=== PATIENT | male | born 1950 | race African-American/Black ===

== ENCOUNTER 2017-04-25 17:12 | Inpatient (IN) | payer OTHER ==
[~2017-04-25] VITALS: Ht 177.8 cm; Wt 94.8 kg
[~2017-04-25 17:12] MED LIST: ACET-2869 GT; ACET-9645 GT; ASCO500S14 GT; ATOR20TA GT; ATRN NEB; BISA10SU1 RC; CAR30 GT; CARV12.5 GT; CHOL400T7 GT; COL100L GT; COM25S RC; FERR75LI22 GT; INSU100S5 SUBQ; LANS30EC3 GT; LANTUS SUBQ; MAGN400S60 GT; MEDI30SO GT; MIRABULK GT; MULT15LI1 GT; NA P135N9 RC; POLY15SO48 OP; PREOS OP; PRON NEB; VITA100032 GT; [UNRECOGNIZED DRUG - CODE] GT; [UNRECOGNIZED DRUG - CODE] GT; [UNRECOGNIZED DRUG - CODE] GT
[2017-04-25 17:19] VITALS: BP 120/77
--- NOTE | 2017-04-25 17:26 | NUR ---
PATIENT BIBA DUE TO SZ. PER EMS PT HAD A TONIC CLONIC SZ THAT LASTED FOR 10 MINUTES.PT HAS A HX OF HTN;DM;PT IS NON VERBAL;HAS TRACHEOSTOMY/COLOSTOMY AND G TUBE; PATIENT POSITIONED FOR COMFORT; HOB ELEVATED; BEDRAILS UP X2; BED DOWN. ALL MONITORS IN PLACED;ER MD MADE AWARE OF PT STATUS.
[2017-04-25] MEDS ORDERED: ALPH300C GT (17:40)
[2017-04-25] MEDS ORDERED: PHEN100C3 GT (17:40)
[2017-04-25] MEDS ORDERED: FLOR250 GT (17:40)
[2017-04-25] MEDS ORDERED: levETIRAcetam 1,000 MG in NACL 0.9% 100 ML IV ONE (17:40)
[2017-04-25] MEDS ORDERED: VITB6I GT (17:40)
[2017-04-25] MEDS ORDERED: CLOP75TA26 GT (17:40)
[2017-04-25] MEDS ORDERED: CYAN250013 GT (17:40)
[2017-04-25] MEDS ORDERED: levETIRAcetam 100 MG/ML VIAL IV ONE (17:52)
--- NOTE | 2017-04-25 18:00 | NUR ---
PT HAD A SZ EPISODE;CHARGE NURSE AND ER MD NOTIFIED;SAFETY MEASURES DONE;OXYGENATION INSTITUTED;
[2017-04-25] MEDS ORDERED: LORazepam 2 MG/ML VIAL ONE (18:07)
[2017-04-25] MEDS ORDERED: LORazepam 2 MG/ML VIAL IVP ONE (18:10)
[2017-04-25 18:37] LABS: BASOPHILS # (AUTO) 0.3 K/uL (0.00-0.22); BASOPHILS % (AUTO) 3.2 % (0.0-2.0); EOSINOPHILS # (AUTO) 0.1 K/uL (0-0.4); HEMATOCRIT 36.5 % (36-52); HEMOGLOBIN 12.1 g/dL (12.0-18.0); LYMPHOCYTES # (AUTO) 1.3 K/uL (2.0-11.5); LYMPHOCYTES % (AUTO) 14.3 % (20.5-51.1); MEAN CORPUSCULAR HEMOGLOBIN 27 pg (27-31); MEAN CORPUSCULAR HGB CONC 33 g/dL (33-37); MEAN CORPUSCULAR VOLUME 82 fL (80-94); MONOCYTES # (AUTO) 0.4 K/uL (0.8-1.0); MONOCYTES % (AUTO) 4.1 % (1.7-9.3); NEUTROPHILS # (AUTO) 7.2 K/uL (1.8-7.7); NEUTROPHILS % (AUTO) 77.4 % (42.2-75.2); PLATELET COUNT (AUTO) 240 K/uL (140-450); RED BLOOD CELL COUNT(AUTO) 4.46 MIL/uL (4.20-6.10); RED CELL DISTRIBUTION WIDTH 12.9 % (11.6-13.7); WHITE BLOOD COUNT (AUTO) 9.3 K/uL (4.8-10.8)
[2017-04-25 18:38] LABS: ANION GAP 14.2 (8-16); CARBON DIOXIDE 28.2 mmol/L (21-32); CHLORIDE 98 mmol/L (98-107); CREATININE 1.5 mg/dL (0.7-1.3); GFR ARICAN-AMERICAN 60 mL/min (>90); GLUCOSE 252 mg/dL (74-106); POTASSIUM 4.4 mmol/L (3.5-5.1); SODIUM SERUM 136 mmol/L (136-145); UREA NITROGEN, BLOOD 31 mg/dL (7-18)
[2017-04-25 18:45] LABS: ALBUMIN 3.1 g/dL (3.4-5.0); ASPARTATE AMINOTRANSFERASE 28 U/L (15-37); TOTAL BILIRUBIN 0.1 mg/dL (0.0-1.0); VALPROIC ACID < 3 ug/ml (50-100)
[2017-04-25 18:46] LABS: PHENYTOIN (DILANTIN) 9.6 ug/ml (10.0-20.0)
--- NOTE | 2017-04-25 19:10 | NUR ---
CHARGE NURSE AND I TRIED TO PUT CATHETER TO PT 3 X BUT NOT SUCCESSFUL;ER NOTIFIED;
--- NOTE | 2017-04-25 19:24 | NUR ---
Pt report given to AKI CALDWELL. Transfer of care at this time.
[2017-04-25] MEDS ORDERED: PHENYTOIN 1,000 MG in NACL 0.9% 100 ML IV ONE (19:25)
--- NOTE | 2017-04-25 19:26 | NUR ---
PT ALSEEP, ON MONITOR, SLIGHTY TACHY, NO OTHER S/S OF DISTRESS NOTED AT THE MOMENT.
[2017-04-25] MEDS ORDERED: PHENYTOIN 250 MG/5 ML VIAL IV ONE (19:30)
[2017-04-25 20:06] LABS: APPEARANCE,URINE CLOUDY (CLEAR); BILIRUBIN,URINE 1+ (NEGATIVE); BLOOD, URINE 3+ (NEGATIVE); COLOR,URINE YELLOW (YELLOW); LEUKOCYTE ESTERASE ,URINE 3+ (NEGATIVE); NITRITE, URINE NEGATIVE (NEGATIVE); PH,URINE 7.5 (5.0-9.0); UGLUCOSE NEGATIVE (NEGATIVE)
[2017-04-25] MEDS ORDERED: cefTRIAXone 2,000 MG in DEXTROSE 5% 100 ML IV ONE (20:15)
[2017-04-25 20:16] LABS: RBC,URINE TOO NUMEROUS TO COUN /HPF (0-5)
[2017-04-25] MEDS ORDERED: cefTRIAXone 2,000 MG VIAL ONE (20:23)
--- NOTE | 2017-04-25 21:00 | NUR ---
PATIENT TRANSFERRED FROM ER TO ROOM 124A ON 4LPM VIA T=PIECE AND THEN PLACED ON 35% AEROSOL MIST VIA T-PIECE. PATIENT HAS PORTEX 7 CUFFLESS TRACH NO SOB/RESP DISTRESS DURING TRANSPORT. HR 97, SAO2 100% RR 20BPM
--- NOTE | 2017-04-25 21:04 | NUR ---
PT TRASFERED TO TELEMETRY ROOM 124B, ACCOMPANIED BY RN AND EMT.
--- NOTE | 2017-04-25 21:14 | NUR ---
REPORT GIVEN TO AKI ENGLAND AT BEDSIDE
[2017-04-25 21:20] VITALS: BP 119/70
--- NOTE | 2017-04-25 21:20 | NUR ---
RECEIVED PT FROM ER VIA [employer]. PT EYES CLOSED, APHASIC. PT HAS TRACH. RT PLACED PT ON 35% AEROSOL MIST VIA T-PIECE. G-TUBE IN PLACE. COLOSTOMY BAG INTACT WITH BROWN SOFT STOOL. NO SEIZURES NOTED. NO S/S OF DISTRESS. SAFETY, ASPIRATION AND SEIZURE PRECAUTION IN PLACE. WILL CONTINUE TO MONITOR.
--- NOTE | 2017-04-25 23:05 | NUR ---
REPOSITIONED PT Q2H. SCD'S APPLIED. NO SEIZURE ACTIVITY NOTED. SAFETY AND SEIZURE PRECAUTION IN PLACE.
[2017-04-26] VITALS: BP 111/72
--- NOTE | 2017-04-26 00:20 | NUR ---
CALLED DR. MARQUES. RECEIVED TEL ORDERS. ORDERS NOTED AND WILL CARRY OUT.
--- NOTE | 2017-04-26 02:14 | NUR ---
CHECKED GT RESIDUAL 5ML. STARTED TF DIABETISOURCE ORDERED. FEEDING TOLERATED WELL. ASPIRATION,FALL AND SEIZURE PRECAUTION IN PLACE. WILL CONTINUE TO MONITOR.
[2017-04-26 04:00] VITALS: BP 127/83
--- NOTE | 2017-04-26 04:21 | NUR ---
PT EYES OPEN BUT DOESN'T FOLLOW COMMANDS. COLOSTOMY BAG LEAKED. CLEANED PT AND CHANGED COLOSTOMY BAG. REPOSITIONED PT. PT TOLERATING FEEDING WELL. SEIZURE, SAFETY AND ASPIRATION PRECAUTION IN PLACE.
--- NOTE | 2017-04-26 06:10 | NUR ---
PT RESTING IN BED WITH EYES CLOSED. NO S/S OF DISTRESS. NO SEIZURE ACTIVITY NOTED. PT REPOSITIONED Q2H. NO S/S OF PAIN. SAFETY, SEIZURE AND ASPIRATION PRECAUTION IN PLACE.
[2017-04-26 06:32] LABS: BASOPHILS % (AUTO) 0.4 % (0.0-2.0); EOSINOPHILS % (AUTO) 0.5 % (0.0-4.0); HEMATOCRIT 31.4 % (36-52); HEMOGLOBIN 10.7 g/dL (12.0-18.0); LYMPHOCYTES # (AUTO) 1.7 K/uL (2.0-11.5); LYMPHOCYTES % (AUTO) 18.9 % (20.5-51.1); MEAN CORPUSCULAR HEMOGLOBIN 28 pg (27-31); MEAN CORPUSCULAR HGB CONC 34 g/dL (33-37); MEAN CORPUSCULAR VOLUME 83 fL (80-94); MONOCYTES # (AUTO) 1.2 K/uL (0.8-1.0); MONOCYTES % (AUTO) 12.9 % (1.7-9.3); NEUTROPHILS # (AUTO) 6.2 K/uL (1.8-7.7); NEUTROPHILS % (AUTO) 67.3 % (42.2-75.2); PLATELET COUNT (AUTO) 192 K/uL (140-450); RED CELL DISTRIBUTION WIDTH 12.6 % (11.6-13.7); WHITE BLOOD COUNT (AUTO) 9.1 K/uL (4.8-10.8)
[2017-04-26 06:39] LABS: ALBUMIN 2.7 g/dL (3.4-5.0); ANION GAP 9.4 (8-16); CARBON DIOXIDE 30.8 mmol/L (21-32); CREATININE 1.4 mg/dL (0.7-1.3); POTASSIUM 4.2 mmol/L (3.5-5.1); TOTAL BILIRUBIN 0.2 mg/dL (0.0-1.0)
--- NOTE | 2017-04-26 07:10 | NUR ---
ENDORSED PT TO DAY SHIFT NURSE. PT IN STABLE CONDITION.
--- NOTE | 2017-04-26 07:30 | NUR ---
RECEIVED PT REPORT FROM AGRICULTURAL APPRAISER NURSE. PT OPENS EYES SPONTANEOUSLY, APHASIC, DOES NOT FOLLOW COMMAND. PT HAS TRACH, FIO2 35% AEROSOL MIST VIA T-PIECE. IV NOTED TO THE LEFT AC, 20G, PATENT AND INTACT, SL. G-TUBE IN PLACE. COLOSTOMY BAG INTACT, NO STOOL NOTED AT THIS TIME. HEALING SACRAL WOUND NOTED TO THE SACRAL. NO SEIZURES NOTED. NO S/S OF DISTRESS. NO EDEMA NOTED. BLE/BUE SEVERE WEAKNESS. SAFETY, ASPIRATION AND SEIZURE PRECAUTION IN PLACE. WILL CONTINUE TO MONITOR. Addendum: 04/26/17 at 1241 by Saad Hall RN DIABETISOURCE RUNNING AT 50ML/HR, RESIDUAL 0ML.
[2017-04-26 08:00] VITALS: BP 134/76
[2017-04-26] MEDS ORDERED: SODIUM PHOSPHATE 118 ML ENEM RC PRN (08:30)
[2017-04-26] MEDS ORDERED: PROCHLORPERAZINE 25 MG SUPP RC PRN (08:30)
[2017-04-26] MEDS ORDERED: HYDROcodone/APAP 7.5/325 MG 1 TAB GT PRN (08:30)
[2017-04-26] MEDS ORDERED: ACETAMINOPHEN 650 MG/20.3 ML UDC GT PRN (08:30)
[2017-04-26] MEDS ORDERED: DOCUSATE 100 MG/10 ML UDC GT PRN (08:30)
[2017-04-26] MEDS ORDERED: BISACODYL 10 MG SUPP RC PRN (08:30)
[2017-04-26] MEDS ORDERED: MAGNESIUM HYDROXIDE 2400 MG/30 ML UDC GT PRN (08:30)
[2017-04-26] MEDS ORDERED: CARVEDILOL 12.5 MG TAB GT SCH (09:00)
[2017-04-26] MEDS ORDERED: LACTOBACILLUS REUTERI GT SCH (09:00)
[2017-04-26] MEDS ORDERED: POLYETHYLENE GLYCOL 17 GM/PKT GT SCH (09:00)
[2017-04-26] MEDS ORDERED: HYDROcodone/APAP 5/325 MG 1 TAB TAB GT SCH (09:00)
[2017-04-26] MEDS ORDERED: CYANOCOBALAMIN 500 MCG GT SCH (09:00)
[2017-04-26] MEDS ORDERED: ALPHA LIPOIC ACID 300 MG GT SCH (09:00)
[2017-04-26] MEDS ORDERED: FIBER GT SCH (09:00)
[2017-04-26] MEDS ORDERED: AMINO ACIDS GT SCH (09:00)
[2017-04-26] MEDS ORDERED: [UNRECOGNIZED DRUG - OTHER] GT SCH (09:00)
[2017-04-26] MEDS ORDERED: CLOPIDOGREL 75 MG TAB GT SCH (09:00)
[2017-04-26] MEDS ORDERED: LANSOPRAZOLE 30 MG CAPDR GT SCH (09:00)
[2017-04-26] MEDS ORDERED: levETIRAcetam 100 MG/ML ORASYR GT SCH (09:00)
[2017-04-26] MEDS ORDERED: NON-FORMULARY ITEM (Saccharomyces Boulardii* (Florastor*) 250 MG) GT SCH (09:00)
[2017-04-26] MEDS ORDERED: prednisoLONE 1% OP 5 ML BTL RIGHT EYE SCH (09:00)
[2017-04-26] MEDS ORDERED: PROTEIN HYDR GT SCH (09:00)
[2017-04-26] MEDS ORDERED: POLYVINYL ALCOHOL 1.4% OP 15 ML SOL BOTH EYES SCH (09:00)
[2017-04-26] MEDS ORDERED: ATORVASTATIN 20 MG TAB GT SCH (09:00)
[2017-04-26] MEDS ORDERED: PHENYTOIN 100 MG/4 ML UDC GT SCH (09:00)
[2017-04-26] MEDS ORDERED: VITAMIN A GT SCH (09:00)
[2017-04-26] MEDS ORDERED: NON-FORMULARY ITEM (Ferrous Sulfate 330 MG) GT SCH (09:00)
[2017-04-26] MEDS ORDERED: CHOLECALCIFEROL GT SCH (09:00)
[2017-04-26] MEDS ORDERED: VITAMIN D 400 IU TAB GT SCH (09:05)
[2017-04-26] MEDS ORDERED: CYANOCOBALAMIN 1,000 MCG TAB GT SCH (09:05)
--- NOTE | 2017-04-26 09:35 | NUR ---
SPOKE WITH PT'S MOTHER, MADE HER AWARE THAT PT WILL BE TRANSFERRED BACK TO [facility] PER [place] MARQUES'S ORDER. SHE VERBALIZED UNDERSTANDING.
--- NOTE | 2017-04-26 09:45 | NUR ---
G TUBE RESIDUAL 0ML. MEDS GIVEN THROUGH G-TUBE. PT TOLERATED WELL.
--- NOTE | 2017-04-26 09:57 | NUR ---
CALLED [facility] [phone], SPOKE WITH BASIL AND STATED PT CAN GO BACK TO ROOM HIS ROOM 3-C BUT THEIR MAXIMUM ACCEPTED LEVEL OF AEROSOL MIST ON A T-BAR IS 3 LITERS NOT 6 LITERS. SPOKE WITH RESPIRATORY THERAPIST NICOLE AND STATED TO DECREASE IT DOWN TO 3 LITERS AND WILL SEE IF PT CAN TOLERATE IT. GARRETT PRABHAKAR IN CHARGE NOTIFIED.
--- NOTE | 2017-04-26 10:10 | NUR ---
PT URINATED, PT WAS CLEANED WITH WIPES AND PAT DRY. CHUX AND GOWN CHANGED. REPOSITION PT TO THE RIGHT LATERAL POSITION.
--- NOTE | 2017-04-26 10:22 | NUR ---
DISCHARGE TO [facility] REMOVED FROM COOL AEROSOL PLACED ON SUPPLEMENTAL OXYGEN AT 3 LPM TO TRACH WITH POSSIBLE TITRATION TO 2 LPM PSYCHIATRIC NURSE TO MONITOR Addendum: 04/26/17 at 1031 by Geo Hodge RT GARRETT/AKI HERNANDEZ
--- NOTE | 2017-04-26 10:30 | NUR ---
PIC OF HEALING SACRAL WOUND TAKEN.
--- NOTE | 2017-04-26 10:31 | NUR ---
TITRATED FIO2 TO 2LPM TO MAXX TUCKER/RN AWARE
--- NOTE | 2017-04-26 10:42 | NUR ---
MEDICATION WAS GIVEN AT 0950. RT CLOSED THE [employer] PROGRAM BEFORE IT WAS SAVED. MANUALLY ENTERED MEDICATION ADMINISTRATION.
--- NOTE | 2017-04-26 10:49 | NUR ---
PT IS ON 2L VIA T-PIECE, NO S/S OF DISTRESS. O2 SAT 98%.
--- NOTE | 2017-04-26 11:00 | NUR ---
SPOKE WITH LISANDRO FROM [facility], PT WILL BE PICKED UP AT 1145 HRS VIA [facility]. FACE SHEET AND MEDICARE FORM FAXED AND RECEIVED CONFIRMED BY LISANDRO. GARRETT PRABHAKAR NOTIFIED.
--- NOTE | 2017-04-26 11:20 | NUR ---
CALLED [facility], PT REPORT GIVEN TO BASIL. PT WILL GO TO ROOM 3C. ACCEPTING MD IS DR MARQUES.
[2017-04-26] MEDS ORDERED: ROC2I IV (11:36)
[2017-04-26] MEDS ORDERED: KEP500 GT (11:37)
--- NOTE | 2017-04-26 11:50 | NUR ---
[facility] IS HERE TO TRANSFER PT BACK TO [facility]. PT IS DISCHARGED PER DR MARQUES'S ORDER. PT IS TRANSFERRED WITH 2L O2 VIA TRACH, WITH TELE MONITOR. G-TUBE FEEDING STOPPED, CLOSED TO PT. COLOSTOMY BAG INTACT. IV TO THE LEFT AC, PATENT AND INTACT. PT SHOWED NO S/S OF ACUTE DISTRESS. PT IS IN STABLE CONDITION AND LEFT UNIT IN [facility]. DISCHARGE PAPER AND BELONGING WERE GIVEN TO EMT.
[2017-04-26] MEDS ORDERED: DILTIAZEM 30 MG TAB GT SCH (12:00)
[2017-04-26] MEDS ORDERED: ALBUTEROL 0.083% 2.5 MG/3 ML NEBU INH SCH (13:00)
[2017-04-26] MEDS ORDERED: IPRATROPIUM 0.02% 0.5 MG/2.5 ML NEBU INH SCH (13:00)
[2017-04-26] MEDS ORDERED: cefTRIAXone 2,000 MG in DEXTROSE 5% 100 ML IV SCH (21:00)
[2017-04-26] MEDS ORDERED: INSULIN LANTUS 100 UNITS/ML 10 ML VIAL SUBQ SCH (21:00)
[2017-04-26] MEDS ORDERED: FERROUS SULFATE 300 MG/5 ML UDC GT SCH (21:00)
[2017-04-26] MEDS ORDERED: LACTOBACILLUS RHAMNOSUS GG 1 EACH CAP GT SCH (21:00)
[2017-04-27] MEDS ORDERED: CYANOCOBALAMIN 1,000 MCG TAB GT SCH (09:00)
[2017-04-27] MEDS ORDERED: VITAMIN D 400 IU TAB GT SCH (09:00)
--- NOTE | 2017-04-28 08:39 | NUR ---
WOUND EVALUATION NOT DONE, PT. DISCHARGED
== END 2017-04-26 11:55 | disposition home or self-care (01) | DRG 101 ==
LOC: MED 17:12 → MTU 20:55
PROVIDERS: ADMIT Family Medicine; ATTEND Family Medicine
DX: G40.909 Epilepsy, unspecified, not intractable, without status epilepticus (principal); L89.150 Pressure ulcer of sacral region, unstageable; J96.10 Chronic respiratory failure, unspecified whether with hypoxia or hypercapnia; E11.22 Type 2 diabetes mellitus with diabetic chronic kidney disease; G93.89 Other specified disorders of brain; E44.1 Mild protein-calorie malnutrition; N39.0 Urinary tract infection, site not specified; H33.21 Serous retinal detachment, right eye; Z93.0 Tracheostomy status; J32.0 Chronic maxillary sinusitis; J44.9 Chronic obstructive pulmonary disease, unspecified; H70.93 Unspecified mastoiditis, bilateral; E78.2 Mixed hyperlipidemia; I12.9 Hypertensive chronic kidney disease with stage 1 through stage 4 chronic kidney disease, or unspecified chronic kidney disease; I25.10 Atherosclerotic heart disease of native coronary artery without angina pectoris; N18.3 Chronic kidney disease, stage 3 (moderate); Z86.73 Personal history of transient ischemic attack (TIA), and cerebral infarction without residual deficits; Z93.3 Colostomy status; Z85.46 Personal history of malignant neoplasm of prostate; Z68.30 Body mass index [BMI] 30.0-30.9, adult
CPT/HCPCS: 36415; 80053; 80185; 81001; 82948; 85025; 87081; 87086; 87186; 94640; 96365; 96367; 96375; 99285; C1758; J0696; J1165; J1815; J1953; J2060; J3420; J7030; J7060; J7613; J7644

== ENCOUNTER 2017-12-01 17:19 | Inpatient (IN) | payer OTHER ==
[~2017-12-01] VITALS: Ht 180.3 cm; Wt 88.0 kg
[~2017-12-01 17:19] MED LIST changes: +ALPH300C GT; +CLOP75TA26 GT; +CYAN250013 GT; +FLOR250 GT; +KEP500 GT; +PHEN100C3 GT; +ROC2I IV; +VITB6I GT
--- NOTE | 2017-12-01 17:21 | NUR ---
PATIENT BIBA TO BED 10 AT THIS TIME.
[2017-12-01 17:25] VITALS: BP 139/74
--- NOTE | 2017-12-01 17:25 | NUR ---
67YO M BIBA FOR G-TUME DISLODGEMENT AT 1430. PER EMS PT IS NON VERBAL, AND RESPOND WITH YES AND NO, PT DENIES ANY SOB OR PAIN AT THIS TIME. PT WITH COLLERED TRACH IN PLACE. VSS; PATIENT POSITIONED FOR COMFORT; HOB ELEVATED; BEDRAILS UP X2; BED DOWN. ER MD MADE AWARE OF PT STATUS.
--- NOTE | 2017-12-01 17:40 | NUR ---
PT FROM [facility]
--- NOTE | 2017-12-01 18:40 | NUR ---
TRIED SEVERAL TIMES TO INSERT IV, UNABLE TO INSERT SUCCESFULLY.
--- NOTE | 2017-12-01 19:12 | NUR ---
TRANSFERRED PT TO TELE 124 B, REPORT GIVEN TO GAURAV PRABHAKAR . PM CHARGE NURSE YOLY WENT TO TELE 124B TO INSERT IV.
--- NOTE | 2017-12-01 19:20 | NUR ---
ADMITTED PT FROM ER VIA GURNEY. DX: G-TUBE DISLODGEMENT. PT IS NON-VERBAL. PT HAS GENERALIZED WEAKNESS. PT HAS TRACH TO O2 AT 2L/MIN. NO S/S OF PAIN. NO S/S OF RESP DISTRESS. COLOSTOMY BAG IN PLACE. IV TO RIGHT WRIST #22G, PATENT AND INTACT. PHOTOS TAKEN FROM G-TUBE SITE AND HEALED PRESSURE ULCER TO SACRAL AREA. FALL AND SEIZURE PRECAUTION IN PLACE.
[2017-12-01 19:30] VITALS: BP 144/69
[2017-12-01] MEDS ORDERED: DEXTROSE 50% 50 ML SYR IVP PRN (20:40)
--- NOTE | 2017-12-01 20:40 | NUR ---
SPOKE WITH DR. MARQUES ON THE PHONE AND RECEIVED ORDERS. DR. MARQUES ALSO ORDERED TO CALL AND ASK PHARMACIST IF WE CAN GIVE KEPPRA 500 MG AND DILANTIN 200 MG THRU IV SINCE PT HAS NO G-TUBE. WILL CALL PHARMACIST.
--- NOTE | 2017-12-01 20:50 | NUR ---
SPOKE WITH PHARMACIST RASHEEDA. PER RASHEEDA, SHE WILL CALL ME FOR KEPPRA AND DILANTIN ORDERS.
[2017-12-01] MEDS ORDERED: NACL 0.45% 1,000 ML IV SCH (21:00)
--- NOTE | 2017-12-01 21:00 | NUR ---
PT WAS CLEANED AND CHANGED BY AUTOMATED LOGISTICS SPECIALIST. TURNED AND REPOSITIONED Q2HRS. PT KEPT DRY AND COMFORTABLE.
--- NOTE | 2017-12-01 21:30 | NUR ---
CALLED PHARMACIST, SHE'S STILL TRYING TO FIGURE OUT THE DOSAGE AND ROUTE FOR KEPPRA AND DILANTIN.
--- NOTE | 2017-12-01 23:05 | NUR ---
SPOKE WITH PHARMACIST RASHEEDA. PER RASHEEDA, GIVE DILANTIN 200 MG IVP NOW TO GIVE IT FOR 5 MINS THEN DILANTIN 200 MG IVP Q12H TO GIVE IT FOR 5 MINS STARTING TOMORROW AT 0900. KEPPRA 500 MG IN NS 100 ML NOW TO RUN OVER 15 MINS THEN KEPPRA 500 MG IN NS 100ML Q12H TO RUN OVER 15 MINS STARTING TOMORROW 0900. DR. MARQUES MADE AWARE.
[2017-12-02] VITALS: BP 149/63
[2017-12-02] MEDS ORDERED: levETIRAcetam 500 MG in NACL 0.9% 100 ML IV SCH ×2
[2017-12-02] MEDS ORDERED: PHENYTOIN 100 MG/2 ML VIAL IVP SCH
[2017-12-02] MEDS ORDERED: levETIRAcetam 100 MG/ML VIAL IV ONE (00:04)
--- NOTE | 2017-12-02 00:43 | NUR ---
BLOOD SUGAR CHECKED 69. CALLED DR. MARQUES AND MADE AWARE OF PT'S BLOOD SUGAR. MD ORDER TO CHANGE IVF TO D5 1/2NS AT 90 ML/HR.
[2017-12-02] MEDS: DEXT 5% / NACL 0.45% 1,000 ML IV SCH ×3 (01:07→13:27)
--- NOTE | 2017-12-02 03:17 | NUR ---
PT AWAKE. NO S/S OF PAIN OR SOB. PT WAS ASKED IF HE'S OKAY, PT NODDED HIS HEAD.
[2017-12-02 04:00] VITALS: BP 119/53
--- NOTE | 2017-12-02 05:00 | NUR ---
PT WAS CLEANED AND CHANGED. REPOSITIONED PT FOR COMFORT. SUCTION EXCESSIVE SECRETIONS. NO S/S OF RESP DISTRESS. PT KEPT DRY AND COMFORTABLE. SCD'S IN PLACE.
--- NOTE | 2017-12-02 06:00 | NUR ---
BLOOD SUGAR CHECKED 96. IVF D5 1/2NS AT 90 ML/HR INFUSING WELL.
[2017-12-02] MEDS: BLOOD GLUCOSE MONITORING 1 DEV DEV FS SCH ×4 (06:29→18:09)
--- NOTE | 2017-12-02 07:25 | NUR ---
ENDORSED PT TO DAY SHIFT NURSE. PT IN STABLE CONDITION.
--- NOTE | 2017-12-02 07:26 | NUR ---
REPORT FROM CORDWOOD CUTTER NURSE, PT AWAKE RESTING IN BED IN NAD, RESP EVEN UNLABORED WITH TRACH TO O2 AT 2L, SKIN WARM DRY COLOR WNL, PLAN OF CARE REVIEWED, APPEARS IN NO PAIN OR DISCOMFORT AT THIS TIME, ALL SAFETY MEASURES IN PLACE, WILL CONTINUE TO MONITOR.
[2017-12-02 08:00] VITALS: BP 132/63
[2017-12-02] MEDS: PHENYTOIN 100 MG/2 ML VIAL IVP SCH ×2 (08:24→22:01)
[2017-12-02] MEDS: levETIRAcetam 500 MG in NACL 0.9% 100 ML IV SCH ×2 (08:24→22:01)
--- NOTE | 2017-12-02 08:54 | NUR ---
PATIENT HAS BEEN SCREENED AND CATEGORIZED HIGH NUTRITION RISK. PATIENT WILL BE SEEN WITHIN 1-2 DAYS OF ADMISSION. 12/02/17 12/03/[address]
--- NOTE | 2017-12-02 08:54 | NUR ---
RECIVED PT ON 2LPM VIA TRACH COLLAR BREATH SOUNDS PRESENT BILAT SCATTERD RALES SXN PT WITH SMALL AMT DIMAS SECS TRACH SITE SECURE WILL CONTINUE T MONITOR PT
--- NOTE | 2017-12-02 10:25 | NUR ---
WOUND CARE NURSE AT BEDSIDE, PT CLEANED, LINEN/GOWN CHANGED, POSITION CHANGED.
--- NOTE | 2017-12-02 10:53 | NUR ---
WOUND CARE EVALUATION NOTE: REASON FOR EVALUATION: LOW ADELA SCORE SKIN ASSESSMENT DONE WITH PRIMARY RN AT 10:30 AM WITH THIS 67 Y/O MALE PT ADMITTED FROM [facility] TO [facility] WITH INITIAL DX GT MALFUNCTION. PAST MEDICAL HX INCLUDES HTN, DM, CHRONIC TRACH, SEIZURE, CAD AND G-TUBE. ALL ABOVE INFORMATION OBTAINED FROM ADMISSION H&P. LABS ARE WBC 9.1, H/H 10.7/31.4, GLUCOSE 225 AND ALBUMIN 2.7. PT UPPER AND LOWER EXTREMITIES STIFFNESS, SKIN IS WARM AND DRY, BLE FEW HAIR GROWTH, NO EDEMA. DORSAL PEDAL PULSES PRESENT AND NORMAL. CAPILLARY REFILLED < 2 SEC. X 10 TOES. INCONTINENT OF BLADDER. PLAN OF CARE DISCUSSED WITH PRIMARY RN. INTEGUMENTARY: -TRACH SITE GUI-STOMA SKIN DRY AND CLEAN. SKIN INTACT. -GT SITE GUI-STOMA SKIN EROSION AND ERYTHEMA WITH 3X3CM. OOZING SMALL AMOUNT OF STOMACH FLUIDS CONTENT AND MUCUS -ABDOMEN DISSENTED, NON-TENDER TO TOUCH. MULTIPLE HEALED OLD SCARS. -LLQ ABD. COLOSTOMY FUNCTIONING WITH MODERATE AMOUNT OF STOOL OUTPUT, SKIN IN TACT. -OLD HEALED SCARS TO SACROCOCCYX RECOMMENDATIONS: -GT PLACEMENT PENDING -KEEP SKIN DRY AND CLEAN AT ALL TIMES, PLEASE CHECK Q2H AND PRN FOR INCONTINENCY OF BLADDER. -CLEANSE GT SITE GUI STOMA SKIN EROSION WITH WOUND CARE SOLUTION, PAT DRY, APPLY Z GUARD TO GT-SITE GUI-STOMA SKIN BID AND COVER WITH SPLIT DRESSING , PLEASE CHANGE SPLIT GAUZE DRESSING PRN IS SOILING. -APPLY HYDRAGUARD TO R/L GROINS EXTENDED TO PERINEUM BID AND PRN IF SOILING -APPLY FORM DRESSING TO SACROCOCCY Q7 DAYS AND PRN IF SOILING PREVENTION PREVENTION -OFFLOAD BILATERAL HEELS BY PLACING PILLOWS UNDER CALVES UNLESS OTHERWISE CONTRAINDICATED -PRESSURE REDISTRIBUTION SURFACE THERAPY -TURN AND REPOSITION Q2H, OFFLOAD SACRALCOCCYX BY TURNING RIGHT AND LEFT -CONTINUE TO FOLLOW RD RECOMMENDATIONS ALL ABOVE RECOMMENDATIONS DISCUSSED WITH PRIMARY RN. WILL FOLLOW UP PT Q7-10 DAYS. PLEASE CONTACT WOUND CARE NURSE FOR ANY QUESTION AND CHANGE OF WOUND CONDITION.
--- NOTE | 2017-12-02 11:00 | NUR ---
PT. MOVED TO WOUND CARE BED
[2017-12-02 12:00] VITALS: BP 103/53
[2017-12-02] MEDS ORDERED: ALBUTEROL SULFATE/IPRATROPIU 3 ML SOL IH PRN (12:10)
--- NOTE | 2017-12-02 13:03 | NUR ---
DR GARCIA AT BEDSIDE. KEEP GT TUBE CLEAN AND DRY AT ALL TIMES.ONLY USE 4X4 GAUZE TO LOOSELY COVER PER DR. PERLA.
--- NOTE | 2017-12-02 13:24 | NUR ---
Cash Register Servicer Note: I reviewed POLST, POLST indicates patient has an existing Advance Directive. I called and spoke with David from [facility] ; per David, patient is on a 7 day bed hold. I requested her to fax me patient's Advance Directive, I provided her with our fax number.
[2017-12-02] MEDS: HYDRAGUARD CREAM TP SCH (13:25)
[2017-12-02] MEDS: Z-GUARD PASTE TP SCH (13:26)
[2017-12-02] MEDS: ALBUTEROL SULFATE/IPRATROPIU 3 ML SOL IH SCH ×2 (13:37→19:46)
--- NOTE | 2017-12-02 14:02 | NUR ---
CHARGE NURSE KAVIN SPOKE WITH DR MARQUES REGARDING LABS, NO LAB TESTS NEEDED PER DR MARQUES.
--- NOTE | 2017-12-02 14:30 | NUR ---
RADIOLOGY AT BEDSIDE FOR KUB
--- NOTE | 2017-12-02 14:50 | NUR ---
GT DRESSING CHANGED AGAIN, PT CLEANED, LINEN AND GOWN CHANGED, POSITION CHANGED.
--- NOTE | 2017-12-02 15:09 | NUR ---
12/02/17 RD INITIAL ASSESSMENT COMPLETED PLEASE REFER TO NUTRITION ASSESSMENT UNDER CARE ACTIVITY FOR ESTIMATED NUTRITIONAL NEEDS. 1. WHEN PATIENT IS MEDICALLY STABLE RECOMMEND NEPRO WITH CARB STEADY AT 40 ML/HR WATER FLUSH 160 Q4H OR PER MD. - THIS WILL PROVIDE 1728 KCAL AND 78 G PROTEIN AND 1728 ML WATER. THIS WILL MEET 88% OF PTS ESTIMATED KCAL AND 100% OF HIS PROTEIN NEEDS. 2. RD TO FOLLOW-UP 2-3 DAYS, HIGH RISK GALINA ANDERSEN, RD
[2017-12-02 16:00] VITALS: BP 116/62
--- NOTE | 2017-12-02 19:26 | NUR ---
REPORT GIVEN TO GOPHERMAN NURSE, PT IN STABLE CONDITION.
--- NOTE | 2017-12-02 19:27 | NUR ---
RECEIVED REPORT FROM AM SHIFT NURSE @ PT'S BEDSIDE. PT AWAKE, NONVERBAL, NO SIGNS OF DISTRESS.
[2017-12-02 20:00] VITALS: BP 136/65
--- NOTE | 2017-12-02 21:30 | NUR ---
GUI CARE PROVIDED. PT WITH BLADDER INCONTINENT EPISODE. PT KEPT CLEAN & DRY, REPOSITIONED. NO SIGNS OF DISTRESS.
[2017-12-03] VITALS (7 sets, daily range): BP systolic 108–136; BP diastolic 53–81
--- NOTE | 2017-12-03 00:15 | NUR ---
RT WRIST IV INFILTRATED. RT HAND WITH SWELLING. IVF STOPPED, RUE ELEVATED WITH PILLOW. REINITIATED IVF TO NEW LEFT WRIST IV ACCESS. PT SHOWS NO SIGNS OF DISTRESS. GT STOMA DRESSING CHANGED D/T MOD GREENISH YELLOW DRAINAGE. Z-GUARD APPLIED TO PERISTOMA. WILL CONTINUE TO MONITOR.
[2017-12-03] MEDS: BLOOD GLUCOSE MONITORING 1 DEV DEV FS SCH ×5 (00:24→23:17)
[2017-12-03] MEDS: ALBUTEROL SULFATE/IPRATROPIU 3 ML SOL IH SCH ×4 (01:23→20:07)
[2017-12-03] MEDS: HYDRAGUARD CREAM TP SCH ×2 (01:33→13:47)
[2017-12-03] MEDS: Z-GUARD PASTE TP SCH ×2 (01:34→13:47)
--- NOTE | 2017-12-03 04:52 | NUR ---
PT NOTED WITH RESPIRATORY DISTRESS, O2SAT 37% VIA PULSE OX, HOB ELEVATED @ 45DEG, O2 @ 2LPM VIA TRACH IN PLACE. TRACH SUCTIONED WITH MOD CREAM YELLOW DRAINAGE. PT CONT TO HAVE RESPIRATORY DISTRESS WITH USE OF ACCESSORY MUSCLES. VS: 108/61, P119, T99.0, R30, [id number]% FINGERSTICK GLUCOSE 223. CAD DESIGNER DRAFTER PAGED.
--- NOTE | 2017-12-03 04:59 | NUR ---
BAGGAGE AGENT SUPERVISOR CALLED, THAT PT DESAT.AND PT HEAVY WORK OF BREATHING.SX PT LARGE AMOUNT OF HARDWICK THICK SECRETION AND STAT HHN TX PRN GIVEN. PT SAT IMPROVED TO 100%AND WOB IMPROVED.
--- NOTE | 2017-12-03 05:00 | NUR ---
RRTEAM ARRIVED @ 0455 (RT, NURSE BIOLOGIST AIDE, CHARGE NURSE, ER NURSE). TRACH LAVAGE & SUCTIONING DONE BY RT. PT O2SAT INCREASED TO 100% WITH O2 @ 10LPM VIA TRACH. PT RESPIRATORY EFFORT NORMAL POST SUCTIONING. CRYSTAL CALIBRATOR DEPARTED AT THIS TIME. HOB KEPT ELEVATED AT 45%. WILL CONTINUE TO MONITOR.
--- NOTE | 2017-12-03 07:05 | NUR ---
REPORT GIVEN AT BEDSIDE TO AM SHIFT NURSE.
--- NOTE | 2017-12-03 07:06 | NUR ---
REPORT RECEIVED FROM LINK TRAINER MAINTENANCE WORKER NURSE AT BEDSIDE FOR CONTINUITY OF CARE, PT AWAKE RESTING IN BED, RESP EVEN UNLABORED WITH TRACH TO O2 AT 2LPM, SKIN WARM DRY COLOR WNL, UPDATED BOARD, FLACC-0, IV SITE PATENT, ASYMPTOMATIC AND INTACT, INFUSING IV WELL. RIGHT ARM NONPITTING EDEMATOUS ELEVATED ON PILLOW, PATIENT'S COLOSTOMY INTACT. SAFETY, ISOLATION, AND SEIZURE PRECAUTIONS IN PLACE, BED IN LOWEST POSITION, BED ALARM ON, WILL CONTINUE TO MONITOR PATIENT.
--- NOTE | 2017-12-03 07:18 | NUR ---
DR. MARQUES IN TO SEE THE PATIENT. WILL WAIT FOR HIS UPDATED ORDERS.
--- NOTE | 2017-12-03 08:15 | NUR ---
RESPIRATORY THERAPIST IN WITH PATIENT. WILL WAIT FOR HER ASSESSMENT.
--- NOTE | 2017-12-03 09:43 | NUR ---
CALLED DR. MARQUES, INFORMED HIM ABOUT PATIENT'S CONDITION, NEW ORDERS IN FOR STAT CONSULT FROM [facility] DR. AHN. PAGED DR. AHN, WAITING FOR HIS CALL BACK.
--- NOTE | 2017-12-03 09:45 | NUR ---
PATIENT TACHYCARDIC AT 123, SPO2 97%, IN MILD RESPIRATORY DISTRESS. JUN FIELD FOR ASSISTANCE AND EVALUATION.
--- NOTE | 2017-12-03 09:47 | NUR ---
GOT CALL FROM AKI TITUS THAT PT IS SOB AND IN MILD DISTRESS. RN CALLED MD MARQUES AND PER MD MARQUES SAID [facility]. AKI TITUS PAGED AND WAITING FOR CALL BACK.
--- NOTE | 2017-12-03 09:49 | NUR ---
PT CURRENTLY ON 30% FIO2. SPO2 96% HR 114. SXN'D PT BUT PT NO SECRETIONS. STILL MONITORING PT.
--- NOTE | 2017-12-03 09:56 | NUR ---
PAGED [facility] AGAIN. STILL WAITING FOR MD CALL BACK.
[2017-12-03] MEDS: DEXT 5% / NACL 0.45% 1,000 ML IV SCH ×2 (10:01→18:14)
--- NOTE | 2017-12-03 10:11 | NUR ---
GOT CALL BACK FROM MD AHN. PER DR AHN TO PUT PT ON MECHANICAL VENTILATION. PT ON VENT WITH CHARTED SETTINGS. VENT CONNECTED TO RED OUTLET. ALARMS AUDIBLE. RN TACHO AT BEDSIDE. PT IS MORE CALM AND RELAXED. WILL CONTINUE TO MONITOR.
[2017-12-03] MEDS: PHENYTOIN 100 MG/2 ML VIAL IVP SCH ×2 (10:13→21:13)
[2017-12-03] MEDS: levETIRAcetam 500 MG in NACL 0.9% 100 ML IV SCH ×2 (10:16→21:12)
--- NOTE | 2017-12-03 10:16 | NUR ---
ORDERED MEDICATION GIVEN. PATIENT TOLERATED IT WELL. PATIENT RESTING IN BED, NO SIGNS OF DISTRESS OR SOB NOTED. O2 SATURATION 100% ON MECHANICAL VENTILATION. SAFETY, ISOLATION, AND SEIZURE PRECAUTION IN PLACE, CALL LIGHT WITHIN REACH, WILL CONTINUE TO MONITOR PATIENT.
[2017-12-03 10:54] LABS: BASOPHILS # (AUTO) 0.1 K/uL (0.00-0.22); BASOPHILS % (AUTO) 0.3 % (0.0-2.0); HEMATOCRIT 32.3 % (36-52); HEMOGLOBIN 10.5 g/dL (12.0-18.0); LYMPHOCYTES # (AUTO) 1.3 K/uL (2.0-11.5); MEAN CORPUSCULAR HEMOGLOBIN 27 pg (27-31); MEAN CORPUSCULAR HGB CONC 33 g/dL (33-37); MEAN CORPUSCULAR VOLUME 82.5 fL (80-94); MONOCYTES % (AUTO) 5.7 % (1.7-9.3); NEUTROPHILS # (AUTO) 15.9 K/uL (1.8-7.7); PLATELET COUNT (AUTO) 201 K/uL (140-450); RED BLOOD CELL COUNT(AUTO) 3.91 MIL/uL (4.20-6.10); RED CELL DISTRIBUTION WIDTH 14.1 % (11.6-13.7); WHITE BLOOD COUNT (AUTO) 18.3 K/uL (4.8-10.8)
[2017-12-03 11:17] LABS: ALBUMIN 2.7 g/dL (3.4-5.0); ANION GAP 9.2 (8-16); CREATININE 1.4 mg/dL (0.7-1.3); MAGNESIUM 1.5 mg/dL (1.8-2.4); POTASSIUM 4.2 mmol/L (3.5-5.1); TOTAL BILIRUBIN 0.3 mg/dL (0.0-1.0)
[2017-12-03] MEDS ORDERED: LORazepam 2 MG/ML VIAL IVP PRN (11:40)
--- NOTE | 2017-12-03 11:43 | NUR ---
RN IN WITH OLGA BELL TO CHANGED AND CLEAN PATIENT. STOMA DRESSING CHANGED, MODERATE YELLOW DRAINAGE NOTED. PATIENT SUCTIONED, MINIMAL SECRETIONS NOTED. PATIENT BECAME AGITATED AND STARTED THRASHING. PAGED DR. MARQUES FOR ATIVAN. ALSO UPDATED HIM ABOUT CHEST XRAY AND CBC AND BMP RESULTS. NEW ORDERS IN FOR 0.5 MG OF ATIVAN Q6H PRN FOR AGITATION, CBC, BMP AND CHEST XRAY FOR 12/04/17 AM, ZOSYN 3.375 IVPB Q6H, AND MAG RIDER 2GM FOR MAG LEVEL OF 1.5. RN VERBALIZED UNDERSTANDING. WILL CONTINUE TO MONITOR PATIENT.
[2017-12-03] MEDS ORDERED: MAG SULF 2000 MG/WATER PREMIX 50 ML IV SCH (12:00)
--- NOTE | 2017-12-03 12:02 | NUR ---
ABG DONE BY RT KUHN WITH NO INCIDENT.
[2017-12-03] MEDS: PIPER/TAZO 3.375GM/D5W PREMIX 50 ML IV SCH ×3 (12:18→23:43)
--- NOTE | 2017-12-03 12:44 | NUR ---
PT ON MECHANICAL VENTILATION. TRACHED WITH PORTEX 7 CUFFLESS. VENT CONNECTED TO RED OUTLET. ALARMS AUDIBLE. NO SOB OR DISTRESS NOTED. WILL CONTINUE TO MONITOR.
--- NOTE | 2017-12-03 12:57 | NUR ---
PATIENT AGITATED, PRN ATIVAN GIVEN. PATIENT TOLERATED IT. SAFETY, ISOLATION, AND SEIZURE PRECAUTION IN PLACE, WILL CONTINUE TO MONITOR PATIENT.
[2017-12-03] MEDS: INSULIN LISPRO SLIDING SCALE 100 UNITS/ML VIAL SUBQ PRN ×2 (13:00→17:10)
--- NOTE | 2017-12-03 13:42 | NUR ---
Quality Tester Note: I called and spoke with Tien from [facility] , I told him I had talked to David from their facility yesterday and requested for her to fax patient's Advance Directive to me and had not received documents. Per Tien, he will fax me Advance Directive, I provided him with fax number of case management dept. I received patient's Advance Directive documents that Tien from [facility] fax to me. I reviewed documents, documents indicate patient's Ness Bassett is patient's healthcare decision maker. I put documents in patient's chart.
--- NOTE | 2017-12-03 13:50 | NUR ---
PAGED DR LYNNE TO MAKE AWARE THAT WHEN PATIENT SLEEPS VT WILL DROP TO 100-200. PT HAS CUFFLESS TRACH.DR AHN CALLED AND PER DR AHN HE WILL COME IN AND EVALUATE PATIENT. PT IS CALM. CLEAR BREATH SOUNDS. SPO2 100% HR 97. NO SOB OR DISTRESS NOTED. WILL CONTINUE TO MONITOR PT.
--- NOTE | 2017-12-03 14:36 | NUR ---
DR PERLA IN TO SEE THE PATIENT. ORDERED FOR CONSENT TO BE OBTAINED FOR EGD WITH NEW PEG PLACEMENT. RN VERBALIZED UNDERSTANDING.
--- NOTE | 2017-12-03 15:15 | NUR ---
DR. AHN IN TO SEE THE PATIENT. STATES THAT PATIENT'S CURRENT SETTINGS ARE FINE. PATIENT O2 SATURATION IS 99-100%, HR 95-110. PATIENT TOLERATING VENTILATION WELL. NO DISTRESS OR SOB NOTED AT THE MOMENT, FLACC-0. PATIENT RESTING COMFORTABLY IN BED. NO NEED TO CHANGE ANY VENT SETTINGS. RN VERBALIZED UNDERSTANDING. WILL CONTINUE TO MONITOR PATIENT.
--- NOTE | 2017-12-03 15:45 | NUR ---
PATIENT CHANGED, PATIENT VOIDED, PATIENT CLEANED AND REPOSITIONED TO OFFLOAD PRESSURE AREAS AND FOR COMFORT. PATIENT TOLERATED IT WELL. NO SIGNS OF DISTRESS OR SOB NOTED ON CURRENT VENT SETTINGS. SAFETY, ISOLATION, AND SEIZURE PRECAUTIONS IN PLACE, BED ON LOWEST SETTING, CALL LIGHT WITHIN REACH, WILL CONTINUE TO MONITOR PATIENT.
--- NOTE | 2017-12-03 16:29 | NUR ---
DR AHN IN TO SEE PT. PER DR AHN WE DO NOT NEED TO CHANGE TRACH BECAUSE PT IS NOT IN DISTRESS AND MOVING GOOD AMOUNT OF AIR IN AND OUT WITH GOOD SPO2 AND HR. RN TACHO AWARE ALONG WITH CHARGE NURSE EWA. WILL CONTINUE TO MONITOR.
--- NOTE | 2017-12-03 16:30 | NUR ---
PT HAS NO SECRETIONS FOR SPUTUM SAMPLE. DR AHN AND AKI TITUS AWARE. WILL CONTINUE TO MONITOR.
--- NOTE | 2017-12-03 17:05 | NUR ---
ORDERED MEDICATION GIVEN. BLOOD SUGAR 186, COVERAGE GIVEN. PATIENT TOLERATED IT WELL. PATIENT RESTING IN BED, NO SIGNS OF DISTRESS OR SOB NOTED. O2 SATURATION 98% ON MECHANICAL VENTILATION. SAFETY, ISOLATION, AND SEIZURE PRECAUTION IN PLACE, CALL LIGHT WITHIN REACH, WILL CONTINUE TO MONITOR PATIENT.
--- NOTE | 2017-12-03 17:30 | NUR ---
CONSENT FOR EGD WITH PEG OBTAINED FROM [facility] OVER THE PHONE, PITER THAO. CONSENT IN THE CHART. UNMANNED AIRCRAFT SYSTEMS ROBOTICIST JOWIE TO MAKE DR. PERLA AWARE. HE STATED PROCEDURE WILL BE PERFORMED TOMORROW, NO TIME GIVEN. PATIENT RESTING IN BED, NO SIGNS OF DISTRESS OR SOB NOTED. WILL CONTINUE TO MONITOR PATIENT.
--- NOTE | 2017-12-03 19:34 | NUR ---
REPORT GIVEN AT BEDSIDE FOR CONTINUITY OF CARE. PATIENT RESTING AND IN STABLE CONDITION.
--- NOTE | 2017-12-03 19:35 | NUR ---
RECEIVED REPORT FROM AM SHIFT NURSE AT PT'S BEDSIDE. PT AWAKE, NONVERBAL, TRACH TO VENT IN PLACE, RESPIRATIONS EVEN & UNLABORED. WILL CONT TO MONITOR.
--- NOTE | 2017-12-03 20:17 | NUR ---
Received pt stable on vent support at documented settings, suctioned moderate amounts of thin white secretions, hhn tx given, tolerated well, no resp distress or SOB noted at this time, Portex 7 cuffless trach secured/patent/midline, alarms set and audible, ambu bag at bedside, vent plugged into red outlet, pulse ox on, will cont to monitor.
--- NOTE | 2017-12-03 21:09 | NUR ---
I WAS NOTIFIED BY SCIENTIFIC TECHNICAL WRITER THAT PT HAD CARDIAC RHYTHM CHANGED FROM SR TO AFLUTTER @113BPM. ASSESSED PT, NO SIGNS OF DISTRESS, PT IS AWAKE, NON-VERBAL, RESPIRATIONS EVEN & UNLABORED, TRACH TO VENT IN PLACE. SUPERVISOR ACCOUNTING CLERKS IN PLACE. WILL CONTINUE TO MONITOR.
--- NOTE | 2017-12-03 21:20 | NUR ---
PT CARDIAC RHYTHM RETURNED TO SR @ 105BPM. PT SLEEPING COMFORTABLY IN BED, NO SIGNS OF DISTRESS. WOUND BED IN PLACE, SCD TO BILAT LOWER LEGS. WILL CONTINUE TO MONITOR.
--- NOTE | 2017-12-03 23:24 | NUR ---
Sputum obtained, given to Simona PRABHAKAR
[2017-12-04] VITALS: BP 108/61
--- NOTE | 2017-12-04 00:31 | NUR ---
PT SLEEPING SOUNDLY, RESPIRATIONS EVEN & UNLABORED ON TRACH TO VENT, LEFT WRIST IV ACCESS INTACT & ASYMPTOMATIC. GT STOMA DRESSING CHANGED D/T MOD CLEAR, MUCOID DRAINAGE. NO REDNESS TO PERISTOMA. WILL CONTINUE TO MONITOR.
[2017-12-04] MEDS: Z-GUARD PASTE TP SCH ×2 (01:00→12:31)
[2017-12-04] MEDS: HYDRAGUARD CREAM TP SCH ×2 (01:00→12:30)
[2017-12-04] MEDS: ALBUTEROL SULFATE/IPRATROPIU 3 ML SOL IH SCH ×4 (01:34→20:11)
--- NOTE | 2017-12-04 03:00 | NUR ---
PERICARE PROVIDED, VOIDED X1, REPOSITIONED TO LEFT SIDE. COLOSTOMY BAG INTACT WITH MIN BROWN STOOL. SACRAL OPTIFOAM DRESSING CLEAN, DRY, & INTACT. PT MAYI WELL. TRACH TO VENT IN PLACE, RESP EVEN & UNLABORED. LEFT WRIST IV ACCESS INTACT & ASYMPTOMATIC.
[2017-12-04 04:00] VITALS: BP 112/65
[2017-12-04] MEDS: PIPER/TAZO 3.375GM/D5W PREMIX 50 ML IV SCH ×4 (05:04→23:58)
--- NOTE | 2017-12-04 05:10 | NUR ---
PT ASLEEP, OPENS EYES TO AUDITORY STIMULI. TRACH TO VENT IN PLACE. RESPIRATIONS EVEN & UNLABORED. ABD DRESSING CLEAN, DRY, & INTACT. LEFT WRIST IV ACCESS INTACT & ASYMPTOMATIC.
[2017-12-04] MEDS: BLOOD GLUCOSE MONITORING 1 DEV DEV FS SCH ×4 (05:47→23:45)
[2017-12-04] MEDS: INSULIN LISPRO SLIDING SCALE 100 UNITS/ML VIAL SUBQ PRN ×2 (05:49→23:59)
--- NOTE | 2017-12-04 06:15 | NUR ---
PT AWAKE, NONVERBAL, ABLE TO MAKE EYE CONTACT. TRACH TO VENT IN PLACE. NO SIGNS OF DISTRESS. RESPIRATIONS EVEN & UNLABORED. LEFT WRIST IV ACCESS INTACT & ASYMPTOMATIC WITH ONGOING D5 1/2NS INFUSING @ 90ML/HR. CALL LIGHT WITHIN REACH.
--- NOTE | 2017-12-04 07:15 | NUR ---
RECEIVED SBAR REPORT AT BEDSIDE. PATIENT IS TRACH TO VENT. APHASIC, DOES NOT FOLLOW COMMANDS. EYES TRACKING. BUE/BLE WEAKNESS, WITHDRAWS TO PAIN. IV SITE PATENT AND INTACT. G-TUBE STOMA SITE DRESSING CHANGED. COLOSTOMY BAG IN PLACE TO LLQ BAG INTACT, MODERATE LOOSE BROWN STOOL. INCONTINENT TO URINE, LINENS CHANGED. MODERATE BROWN THICK SPUTUM NOTED. SCDS IN PLACE. OFFLOADED PRESSURE AREAS. NO ACUTE DISTRESS NOTED.
[2017-12-04 08:00] VITALS: BP 114/64
[2017-12-04] MEDS: DEXT 5% / NACL 0.45% 1,000 ML IV SCH ×2 (08:15→19:22)
--- NOTE | 2017-12-04 08:40 | NUR ---
PATIENT SEEN BY DR. MARQUES AT [facility]. MD SPOKE WITH PATIENT'S ON PHONE AND UPDATED WITH CURRENT PLAN OF CARE, IN AGREEMENT. NO ACUTE DISTRESS NOTED. ORAL CARE PROVIDED, MODERATE THICK SECRETIONS.
[2017-12-04] MEDS: levETIRAcetam 500 MG in NACL 0.9% 100 ML IV SCH ×2 (09:11→21:11)
[2017-12-04] MEDS: PHENYTOIN 100 MG/2 ML VIAL IVP SCH ×2 (09:41→21:10)
--- NOTE | 2017-12-04 11:00 | NUR ---
MANPOWER DEVELOPMENT MANAGER UNABLE TO DRAW LABS, LAB TO SEND ANOTHER MANPOWER DEVELOPMENT MANAGER FOR BLOOD DRAW WHEN AVAILABLE.
[2017-12-04 12:00] VITALS: BP 115/61
--- NOTE | 2017-12-04 12:00 | NUR ---
PATIENT ORAL CARE PROVIDED. MODERATE THICK BROWN SPUTUM. ASSISTED PT IN CHANGING OF POSITIONS Q2H. OFFLOADED PRESSURE AREAS. LINENS KEPT CLEAN AND DRY. PATIENT CONDOM CATH PLACED TO GRAVITY. STOMA DRESSING CLEAN AND INTACT.
[2017-12-04] MEDS ORDERED: diphenhydrAMINE 50 MG/ML VIAL ONE ×2 (12:14→13:54)
[2017-12-04] MEDS ORDERED: fentaNYL 0.05 MG/ML VIAL ONE (12:14)
[2017-12-04] MEDS ORDERED: MIDAZOLAM 2 MG/2 ML VIAL ONE ×3 (12:14→13:19)
--- NOTE | 2017-12-04 13:36 | NUR ---
12/04/17 RD FOLLOW UP COMPLETED PLEASE REFER TO NUTRITION PROGRESS NOTE UNDER CARE ACTIVITY FOR ESTIMATED NUTRITIONAL NEEDS. 1. CONTINUE NPO DIET TOLERATED 2. WHEN MEDICALLY STABLED, RECOMMEND NEPRO WITH CARB STEADY WITH GOAL RATE AT 40 ML/HR WITH WATER FLUSH OF 130 Q6H. -THIS WILL PROVIDE 1728 KCAL AND 78 G PROTEIN AND 1500 ML OF FLUID. THIS WILL PROVIDE 88% OF PTS ESTIMATED NEEDS AND 100% G OF PROTEIN NEEDS AND 102 % DRIs. 3. RD TO FOLLOW-UP 2-3 DAYS, HIGH RISK GALINA ANDERSEN RD
--- NOTE | 2017-12-04 14:00 | NUR ---
PATIENT HAD EGD WITH PEG PLACEMENT AT BEDSIDE BY DR. PERLA. PATIENT MEDICATED BY OR NURSE AT BEDSIDE, PATIENT SLEEPING, CONTINUED ON TRACH TO VENT, NO ACUTE DISTRESS NOTED. NEW G-TUBE DRAIN TO GRAVITY ORDERED PER DR. PERLA. OLD G-TUBE STOMA SITE DRESSING CHANGED, DRAIN TO POUCH. PATIENT HAS CONDOM CATH IN PLACE TO GRAVITY. COLOSTOMY BAG INTACT.
[2017-12-04] MEDS ORDERED: fentaNYL 0.05 MG/ML VIAL IVP ONE (14:15)
[2017-12-04] MEDS ORDERED: diphenhydrAMINE 50 MG/ML VIAL IVP ONE (14:15)
[2017-12-04] MEDS ORDERED: MIDAZOLAM 2 MG/2 ML VIAL IVP ONE (14:15)
[2017-12-04 16:00] VITALS: BP 125/82
--- NOTE | 2017-12-04 17:40 | NUR ---
PATIENT ASSISTED IN CHANGING OF POSITIONS Q2H, LINENS CLEAN AND DRY. DRESSINGS CLEAN DRY AND INTACT. NO ACUTE DISTRESS NOTED. CONTINUED TRACH TO VENT. FLACC 0. IV SITE PATENT AND INTACT. OFFLOADED PRESSURE AREAS.
[2017-12-04 18:36] LABS: BASOPHILS % (AUTO) 0.5 % (0.0-2.0); EOSINOPHILS # (AUTO) 0.1 K/uL (0-0.4); EOSINOPHILS % (AUTO) 1.5 % (0.0-4.0); HEMATOCRIT 31.9 % (36-52); HEMOGLOBIN 10.3 g/dL (12.0-18.0); LYMPHOCYTES # (AUTO) 1.3 K/uL (2.0-11.5); LYMPHOCYTES % (AUTO) 14.8 % (20.5-51.1); MEAN CORPUSCULAR HEMOGLOBIN 27 pg (27-31); MEAN CORPUSCULAR HGB CONC 32 g/dL (33-37); MEAN CORPUSCULAR VOLUME 82.7 fL (80-94); MONOCYTES % (AUTO) 11.6 % (1.7-9.3); NEUTROPHILS # (AUTO) 6.3 K/uL (1.8-7.7); NEUTROPHILS % (AUTO) 71.6 % (42.2-75.2); PLATELET COUNT (AUTO) 181 K/uL (140-450); RED BLOOD CELL COUNT(AUTO) 3.86 MIL/uL (4.20-6.10); RED CELL DISTRIBUTION WIDTH 13.9 % (11.6-13.7); WHITE BLOOD COUNT (AUTO) 8.8 K/uL (4.8-10.8)
[2017-12-04 18:48] LABS: ANION GAP 9.7 (8-16); CARBON DIOXIDE 27.6 mmol/L (21-32); CREATININE 1.5 mg/dL (0.7-1.3); POTASSIUM 3.3 mmol/L (3.5-5.1)
--- NOTE | 2017-12-04 19:20 | NUR ---
RECEIVED REPORT FROM DAY SHIFT NURSE AT PT BEDSIDE. PT IN STABLE CONDITION. PT A/O X0, APHASIC. TRACH TO VENT. CURRENT SETTINGS FIO2 28, TV 600, FLOW 50, PEEP 5. IV ACCESS TO L HAND 22G WITH IVF RUNNING PER MD ORDERS. IV IS PATENT AND INTACT. PT HAD NEW G TUBE PLACEMENT CURRENTLY DRAINING TO GRAVITY. OLD G TUBE STOMA COVERED WITH DRESSING, DRY AND INTACT. BED IS LOCKED, LOW POSITION WITH SIDE RAILS UP X2. CALL LIGHT IS WITHIN REACH. BOARD UPDATED. WILL CONTINUE TO MONITOR PT.
--- NOTE | 2017-12-04 19:20 | NUR ---
SBAR REPORT GIVEN TO NIGHT RN AT PT BEDSIDE. NO S/S OF ACUTE DISTRESS NOTED. CONTINUED ON TRACH TO VENT.
[2017-12-04 20:00] VITALS: BP 146/82
--- NOTE | 2017-12-04 21:05 | NUR ---
PT TEMPERATURE ELEVATED. SPOKE WITH DR. MARQUES, GAVE ORDERS FOR CULTURES TO BE DONE. WILL CONTINUE TO MONITOR PT.
--- NOTE | 2017-12-04 21:11 | NUR ---
ADMINISTERED SCHEDULED MEDICATIONS. PERFORMED ORAL CARE. PT TOLERATED WELL. WILL CONTINUE TO MONITOR.
--- NOTE | 2017-12-04 22:00 | NUR ---
BLOOD AND URINE CULTURES COLLECTED. WILL CONTINUE TO MONITOR PT.
--- NOTE | 2017-12-04 23:58 | NUR ---
SCHEDULED MEDICATION GIVEN. BS CHECKED, 155. COVERAGE GIVEN PER MD ORDERS. ORAL CARE GIVEN. PT TOLERATED WELL. WILL CONTINUE TO MONITOR.
[2017-12-05] VITALS (7 sets, daily range): BP systolic 122–139; BP diastolic 67–86
[2017-12-05] MEDS: Z-GUARD PASTE TP SCH ×2 (00:35→13:06)
[2017-12-05] MEDS: HYDRAGUARD CREAM TP SCH ×2 (00:35→13:06)
--- NOTE | 2017-12-05 01:00 | NUR ---
GT-SITE STOMA DRESSING CHANGED. NO DRAINAGE, Z-GAURD APPLIED. PT TOLERATED WELL. WILL CONTINUE TO MONITOR PT.
[2017-12-05] MEDS: ALBUTEROL SULFATE/IPRATROPIU 3 ML SOL IH SCH ×4 (01:12→19:09)
--- NOTE | 2017-12-05 04:03 | NUR ---
PT RESTING COMFORTABLY IN BED. FLACC-0. ORAL GIVEN. PT TOLERATED WELL. WILL CONTINUE TO MONITOR.
[2017-12-05] MEDS: BLOOD GLUCOSE MONITORING 1 DEV DEV FS SCH ×3 (05:45→17:45)
[2017-12-05] MEDS: PIPER/TAZO 3.375GM/D5W PREMIX 50 ML IV SCH ×4 (05:46→23:55)
[2017-12-05] MEDS: INSULIN LISPRO SLIDING SCALE 100 UNITS/ML VIAL SUBQ PRN (05:47)
--- NOTE | 2017-12-05 05:47 | NUR ---
ADMINISTERED SCHEDULED MEDICATION. BS CHECKED, 152. COVERAGE GIVEN PER MD ORDERS. PT TOLERATED WELL. WILL CONTINUE TO MONITOR PT.
--- NOTE | 2017-12-05 06:10 | NUR ---
MINE SUPERVISOR HERE TO TAKE CHEST X-RAY. PT TOLERATED WELL. WILL CONTINUE TO MONITOR.
[2017-12-05] MEDS: DEXT 5% / NACL 0.45% 1,000 ML IV SCH (06:29)
--- NOTE | 2017-12-05 07:06 | NUR ---
ENDORSED PT TO DAY SHIFT NURSE FOR CONTINUITY OF CARE. PT IN STABLE CONDITION.
--- NOTE | 2017-12-05 07:10 | NUR ---
RECEIVED REPORT FROM SHEET CATCHER NURSE, PT IS AWAKE, RESTING IN BED, SEMI FOWLERS POSITION, PT IS ON A TRACH TO VENT, PT HAS NEW G-TUBE IN PLACE DRAINING BY GRAVITY INTO BAG, 10 ML OF DARK GREEN/YELLOW DRAINAGE NOTED, PT HAS AN OLD G-TUBE STOMA COVERED WITH A DRESSING AT THIS TIME, DRESSING IS DRY, CLEAN AND INTACT, PT HAS COLOSTOMY BAG IN PLACE, EMPTY AT THIS TIME, PT HAS IV ON HIS LEFT HAND, #22, WILL STOP IV FLUIDS AT THIS TIME, HAND APPEARS SWOLLEN AND SKIN IS TIGHT, PT WAS SUCTIONED, PT TOLERATED WELL, PT HAS NEERAJ SIZE BLISTER ON RIGHT HAND, WILL CONTINUE TO MONITOR, DISCUSSED PLAN OF CARE WITH PT, PT UNABLE TO VERBALIZE UNDERSTANDING, SAFETY/FALL/SEIZURE PRECAUTIONS ARE IN PLACE, CALL LIGHT IS WITHIN REACH, WILL CONTINUE TO MONITOR.
[2017-12-05 07:15] LABS: BASOPHILS % (AUTO) 0.6 % (0.0-2.0); EOSINOPHILS # (AUTO) 0.1 K/uL (0-0.4); EOSINOPHILS % (AUTO) 0.9 % (0.0-4.0); HEMATOCRIT 32.5 % (36-52); HEMOGLOBIN 10.5 g/dL (12.0-18.0); LYMPHOCYTES # (AUTO) 1.3 K/uL (2.0-11.5); LYMPHOCYTES % (AUTO) 17.1 % (20.5-51.1); MEAN CORPUSCULAR HEMOGLOBIN 27 pg (27-31); MEAN CORPUSCULAR HGB CONC 32 g/dL (33-37); MEAN CORPUSCULAR VOLUME 83.1 fL (80-94); MONOCYTES # (AUTO) 0.9 K/uL (0.8-1.0); MONOCYTES % (AUTO) 12.1 % (1.7-9.3); NEUTROPHILS # (AUTO) 5.3 K/uL (1.8-7.7); NEUTROPHILS % (AUTO) 69.3 % (42.2-75.2); PLATELET COUNT (AUTO) 189 K/uL (140-450); RED BLOOD CELL COUNT(AUTO) 3.91 MIL/uL (4.20-6.10); RED CELL DISTRIBUTION WIDTH 14.2 % (11.6-13.7); WHITE BLOOD COUNT (AUTO) 7.6 K/uL (4.8-10.8)
[2017-12-05 07:17] LABS: ANION GAP 10.3 (8-16); CARBON DIOXIDE 28.9 mmol/L (21-32); CREATININE 1.5 mg/dL (0.7-1.3); POTASSIUM 3.2 mmol/L (3.5-5.1)
--- NOTE | 2017-12-05 07:50 | NUR ---
RECEIVED ON A [employer] CARESCAPE R860 VENTILATOR PLUGGED INTO RED OUTLET WITH COMPRESSOR ON AND FUNCTIONING WELL TO A PORTEX CFS #7 AIRWAY SECURED WITH A DORIAN TRACH TIE ORTEGAIMO RADICAL-7 CONTINUOS PULSE OXIMETRY AT BEDSIDE ON AND FUNCTIONING WELL AMBU BAG NOTED AT BEDSIDE LOC AWAKE BREATH SOUNDS RHONCHI RIGHT SIDE TO CLEAR LEFT SIDE GOOD CHEST RISE DEEP TRACHEAL SUCTION FOR LARGE THICK YELLOW SECRETIONS AIRWAY PATENT
--- NOTE | 2017-12-05 08:37 | NUR ---
ATTEMPTED TO LOOK FOR VEIN FOR NEW IV PLACEMENT I DID NOT FIND A VEIN. I ASKED A SECOND NURSE TO ATTEMPT AND FIND A NEW VEIN BUT WAS ALSO UNSUCCESSFUL. I LET THE CHARGE NURSE KNOW I WOULD CALL DR. MARQUES TO LET HIM KNOW THE PATIENT WAS A CANDIDATE FOR CENTRAL LINE. CHARGE NURSE SAID SHE WOULD TAKE A LOOK AND ATTEMPT TO START A NEW IV.
[2017-12-05] MEDS ORDERED: FOAM DRESSING TP SCH (09:00)
--- NOTE | 2017-12-05 09:10 | NUR ---
CHARGE NURSE STARTED NEW IV #24, RIGHT HAND, PATENT, INTACT, FLUSHING WELL.
[2017-12-05] MEDS: PHENYTOIN 100 MG/2 ML VIAL IVP SCH ×2 (09:41→20:52)
[2017-12-05] MEDS: levETIRAcetam 500 MG in NACL 0.9% 100 ML IV SCH ×2 (09:43→20:51)
[2017-12-05] MEDS: POTASSIUM CHL 20 MEQ/D5-1/2NS 1,000 ML IV SCH ×2 (09:55→21:02)
--- NOTE | 2017-12-05 09:55 | NUR ---
NO APPARENT DISTRESS NOTED GOOD CHEST RISE PATIENT CURRENTLY IN FLAT POSITION RN AND AUTOMOTIVE GENERAL SALES MANAGER AR BEDSIDE FOR PATIENT PHYSICAL HYGIENE REPOSITION AND BED CARE
[2017-12-05] MEDS ORDERED: KCL 20 MEQ/WATER INJ PREMIX 100 ML IV SCH (11:00)
--- NOTE | 2017-12-05 11:09 | NUR ---
RESTING COMFORTABLY NO SOB NOTED GOOD CHEST RISE DEEP TRACHEAL SUCTION FOR COPIOUS THICK YELLOW SECRETIONS AIRWAY PATENT
--- NOTE | 2017-12-05 12:00 | NUR ---
PT RESTING IN BED, NO S/S OF RESPIRATORY DISTRESS OR DISCOMFORT NOTED. PT TURNED FOR COMFORT, OLD G TUBE STOMA DRESSING MODERATELY SOILED. DRESSING CHANGED. ALL NEEDS MET AT THIS TIME, WILL CONTINUE TO MONITOR.
--- NOTE | 2017-12-05 13:36 | NUR ---
NO RESPIRATORY DISTRESS NOTED GOOD CHEST RISE DEEP TRACHEAL SUCTION FOR LARGE THICK YELLOW SECRETIONS AIRWAY PATENT
--- NOTE | 2017-12-05 14:30 | NUR ---
PT SLEEPING IN BED AT THIS TIME, NO S/S OF DISTRESS NOTED, CALL LIGHT WITHIN REACH.
--- NOTE | 2017-12-05 15:58 | NUR ---
NO EVIDENCE OF SOB NOTED GOOD CHEST RISE
--- NOTE | 2017-12-05 17:35 | NUR ---
STABLE GOOD CHEST RISE DEEP TRACHEAL SUCTION FOR MODERATE THIN YELLOW SECRETIONS AIRWAY PATENT
--- NOTE | 2017-12-05 17:45 | NUR ---
PT IS RESTING IN BED, NO S/S OF RESPIRATORY DISTRESS. 100ML OF GREEN/YELLOW GASTRIC DRAINAGE NOTED IN BAG, NO OUTPUT IN COLOSTOMY BAG. ALL NEEDS MET AT THIS TIME, CALL LIGHT WITHIN REACH.
--- NOTE | 2017-12-05 19:25 | NUR ---
ENDORSED PT TO POSTAL SUPERVISOR NURSE FOR CONTINUITY OF CARE. PT STABLE AT THIS TIME.
--- NOTE | 2017-12-05 19:26 | NUR ---
RECEIVED REPORT FROM DAY SHIFT NURSE. PT IN BED, AWAKE. HEAD OF BED ELEVATED. TRACH TO VENT. PT IS APHASIC. PT HAS OLD G-TUBE SITE WITH DRESSING, CLEAN, DRY AND INTACT. PT'S NEW G-TUBE IN PLACE DRAINING INTO BAG WITH GREEN DRAINAGE . PT HAS COLOSTOMY BAG IN PLACE. IV TO RIGHT HAND #24G, PATENT AND INTACT. PT HAS BLISTER ON RIGHT HAND. SEIZURE, ASPIRATION AND FALL PRECAUTION IN PLACE.
--- NOTE | 2017-12-05 21:30 | NUR ---
PT'S IV TO RIGHT HAND INFILTRATED. REMOVED CANNULA, INTACT. NO BLEEDING NOTED. INSERTED IV LINE TO RIGHT FA #24G. GOOD FLUSH AND BLOOD RETURN. PT TOLERATED PROCEDURE WELL.
--- NOTE | 2017-12-05 23:30 | NUR ---
PT TURNED AND REPOSITIONED Q2HRS. PT KEPT DRY AND COMFORTABLE.
[2017-12-06] VITALS: BP 142/73
--- NOTE | 2017-12-06 | NUR ---
BLOOD SUGAR CHECKED 171. 2 UNITS OF HUMALOG SUBQ GIVEN.
[2017-12-06] MEDS: INSULIN LISPRO SLIDING SCALE 100 UNITS/ML VIAL SUBQ PRN ×2 (00:08→05:41)
[2017-12-06] MEDS: ALBUTEROL SULFATE/IPRATROPIU 3 ML SOL IH SCH ×4 (00:25→19:47)
[2017-12-06] MEDS: BLOOD GLUCOSE MONITORING 1 DEV DEV FS SCH ×4 (00:36→17:59)
[2017-12-06] MEDS: Z-GUARD PASTE TP SCH ×2 (01:52→12:46)
[2017-12-06] MEDS: HYDRAGUARD CREAM TP SCH ×2 (01:52→12:46)
--- NOTE | 2017-12-06 02:45 | NUR ---
PT RESTING IN BED WITH EYES CLOSED. NO S/S OF PAIN OR SOB. FALL, SEIZURE AND ASPIRATION PRECAUTION IN PLACE.
[2017-12-06 04:00] VITALS: BP 145/72
--- NOTE | 2017-12-06 04:30 | NUR ---
PT AWAKE. NO S/S OF RESP DISTRESS. NO S/S OF PAIN.
[2017-12-06] MEDS: PIPER/TAZO 3.375GM/D5W PREMIX 50 ML IV SCH ×3 (05:28→17:01)
--- NOTE | 2017-12-06 06:00 | NUR ---
BS CHECKED 157. 2 UNITS OF HUMALOG SUBQ GIVEN.
--- NOTE | 2017-12-06 07:15 | NUR ---
ENDORSED PT TO DAY SHIFT NURSE. PT IN STABLE CONDITION.
--- NOTE | 2017-12-06 07:20 | NUR ---
RECEIVED REPORT FROM CONTRACTOR BUYER NURSE, PT IS AWAKE, RESTING IN BED, SEMI FOWLERS POSITION, PT IS ON A TRACH TO VENT, PT HAS NEW G-TUBE IN PLACE DRAINING BY GRAVITY INTO BAG, 100 ML OF DARK GREEN DRAINAGE NOTED, PT HAS AN OLD G-TUBE STOMA COVERED WITH A DRESSING AT THIS TIME, DRESSING IS DRY, CLEAN AND INTACT, PT HAS COLOSTOMY BAG IN PLACE, EMPTY AT THIS TIME, IV IS ON THE RIGHT UPPER ARM, #24, PATENT AND INTACT, FLUSHING WELL, PT HAS NEERAJ SIZE BLISTER ON RIGHT HAND, WILL CONTINUE TO MONITOR, DISCUSSED PLAN OF CARE WITH PT, PT UNABLE TO VERBALIZE UNDERSTANDING, SAFETY/FALL/SEIZURE PRECAUTIONS ARE IN PLACE, CALL LIGHT IS WITHIN REACH, WILL CONTINUE TO MONITOR.
[2017-12-06 07:29] LABS: ANION GAP 11.7 (8-16); CREATININE 1.5 mg/dL (0.7-1.3)
[2017-12-06 07:31] LABS: POTASSIUM 2.7 mmol/L (3.5-5.1)
[2017-12-06 08:00] VITALS: BP 166/73
--- NOTE | 2017-12-06 08:00 | NUR ---
PER DR. MARQUES GIVE K RIDER 40 MEQ 1 TIME DOSE AND ORDER LABS (BMP) FOR TOMORROW. DR. MARQUES ASKED IF THE PATIENT'S OLD STOMA WAS STILL DRAINING I LET HIM KNOW IT WAS STILL HAVE MODERATE DRAINING THIS MORNING.
[2017-12-06] MEDS: POTASSIUM CHL 20 MEQ/D5-1/2NS 1,000 ML IV SCH ×2 (08:45→19:33)
[2017-12-06] MEDS: PHENYTOIN 100 MG/2 ML VIAL IVP SCH ×2 (08:50→21:21)
[2017-12-06] MEDS: levETIRAcetam 500 MG in NACL 0.9% 100 ML IV SCH ×2 (08:50→21:23)
--- NOTE | 2017-12-06 08:50 | NUR ---
DUE MEDICATIONS GIVEN IV ROUTE. IV IS INTACT AND FLUSHING WELL. NO SWELLING OR REDNESS NOTED, WILL CONTINUE TO MONITOR.
--- NOTE | 2017-12-06 10:30 | NUR ---
PT SUCTIONED, OLD G TUBE STOMA DRESSING CHANGED. PT IS STILL HAVING MODERATE WHITE/CREAMY DRAINAGE. PT CLEANED AND REPOSITIONED. ALL NEEDS ARE MET AT THIS TIME, CALL LIGHT WITHIN REACH, WILL CONTINUE TO MONITOR.
[2017-12-06] MEDS ORDERED: POTASSIUM CHLORIDE 40 MEQ, LIDOCAINE 1% 25 MG in NACL 0.9% 250 ML IV SCH (11:00)
--- NOTE | 2017-12-06 11:55 | NUR ---
VENT CHECK COMPLETED. PT SUCTIONED OBTAINED SMALL AMOUNT OF THICK WHITE SECRETIONS, AIRWAY IS PATENT AND TRACH IS SECURE. PT NOT IN ANY DISTRESS AT THIS TIME. WILL CONTINUE TO MONITOR.
[2017-12-06 11:57] VITALS: BP 144/62
--- NOTE | 2017-12-06 12:00 | NUR ---
PT'S TRACH SUCTIONED, NO S/S OF DISCOMFORT NOTED.
--- NOTE | 2017-12-06 13:30 | NUR ---
TUBED FEEDING STARTED AT THIS TIME. 20ML/HR WITH 50ML H2O FLUSH Q8H. WILL CONTINUE TO MONITOR.
[2017-12-06 16:00] VITALS: BP 133/71
--- NOTE | 2017-12-06 16:30 | NUR ---
PT IS RESTING IN BED, SEMI FOWLERS POSITION, NO S/S OF RESPIRATORY DISTRESS OR DISCOMFORT NOTED, CALL LIGHT WITHIN REACH.
--- NOTE | 2017-12-06 17:56 | NUR ---
PT REMAINS ON DOCUMENTED VENT SETTINGS. PT SUCTIONED OBTAINED SMALL AMOUNT OF THICK WHITE SECRETIONS, AIRWAY IS PATENT AND TRACH IS SECURE. VENT ALARMS REMAIN ON AND FUNCTIONING.
--- NOTE | 2017-12-06 19:25 | NUR ---
ENDORSED PT TO CARRY IN WORKER NURSE FOR CONTINUITY OF CARE. PT STABLE AT THIS TIME.
--- NOTE | 2017-12-06 19:26 | NUR ---
RECEIVED REPORT FROM DAY SHIFT NURSE. PT IN BED, AWAKE. HEAD OF BED ELEVATED. PT IS ON TRACH TO VENT. PT IS APHASIC. G-TUBE IN PLACE WITH FEEDING AT 20 ML/HR, INFUSING WELL. PT HAS OLD G-TUBE SITE WITH DRESSING, CLEAN, DRY AND INTACT. PT HAS COLOSTOMY BAG IN PLACE. IV TO RIGHT HAND #24G, PATENT AND INTACT. IVF INFUSING WELL. PT HAS BLISTER ON RIGHT HAND. SEIZURE, ASPIRATION AND FALL PRECAUTION IN PLACE.
[2017-12-06 20:00] VITALS: BP 141/72
--- NOTE | 2017-12-06 21:00 | NUR ---
G-TUBE RESIDUAL CHECKED 10 ML. PT TOLERATING FEEDING WELL. ASPIRATION PRECAUTION IN PLACE.
--- NOTE | 2017-12-06 22:15 | NUR ---
PT CLEANED AND REPOSITIONED. NO S/S OF PAIN OR SOB. FALL, SEIZURE AND ASPIRATION PRECAUTION IN PLACE.
[2017-12-07] VITALS: BP 139/76
[2017-12-07] MEDS: PIPER/TAZO 3.375GM/D5W PREMIX 50 ML IV SCH ×4 (00:10→17:14)
--- NOTE | 2017-12-07 00:26 | NUR ---
BLOOD SUGAR CHECKED 129. NO INSULIN COVERAGE NEEDED.
[2017-12-07] MEDS: ALBUTEROL SULFATE/IPRATROPIU 3 ML SOL IH SCH ×4 (01:16→19:02)
[2017-12-07] MEDS: HYDRAGUARD CREAM TP SCH ×2 (01:42→12:36)
[2017-12-07] MEDS: Z-GUARD PASTE TP SCH ×2 (01:43→12:36)
--- NOTE | 2017-12-07 02:30 | NUR ---
PT SUCTIONED. NO S/S OF RESP DISTRESS. PT TOLERATING FEEDING WELL. HOB ELEVATED.
[2017-12-07 04:00] VITALS: BP 142/76
--- NOTE | 2017-12-07 04:57 | NUR ---
PT IN RESTING IN BED WITH EYES CLOSED. NO S/S OF PAIN OR DISCOMFORT. PT KEPT DRY AND COMFORTABLE.
[2017-12-07] MEDS: POTASSIUM CHL 20 MEQ/D5-1/2NS 1,000 ML IV SCH ×2 (05:59→17:14)
[2017-12-07] MEDS: BLOOD GLUCOSE MONITORING 1 DEV DEV FS SCH ×4 (05:59→17:14)
--- NOTE | 2017-12-07 06:00 | NUR ---
BLOOD SUGAR CHECKED 112. NO INSULIN COVERAGE NEEDED.
--- NOTE | 2017-12-07 07:10 | NUR ---
DR. MARQUES HERE TO SEE PT. PT IN BED, AWAKE. NO S/S OF PAIN. NO S/S OF RESP DISTRESS.
--- NOTE | 2017-12-07 07:30 | NUR ---
ENDORSED PT TO DAY SHIFT NURSE. PT IN STABLE CONDITION.
--- NOTE | 2017-12-07 07:31 | NUR ---
RECEIVED REPORT FROM LEADERSHIP PROGRAM INTERN NURSE. PATIENT LYING DOWN IN BED COMFORTABLY. NO DISTRESS NOTED. FLACC 0. ON TRACH TO VENT WITH VENT SETTINGS: FIO2:28%, VT:600, AC:12, PEEP:5 WITH O2 SAT AT 100%. AAOX1, APHASIC, SKIN COLOR APPROPRIATE TO ETHNICITY, WARM TO TOUCH. HAS PERINEAL REDNESS NOTED AND OLD SACRAL HEALED WOUND. IV SITE INTACT, PATENT, AND INFUSING IVF PER MD ORDERS. NEW GTUBE SITE INTACT, PATENT, AND ON FEEDING PER MD ORDERS. OLD GTUBE SITE IS HEALING, DRESSING IS DRY AND INTACT. LUNGS COARSE ON ALL LOBES. REVIEWED PLAN OF CARE WITH PATIENT. UNABLE TO COMPREHEND, REINFORCEMENT NEEDED. SAFETY MEASURES IN PLACE, CALL LIGHT WITHIN REACH. WILL CONTINUE TO MONITOR.
[2017-12-07 08:00] VITALS: BP 136/63
[2017-12-07] MEDS: PHENYTOIN 100 MG/2 ML VIAL IVP SCH (09:13)
[2017-12-07] MEDS: levETIRAcetam 500 MG in NACL 0.9% 100 ML IV SCH (09:14)
--- NOTE | 2017-12-07 09:35 | NUR ---
PATIENT LYING DOWN IN BED COMFORTABLY. NO DISTRESS NOTED. FLACC 0. SCHEDULED MEDICATIONS DUE GIVEN. SAFETY MEASURES IN PLACE, CALL LIGHT WITHIN REACH. WILL CONTINUE TO MONITOR.
--- NOTE | 2017-12-07 10:56 | NUR ---
PT SUCTIONED OBTAINED SMALL AMOUNT OF THIN WHITE FROTHY SECRETIONS, AIRWAY IS PATENT AND TRACH IS SECURE. WILL CONTINUE TO MONITOR.
--- NOTE | 2017-12-07 11:54 | NUR ---
PATIENT SITTING LYING IN BED COMFORTABLY. NO DISTRESS NOTED. CONDITION UNCHANGED. SCHEDULED MEDICATIONS DUE GIVEN. SAFETY MEASURES IN PLACE, CALL LIGHT WITHIN REACH. WILL CONTINUE TO MONITOR.
[2017-12-07 12:00] VITALS: BP 147/79
[2017-12-07 12:59] LABS: ANION GAP 10.2 (8-16); POTASSIUM 3.2 mmol/L (3.5-5.1)
[2017-12-07 13:00] LABS: CREATININE 1.5 mg/dL (0.7-1.3)
--- NOTE | 2017-12-07 13:09 | NUR ---
[facility] WITH [facility] GOING TO [facility] SCHEDULE TO WILL CALL
--- NOTE | 2017-12-07 13:36 | NUR ---
6399 SPOKE WITH LA IN ADMISSIONS AT [facility] AND INFORMED HIM THAT PT HAS ORDER TO TRANSFER BACK AND THAT PT NOW IS ON VENTILATOR SUPPORT. CLINICAL INFORMATION FAXED TO [facility].
--- NOTE | 2017-12-07 15:00 | NUR ---
9060 SPOKE WITH LA AT [facility] [phone] AND HE STATED THAT PT CAN GO TO ROOM 3C UNDER DR BAM MARQUES AND REQUESTED FRANCHISE SALES MANAGER AFTER 5PM.
[2017-12-07] MEDS ORDERED: PIPE1PDS26 IV ×2 (15:30→15:32)
[2017-12-07 16:00] VITALS: BP 143/58
--- NOTE | 2017-12-07 17:05 | NUR ---
CALLED GUNNAR YEBOAH, PATIENT'S TO INFORM HER THAT PATIENT WAS TO BE TRANSFERRED TO [facility] AT 1900 TONIGHT. GUNNAR VERBALIZED UNDERSTANDING.
--- NOTE | 2017-12-07 17:07 | NUR ---
PT REMAINS ON DOCUMENTED VENT SETTINGS. TRACH REMAINS SECURE WITH A PATENT AIRWAY. VENT ALARMS REMAIN ON AND FUNCTIONING.
--- NOTE | 2017-12-07 17:36 | NUR ---
ASSISTED MANAGER OF IT IN CLEANING AND REPOSITIONING PATIENT. CHANGED COLOSTOMY BAG. SCHEDULED MEDICATIONS DUE GIVEN. CONDITION UNCHANGED. WILL CONTINUE TO MONITOR.
--- NOTE | 2017-12-07 17:46 | NUR ---
CALLED [facility] AND GAVE REPORT TO CHALINO BARRETT RN REGARDING PATIENT'S TRANSFER LATER [facility]. ANSWERED ALL HER QUESTIONS REGARDING TRANSFER. NOTIFIED HER THAT [facility] IS SCHEDULED AT 1900. [facility] AWAITING FOR PATIENT'S ARRIVAL. WILL CONTINUE TO MONITOR.
--- NOTE | 2017-12-07 18:00 | NUR ---
DISCHARGE INSTRUCTIONS GIVEN TO PATIENT IN PREFERRED LANGUAGE OF MALTESE, FOLLOW-UP VISIT WITH DR. MARQUES, NEW/CHANGED MEDICATION REGIMEN, AND GTUBE FEEDING. PATIENT UNABLE TO COMPREHEND. REPORT ALREADY GIVEN TO CHALINO BARRETT RN AT [facility]. WILL CONTINUE TO MONITOR.
--- NOTE | 2017-12-07 18:40 | NUR ---
[facility] JUST CALLED. SAID THEIR RT WAS BUSY AND ORIGINAL PICKUP TIME OF 1900 HAS TO BE CHANGED TO 2099. WILL CONTINUE TO MONITOR.
--- NOTE | 2017-12-07 19:02 | NUR ---
RECEIVED ON A [employer] CARESCAPE R860 VENTILATOR PLUGGED INTO RED OUTLET TOLERATING WELL WITHOUT INCIDENT TO A PORTEX CFS #7 AIRWAY SECURED WITH A DORIAN TRACH TIE MASIMO RADICAL-7 CONTINUOS PULSE OXIMETER AT BEDSIDE ON AND FUNCTIONING WELL LOW SATURATION ALARM SET AT 92% AMBU BAG NOTED AT BEDSIDE LOC AWAKE BREATH SOUNDS RHONCHI BILATERAL WITH GOOD CHEST RISE DEEP TRACHEAL SUCTION FIR MODERATE THI YELLOW SECRETIONS AIRWAY PATENT
--- NOTE | 2017-12-07 19:30 | NUR ---
GAVE REPORT TO BIKE MECHANIC NURSE FOR CONTINUITY OF CARE. PATIENT IN STABLE CONDITION.
--- NOTE | 2017-12-07 19:35 | NUR ---
RECEIVED PT FROM PITER RN PT HOB 30 DEGREE TRACH TO VENT DEPENDENT ON STABL CONDITION PT READY TO BE DISCHARGE TO [facility] WAITING FOR AMBULANCES NOT DISTRESS NOTED INITIAL ASSESSMENT DONE
--- NOTE | 2017-12-07 19:56 | NUR ---
[facility] ON UNIT READY TO TAKE PATIENT TO [facility]. REPORT GIVEN TO TRANSPORTERS. PATIENT TRANSFERRED TO [facility] AT THIS TIME VIA [facility] IN STABLE CONDITION.
== END 2017-12-07 19:59 | DRG 393 ==
LOC: MED 17:19 → MTU 18:46
PROVIDERS: ADMIT Family Medicine; ATTEND Family Medicine
PROC: 5A1945Z Respiratory Ventilation, 24-96 Consecutive Hours (ICD-10-PCS; 2017-12-03)
PROC: 0DH63UZ Insertion of Feeding Device into Stomach, Percutaneous Approach (ICD-10-PCS; principal; 2017-12-04 12:00)
DX: K94.23 Gastrostomy malfunction (principal); A41.9 Sepsis, unspecified organism; G93.49 Other encephalopathy; J96.20 Acute and chronic respiratory failure, unspecified whether with hypoxia or hypercapnia; E44.1 Mild protein-calorie malnutrition; L03.311 Cellulitis of abdominal wall; Z99.11 Dependence on respirator [ventilator] status; K31.6 Fistula of stomach and duodenum; G40.909 Epilepsy, unspecified, not intractable, without status epilepticus; I25.10 Atherosclerotic heart disease of native coronary artery without angina pectoris; N18.3 Chronic kidney disease, stage 3 (moderate); J44.9 Chronic obstructive pulmonary disease, unspecified; Y83.8 Other surgical procedures as the cause of abnormal reaction of the patient, or of later complication, without mention of misadventure at the time of the procedure; Y82.8 Other medical devices associated with adverse incidents; K21.9 Gastro-esophageal reflux disease without esophagitis; I12.9 Hypertensive chronic kidney disease with stage 1 through stage 4 chronic kidney disease, or unspecified chronic kidney disease; E11.22 Type 2 diabetes mellitus with diabetic chronic kidney disease; L30.9 Dermatitis, unspecified; R13.10 Dysphagia, unspecified; N40.0 Benign prostatic hyperplasia without lower urinary tract symptoms; E87.6 Hypokalemia; Z79.1 Long term (current) use of non-steroidal anti-inflammatories (NSAID); Z79.02 Long term (current) use of antithrombotics/antiplatelets; Z79.4 Long term (current) use of insulin; Z79.899 Other long term (current) drug therapy; Z85.46 Personal history of malignant neoplasm of prostate; Z68.27 Body mass index [BMI] 27.0-27.9, adult; I69.398 Other sequelae of cerebral infarction
CPT/HCPCS: 36415; 36600; 71045; 74018; 80048; 80053; 82803; 82948; 83735; 85025; 87040; 87070; 87081; 87086; 87186; 87205; 93005; 94003; 94640; 99285; J1165; J1200; J1815; J1953; J2001; J2060; J2250; J2543; J3010; J3475; J3480; J7030; J7620; Q0092

== ENCOUNTER 2018-01-14 16:28 | Inpatient (IN) | payer OTHER ==
[~2018-01-14] VITALS: Ht 170.2 cm; Wt 90.7 kg
[~2018-01-14 16:28] MED LIST changes: -ACET-2869 GT; +HYDR-5122 GT; +PIPE1PDS26 IV; -ROC2I IV
--- NOTE | 2018-01-14 16:28 | NUR ---
PT BIBA ALS TO BED 3
[2018-01-14 16:36] VITALS: BP 186/83
--- NOTE | 2018-01-14 17:00 | NUR ---
67 [facility]/o bloody discharge to old stoma of g-tube discharge/elevated tempature/tachycardia x today. pt presents to ed w/ moist skin, opens eyes spontaneously to voice, uses eye blinks and nodes to answer questions.GCS 10. pt w/ bl upper and lower extremity contratures. pt w/ severely distended abd, large and round, r/t to possible "clogged gtube" x 1 month per ems report still giving TPN but no GTUBE meds except carvedilol. bowel sounds hypoactive. pt bladder appears to be distended at this time. no de león catheter presents, pt w/ diaper. g tube site w/ drainage that is white in appearance, non-odorous noted at this time. pt w/ double lumen PICC present that is patent. pt w/ temp 100.9 at this. heart rate 102 at this time. rr even w/ symmetrical rise and fall of the chest. lung sounds w/ crackles bl. pt w/ trach, o2 sat 100% er md notified. pt needs met. safety precautions in place. will continue to monitor.
[2018-01-14] MEDS ORDERED: NACL 0.9% 1,000 ML IV ONE (17:10)
--- NOTE | 2018-01-14 17:32 | NUR ---
VERBAL OKAY FROM ER MD TO USE PICC LINE
--- NOTE | 2018-01-14 18:00 | NUR ---
Tried to place a catheter to obtain urine sample, unable to r/t possible prostate enlargement. socrates collins notified, will try w/ coude
--- NOTE | 2018-01-14 18:16 | NUR ---
tried to insert coude tip catheter, still met resistance. advised w/ another nurse. AKI Randolph and AKI Power attempted to place the catheter. unable to gaine access to bladder. er md tolentino notified.
[2018-01-14 18:25] LABS: BASOPHILS % (AUTO) 0.4 % (0.0-2.0); HEMATOCRIT 30.6 % (36-52); HEMOGLOBIN 9.8 g/dL (12.0-18.0); LYMPHOCYTES % (AUTO) 7.1 % (20.5-51.1); MEAN CORPUSCULAR HEMOGLOBIN 26 pg (27-31); MEAN CORPUSCULAR HGB CONC 32 g/dL (33-37); MEAN CORPUSCULAR VOLUME 80.3 fL (80-94); MONOCYTES # (AUTO) 1.3 K/uL (0.8-1.0); MONOCYTES % (AUTO) 9.5 % (1.7-9.3); NEUTROPHILS # (AUTO) 11.5 K/uL (1.8-7.7); PLATELET COUNT (AUTO) 284 K/uL (140-450); RED BLOOD CELL COUNT(AUTO) 3.81 MIL/uL (4.20-6.10); RED CELL DISTRIBUTION WIDTH 14.7 % (11.6-13.7); WHITE BLOOD COUNT (AUTO) 13.8 K/uL (4.8-10.8)
[2018-01-14 18:39] LABS: PROTHROMBIN TIME 10.4 secs (10.8-13.4)
[2018-01-14 18:45] LABS: ALBUMIN 2.2 g/dL (3.4-5.0); CARBON DIOXIDE 29.8 mmol/L (21-32); CREATININE 1.6 mg/dL (0.7-1.3); TOTAL BILIRUBIN 0.2 mg/dL (0.0-1.0)
--- NOTE | 2018-01-14 18:50 | NUR ---
er at bedside attempting to place catheter.
[2018-01-14] MEDS ORDERED: LEVOFLOXACIN 500 MG/D5W PREMIX 100 ML IV ONE (18:55)
[2018-01-14] MEDS ORDERED: PIPERACILLIN/TAZOBACTAM 3.375 GM in DEXTROSE 5% 50 ML IV ONE (18:55)
[2018-01-14 18:56] LABS: ANION GAP 11.1 (8-16); POTASSIUM 2.9 mmol/L (3.5-5.1)
--- NOTE | 2018-01-14 18:56 | NUR ---
er md unable to get cathter into the bladder. ordering a bladder scan at this time. pt tolerated procedures well.
[2018-01-14] MEDS ORDERED: ASPIRIN 81 MG TAB.CHEW PO ONE (19:00)
[2018-01-14] MEDS ORDERED: POTASSIUM CHLORIDE 20% 40 MEQ/15 ML UDC PO ONE (19:00)
--- NOTE | 2018-01-14 19:01 | NUR ---
bladder scanned --- 360 ml
[2018-01-14] MEDS ORDERED: PIPERACILLIN/TAZOBACTAM 3.375 GM VIAL IV ONE (19:10)
--- NOTE | 2018-01-14 19:20 | NUR ---
report given to kirit elaine
--- NOTE | 2018-01-14 19:20 | NUR ---
REPORT RECEVIED FROM AKI CARO
[2018-01-14 20:03] LABS: BASOPHILS # (AUTO) 0.1 K/uL (0.00-0.22); BASOPHILS % (AUTO) 0.4 % (0.0-2.0); EOSINOPHILS % (AUTO) 0.1 % (0.0-4.0); HEMATOCRIT 29.1 % (36-52); HEMOGLOBIN 9.2 g/dL (12.0-18.0); LYMPHOCYTES # (AUTO) 1.1 K/uL (2.0-11.5); LYMPHOCYTES % (AUTO) 7.8 % (20.5-51.1); MEAN CORPUSCULAR HEMOGLOBIN 26 pg (27-31); MEAN CORPUSCULAR HGB CONC 32 g/dL (33-37); MEAN CORPUSCULAR VOLUME 81.7 fL (80-94); MONOCYTES # (AUTO) 1.4 K/uL (0.8-1.0); MONOCYTES % (AUTO) 10.3 % (1.7-9.3); NEUTROPHILS # (AUTO) 11.3 K/uL (1.8-7.7); NEUTROPHILS % (AUTO) 81.4 % (42.2-75.2); PLATELET COUNT (AUTO) 270 K/uL (140-450); RED BLOOD CELL COUNT(AUTO) 3.56 MIL/uL (4.20-6.10); RED CELL DISTRIBUTION WIDTH 14.4 % (11.6-13.7); WHITE BLOOD COUNT (AUTO) 13.9 K/uL (4.8-10.8)
[2018-01-14] MEDS ORDERED: NACL 0.9% 1,000 ML IV SCH (20:24)
[2018-01-14] MEDS ORDERED: ACETAMINOPHEN 325 MG TAB PO PRN (20:25)
[2018-01-14] MEDS ORDERED: HYDROcodone/APAP 5/325 MG 1 TAB TAB PO PRN (20:25)
[2018-01-14] MEDS ORDERED: ZOLPIDEM 5 MG TAB PO PRN (20:25)
[2018-01-14] MEDS ORDERED: ONDANSETRON 4 MG/2 ML VIAL IM/IVP PRN (20:25)
[2018-01-14] MEDS ORDERED: LORazepam 2 MG/ML VIAL IM/IVP PRN (20:25)
[2018-01-14] MEDS ORDERED: MORPHINE SULFATE 4 MG/ML SYR IVP PRN (20:25)
[2018-01-14] MEDS ORDERED: DOCUSATE SODIUM 100 MG GELCAP PO PRN (20:25)
[2018-01-14] MEDS ORDERED: NITROGLYCERIN 0.4 MG TAB SL PRN (20:30)
[2018-01-14] MEDS ORDERED: KCL 20 MEQ/WATER INJ PREMIX 200 ML IV ONE (20:30)
[2018-01-14] MEDS ORDERED: hePARIN / DEXT 5% PREMIX 250 ML IV SCH (20:35)
[2018-01-14] MEDS ORDERED: HEPARIN PER PHARMACY MC PRN (20:35)
[2018-01-14] MEDS ORDERED: SODIUM PHOSPHATE 118 ML ENEM RC PRN (20:50)
[2018-01-14] MEDS ORDERED: DOCUSATE 100 MG/10 ML UDC GT PRN (20:50)
[2018-01-14] MEDS ORDERED: PROCHLORPERAZINE 25 MG SUPP RC PRN (20:50)
[2018-01-14] MEDS ORDERED: ACETAMINOPHEN 650 MG/20.3 ML UDC GT SCH (20:50)
[2018-01-14] MEDS ORDERED: POLYETHYLENE GLYCOL 17 GM/PKT GT SCH (20:50)
[2018-01-14] MEDS ORDERED: ALBUTEROL SULFATE/IPRATROPIU 3 ML SOL IH PRN (20:50)
[2018-01-14] MEDS ORDERED: BISACODYL 10 MG SUPP RC PRN (20:50)
[2018-01-14] MEDS ORDERED: MAGNESIUM HYDROXIDE 2400 MG/30 ML UDC GT PRN (20:50)
[2018-01-14] MEDS ORDERED: DEXTROSE 50% 50 ML SYR IVP PRN (20:55)
[2018-01-14 20:58] LABS: CHOL/HDL RATIO 7.1 (1-4.5); MAGNESIUM 2.2 mg/dL (1.8-2.4); PHOSPHORUS 3.8 mg/dL (2.5-4.9); THYROID STIMULATING HORMONE 1.24 uIU/mL (0.34-3.74)
[2018-01-14] MEDS ORDERED: DEXT 5% /NACL 0.9% 1,000 ML IV ONE (21:00)
[2018-01-14] MEDS ORDERED: ATORVASTATIN 20 MG TAB PO SCH (21:00)
[2018-01-14] MEDS ORDERED: METOPROLOL 25 MG TAB PO SCH (21:00)
[2018-01-14 21:15] VITALS: BP 175/84
--- NOTE | 2018-01-14 21:15 | NUR ---
RECEIVED REPORT FROM ER NURSE ELIZABETH AT BEDSIDE FOR CONTINUITY OF CARE. PT AWAKE AND APHASIC. PT IV NOTED PICC LINE RAO DOUBLE LUMEN. NO SOB NO S/S OF DISTRESS ON TRACH TO O2. SKIN NOT INTACT SEE WOUND ASSESSMENT. CONDOM CATH TO VALIENTE BAG. COLOSTOMY BAG TO LLQ. G-TUBE TO RUQ PATENT. OPEN WOUND UPPER MIDDLE ABDOMEN. BED LOWERED WILL CONTINUE TO MONITOR.
--- NOTE | 2018-01-14 21:31 | NUR ---
Patient will be admitted to care of DR GEE. Admited to TELE. Will go to room 108-B. Belongings list completed. Report to AKI DORAN.
--- NOTE | 2018-01-14 22:11 | NUR ---
PATIENT RECEIVED FROM ER AT 2150. NURSE ANDREEA AT BEDSIDE. PATIENT CALM AND APHASIC. TRACH CLEAN, DRY AND PATENT. TRACH IS PORTEX 7. PLACED ON CONTINUOUS PULSE OX, COOL AEROSOL 6L 28%. SUCTION SETUP AND ON. SUCTIONED X1 FOR SMALL AMOUNT OF THICK CREAMY SECRETIONS. VITALS STABLE: 100%, SHALLOW RATE OF 24, PULSE 107, BREATH SOUNDS CLEAR BUT DIMINISHED. GOOD CHEST RISE.
--- NOTE | 2018-01-14 22:32 | NUR ---
SPUTUM SAMPLE COLLECTED AND SENT TO LAB AT 2219.
[2018-01-14] MEDS: levETIRAcetam 500 MG TAB GT SCH (22:52)
[2018-01-14] MEDS: HYDROcodone/APAP 5/325 MG 1 TAB TAB GT SCH (22:52)
[2018-01-14] MEDS: PHENYTOIN 100 MG CAPER PO SCH (22:52)
[2018-01-14] MEDS: CARVEDILOL 12.5 MG TAB GT SCH (22:53)
[2018-01-14] MEDS: BLOOD GLUCOSE MONITORING 1 DEV DEV FS SCH (22:56)
[2018-01-14] MEDS: INSULIN LISPRO SLIDING SCALE 100 UNITS/ML VIAL SUBQ PRN (22:58)
[2018-01-14] MEDS: INSULIN LANTUS 100 UNITS/ML 10 ML VIAL SUBQ SCH (23:03)
[2018-01-14] MEDS ORDERED: FUROSEMIDE 20 MG/2 ML VIAL IVP ONE (23:40)
--- NOTE | 2018-01-14 23:52 | NUR ---
PT RECEIVED PAIN MED 1HR AGO. PT IS CURRENTLY SLEEPING PAIN MED EFFECTIVE.
[2018-01-15] VITALS: BP 148/79
[2018-01-15] MEDS ORDERED: IPRATROPIUM 0.02% 0.5 MG/2.5 ML NEBU INH SCH
[2018-01-15] MEDS ORDERED: ALBUTEROL 0.083% 2.5 MG/3 ML NEBU INH SCH
[2018-01-15] MEDS ORDERED: PIPERACILLIN/TAZOBACTAM 3.375 GM VIAL IV ONE ×2 (00:51→05:05)
[2018-01-15] MEDS: DILTIAZEM 30 MG TAB GT SCH ×4 (01:09→17:39)
[2018-01-15] MEDS: PIPERACILLIN/TAZOBACTAM 3.375 GM in DEXTROSE 5% 50 ML IV SCH ×2 (01:10→05:07)
[2018-01-15 02:22] LABS: ANION GAP 9.7 (8-16); CARBON DIOXIDE 31.3 mmol/L (21-32); CREATININE 1.6 mg/dL (0.7-1.3)
[2018-01-15] MEDS ORDERED: KCL 20 MEQ/WATER INJ PREMIX 200 ML IV ONE (03:40)
[2018-01-15 04:00] VITALS: BP 184/109
[2018-01-15] MEDS ORDERED: hydrALAZINE 20 MG/ML VIAL IVP ONE (04:20)
[2018-01-15] MEDS: INSULIN LISPRO SLIDING SCALE 100 UNITS/ML VIAL SUBQ PRN ×4 (05:22→21:41)
[2018-01-15] MEDS: BLOOD GLUCOSE MONITORING 1 DEV DEV FS SCH ×4 (05:23→21:20)
--- NOTE | 2018-01-15 06:35 | NUR ---
AT 0430 PT BP WAS ELEVATED 184/109 HR 116, AWARE AND ORDERED HYDRALIZINE. ADMIN IV HYDRALIZINE AT 0508. AND CARDIZEM. REASSESSED AT 0630 BP: 141/83 HR 92. WILL ENDORSED
[2018-01-15 06:49] LABS: BASOPHILS # (AUTO) 0.1 K/uL (0.00-0.22); BASOPHILS % (AUTO) 0.5 % (0.0-2.0); HEMATOCRIT 30.5 % (36-52); HEMOGLOBIN 9.8 g/dL (12.0-18.0); LYMPHOCYTES # (AUTO) 1.4 K/uL (2.0-11.5); LYMPHOCYTES % (AUTO) 9.2 % (20.5-51.1); MEAN CORPUSCULAR HEMOGLOBIN 26 pg (27-31); MEAN CORPUSCULAR HGB CONC 32 g/dL (33-37); MEAN CORPUSCULAR VOLUME 80.5 fL (80-94); MONOCYTES # (AUTO) 1.6 K/uL (0.8-1.0); MONOCYTES % (AUTO) 10.9 % (1.7-9.3); NEUTROPHILS % (AUTO) 79.4 % (42.2-75.2); PLATELET COUNT (AUTO) 297 K/uL (140-450); RED BLOOD CELL COUNT(AUTO) 3.79 MIL/uL (4.20-6.10); RED CELL DISTRIBUTION WIDTH 14.2 % (11.6-13.7); WHITE BLOOD COUNT (AUTO) 15.1 K/uL (4.8-10.8)
[2018-01-15 07:12] LABS: MAGNESIUM 1.8 mg/dL (1.8-2.4); PHOSPHORUS 2.9 mg/dL (2.5-4.9)
--- NOTE | 2018-01-15 07:29 | NUR ---
ENDORSED REPORT TO [facility] FOR CONTINUITY OF CARE.
--- NOTE | 2018-01-15 07:30 | NUR ---
REPORT RECIEVED FROM SAMPLE BODY BUILDER NURSE, PT SLEEPING QUIETLY IN NAD, RESP EVEN UNLABORED TRACH TO HUMIDIFIED O2 AT 6L, AROUSES EASILY, APPEARS IN NO PAIN OR DISCOMFORT, POC REVIEWED, ALL SAFETY MEASURES IN PLACE, WILL CONTINUE TO MONITOR./
--- NOTE | 2018-01-15 07:30 | NUR ---
REPORT GIVEN TO COLOR STRIPPER NURSE JAKOB OWENS IN STABLE CONDITION. Addendum: 01/15/18 at 2003 by Cecily Hanson RN PLEASE DISREGARD ABOVE NOTE. WRONG TIME.
[2018-01-15 07:42] LABS: CREATININE 1.7 mg/dL (0.7-1.3)
[2018-01-15] MEDS: ALBUTEROL SULFATE/IPRATROPIU 3 ML SOL IH SCH ×3 (07:49→19:47)
[2018-01-15 08:00] VITALS: BP 155/78
--- NOTE | 2018-01-15 08:21 | NUR ---
PATIENT HAS BEEN SCREENED AND CATEGORIZED HIGH NUTRITION RISK. PATIENT WILL BE SEEN WITHIN 1-2 DAYS OF ADMISSION. 01/15/18-01/16/[address]
[2018-01-15 08:36] LABS: BARBITURATE, URINE NEG. ng/ml (NEG <=200); BENZODIAZEPINE, URINE NEG. ng/mL (NEG <=200); CANNABINOID, URINE NEG. ng/mL (NEG <=50); COCAINE, URINE NEG. ng/mL (NEG <=300); OPIATE, URINE NEG. ng/mL (NEG <=2000); PHENCYCLIDINE SCREEN,URINE NEG. ng/mL (NEG <=25)
[2018-01-15 08:39] LABS: APPEARANCE,URINE CLOUDY (CLEAR); COLOR,URINE YELLOW (YELLOW)
[2018-01-15 08:40] LABS: UGLUCOSE NEGATIVE (NEGATIVE)
[2018-01-15 08:41] LABS: BILIRUBIN,URINE NEGATIVE (NEGATIVE); LEUKOCYTE ESTERASE ,URINE 2+ (NEGATIVE); NITRITE, URINE NEGATIVE (NEGATIVE)
[2018-01-15 08:42] LABS: BLOOD, URINE LARGE (NEGATIVE)
[2018-01-15 08:43] LABS: RBC,URINE 80-100 /HPF (0-5); WBC,URINE TOO MANY TO COUNT /HPF (0-5)
[2018-01-15] MEDS ORDERED: ASCORBIC ACID 500 MG/5 ML ORASYR GT SCH (09:00)
--- NOTE | 2018-01-15 09:40 | NUR ---
OLD GT SITE WITH COPIOUS DRAINAGE, DRESSING CHANGED, COLOSTOMY BAG WITH MINIMAL BROWN LIQ, NEW GT TO RU ABD SITE WNL, CONDOM CATH IN PLACE, DRAINING DARK URINE, INTERMITTENT WET COUGH, TRACH SUCTIONED, CREAMY WHITE. POSITION CHANGED, WILL CONTINUE TO MONTIOR
[2018-01-15] MEDS: MULTIVITAMIN/MINERALS 15 ML UDBTL GT SCH (10:13)
[2018-01-15] MEDS: prednisoLONE 1% OP 5 ML BTL OP SCH ×3 (10:13→17:45)
[2018-01-15] MEDS: FERROUS SULFATE 300 MG/5 ML UDC GT SCH (10:14)
[2018-01-15] MEDS: LANSOPRAZOLE 30 MG CAPDR GT SCH (10:14)
[2018-01-15] MEDS: PHENYTOIN 100 MG CAPER PO SCH ×2 (10:14→21:26)
[2018-01-15] MEDS: ATORVASTATIN 20 MG TAB GT SCH (10:15)
[2018-01-15] MEDS: levETIRAcetam 500 MG TAB GT SCH ×2 (10:15→21:25)
[2018-01-15] MEDS: LACTOBACILLUS RHAMNOSUS GG 1 EACH CAP PO SCH (10:15)
[2018-01-15] MEDS: CARVEDILOL 12.5 MG TAB GT SCH ×2 (10:15→21:25)
--- NOTE | 2018-01-15 10:15 | NUR ---
HOSE WRAPPER AT BEDSIDE
[2018-01-15] MEDS: LISINOPRIL 5 MG TAB PO SCH (10:16)
[2018-01-15] MEDS: HYDROcodone/APAP 5/325 MG 1 TAB TAB GT SCH ×2 (10:16→21:25)
[2018-01-15] MEDS: ASPIRIN 81 MG TAB.CHEW PO SCH (10:16)
[2018-01-15] MEDS: CLOPIDOGREL 75 MG TAB GT SCH (10:16)
--- NOTE | 2018-01-15 10:20 | NUR ---
CONSULTED DR LEONARD REGARDING HEPARIN SQ AND PLAVIX, HOLD HEPARIN BECAUSE PT IS ON PLAVIX PER DR LEONARD, DR LEONARD ALSO NOTIFIED OF K=3.0, DR LEONARD TO ORDER K RIDER.
--- NOTE | 2018-01-15 10:20 | NUR ---
DR Fran NG AT BEDSIDE.
--- NOTE | 2018-01-15 10:32 | NUR ---
DR RUSH AT [facility]
--- NOTE | 2018-01-15 11:15 | NUR ---
WOUND CARE EVALUATION NOTE: REASON FOR EVALUATION: OLD GT STOMA SITE FISTULA AND LOW ADELA SCORE SKIN ASSESSMENT DONE WITH PRIMARY RN AT 11:00 AM WITH THIS 67 Y/O MALE PT [place] [facility] [place] [facility] WITH INITIAL DX GT MALFUNCTION AND FISTULA. PAST MEDICAL HX INCLUDES HTN, DM, CHRONIC TRACH, SEIZURE, CAD AND G-TUBE. ALL ABOVE INFORMATION OBTAINED FROM ADMISSION H&P. LABS ARE WBC 15.1, H/H 9.8/30.5, GLUCOSE 201 AND ALBUMIN 2.2. PT UPPER AND LOWER EXTREMITIES STIFFNESS, SKIN IS WARM AND DRY, BLE FEW HAIR GROWTH, NO EDEMA. DORSAL PEDAL PULSES PRESENT AND NORMAL. CAPILLARY REFILLED < 2 SEC. X 10 TOES. INCONTINENT OF BLADDER PAMELA CATH. IN PLACE. PLAN OF CARE DISCUSSED WITH PRIMARY RN. INTEGUMENTARY: -TRACH SITE GUI-STOMA SKIN DRY AND CLEAN. SKIN INTACT. -RUQ ABDOMEN GT SITE STOMA SITE DRY AND CLEAN, GUI-STOMA SKIN INTACT. -RIGHT WRIST BLACK ESCHAR WITH UNKNOW ETIOLOGY, 2X3CM, IRREGULAR WOUND SHAPE, GUI-WOUND SKIN DARK PURPLE DRY AND INTACT -MID ABDOMEN OLD GT SITE STOMA OPENING WITH 2.5X3CM. DEPTH UTD, SMALL AMOUNT OF BLEEDING NOTICE WITH CONTINUE DRAINE OF BROWNISH STOMACH FLUIDS CONTENT AND MUCUS, GUI-STOMA SKIN INTACT WITH -ABDOMEN DISSENTED, NON-TENDER TO TOUCH. MULTIPLE HEALED OLD SCARS. -LLQ ABD. COLOSTOMY FUNCTIONING WITH SMALL AMOUNT OF STOOL OUTPUT, GUI-OSTOMY SKIN INTACT. -OLD HEALED SCARS TO SACROCOCCYX AT REMODELING STAGE RECOMMENDATIONS: -SURGEON TO CONSULT TO OLD GT SITE WOUND -APPLY SOAKED 4X4 WITH BETADINE SOLUTION TO RIGHT WRIST, COVER WITH DRY DRESSING -KEEP SKIN DRY AND CLEAN AT ALL TIMES, PLEASE CHECK Q2H AND PRN FOR DRYNESS -CLEANSE GT SITE GUI STOMA SKIN WITH NS, PAT DRY, APPLY Z GUARD TO GT-SITE GUI-STOMA SKIN BID AND COVER WITH DRAINAGE BAG (RECTAL BAG), PLEASE DRAIN AND CHANGE BAG PRN IF DISPLACED -APPLY HYDRAGUARD TO R/L UPPER AND LOWER EXTREMITUES BID AND PRN IF SOILING -APPLY FORM DRESSING TO SACROCOCCY Q7 DAYS AND PRN IF SOILING PREVENTION -OFFLOAD BILATERAL HEELS BY PLACING PILLOWS UNDER CALVES UNLESS OTHERWISE CONTRAINDICATED -PRESSURE REDISTRIBUTION SURFACE THERAPY -TURN AND REPOSITION Q2H, OFFLOAD SACRALCOCCYX BY TURNING RIGHT AND LEFT -CONTINUE TO FOLLOW RD RECOMMENDATIONS ALL ABOVE RECOMMENDATIONS DISCUSSED WITH PRIMARY RN. AND DR. HALL WILL FOLLOW UP PT Q7-10 DAYS. PLEASE CONTACT WOUND CARE NURSE FOR ANY QUESTION AND CHANGE OF WOUND CONDITION.
[2018-01-15] MEDS: ASCORBIC ACID 500 MG/5 ML ORASYR GT SCH (11:57)
[2018-01-15 12:00] VITALS: BP 139/71
--- NOTE | 2018-01-15 12:00 | NUR ---
VITALS STABLE, NO IMMEDIATE NEEDS AT THIS TIME, ORAL CARE DONE, TRACH SUCTIONED.
[2018-01-15] MEDS: PIPER/TAZO 3.375GM/D5W PREMIX 50 ML IV SCH ×2 (12:56→17:38)
--- NOTE | 2018-01-15 13:05 | NUR ---
DR CASILLAS AT BEDSIDE.
--- NOTE | 2018-01-15 13:08 | NUR ---
PER DR CASILLAS, NO CONDOM CATH OR VALIENTE CATH NEEDED, OK TO HAVE PT INCONTINENT WITH DIAPER.
[2018-01-15] MEDS ORDERED: VANCOMYCIN PER PHARMACY MC PRN (13:25)
[2018-01-15] MEDS: VANCOMYCIN 1,250 MG in DEXTROSE 5% 250 ML IV SCH (14:55)
--- NOTE | 2018-01-15 15:26 | NUR ---
BLADDER SCAN DONE, 85ML NOTED IN BLADDER AT THIS TIME, DIAPER WET, CHANGED, PERICA RE DONE.
--- NOTE | 2018-01-15 15:45 | NUR ---
01/15/18 RD INITIAL ASSESSMENT COMPLETED PLEASE REFER TO NUTRITION ASSESSMENT UNDER CARE ACTIVITY FOR ESTIMATED NUTRITIONAL NEEDS. 1. CONTINUE NPO MEDICALLY NECESSARY 2. RECOMMEND TPN IF PATIENT WILL BE NPO FOR MORE THAN 2 DAYS 3. WHEN G-TUBE MALFUNCTION IS RESOLVED CONSIDER INITIATING G-TUBE FEEDING WITH VITAL AF 1.2 AT A GOAL RATE OF 45 ML/HR. START AT 15 ML/HR AND ADVANCE BY 15 ML/HR Q6H. -THIS WILL PROVIDE 1080 ML, 1296 KCAL, AND 81 GM OF PROTEIN, WHICH WILL MEET 77% OF ESTIMATED KCAL NEEDS AND 124% OF ESTIMATED PROTEIN NEEDS. 4. RECOMMEND FREE WATER FLUSH [address] TO FOLLOW-UP 2-3 DAYS, HIGH RISK GALINA ANDERSEN RD
[2018-01-15 16:00] VITALS: BP 138/76
--- NOTE | 2018-01-15 16:00 | NUR ---
VITALS STABLE, NO IMMEDIATE NEEDS AT THIS TIME, ORAL CARE DONE, TRACH SUCTIONED.
[2018-01-15] MEDS ORDERED: KCL 20 MEQ/WATER INJ PREMIX 200 ML IV SCH (18:00)
--- NOTE | 2018-01-15 18:03 | NUR ---
INQUIRED TO DR LEONARD REGARDING GT USE FOR MEDS, DR LEONARD TO DISCUSS WITH DR Joe PERLA FIRST. DRAIN FROM OLD GT SITE 5ML BROWN LIQ COLLECTED.
--- NOTE | 2018-01-15 19:30 | NUR ---
REPORT GIVEN TO UNIT CONTROLLER NURSE JAKOB OWENS IN STABLE CONDITION
--- NOTE | 2018-01-15 19:31 | NUR ---
REPORT RECEIVED FROM AM NURSE AT BEDSIDE. PT IN STABLE CONDITION. AAOX1. PT IS NONVERBAL. PT ON 6L O2 VIA T-PIECE TO TRACH. INTRODUCED SELF TO PT. BOARD UPDATED. PT HAS R PICC RUNNING NS TKO PATENT AND INTACT. PT HAS NEW GTUBE IN PLACE FOR MEDS ONLY UNTIL FURTHER NOTICE. OLD GTUBE SITE HAS DRAINAGE AND COLOSTOMY FOR WOUND DRAINAGE. PT HAS COLOSTOMY. SKIN WARM, DRY, AND NOT INTACT DUE TO OLD GTUBE SITE, L WRIST ESCHAR, AND OLD HEALED SACRAL WOUND. BED LOCKED IN LOW POSITION. CALL JOHNS WITHIN REACH. SAFETY PRECAUTIONS IN PLACE. SEIZURE PRECAUTIONS IN PLACE.
[2018-01-15 20:00] VITALS: BP 153/68
--- NOTE | 2018-01-15 20:43 | NUR ---
RECEIVED PATIENT ON 28% COOL AEROSOL TO TRACH, PORTEX 7. AIRWAY SECURE AND PATENT. CONTINUOUS PULSE OX ON AND FUNCTIONING AT BEDSIDE. SCHEDULED BREATHING TREATMENT ADMINISTERED. PATIENT TOLERATED TX WELL, NO ADVERSE SIDE EFFECTS. SUCTIONED MODERATE AMOUNT OF THICK WHITE SECRETIONS. NO DISTRESS NOTED AT THIS TIME. WILL CONTINUE TO MONITOR.
--- NOTE | 2018-01-15 21:25 | NUR ---
COREG, NORCO, KEPPRA, AND DILANTIN CRUSHED UP AND GIVEN THROUGH GTUBE. BS 156. 2 UNITS OF HUMALOG GIVEN. 60 UNITS OF LANTUS GIVEN SUBQ. PT TOLERATED WELL.
[2018-01-15] MEDS: INSULIN LANTUS 100 UNITS/ML 10 ML VIAL SUBQ SCH (21:40)
--- NOTE | 2018-01-15 21:45 | NUR ---
PT HAS PLAVIX PO AND HEPARIN SUBQ. NOTIFIED AND HEPARIN SUBQ DC.
--- NOTE | 2018-01-15 23:15 | NUR ---
PT SWITCHED TO WOUND BED. PT TOLERATED WELL.
[2018-01-16] VITALS: BP 140/75
[2018-01-16] MEDS: DILTIAZEM 30 MG TAB GT SCH ×4 (00:16→17:28)
[2018-01-16] MEDS: PIPER/TAZO 3.375GM/D5W PREMIX 50 ML IV SCH ×5 (00:16→23:59)
--- NOTE | 2018-01-16 00:16 | NUR ---
CARDIZEM GIVEN THROUGH GTUBE. PT TOLERATED WELL. ZOSYN HUNG AND RUNNING.
--- NOTE | 2018-01-16 01:30 | NUR ---
PT SLEEPING COMFORTABLY SUPINE ON WOUND BED. PT IN STABLE CONDITION. NO S/S OF DISTRESS. BREATHING EVEN, UNLABORED, AND WNL. WILL CONTINUE TO MONITOR.
--- NOTE | 2018-01-16 03:30 | NUR ---
CRITICAL LAB VALUE TROPONIN 0.109 TRENDING DOWN. MD NOTIFIED. NO CHANGE IN ORDERS.
[2018-01-16 04:00] VITALS: BP 139/65
--- NOTE | 2018-01-16 04:15 | NUR ---
PT SLEEPING COMFORTABLY SUPINE IN BED. NO S/S OF DISTRESS NOTED. BREATHING EVEN, UNLABORED, AND WNL. WILL CONTINUE TO MONITOR.
[2018-01-16] MEDS: BLOOD GLUCOSE MONITORING 1 DEV DEV FS SCH ×3 (06:10→16:32)
[2018-01-16] MEDS: ALBUTEROL SULFATE/IPRATROPIU 3 ML SOL IH SCH ×3 (07:13→18:47)
--- NOTE | 2018-01-16 07:15 | NUR ---
REPORT GIVEN TO AM NURSE AT BEDSIDE. PT IN STABLE CONDITION.
[2018-01-16 07:39] LABS: ANION GAP 10.6 (8-16); CARBON DIOXIDE 31.2 mmol/L (21-32)
[2018-01-16] MEDS ORDERED: MORPHINE SULFATE 2 MG/ML SYR IVP PRN (07:45)
[2018-01-16] MEDS ORDERED: NACL 0.9% 1,000 ML IV SCH (07:45)
[2018-01-16 07:47] LABS: POTASSIUM 2.8 mmol/L (3.5-5.1)
--- NOTE | 2018-01-16 07:54 | NUR ---
CALLED DR. MARQUES, I REACHED HIS VOICEMAIL. I LET HIM KNOW I WAS CALLING TO INFORM HIM THE PATIENT'S POTASSIUM WAS 2.8.
--- NOTE | 2018-01-16 07:55 | NUR ---
PER DR. MARQUES GIVE PATIENT 40 MEQ K INEZ IV.
[2018-01-16 08:00] VITALS: BP 143/69
[2018-01-16] MEDS ORDERED: KCL 20 MEQ/WATER INJ PREMIX 200 ML IV SCH (08:30)
[2018-01-16] MEDS ORDERED: DEXT 5% / NACL 0.45% 1,000 ML IV SCH (09:00)
[2018-01-16 09:03] LABS: CREATININE 1.7 mg/dL (0.7-1.3)
[2018-01-16 09:11] LABS: WHITE BLOOD COUNT (AUTO) 12.1 K/uL (4.8-10.8)
[2018-01-16 09:12] LABS: CORRECTED WHITE BLOOD COUNT 3.2 K/uL (4.5-11.0); HEMATOCRIT 25.8 % (36-52); HEMOGLOBIN 8.6 g/dL (12.0-18.0); MEAN CORPUSCULAR HEMOGLOBIN 27 pg (27-31); MEAN CORPUSCULAR HGB CONC 33 g/dL (33-37); MEAN CORPUSCULAR VOLUME 81.3 fL (80-94); PLATELET COUNT (AUTO) 301 K/uL (140-450); RED BLOOD CELL COUNT(AUTO) 3.17 MIL/uL (4.20-6.10); RED CELL DISTRIBUTION WIDTH 13.7 % (11.6-13.7)
[2018-01-16 09:13] LABS: LYMPHOCYTES % (MANUAL) 15 % (20-46); MONOCYTES % (MANUAL) 7 % (5-12)
[2018-01-16] MEDS ORDERED: TPN PER PHARMACY MC PRN (09:20)
[2018-01-16] MEDS: POTASSIUM CHLORIDE 20% 40 MEQ/15 ML UDC GT SCH (09:40)
[2018-01-16] MEDS: ASCORBIC ACID 500 MG/5 ML ORASYR GT SCH (09:41)
[2018-01-16] MEDS: MULTIVITAMIN/MINERALS 15 ML UDBTL GT SCH (09:41)
[2018-01-16] MEDS: FERROUS SULFATE 300 MG/5 ML UDC GT SCH (09:41)
[2018-01-16] MEDS: prednisoLONE 1% OP 5 ML BTL OP SCH ×3 (09:42→17:27)
[2018-01-16] MEDS: PHENYTOIN 100 MG CAPER PO SCH ×2 (09:42→21:25)
[2018-01-16] MEDS: ASPIRIN 81 MG TAB.CHEW PO SCH (09:43)
[2018-01-16] MEDS: LACTOBACILLUS RHAMNOSUS GG 1 EACH CAP PO SCH (09:43)
[2018-01-16] MEDS: LISINOPRIL 5 MG TAB PO SCH (09:43)
[2018-01-16] MEDS: levETIRAcetam 500 MG TAB GT SCH ×2 (09:43→21:24)
[2018-01-16] MEDS: CLOPIDOGREL 75 MG TAB GT SCH (09:43)
[2018-01-16] MEDS: LANSOPRAZOLE 30 MG CAPDR GT SCH (09:43)
[2018-01-16 09:44] LABS: MAGNESIUM 1.9 mg/dL (1.8-2.4); PHOSPHORUS 3.3 mg/dL (2.5-4.9)
[2018-01-16] MEDS: CARVEDILOL 12.5 MG TAB GT SCH ×2 (09:44→21:24)
[2018-01-16] MEDS: ATORVASTATIN 20 MG TAB GT SCH (09:45)
[2018-01-16] MEDS: HYDROcodone/APAP 5/325 MG 1 TAB TAB GT SCH ×2 (09:45→21:25)
--- NOTE | 2018-01-16 09:50 | NUR ---
ADMINISTERED SCHEDULED MEDS TO PATIENT. PATIENT TOLERATED WELL. WILL CONTINUE TO MONITOR.
--- NOTE | 2018-01-16 11:12 | NUR ---
PATIENT SLEEPING COMFORTABLY IN BED. ALL NEEDS MET AT THIS TIME. WILL CONTINUE TO ROUND ON PATIENT FREQUENTLY.
--- NOTE | 2018-01-16 11:20 | NUR ---
Social Workers Notes: I called [facility] at . I spoke to Carrie community engagement representative at sub-acute care to discuss and gather additional patient's information. Per Carrie Patient has been a resident in their facility since 12/08/17 and has the ability to make his own health care decisions. Patient doesn't have advance directives on chart and is on a 7 days skill bed hold. Per Carrie patient is able to return to [facility] when he is ready and clear for discharge. I thanked Carrie for her assistance and information and I ended the call.
[2018-01-16 12:00] VITALS: BP 127/69
--- NOTE | 2018-01-16 12:22 | NUR ---
UROLOGIST, DR. CASILLAS HERE TO SEE PATIENT.
[2018-01-16] MEDS ORDERED: ACETAMINOPHEN 650 MG/20.3 ML UDC GT PRN (12:47)
--- NOTE | 2018-01-16 12:54 | NUR ---
PT SUCTIONED OBTAINED SMALL AMOUNT OF THICK PALE YELLOW SECRETIONS, AIRWAY IS PATENT AND TRACH IS SECURE. PT IS NOT IN ANY DISTRESS AT THIS TIME. WILL CONTINUE TO MONITOR.
--- NOTE | 2018-01-16 13:35 | NUR ---
I CALLED THE PATIENT'S (GUNNAR) AT [phone] I REACHED HER VOICEMAIL. I LEFT HER A MESSAGE ASKING HER TO PLEASE GIVE ME A CALL BACK.
[2018-01-16] MEDS: VANCOMYCIN 1,250 MG in DEXTROSE 5% 250 ML IV SCH (14:28)
--- NOTE | 2018-01-16 14:34 | NUR ---
ADMINISTERED SCHEDULED MEDS TO PATIENT. PATIENT TOLERATED WELL. WILL CONTINUE TO MONITOR.
[2018-01-16 16:00] VITALS: BP 128/67
--- NOTE | 2018-01-16 17:20 | NUR ---
TRACH REMAINS SECURE WITH A PATENT AIRWAY. PT REMAINS ON COOL AEROSOL 28%. PT IS NOT IN ANY DISTRESS AT THIS TIME.
[2018-01-16] MEDS: METOCLOPRAMIDE 10 MG/2 ML INJ VIAL IVP SCH (17:27)
[2018-01-16] MEDS: SENNA 8.6 MG TAB PO SCH (17:28)
--- NOTE | 2018-01-16 17:42 | NUR ---
Visual Supervisor attempted to contact Patient's Ness Bassett at . Mrs. Bassett was not available and these freelance writer Left her a MSG in her voicemail providing her with direct contact number and a request for a call back.
--- NOTE | 2018-01-16 18:10 | NUR ---
CHANGED PICC LINE DRESSING. PATIENT TOLERATED IT WELL. NEW DRESSING INTACT AND CLEAN. ALL NEEDS MET AT THIS TIME. WILL CONTINUE TO MONITOR.
--- NOTE | 2018-01-16 19:42 | NUR ---
ENDORSED PATIENT TO MEDICAL RECORD LIBRARIAN NURSE FOR CONTINUITY OF CARE. PATIENT STABLE AT THIS TIME. ALL NEEDS MET.
--- NOTE | 2018-01-16 19:50 | NUR ---
RECEIVED PATIENT LYING ON BED WITH TRACH TO 02 6L. PATIENT CONNECTED TO INTERMITTENT SUCTION MACHINE THROUGH G-T. PATIENT HAS COLOSTOMY BAG IN PLACE. PATIENT WAS TUNED TO HIS LEFT SIDE AND PLACE IN COMFORTABLE POSITION. WILL CONTINUE TO MONITOR.
[2018-01-16] MEDS: DEXT 5% / NACL 0.45% 1,000 ML IV SCH (20:00)
[2018-01-16] MEDS: MULTIVITAMIN IV SCH ×4 (20:09)
[2018-01-16] MEDS: AMINO ACIDS IV SCH ×4 (20:09)
[2018-01-16] MEDS: DEXTROSE IV SCH ×4 (20:09)
[2018-01-16] MEDS: [UNRECOGNIZED DRUG - OTHER] IV SCH ×4 (20:09)
[2018-01-16] MEDS: INSULIN LANTUS 100 UNITS/ML 10 ML VIAL SUBQ SCH (21:00)
--- NOTE | 2018-01-16 21:00 | NUR ---
SCHEDULE MEDICATION GIVEN AND TOLERATED WELL. REPOSITIONED PATIENT TO HIS RIGHT SIDE AND PLACE IN COMFORTABLE POSITION. NO S/S OF DISTRESS NOTED AT THIS TIME. SUCTIONED PATIENT WITH SCANT AMOUNT OF CREAMY SPUTUM. WILL CONTINUE TO MONITOR.
[2018-01-16 21:55] VITALS: BP 114/60
[2018-01-17] VITALS: BP 146/71
--- NOTE | 2018-01-17 | NUR ---
SCHEDULE MEDICATION GIVEN. V/S TAKEN AND RECORDED. REPOSITIONED PATIENT TO HIS BACK. SUCTION PATIENT WITH SCANT CREAMY SPUTUM. NO S/S OF DISTRESS NOTED. WILL CONTINUE TO MONITOR.
[2018-01-17] MEDS: INSULIN LISPRO SLIDING SCALE 100 UNITS/ML VIAL SUBQ PRN ×4 (01:25→23:47)
--- NOTE | 2018-01-17 02:00 | NUR ---
SEEN PATIENT RESTING ON BED. REPOSITIONED PATIENT AND PLACED IN COMFORTABLE POSITION. SUCTIONED PATIENT WITH SCANT AMOUNT OF SPUTUM. SEIZURE AND ASPIRATION PRECAUTION APPLIED. NO S/S OF DISTRESS NOTED. WILL CONTINUE TO MONITOR.
[2018-01-17 04:00] VITALS: BP 147/74
--- NOTE | 2018-01-17 04:00 | NUR ---
AM CARE DONE. PATIENT IN STABLE CONDITION. WILL CONTINUE TO MONITOR.
[2018-01-17] MEDS: DILTIAZEM 30 MG TAB GT SCH ×5 (05:37→23:42)
[2018-01-17] MEDS: METOCLOPRAMIDE 10 MG/2 ML INJ VIAL IVP SCH ×4 (05:37→17:51)
[2018-01-17] MEDS: PIPER/TAZO 3.375GM/D5W PREMIX 50 ML IV SCH ×3 (05:37→17:51)
[2018-01-17] MEDS: BLOOD GLUCOSE MONITORING 1 DEV DEV MC SCH ×5 (05:38→23:45)
[2018-01-17] MEDS: ALBUTEROL SULFATE/IPRATROPIU 3 ML SOL IH SCH ×3 (07:00→20:17)
--- NOTE | 2018-01-17 07:20 | NUR ---
AM CARE DONE. ALL NEEDS ATTENDED. NO S/S OF DISTRESS NOTED AT THIS TIME. WILL CONTINUE TO MONITOR.
--- NOTE | 2018-01-17 07:25 | NUR ---
RECEIVED REPORT FROM MANAGER IN HOME NURSE. PT IS RESTING IN BED, SEMI FOWLERS POSITION, AAOX1, NON VERBAL, TRACH TO O2, 6L, PT HAS PICC LINE RIGHT UPPER ARM, CURRENTLY RUNNING TPN 50ML/HR, PT HAS ESCHAR ON RIGHT HAND LEAD WORKER OF HOUSEKEEPING AND LAUNDRY, CLOSED SACRAL WOUND SCAR, NO S/S OF RESPIRATORY DISTRESS OR DISCOMFORT NOTED, DISCUSSED PLAN OF CARE WITH PT, PT UNABLE TO VERBALIZE UNDERSTANDING, SAFETY/FALL/SEIZURE PRECAUTIONS ARE IN PLACE, CALL LIGHT WITHIN REACH, WILL CONTINUE TO MONITOR.
[2018-01-17 07:55] LABS: ANION GAP 13.2 (8-16); CARBON DIOXIDE 27.9 mmol/L (21-32); POTASSIUM 3.1 mmol/L (3.5-5.1)
--- NOTE | 2018-01-17 07:55 | NUR ---
I CALLED THE PATIENT'S (GUNNAR) AT [phone], I REACHED HER VOICEMAIL AND LEFT HER A MESSAGE LETTING HER KNOW I WAS CALLING TRYING TO OBTAIN CONSENT FOR A J-TUBE PLACE DR. PERLA WAS PLANNING ON DOING TODAY. I ASKED HER TO PLEASE CALL ME BACK AND LEFT CALL BACK NUMBER TO NURSES STATION.
[2018-01-17 08:00] VITALS: BP 148/76
[2018-01-17 08:01] LABS: PHOSPHORUS 2.6 mg/dL (2.5-4.9)
[2018-01-17 08:05] LABS: CREATININE 1.6 mg/dL (0.7-1.3)
[2018-01-17] MEDS: POLYETHYLENE GLYCOL 17 GM/PKT GT SCH (08:41)
[2018-01-17] MEDS: ATORVASTATIN 20 MG TAB GT SCH (08:42)
[2018-01-17] MEDS: ASPIRIN 81 MG TAB.CHEW PO SCH (08:43)
[2018-01-17] MEDS: LANSOPRAZOLE 30 MG CAPDR GT SCH (08:43)
[2018-01-17] MEDS: PHENYTOIN 100 MG CAPER PO SCH ×2 (08:43→21:04)
[2018-01-17] MEDS: LISINOPRIL 5 MG TAB PO SCH (08:44)
[2018-01-17] MEDS: CLOPIDOGREL 75 MG TAB GT SCH (08:44)
[2018-01-17] MEDS: LACTOBACILLUS RHAMNOSUS GG 1 EACH CAP PO SCH (08:44)
[2018-01-17] MEDS: CARVEDILOL 12.5 MG TAB GT SCH ×2 (08:44→21:04)
[2018-01-17] MEDS: SENNA 8.6 MG TAB PO SCH ×3 (08:45→17:00)
[2018-01-17] MEDS: HYDROcodone/APAP 5/325 MG 1 TAB TAB GT SCH ×2 (08:45→21:04)
[2018-01-17] MEDS: levETIRAcetam 500 MG TAB GT SCH (08:45)
[2018-01-17] MEDS: FERROUS SULFATE 300 MG/5 ML UDC GT SCH (08:46)
[2018-01-17] MEDS: ASCORBIC ACID 500 MG/5 ML ORASYR GT SCH (08:46)
[2018-01-17] MEDS: POTASSIUM CHLORIDE 20% 40 MEQ/15 ML UDC GT SCH (08:46)
[2018-01-17] MEDS: prednisoLONE 1% OP 5 ML BTL OP SCH ×3 (08:48→17:51)
--- NOTE | 2018-01-17 08:48 | NUR ---
DUE MEDICATIONS GIVEN THROUGH G TUBE. PT IS HAVE DRAINAGE FROM OLD STOMA ON THE LEFT SIDE OF HIS ABDOMEN, DARK GREEN, LIQUID FORM OUTPUT.
--- NOTE | 2018-01-17 08:50 | NUR ---
ADMINISTERED PT. SCHEDULED MEDS. PT TOLERATED MEDS WELL. ALL NEDS MET AT THIS TIME. WILL ROUND FREQUENTLY.
[2018-01-17] MEDS ORDERED: FUROSEMIDE 20 MG/2 ML VIAL IVP SCH (10:30)
--- NOTE | 2018-01-17 10:45 | NUR ---
SPOKE TO THE PATIENT'S (GUNNAR) AND SHE GAVE OVER THE TELEPHONE CONSENT FOR EGD AND J TUBE PLACEMENT. GUNNAR SAID SHE WOULD BE IN LATER TO VISIT HER .
[2018-01-17] MEDS: KCL 20 MEQ/WATER INJ PREMIX 100 ML IV SCH ×2 (11:16→12:30)
[2018-01-17 12:00] VITALS: BP 165/83
--- NOTE | 2018-01-17 12:40 | NUR ---
ADMINISTERED PT SCHEDULED MEDS. PATIENT TOLERATED WELL. WILL CONTINUE TO MONITOR. ALL NEEDS MET AT THIS TIME.
[2018-01-17] MEDS ORDERED: levETIRAcetam 100 MG/ML ORASYR GT SCH (13:37)
[2018-01-17] MEDS: VANCOMYCIN 1,250 MG in DEXTROSE 5% 250 ML IV SCH (13:49)
--- NOTE | 2018-01-17 14:06 | NUR ---
PATIENT SLEEPING IN BED COMFORTABLY. ALL NEEDS MET AT THIS TIME. WILL CONTINUE TO MONITOR.
[2018-01-17 16:00] VITALS: BP 157/67
--- NOTE | 2018-01-17 16:57 | NUR ---
PATIENT SLEEPING IN BED COMFORTABLY. ALL NEEDS MET AT THIS TIME. WILL ROUND FREQUENTLY.
--- NOTE | 2018-01-17 17:55 | NUR ---
ADMINISTERED SCHEDULED MEDS TO PATIENT. TOLERATED WELL. WILL CONTINUE TO MONITOR. ALL NEEDS MET AT THIS TIME.
--- NOTE | 2018-01-17 19:13 | NUR ---
ENDORSED PATIENT TO COMPOUND FILLER NURSE FOR CONTINUITY OF CARE. PATIENT STABLE AT THIS TIME. ALL NEEDS MET.
--- NOTE | 2018-01-17 19:15 | NUR ---
RECEIVED PATIENT LYING ON BED IN SEMI FOWLERS POSITION. WITH TRACH TO 02 6L. G-T CONNECTED TO LOW INTERMITTENT SUCTION. COLOSTOMY BAG IN PLACE. SEIZURE/ASPIRATION/FALL PRECAUTION APPLIED.PICC LINE LOCATED AT RIGHT ARM TPN INFUSING WELL. WILL CONTINUE TO MONITOR.
[2018-01-17] MEDS: MULTIVITAMIN IV SCH ×8 (19:54→20:00)
[2018-01-17] MEDS: DEXTROSE IV SCH ×8 (19:54→20:00)
[2018-01-17] MEDS: AMINO ACIDS IV SCH ×8 (19:54→20:00)
[2018-01-17] MEDS: [UNRECOGNIZED DRUG - OTHER] IV SCH ×4 (19:54)
[2018-01-17 20:00] VITALS: BP 145/76
[2018-01-17] MEDS: DEXT 5% / NACL 0.45% 1,000 ML IV SCH (20:00)
[2018-01-17] MEDS: [UNRECOGNIZED DRUG - OTHER] IV SCH ×4 (20:00)
--- NOTE | 2018-01-17 20:00 | NUR ---
V/S TAKEN AND RECORDED. BS TAKEN NO COVERAGE PER SLIDING SCALE. LANTUS HOLD PER PHYSICIAN.
[2018-01-17] MEDS: INSULIN LANTUS 100 UNITS/ML 10 ML VIAL SUBQ SCH (20:53)
--- NOTE | 2018-01-17 21:00 | NUR ---
ADMINISTERED SCHEDULE MEDICATION AND TOLERATED WELL. SUCTIONED PATIENT WITH SCANT AMOUNT OF WHITE SPUTUM. REPOSITIONED PATIENT AND PLACE IN SEMI FOWLERS POSITION. NO S/S OF DISTRESS NOTED AT THIS TIME. WILL CONTINUE TO MONITOR.
[2018-01-17] MEDS ORDERED: levETIRAcetam 100 MG/ML VIAL IV ONE (21:36)
[2018-01-17] MEDS: levETIRAcetam 500 MG in NACL 0.9% 100 ML IV SCH (21:39)
[2018-01-18] VITALS: BP 120/56
--- NOTE | 2018-01-18 | NUR ---
ADMINISTERED SCHEDULE MEDICATION. TOLERATED WELL. BS TAKEN PER SLIDING SCALE WITH COVERAGE. V/S TAKEN AND RECORDED.REPOSITIONED PATIENT AND PLACE IN FOWLERS POSITION. NO S/S OF DISTRESS NOTED AT THIS TIME WITH 100% O2 SAT. WILL CONTINUE TO MONITOR.
--- NOTE | 2018-01-18 | NUR ---
V/S TAKEN AND RECORDED. BS TAKEN PER PROTOCOL. SCHEDULE MEDICATION GIVEN. TOLERATED WELL. NO S/S OF DISTRESS NOTED. WILL CONTINUE TO MONITOR.
[2018-01-18] MEDS: PIPER/TAZO 3.375GM/D5W PREMIX 50 ML IV SCH ×4 (00:01→19:03)
[2018-01-18] MEDS: METOCLOPRAMIDE 10 MG/2 ML INJ VIAL IVP SCH ×4 (00:02→20:22)
--- NOTE | 2018-01-18 02:00 | NUR ---
SEEN PATIENT RESTING ON BED. NO DISTRESS NOTED AT THIS TIME. REPOSITIONED PATIENT AND SUCTIONED. WILL CONTINUE TO MONITOR.
[2018-01-18 04:00] VITALS: BP 155/84
[2018-01-18] MEDS: DILTIAZEM 30 MG TAB GT SCH ×3 (05:44→17:18)
[2018-01-18] MEDS: BLOOD GLUCOSE MONITORING 1 DEV DEV MC SCH ×3 (05:49→17:26)
[2018-01-18] MEDS: INSULIN LISPRO SLIDING SCALE 100 UNITS/ML VIAL SUBQ PRN ×4 (05:49→20:49)
--- NOTE | 2018-01-18 06:42 | NUR ---
AM /ORAL CARE DONE. CHANGED PATIENT AND PLACE IN FOWLERS POSITION. ASPIRATION/SEIZURE PRECAUTION APPLIED.WILL CONTINUE TO MONITOR. Addendum: 01/18/18 at 0646 by Gus Coe RN NOTE DONE@0400AM.
[2018-01-18 07:07] LABS: BASOPHILS % (AUTO) 0.6 % (0.0-2.0); EOSINOPHILS # (AUTO) 0.1 K/uL (0-0.4); HEMATOCRIT 27.1 % (36-52); HEMOGLOBIN 8.8 g/dL (12.0-18.0); LYMPHOCYTES # (AUTO) 1.7 K/uL (2.0-11.5); LYMPHOCYTES % (AUTO) 21.2 % (20.5-51.1); MEAN CORPUSCULAR HEMOGLOBIN 26 pg (27-31); MEAN CORPUSCULAR HGB CONC 32 g/dL (33-37); MEAN CORPUSCULAR VOLUME 80.1 fL (80-94); MONOCYTES # (AUTO) 0.7 K/uL (0.8-1.0); MONOCYTES % (AUTO) 8.3 % (1.7-9.3); NEUTROPHILS # (AUTO) 5.5 K/uL (1.8-7.7); NEUTROPHILS % (AUTO) 68.9 % (42.2-75.2); PLATELET COUNT (AUTO) 362 K/uL (140-450); RED BLOOD CELL COUNT(AUTO) 3.38 MIL/uL (4.20-6.10); RED CELL DISTRIBUTION WIDTH 14.2 % (11.6-13.7); WHITE BLOOD COUNT (AUTO) 7.9 K/uL (4.8-10.8)
[2018-01-18 07:19] LABS: PHOSPHORUS 3.5 mg/dL (2.5-4.9)
--- NOTE | 2018-01-18 07:20 | NUR ---
ENDORSEMENT GIVEN TO AM SHIFT RN AT BEDSIDE FOR CONTINUITY OF CARE. PATIENT IN STABLE CONDITION.
[2018-01-18 07:22] LABS: CARBON DIOXIDE 28.2 mmol/L (21-32); CREATININE 1.6 mg/dL (0.7-1.3); POTASSIUM 3.2 mmol/L (3.5-5.1)
--- NOTE | 2018-01-18 07:30 | NUR ---
RECEIVED PATIENT BY BEDSIDE. PATIENT IS BEDBOUND AND NONVERBAL. HE IS ON [id number]-[id number]-H-PIECE 6L/MIN. PATIENT ON CONTINUOUS O2 SAT MONITORING; 96% SAO2. PATIENT OPENS EYES AND TURNS TOWARDS SOUND OF HIS NAME. OLD STOMA NOTED WITH DRAINAGE BAG ATTACHED; GREEN DRAINAGE PRESENT IN THE BAG. PEG ON LOW INTERMITTENT SUCTION; COLOSTOMY BAG IN PLACE. PICC NOTED ON THE RIGHT UPPER ARM WITH TPN INFUSING AT 70ML/HR.
[2018-01-18] MEDS: ALBUTEROL SULFATE/IPRATROPIU 3 ML SOL IH SCH ×3 (08:00→19:23)
[2018-01-18] MEDS: SENNA 8.6 MG TAB PO SCH ×2 (09:00→20:24)
[2018-01-18] MEDS: ASCORBIC ACID 500 MG/5 ML ORASYR GT SCH (09:00)
[2018-01-18] MEDS: ASPIRIN 81 MG TAB.CHEW PO SCH (09:00)
[2018-01-18] MEDS: CLOPIDOGREL 75 MG TAB GT SCH (09:00)
[2018-01-18] MEDS: FERROUS SULFATE 300 MG/5 ML UDC GT SCH (09:41)
[2018-01-18] MEDS: POLYETHYLENE GLYCOL 17 GM/PKT GT SCH (09:41)
[2018-01-18] MEDS: LACTOBACILLUS RHAMNOSUS GG 1 EACH CAP PO SCH (09:42)
[2018-01-18] MEDS: HYDROcodone/APAP 5/325 MG 1 TAB TAB GT SCH ×2 (09:42→20:23)
[2018-01-18] MEDS: LISINOPRIL 5 MG TAB PO SCH (09:43)
[2018-01-18] MEDS: CARVEDILOL 12.5 MG TAB GT SCH ×2 (09:43→20:23)
[2018-01-18] MEDS: levETIRAcetam 500 MG in NACL 0.9% 100 ML IV SCH ×2 (09:44→20:25)
[2018-01-18] MEDS: LANSOPRAZOLE 30 MG CAPDR GT SCH (09:49)
[2018-01-18] MEDS: PHENYTOIN 100 MG CAPER PO SCH ×2 (09:49→20:24)
[2018-01-18] MEDS: prednisoLONE 1% OP 5 ML BTL OP SCH ×3 (09:50→17:18)
[2018-01-18] MEDS: ATORVASTATIN 20 MG TAB GT SCH (09:52)
--- NOTE | 2018-01-18 10:00 | NUR ---
GAVE PATIENT BED BATH AND CHANGED THE PATIENT. PATIENT'S TRACH SUCTIONED; SCANT AMOUNT OF WHITE SECRETION NOTED. PATIENT'S BED IS AT THE LOWEST POSITION AND WITH CALL LIGHT WITHIN REACH.
[2018-01-18] MEDS ORDERED: diphenhydrAMINE 50 MG/ML VIAL ONE (10:25)
[2018-01-18] MEDS ORDERED: fentaNYL 0.05 MG/ML VIAL ONE (10:25)
[2018-01-18] MEDS ORDERED: MIDAZOLAM 2 MG/2 ML VIAL ONE (10:25)
--- NOTE | 2018-01-18 10:35 | NUR ---
PATIENT LEFT THE UNIT FOR EGD. NO S/S OF DISTRESS AT THIS TIME
--- NOTE | 2018-01-18 11:40 | NUR ---
PATIENT BACK IN THE UNIT. PATIENT ASLEEP BUT AROUSABLE. TEMP 99.1 BP: 110/59 HR 85 O2 SAT 95 ON 6L O2. WILL CONTINUE TO MONITOR
[2018-01-18 12:00] VITALS: BP 108/61
[2018-01-18] MEDS ORDERED: METOCLOPRAMIDE 10 MG/2 ML INJ VIAL IVP ONE (12:15)
[2018-01-18] MEDS ORDERED: fentaNYL 0.05 MG/ML VIAL IVP ONE (12:15)
[2018-01-18] MEDS ORDERED: MIDAZOLAM 2 MG/2 ML VIAL IVP ONE (12:15)
[2018-01-18] MEDS ORDERED: PROMETHAZINE 25 MG/ML VIAL ONE (13:28)
[2018-01-18] MEDS ORDERED: METOCLOPRAMIDE 10 MG/2 ML INJ VIAL ONE (13:28)
--- NOTE | 2018-01-18 14:25 | NUR ---
CHANGED G TUBE BAG SINCE IT WAS LOOSE AND THE CONTENT WAS LEAKING. CHANGED THE PATIENT AND REPOSITIONED. PATIENT WAS SUCTIONED; SCANT AMOUNT OF WHITE SPUTUM WERE REMOVED. CALL LIGHT WITHIN REACH AND BED IS AT THE LOWEST POSITION.
--- NOTE | 2018-01-18 14:35 | NUR ---
GAVE PATIENT ORAL CARE. PATIENT TOLERATED WELL.
--- NOTE | 2018-01-18 14:44 | NUR ---
01/18/18 RD FOLLOW UP COMPLETED PLEASE REFER TO NUTRITION ASSESSMENT UNDER CARE ACTIVITY FOR ESTIMATED NUTRITIONAL NEEDS. 1. CONTINUE VITAL AF 1.2 AT A GOAL RATE OF 45 ML/HR. START AT 15 ML/HR AND ADVANCE BY 15 ML/HR Q6H. -THIS WILL PROVIDE 1080 ML, 1296 KCAL, AND 81 GM OF PROTEIN, WHICH WILL MEET 77% OF ESTIMATED KCAL NEEDS AND 115% OF ESTIMATED PROTEIN NEEDS. 2. CONTINUE FREE WATER FLUSH [address] TO FOLLOW-UP 2-3 DAYS, HIGH RISK GALINA ANDERSEN RD
[2018-01-18] MEDS ORDERED: PHENYTOIN 100 MG CAPER PO SCH (15:00)
[2018-01-18 16:00] VITALS: BP 126/72
[2018-01-18] MEDS: VANCOMYCIN 750 MG in DEXTROSE 5% 250 ML IV SCH (17:19)
--- NOTE | 2018-01-18 19:30 | NUR ---
PATIENT REPORT GIVEN AT BEDSIDE. PATIENT ENDORSED IN STABLE CONDITION
[2018-01-18 20:00] VITALS: BP 131/65
[2018-01-18] MEDS: AMINO ACIDS IV SCH ×4 (20:00)
[2018-01-18] MEDS: [UNRECOGNIZED DRUG - OTHER] IV SCH ×4 (20:00)
[2018-01-18] MEDS: MULTIVITAMIN IV SCH ×4 (20:00)
[2018-01-18] MEDS: DEXTROSE IV SCH ×4 (20:00)
[2018-01-18] MEDS: INSULIN LANTUS 100 UNITS/ML 10 ML VIAL SUBQ SCH (20:21)
--- NOTE | 2018-01-18 20:50 | NUR ---
ADMINISTERED IV, G-TUBE, AND SQ MEDICATIONS. SPOKE TO DR KHOURY AND WE ARE HOLDING TPN AND LANTUS INSULIN. INSTEAD USED INSULIN COVERAGE FOR BLOOD SUGAR 157. FLUSHED WITH SODA PER ORDER AFTER G-TUBE MEDICATIONS. PT TOLERATED EVERYTHING WELL.
[2018-01-19] VITALS: BP 139/69
--- NOTE | 2018-01-19 | NUR ---
VITAL SIGNS WITHIN NORMAL LIMITS. PT STABLE, NO SIGNS OF DISTRESS NOTED AT THIS TIME. BED IN LOWEST POSITION, BED ALARM ON. CALL LIGHT WITHIN REACH, WILL CONTINUE TO MONITOR.
[2018-01-19] MEDS: PIPER/TAZO 3.375GM/D5W PREMIX 50 ML IV SCH ×5 (00:14→23:00)
[2018-01-19] MEDS: DILTIAZEM 30 MG TAB GT SCH ×5 (00:14→23:00)
[2018-01-19] MEDS: BLOOD GLUCOSE MONITORING 1 DEV DEV MC SCH ×5 (00:16→23:01)
[2018-01-19] MEDS: VANCOMYCIN 750 MG in DEXTROSE 5% 250 ML IV SCH ×2 (02:29→15:18)
[2018-01-19 04:00] VITALS: BP 119/60
[2018-01-19] MEDS: METOCLOPRAMIDE 10 MG/2 ML INJ VIAL IVP SCH ×2 (05:04→13:06)
[2018-01-19] MEDS: INSULIN LISPRO SLIDING SCALE 100 UNITS/ML VIAL SUBQ PRN ×2 (05:19→17:19)
--- NOTE | 2018-01-19 05:19 | NUR ---
ADMINISTERED SCHEDULED MEDICATIONS, PT TOLERATED WELL.
[2018-01-19] MEDS: ALBUTEROL SULFATE/IPRATROPIU 3 ML SOL IH SCH ×3 (06:37→19:06)
--- NOTE | 2018-01-19 07:15 | NUR ---
PT REPORT RECEIVED FROM VALVE STEAMER NURSE AT BEDSIDE. PT IS ASLEEP. PT IS TRACH TO T-PIECE, 6L O2, 28% FIO2. O2 SAT 100% AT THIS TIME. PT HAS A PICC LINE ON RUE. TUBE FEEDING INFUSING AT 45 ML/HR, WITH WATER FLUSHES 70 ML/HR. D5NS INFUSING AT 10 ML/HR. PT HAS A NEW J-TUBE PLACED DURING THIS VISIT. OLD G-TUBE SITE NOTED, DRAINING YELLOW FLUID IN A DRAINAGE BAG. COLOSTOMY NOTED, DRAINING YELLOW LIQUID STOOL. NO ACUTE DISTRESS NOTED AT THIS TIME, WILL CONTINUE TO MONITOR. CALL LIGHT WITHIN REACH. FALL PRECAUTIONS IN PLACE.
--- NOTE | 2018-01-19 07:35 | NUR ---
ENDORSED PT TO DAY SHIFT RN FOR CONTINUITY OF CARE. PT IN STABLE CONDITION.
[2018-01-19 07:58] LABS: ANION GAP 14.3 (8-16); CARBON DIOXIDE 26.8 mmol/L (21-32); CREATININE 1.8 mg/dL (0.7-1.3); POTASSIUM 3.1 mmol/L (3.5-5.1)
[2018-01-19 08:00] VITALS: BP 114/57
--- NOTE | 2018-01-19 08:35 | NUR ---
PT HAVING X-RAY OF J TUBE PLACEMENT AT THIS TIME.
[2018-01-19] MEDS: levETIRAcetam 500 MG in NACL 0.9% 100 ML IV SCH ×2 (09:50→20:31)
[2018-01-19] MEDS: POLYETHYLENE GLYCOL 17 GM/PKT GT SCH (09:50)
[2018-01-19] MEDS: ASCORBIC ACID 500 MG/5 ML ORASYR GT SCH (09:50)
[2018-01-19] MEDS: LACTOBACILLUS RHAMNOSUS GG 1 EACH CAP PO SCH (09:51)
[2018-01-19] MEDS: ATORVASTATIN 20 MG TAB GT SCH (09:51)
[2018-01-19] MEDS: CARVEDILOL 12.5 MG TAB GT SCH ×2 (09:51→20:30)
[2018-01-19] MEDS: PHENYTOIN 100 MG CAPER PO SCH ×2 (09:51→20:30)
[2018-01-19] MEDS: HYDROcodone/APAP 5/325 MG 1 TAB TAB GT SCH ×2 (09:52→20:30)
[2018-01-19] MEDS: LISINOPRIL 5 MG TAB PO SCH (09:52)
[2018-01-19] MEDS: FERROUS SULFATE 300 MG/5 ML UDC GT SCH (09:52)
[2018-01-19] MEDS: prednisoLONE 1% OP 5 ML BTL OP SCH ×3 (09:55→17:29)
[2018-01-19 12:00] VITALS: BP 125/67
--- NOTE | 2018-01-19 15:00 | NUR ---
PT SEEN BY DR. PERLA
--- NOTE | 2018-01-19 15:10 | NUR ---
SPOKE TO PHARMACY ABOUT PT'S VANCOMYCIN TROUGH OF 18.3. PHARMACY SAYS OK TO ADMINISTER SCHEDULED VANCOMYCIN IV.
--- NOTE | 2018-01-19 15:20 | NUR ---
IS AWARE OF PT'S POTASSIUM LEVEL 3.1
[2018-01-19 16:00] VITALS: BP 108/59
[2018-01-19] MEDS ORDERED: POTASSIUM CHLORIDE 40 MEQ, LIDOCAINE MPF 1% - 5 mL VIAL 25 MG in NACL 0.9% 250 ML IV SCH (16:00)
--- NOTE | 2018-01-19 16:33 | NUR ---
CHANGED PT'S COLOSTOMY BAG DUE TO LEAKAGE. PT HAVING DARK GREEN LIQUID STOOL.
--- NOTE | 2018-01-19 17:30 | NUR ---
PT QUIETLY LYING IN BED, NO S/S OF DISTRESS OR PAIN NOTED. PT REPOSITIONED AND CHANGED. PT COUGHING INTERMITTENTLY. TUBE FEED INFUSING WELL. COLOSTOMY BAG INTACT, COLLECTING DARK GREEN LIQUID STOOL. O2 SATTING AT 100% ON THE T-PIECE, 6 L/MIN. CALL LIGHT WITHIN REACH. CONTINUING TO MONITOR.
--- NOTE | 2018-01-19 19:25 | NUR ---
PT REPORT GIVEN AT BEDSIDE TO NIGHTSHIFT NURSE. PT ENDORSED IN STABLE CONDITION.
--- NOTE | 2018-01-19 19:26 | NUR ---
RECEIVED REPORT FROM DAY SHIFT RN, FOR CONTINUITY OF CARE. PT IS NONVERBAL, ON TRACH TO T-PIECE WITH 6L O2 @ 28% FIO2. PT IS CONTRACTED AND BEDBOUND, UNABLE TO MAKE NEEDS KNOWN, UNABLE TO FOLLOW COMMANDS. PT BREATHS EQUAL AND UNLABORED. PT HAS A PICC LINE TO RIGHT UPPER ARM, ONE LUMEN DOESN'T FLUSH. PT HAS J-TUBE (NO RESIDUAL NOTED)TO RUQ, OLD G-TUBE SITE DRAINING ONTO A BAG TO LUQ, AND A COLOSTOMY BAG TO LLQ. VITAL SIGNS WITHIN NORMAL LIMITS. PT STABLE, NO SIGNS OF DISTRESS NOTED AT THIS TIME. BED IN LOWEST POSITION, BED ALARM ON. CALL LIGHT WITHIN REACH, WILL CONTINUE TO MONITOR.
[2018-01-19 20:00] VITALS: BP 112/52
[2018-01-19] MEDS: SENNA 8.6 MG TAB PO SCH (20:30)
[2018-01-19] MEDS: INSULIN LANTUS 100 UNITS/ML 10 ML VIAL SUBQ SCH (20:39)
--- NOTE | 2018-01-19 20:44 | NUR ---
ADMINISTERED SCHEDULED MEDICATIONS, FLUSHED G-TUBE WITH 7UP AFTER MEDICATION ADMINISTRATION.
--- NOTE | 2018-01-19 22:06 | NUR ---
PT COLOSTOMY BAG WAS LEAKING, CLEANED PT AND CHANGED COLOSTOMY BAG. PT TOLERATED WELL.
--- NOTE | 2018-01-19 23:05 | NUR ---
ADMINISTERED SCHEDULED MEDICATIONS, PT TOLERATED WELL. BLOOD SUGAR 161 AT THIS TIME BUT WILL NOT COVER WITH HUMALOG BECAUSE PT RECEIVED 60 UNITS OF LANTUS EARLIER.
[2018-01-20] VITALS: BP 123/62
--- NOTE | 2018-01-20 01:30 | NUR ---
CHANGED TUBE FEEDING WITH NEW TUBING.
[2018-01-20] MEDS: VANCOMYCIN 750 MG in DEXTROSE 5% 250 ML IV SCH (03:55)
[2018-01-20 04:00] VITALS: BP 124/63
[2018-01-20] MEDS: DILTIAZEM 30 MG TAB GT SCH ×3 (05:22→17:35)
[2018-01-20] MEDS: BLOOD GLUCOSE MONITORING 1 DEV DEV MC SCH ×3 (05:22→17:02)
[2018-01-20] MEDS: INSULIN LISPRO SLIDING SCALE 100 UNITS/ML VIAL SUBQ PRN ×3 (05:38→17:00)
--- NOTE | 2018-01-20 05:39 | NUR ---
ADMINISTERED SCHEDULED MEDICATIONS AND INSULIN COVERAGE (2UNITS FOR BLOOD GLUC 175), PT TOLERATED WELL.
[2018-01-20] MEDS: ALBUTEROL SULFATE/IPRATROPIU 3 ML SOL IH SCH ×3 (06:41→19:23)
[2018-01-20 07:04] LABS: CARBON DIOXIDE 27.4 mmol/L (21-32); CREATININE 1.7 mg/dL (0.7-1.3); POTASSIUM 3.4 mmol/L (3.5-5.1)
--- NOTE | 2018-01-20 07:20 | NUR ---
RECEIVED REPORT FROM MAST MAKER RN AT BEDSIDE. PT IS NONVERBAL, OPEN EYES SPONTANEOUSLY, ON TRACH TO T-PIECE WITH 6L O2 @ 28% FIO2. PT IS BEDBOUND WITH SEVERE WEAKNESS BUE/BLE. NO S/S OF ACUTE DISTRESS NOTED. PICC LINE NOTED TO RIGHT UPPER ARM, RUNNING D5 1/2 NS AT 10ML/HR. ONE LUMEN DOESN'T FLUSH. PT HAS J-TUBE TO RUQ. OLD G-TUBE SITE TO LUQ, WITH DRAINAGE BAG, GREEN YELLOWISH DRAINAGE NOTED. COLOSTOMY BAG TO LLQ, WITH LIQUID BROWN STOOL. BED IN LOWEST POSITION, BED ALARM ON. SEIZURE PRECAUTION IN PLACE. CALL LIGHT WITHIN REACH, WILL CONTINUE TO MONITOR.
--- NOTE | 2018-01-20 07:27 | NUR ---
ENDORSED PT TO DAY SHIFT RN FOR CONTINUITY OF CARE. PT IN STABLE CONDITION.
[2018-01-20 08:00] VITALS: BP 142/73
--- NOTE | 2018-01-20 08:05 | NUR ---
VITALS TAKEN. G TUBE RESIDUAL 0ML. FEEDING RUNNING AT 45ML/HR.
[2018-01-20] MEDS: levETIRAcetam 500 MG in NACL 0.9% 100 ML IV SCH ×2 (09:10→21:21)
[2018-01-20] MEDS: FERROUS SULFATE 300 MG/5 ML UDC GT SCH (09:11)
[2018-01-20] MEDS: LACTOBACILLUS RHAMNOSUS GG 1 EACH CAP PO SCH (09:11)
[2018-01-20] MEDS: HYDROcodone/APAP 5/325 MG 1 TAB TAB GT SCH ×2 (09:11→21:00)
[2018-01-20] MEDS: PHENYTOIN 100 MG CAPER PO SCH ×2 (09:12→20:59)
[2018-01-20] MEDS: LISINOPRIL 5 MG TAB PO SCH (09:12)
[2018-01-20] MEDS: ASCORBIC ACID 500 MG/5 ML ORASYR GT SCH (09:13)
[2018-01-20] MEDS: ATORVASTATIN 20 MG TAB GT SCH (09:13)
[2018-01-20] MEDS: CARVEDILOL 12.5 MG TAB GT SCH ×2 (09:13→20:59)
[2018-01-20] MEDS: prednisoLONE 1% OP 5 ML BTL OP SCH ×3 (09:14→17:01)
--- NOTE | 2018-01-20 10:20 | NUR ---
G TUBE SITE DRAINAGE BAG LEAKING, CLEANSED WITH NS, PATTED DRY, PLACED NEW DRAINAGE BAG.
[2018-01-20 12:00] VITALS: BP 133/62
--- NOTE | 2018-01-20 12:56 | NUR ---
CALLED DR CÁRDENAS, REPORT URINE CULTURE RESULT.
--- NOTE | 2018-01-20 13:02 | NUR ---
TRACH CARE DONE CHANGED TRACH TIE ,INNER CANNULA, GAUZE AND TRACH AMADOR SXN PT SMALL AMT OF THIN YELLOW SECRETIONS
--- NOTE | 2018-01-20 13:25 | NUR ---
ASKED DR FORMAN THAT IF SHE CAN CHANGE DILANTIN FROM PO CAPSULE ER TO G TUBE LIQUID FORM. DR FORMAN SAID SHE WILL CALL PHARM TO VERIFY.
[2018-01-20] MEDS ORDERED: PHENYTOIN 100 MG/4 ML UDC GT SCH (15:45)
[2018-01-20] MEDS ORDERED: POTASSIUM CHLORIDE 20% 40 MEQ/15 ML UDC GT SCH (15:45)
[2018-01-20 16:00] VITALS: BP 146/64
--- NOTE | 2018-01-20 16:05 | NUR ---
APPLIED BETADINE TO RIGHT WRIST ESCHAR. Addendum: 01/20/18 at 1929 by Saad Hall RN PT TOLERATED WELL.
--- NOTE | 2018-01-20 19:22 | NUR ---
ENDORSED PT TO INDEPENDENT PRODUCER RN. PT IN STABLE CONDITION.
--- NOTE | 2018-01-20 19:25 | NUR ---
RECEIVED PT AWAKE, NONVERBAL, FLACC-0, VITAL SIGNS STABLE, WITH TRACH TO T-PIECE WITH O2 AT 6L WITH 28% FI02, TUBE FEEDING INFUSING WELL VIA RT JEJUNOSTOMY, OLD G-TUBE SITE ATTACH TO DRAINAGE BAG WITH SCANTY DRAINAGE NOTED, LEFT COLOSTOMY INTACT WITH LOOSE GREENISH BROWN STOOL SMALL AMOUNT, HOB ELEVATED AT ALL TIMES, IVF INFUSING WELL AT TKO RATE VIA RT UA PICC LINE, DRESSING DRY AND INTACT, PT BEDBOUND, WILL REPOSITIONED Q2H AND OFFLOAD PRESSURE AREAS, SAFETY MEASURES IN PLACE, ON CONTACT PRECAUTION.
[2018-01-20 20:00] VITALS: BP 137/66
[2018-01-20] MEDS: PIPER/TAZO 3.375GM/D5W PREMIX 50 ML IV SCH (20:19)
[2018-01-20] MEDS: SENNA 8.6 MG TAB PO SCH (21:00)
[2018-01-20] MEDS: LINEZOLID 600MG PREMIX 300 ML IV SCH (21:00)
--- NOTE | 2018-01-20 21:10 | NUR ---
10 ML J-TUBE RESIDUAL NOTED, DUE MEDS ADMINISTERED, INCONTINENT OF URINE, PERINEAL CARE DONE, REPOSITIONED AND OFFLOAD PRESSURE AREAS.
[2018-01-20] MEDS: INSULIN LANTUS 100 UNITS/ML 10 ML VIAL SUBQ SCH (21:20)
[2018-01-21] VITALS: BP 116/59
--- NOTE | 2018-01-21 | NUR ---
PT OPEN EYES TO TOUCH, VITAL SIGNS STABLE, BLOOD SUGAR CHECKED WITH 166 RESULT, COVERAGE GIVEN, ORAL CARE DONE, TUBE FEEDING ON-GOING, SUCTION SECRETION PRN, CONTINUE TO MONITOR CLOSELY.
[2018-01-21] MEDS: DILTIAZEM 30 MG TAB GT SCH ×4 (00:03→17:03)
[2018-01-21] MEDS: BLOOD GLUCOSE MONITORING 1 DEV DEV MC SCH ×4 (00:03→17:31)
[2018-01-21] MEDS: INSULIN LISPRO SLIDING SCALE 100 UNITS/ML VIAL SUBQ PRN ×4 (00:09→17:26)
[2018-01-21 04:00] VITALS: BP 133/58
[2018-01-21] MEDS: PIPER/TAZO 3.375GM/D5W PREMIX 50 ML IV SCH ×3 (04:39→21:18)
--- NOTE | 2018-01-21 05:30 | NUR ---
BLOOD SUGAR CHECKED WITH 156 RESULT, COVERAGE GIVEN, 10ML RESIDUAL NOTED, DUE MEDICATION ADMINISTERED, IV ANTIBIOTIC INFUSING WELL, MONITORED CLOSELY.
[2018-01-21 06:47] LABS: BASOPHILS % (AUTO) 0.5 % (0.0-2.0); EOSINOPHILS # (AUTO) 0.2 K/uL (0-0.4); EOSINOPHILS % (AUTO) 1.9 % (0.0-4.0); HEMATOCRIT 25.8 % (36-52); HEMOGLOBIN 8.4 g/dL (12.0-18.0); LYMPHOCYTES % (AUTO) 21.6 % (20.5-51.1); MEAN CORPUSCULAR HEMOGLOBIN 26 pg (27-31); MEAN CORPUSCULAR HGB CONC 32 g/dL (33-37); MEAN CORPUSCULAR VOLUME 81.6 fL (80-94); MONOCYTES # (AUTO) 1.1 K/uL (0.8-1.0); MONOCYTES % (AUTO) 12.3 % (1.7-9.3); NEUTROPHILS # (AUTO) 5.9 K/uL (1.8-7.7); NEUTROPHILS % (AUTO) 63.7 % (42.2-75.2); PLATELET COUNT (AUTO) 362 K/uL (140-450); RED BLOOD CELL COUNT(AUTO) 3.16 MIL/uL (4.20-6.10); RED CELL DISTRIBUTION WIDTH 14.5 % (11.6-13.7); WHITE BLOOD COUNT (AUTO) 9.3 K/uL (4.8-10.8)
[2018-01-21] MEDS: ALBUTEROL SULFATE/IPRATROPIU 3 ML SOL IH SCH ×3 (06:53→19:03)
--- NOTE | 2018-01-21 07:10 | NUR ---
PT AWAKE, NO SIGNS OF DISTRESS, BEDSIDE REPORT GIVEN TO AKI SHANKAR FOR CONTINUITY OF CARE.
--- NOTE | 2018-01-21 07:15 | NUR ---
RECEIVED BEDSIDE REPORT FROM ELECTROTYPE SERVICER RN. CONTACT PRECAUTIONS. PT IS BEDBOUND. HEALED SCAR TO BUTTOCKS. OPEN WOUND WITH ESCHAR TO RT WRIST. PT EYES OPEN SPONTANEOUSLY, APHASIC, FLACC-0, VITAL SIGNS STABLE, WITH TRACH TO T-PIECE WITH O2 AT 6L WITH 28% FI02. TUBE FEEDING INFUSING WELL AT GOAL RATE VIA RT JEJUNOSTOMY TUBE. OLD G-TUBE SITE ATTACHED TO DRAINAGE BAG WITH SCANTY CLEAR DRAINAGE NOTED. LT COLOSTOMY BAG INTACT. HOB ELEVATED AT ALL TIMES, IVF INFUSING THROUGH RT UA PICC LINE, WITH DRESSING DRY AND INTACT. ALL SAFETY PRECAUTIONS IN PLACE, WILL CONTINUE TO MONITOR.
[2018-01-21 07:27] LABS: ANION GAP 10.7 (8-16); CARBON DIOXIDE 28.5 mmol/L (21-32); CREATININE 1.4 mg/dL (0.7-1.3); POTASSIUM 3.2 mmol/L (3.5-5.1)
[2018-01-21] MEDS ORDERED: PIPE1PDS26 IV (07:44)
[2018-01-21] MEDS ORDERED: LINE600T PO (07:50)
[2018-01-21] MEDS ORDERED: LACT10CA GT (07:53)
[2018-01-21 08:00] VITALS: BP 129/57
[2018-01-21] MEDS ORDERED: LINE600T IV (08:11)
[2018-01-21] MEDS: ASCORBIC ACID 500 MG/5 ML ORASYR GT SCH (08:29)
[2018-01-21] MEDS: FERROUS SULFATE 300 MG/5 ML UDC GT SCH (08:29)
[2018-01-21] MEDS: CARVEDILOL 12.5 MG TAB GT SCH ×2 (08:30→21:18)
[2018-01-21] MEDS: LISINOPRIL 5 MG TAB PO SCH (08:30)
[2018-01-21] MEDS: HYDROcodone/APAP 5/325 MG 1 TAB TAB GT SCH ×2 (08:30→21:18)
[2018-01-21] MEDS: LACTOBACILLUS RHAMNOSUS GG 1 EACH CAP PO SCH (08:31)
[2018-01-21] MEDS: ATORVASTATIN 20 MG TAB GT SCH (08:31)
[2018-01-21] MEDS: prednisoLONE 1% OP 5 ML BTL OP SCH ×3 (08:31→17:03)
[2018-01-21] MEDS: LINEZOLID 600MG PREMIX 300 ML IV SCH ×2 (08:32→21:00)
--- NOTE | 2018-01-21 08:44 | NUR ---
CALLED PHARMACY BECAUSE 0900 DILANTIN IS EXTENDED RELEASE. WILL NOTIFY TO CHANGE THE FORMULATION.
[2018-01-21] MEDS: PHENYTOIN 100 MG CAPER PO SCH ×2 (08:45→21:18)
[2018-01-21] MEDS: levETIRAcetam 500 MG in NACL 0.9% 100 ML IV SCH ×2 (09:59→21:20)
--- NOTE | 2018-01-21 10:42 | NUR ---
PERFORMED ORAL CARE ON PT. GASTRIC RESIDUAL LESS THAN 10 ML. WILL CONTINUE TO MONITOR.
--- NOTE | 2018-01-21 11:26 | NUR ---
CM NOTE CLINICAL PACKET INCLUDING MICROS FAXED TO [facility] [place], ATTN: SANNA.
[2018-01-21] MEDS ORDERED: POTASSIUM CHLORIDE 40 MEQ, LIDOCAINE MPF 1% - 5 mL VIAL 25 MG in NACL 0.9% 250 ML IV SCH (11:30)
--- NOTE | 2018-01-21 11:41 | NUR ---
BS IS 196. WILL ADMIN SLIDING SCALE INSULIN.
[2018-01-21 12:00] VITALS: BP 138/68
--- NOTE | 2018-01-21 12:01 | NUR ---
LESS THAN 5ML RESIDUAL FROM FEEDING TUBE. 100ML OF LIGHT YELLOW DRAINAGE EMPTIED FROM BAG PLACED OVER OLD G-TUBE SITE.
--- NOTE | 2018-01-21 12:18 | NUR ---
CM NOTE PER SIRENA OF [facility], NO ISOLATION BED AVAILABLE AT THIS TIME, POSSIBLY TOMORROW. DR. HALL AND CHARGE NURSE TRAVIS HERNANDEZ.
--- NOTE | 2018-01-21 13:08 | NUR ---
230ML LIQUID BROWN STOOL EMPTIED FROM COLOSTOMY BAG.
[2018-01-21 16:00] VITALS: BP 136/63
--- NOTE | 2018-01-21 16:08 | NUR ---
CALLED FOR UPDATED ON PATIENT. TOLD THERE IS PLAN TO DISCHARGE BACK TO SNF. WILL CALL WHEN THERE ARE MORE DETAILS AVAILABLE. VERBALIZED UNDERSTANDING.
--- NOTE | 2018-01-21 17:57 | NUR ---
HELPED CABLE MOCK UP ASSEMBLER CHANGE BEDS AND REPOSITION PATIENT.
--- NOTE | 2018-01-21 19:29 | NUR ---
ENDORSED PLAN OF CARE TO COAL DUMPING EQUIPMENT OPERATOR RN AT BEDSIDE. PT IN STABLE CONDITION.
--- NOTE | 2018-01-21 19:30 | NUR ---
RECEIVED PATIENT AWAKE RESTING ON BED WITH TRACH TO T-PIECE 6L OF 02, 100% 02 SAT AT THIS TIME.. WITH COLOSTOMY BAG IN PLACE. TUBE FEEDING RUNNING. SIEZURE /ASPIRATION PRECAUTION APPLIED. PATIENT REPOSITIONED TO HIS RIGHT SIDE.HOB ELEVATED. CALL LIGHTS WITHIN REACH. WILL CONTINUE TO MONITOR.
[2018-01-21 20:00] VITALS: BP 159/79
[2018-01-21] MEDS ORDERED: LINEZOLID 600MG PREMIX 300 ML IV SCH (21:00)
[2018-01-21] MEDS: INSULIN LANTUS 100 UNITS/ML 10 ML VIAL SUBQ SCH (21:00)
--- NOTE | 2018-01-21 21:00 | NUR ---
BS TAKEN 109. V/S TAKEN AND RECORDED. SCHEDULE MEDICATION GIVEN AND TOLERATED WELL. SUCTION PATIENT WITH SMALL AMOUNT OF WHITE SPUTUM. REPOSITIONED PATIENT TO LEFT SIDE. NO S/S OF DISTRESS NOTED AT THIS TIME. WILL CONTINUE TO MONITOR.
[2018-01-21] MEDS: SENNA 8.6 MG TAB PO SCH (21:18)
[2018-01-22] VITALS: BP 128/62
--- NOTE | 2018-01-22 | NUR ---
SEEN PATIENT ASLEEP. SUCTION PATIENT AND TOLERATED WELL. HEAD OF THE ELEVATED. NO S/S OF DISTRESS NOTED.
[2018-01-22] MEDS: DILTIAZEM 30 MG TAB GT SCH ×4 (00:25→18:17)
[2018-01-22] MEDS: BLOOD GLUCOSE MONITORING 1 DEV DEV MC SCH ×4 (00:26→18:17)
[2018-01-22] MEDS: INSULIN LISPRO SLIDING SCALE 100 UNITS/ML VIAL SUBQ PRN ×2 (00:28→13:52)
[2018-01-22] MEDS ORDERED: NACL 0.9% 1,000 ML IV SCH (01:05)
--- NOTE | 2018-01-22 02:00 | NUR ---
REPOSITIONED PATIENT AND PLACE IN FOWLERS POSITION. SUCTION PATIENT WITH MINIMAL AMOUNT OF WHITE SPUTUM. TOLERATED WELL. NO S/S OF DISTRESS NOTED AT THIS TIME.
[2018-01-22 04:00] VITALS: BP 154/73
--- NOTE | 2018-01-22 04:00 | NUR ---
TRACH CARE DONE BY RT. AM /ORAL CARE DONE. REPOSITIONED PATIENT WITH HEAD ELEVATED. V/S TAKEN AND RECORDED. SUCTIONED PATIENT AND TOLERATED WELL. WILL CONTINUE TO MONITOR.
[2018-01-22] MEDS: PIPER/TAZO 3.375GM/D5W PREMIX 50 ML IV SCH ×2 (04:35→13:50)
[2018-01-22 06:32] LABS: BASOPHILS # (AUTO) 0.1 K/uL (0.00-0.22); BASOPHILS % (AUTO) 0.6 % (0.0-2.0); EOSINOPHILS # (AUTO) 0.2 K/uL (0-0.4); HEMATOCRIT 25.1 % (36-52); HEMOGLOBIN 8.1 g/dL (12.0-18.0); LYMPHOCYTES # (AUTO) 1.8 K/uL (2.0-11.5); LYMPHOCYTES % (AUTO) 19.9 % (20.5-51.1); MEAN CORPUSCULAR HEMOGLOBIN 26 pg (27-31); MEAN CORPUSCULAR HGB CONC 32 g/dL (33-37); MEAN CORPUSCULAR VOLUME 81.9 fL (80-94); MONOCYTES % (AUTO) 10.9 % (1.7-9.3); NEUTROPHILS # (AUTO) 6.1 K/uL (1.8-7.7); NEUTROPHILS % (AUTO) 66.6 % (42.2-75.2); PLATELET COUNT (AUTO) 362 K/uL (140-450); RED BLOOD CELL COUNT(AUTO) 3.07 MIL/uL (4.20-6.10); RED CELL DISTRIBUTION WIDTH 14.7 % (11.6-13.7); WHITE BLOOD COUNT (AUTO) 9.1 K/uL (4.8-10.8)
[2018-01-22 06:45] LABS: CARBON DIOXIDE 27.5 mmol/L (21-32); CREATININE 1.3 mg/dL (0.7-1.3); POTASSIUM 3.5 mmol/L (3.5-5.1)
[2018-01-22] MEDS: ALBUTEROL SULFATE/IPRATROPIU 3 ML SOL IH SCH ×3 (07:12→18:32)
--- NOTE | 2018-01-22 07:19 | NUR ---
GAVE REPORT TO AM SHIFT NURSE AT BEDSIDE FOR CONTINUITY OF CARE. PATIENT IN STABLE CONDITION.
--- NOTE | 2018-01-22 07:20 | NUR ---
REPORT RECEIVED FROM RADIO MACHINIST NURSE, PT RESTING QUIETLY IN NAD, RESP EVEN UNLABORED TRACH TO FIO2 28%, SKIN WARM DRY COLOR WNL, APPEARS IN NO PAIN OR DISCOMFORT, PLAN OF CARE REVIEWED, NO IMMEDIATE NEEDS AT THIS TIME, RT AT BEDSIDE, WILL CONTINUE TO MONITOR.
--- NOTE | 2018-01-22 07:25 | NUR ---
RECEIVED PATIENT ON TRACH PORTEX 7 TO COOL AEROSOL 28%. CONTINUOUS PULSE OX ON AND FUNCTIONING. AIRWAY SECURE AND PATENT. SCHEDULE BREATHING TREATMENT ADMINISTERED. SUCTIONED MODERATE AMOUNT OF THICK WHITE SECRETIONS. NO RESPIRATORY DISTRESS NOTED AT THIS TIME. WILL CONTINUE TO MONITOR.
[2018-01-22 08:00] VITALS: BP 145/71
--- NOTE | 2018-01-22 09:02 | NUR ---
CALLED [facility] AND SPOKE WITH SANNA. SHE SAID SHE WILL HAVE A BED FOR THIS PATIENT. SHE WILL CALL ME LATER WITH THE ROOM NUMBER.
[2018-01-22] MEDS: LINEZOLID 600MG PREMIX 300 ML IV SCH (09:24)
[2018-01-22] MEDS: PHENYTOIN 100 MG CAPER PO SCH (09:25)
[2018-01-22] MEDS: CARVEDILOL 12.5 MG TAB GT SCH (09:25)
[2018-01-22] MEDS: levETIRAcetam 500 MG in NACL 0.9% 100 ML IV SCH (09:25)
[2018-01-22] MEDS: FERROUS SULFATE 300 MG/5 ML UDC GT SCH (09:25)
[2018-01-22] MEDS: ATORVASTATIN 20 MG TAB GT SCH (09:26)
[2018-01-22] MEDS: LISINOPRIL 5 MG TAB PO SCH (09:26)
[2018-01-22] MEDS: LACTOBACILLUS RHAMNOSUS GG 1 EACH CAP PO SCH (09:27)
[2018-01-22] MEDS: prednisoLONE 1% OP 5 ML BTL OP SCH ×3 (09:27→16:23)
--- NOTE | 2018-01-22 09:50 | NUR ---
BED BATH GIVEN, PERICARE DONE, SACRAL OPTIFOAM CHNAGED, GT DRESSING CHAGNED, PT MAYI WELL, AM MEDS GIVEN ANNE MARIE J TUBE, WILL CONTINUE TO MONITOR
[2018-01-22] MEDS: ASCORBIC ACID 500 MG/5 ML ORASYR GT SCH (10:25)
[2018-01-22 12:00] VITALS: BP 138/79
--- NOTE | 2018-01-22 13:30 | NUR ---
UPPER ABD WOUND, COLLECTING BAG REMOVED, PACKED WITH IODAFOAM, COVERED WITH DRESSING.
--- NOTE | 2018-01-22 15:11 | NUR ---
RECEIVED A CALL FROM ANETA AT [facility]. THE PATIENT CAN GO TO ROOM 26B UNDER DR. MARQUES AFTER 6P.M. I WILL INFORM HIEU PRABHAKARELECTRICAL EQUIPMENT TESTER NURSE. Addendum: 01/22/18 at 1541 by Emi Szymanski CM HIEU PRABHAKARELECTRICAL EQUIPMENT TESTER NURSE WILL SET UP TRANSPORT.
[2018-01-22 16:00] VITALS: BP 140/72
--- NOTE | 2018-01-22 17:37 | NUR ---
REPORT CALLED TO JACQUELYN AT [facility] [place] [phone], PT AWAITING HEBREW TEACHER AT 1830 TO [facility] ROOM 26B ACCEPTING DR MARQUES. CALLED TO NOTIFY OF TRANSFER BACK TO [facility] [place].
--- NOTE | 2018-01-22 18:50 | NUR ---
PT LEFT AROUND 1850 ON T BAR 28%. PT SAT 99 HR 74 RR 16. PT IN 0 RESP DISTRESS.
--- NOTE | 2018-01-22 18:52 | NUR ---
REPORT GIVEN TO [facility] EMT, PT TAKEN TO [facility] IN [facility].
== END 2018-01-22 18:55 | DRG 871 ==
LOC: MED 16:28 → MTU 20:27
PROVIDERS: ADMIT Family Medicine; ATTEND Family Medicine
PROC: 0DHA8UZ Insertion of Feeding Device into Jejunum, Via Natural or Artificial Opening Endoscopic (ICD-10-PCS; principal; 2018-01-18 10:30)
DX: A41.9 Sepsis, unspecified organism (principal); E43 Unspecified severe protein-calorie malnutrition; J96.21 Acute and chronic respiratory failure with hypoxia; I21.A1 Myocardial infarction type 2; I63.9 Cerebral infarction, unspecified; J69.0 Pneumonitis due to inhalation of food and vomit; K94.23 Gastrostomy malfunction; J96.10 Chronic respiratory failure, unspecified whether with hypoxia or hypercapnia; K31.6 Fistula of stomach and duodenum; I38 Endocarditis, valve unspecified; N39.0 Urinary tract infection, site not specified; I42.9 Cardiomyopathy, unspecified; G93.1 Anoxic brain damage, not elsewhere classified; E87.0 Hyperosmolality and hypernatremia; Z99.11 Dependence on respirator [ventilator] status; I10 Essential (primary) hypertension; G40.909 Epilepsy, unspecified, not intractable, without status epilepticus; N18.3 Chronic kidney disease, stage 3 (moderate); E87.6 Hypokalemia; E11.9 Type 2 diabetes mellitus without complications; I05.9 Rheumatic mitral valve disease, unspecified; I25.10 Atherosclerotic heart disease of native coronary artery without angina pectoris; E78.1 Pure hyperglyceridemia; E11.22 Type 2 diabetes mellitus with diabetic chronic kidney disease; D63.1 Anemia in chronic kidney disease; E78.00 Pure hypercholesterolemia, unspecified; J44.9 Chronic obstructive pulmonary disease, unspecified; K80.20 Calculus of gallbladder without cholecystitis without obstruction; E11.51 Type 2 diabetes mellitus with diabetic peripheral angiopathy without gangrene; I13.10 Hypertensive heart and chronic kidney disease without heart failure, with stage 1 through stage 4 chronic kidney disease, or unspecified chronic kidney disease; B95.2 Enterococcus as the cause of diseases classified elsewhere; Z16.21 Resistance to vancomycin; Z86.73 Personal history of transient ischemic attack (TIA), and cerebral infarction without residual deficits
CPT/HCPCS: 36415; 71045; 74018; 74241; 76705; 76770; 80048; 80053; 80185; 80202; 80305; 81001; 82272; 82607; 82728; 82746; 82948; 83036; 83540; 83605; 83690; 83735; 83880; 84100; 84134; 84443; 84484; 85025; 85045; 85610; 85730; 87040; 87070; 87075; 87081; 87086; 87186; 87205; 93005; 93925; 93970; 94640; 96361; 96365; 96367; 99285; A9153; J0360; J1200; J1644; J1815; J1940; J1953; J1956; J2001; J2020; J2250; J2543; J2550; J2765; J3010; J3370; J3480; J7030; J7042; J7060; J7620; Q0092

== ENCOUNTER 2018-03-10 21:29 | Inpatient (IN) | payer OTHER ==
[~2018-03-10] VITALS: Ht 167.6 cm; Wt 86.2 kg
[~2018-03-10 21:29] MED LIST changes: -CLOP75TA26 GT; +LACT10CA GT; +LINE600T IV
[2018-03-10 21:35] VITALS: BP 174/95
[2018-03-10] MEDS ORDERED: DEXTROSE 50% 50 ML SYR IVP ONE (22:30)
[2018-03-10] MEDS ORDERED: DEXT 5% / NACL 0.9% 500 ML IV ONE (23:10)
[2018-03-10 23:34] LABS: BASOPHILS % (AUTO) 0.6 % (0.0-2.0); EOSINOPHILS # (AUTO) 0.2 K/uL (0-0.4); EOSINOPHILS % (AUTO) 2.1 % (0.0-4.0); HEMOGLOBIN 8.5 g/dL (12.0-18.0); LYMPHOCYTES # (AUTO) 1.8 K/uL (2.0-11.5); LYMPHOCYTES % (AUTO) 21.7 % (20.5-51.1); MEAN CORPUSCULAR HEMOGLOBIN 26 pg (27-31); MEAN CORPUSCULAR HGB CONC 31 g/dL (33-37); MONOCYTES # (AUTO) 0.7 K/uL (0.8-1.0); MONOCYTES % (AUTO) 8.7 % (1.7-9.3); NEUTROPHILS # (AUTO) 5.6 K/uL (1.8-7.7); NEUTROPHILS % (AUTO) 66.9 % (42.2-75.2); PLATELET COUNT (AUTO) 257 K/uL (140-450); RED BLOOD CELL COUNT(AUTO) 3.26 MIL/uL (4.20-6.10); RED CELL DISTRIBUTION WIDTH 15.8 % (11.6-13.7); WHITE BLOOD COUNT (AUTO) 8.3 K/uL (4.8-10.8)
[2018-03-10 23:42] LABS: ANION GAP 13.5 (8-16); CARBON DIOXIDE 24.9 mmol/L (21-32); CREATININE 1.1 mg/dL (0.7-1.3); POTASSIUM 3.4 mmol/L (3.5-5.1)
[2018-03-10 23:49] LABS: TOTAL BILIRUBIN 0.2 mg/dL (0.0-1.0)
[2018-03-11] VITALS (80 sets, daily range): BP systolic 73–133; BP diastolic 42–84
[2018-03-11] MEDS ORDERED: ACETAMINOPHEN 325 MG TAB PO PRN
[2018-03-11] MEDS ORDERED: DOCUSATE SODIUM 100 MG GELCAP PO PRN
[2018-03-11] MEDS ORDERED: ONDANSETRON 4 MG/2 ML VIAL IM/IVP PRN
[2018-03-11] MEDS ORDERED: HYDROcodone/APAP 7.5/325 MG 1 TAB PO PRN
[2018-03-11] MEDS ORDERED: LORazepam 2 MG/ML VIAL IVP ONE ×3 (01:05→02:45)
[2018-03-11] MEDS ORDERED: LORazepam 2 MG/ML VIAL ONE ×4 (01:12→02:52)
[2018-03-11] MEDS: DEXT 5% /NACL 0.9% 1,000 ML IV SCH ×3 (01:13→23:26)
[2018-03-11 01:39] LABS: FREE T4 (FREE THYROXINE) 1.05 ng/dL (0.76-1.46); MAGNESIUM 1.2 mg/dL (1.8-2.4); PHOSPHORUS 2.5 mg/dL (2.5-4.9); THYROID STIMULATING HORMONE 1.17 uIU/mL (0.34-3.74)
[2018-03-11 01:43] LABS: PROTHROMBIN TIME 12.2 secs (10.8-13.4)
[2018-03-11] MEDS ORDERED: MORPHINE SULFATE 4 MG/ML SYR IVP ONE (02:00)
[2018-03-11] MEDS ORDERED: levETIRAcetam 500 MG in NACL 0.9% 100 ML IV SCH (02:30)
[2018-03-11] MEDS ORDERED: LORazepam 2 MG/ML VIAL IVP SCH (02:30)
[2018-03-11] MEDS ORDERED: ALBUTEROL SULFATE/IPRATROPIU 3 ML SOL IH PRN ×2 (03:25→08:50)
[2018-03-11] MEDS ORDERED: DILTIAZEM 25 MG/5 ML VIAL IVP SCH (03:30)
[2018-03-11] MEDS ORDERED: levETIRAcetam 100 MG/ML VIAL IV ONE (03:33)
[2018-03-11] MEDS ORDERED: DEXTROSE 50% 50 ML SYR IVP PRN (04:10)
[2018-03-11] MEDS ORDERED: PROPOFOL 1000 MG/100 ML PREMIX 100 ML IV ONE (04:13)
[2018-03-11 04:23] LABS: APPEARANCE,URINE CLEAR (CLEAR); BILIRUBIN,URINE NEGATIVE (NEGATIVE); BLOOD, URINE 2+ (NEGATIVE); COLOR,URINE YELLOW (YELLOW); LEUKOCYTE ESTERASE ,URINE 1+ (NEGATIVE); NITRITE, URINE NEGATIVE (NEGATIVE); UGLUCOSE NEGATIVE (NEGATIVE)
[2018-03-11 04:25] LABS: BARBITURATE, URINE NEG. ng/ml (NEG <=200); BENZODIAZEPINE, URINE NEG. ng/mL (NEG <=200); CANNABINOID, URINE NEG. ng/mL (NEG <=50); COCAINE, URINE NEG. ng/mL (NEG <=300); OPIATE, URINE NEG. ng/mL (NEG <=2000); PHENCYCLIDINE SCREEN,URINE NEG. ng/mL (NEG <=25); RBC,URINE 20-50 /HPF (0-5); WBC,URINE 16-25 (MOD) /HPF (0-5); YEAST,URINE Few /HPF (None Seen)
[2018-03-11] MEDS ORDERED: PROPOFOL 1000 MG/100 ML PREMIX 100 ML IV PRN (04:30)
[2018-03-11] MEDS ORDERED: NACL 0.9% 500 ML IV ONE ×2 (04:30→05:50)
[2018-03-11] MEDS ORDERED: KCL 20 MEQ/WATER INJ PREMIX 100 ML IV SCH (04:30)
[2018-03-11] MEDS ORDERED: MAG SULF 2000 MG/WATER PREMIX 50 ML IV SCH ×2 (04:30→17:00)
[2018-03-11] MEDS: PIPER/TAZO 3.375GM/D5W PREMIX 50 ML IV SCH ×3 (06:00→21:21)
[2018-03-11] MEDS ORDERED: PIPERACILLIN/TAZOBACTAM 3.375 GM VIAL IV ONE (06:00)
[2018-03-11] MEDS: NOREPINEPHRINE 4 MG in DEXTROSE 5% 250 ML IV PRN ×3 (06:54→18:20)
[2018-03-11] MEDS ORDERED: NOREPINEPHRINE 4 MG/4 ML VIAL IV ONE (06:57)
[2018-03-11] MEDS ORDERED: ALBUTEROL SULFATE/IPRATROPIU 3 ML SOL IH SCH (07:00)
[2018-03-11] MEDS: BLOOD GLUCOSE MONITORING 1 DEV DEV FS SCH ×4 (07:51→20:20)
[2018-03-11] MEDS ORDERED: VANCOMYCIN PER PHARMACY MC PRN (08:20)
[2018-03-11] MEDS: PANTOPRAZOLE 40 MG INJ VIAL IVP SCH (08:51)
[2018-03-11] MEDS: PHENYTOIN 100 MG/2 ML VIAL IVP SCH ×2 (08:52→21:21)
[2018-03-11] MEDS ORDERED: levETIRAcetam 1,000 MG in NACL 0.9% 100 ML IV SCH (09:00)
[2018-03-11] MEDS ORDERED: ATORVASTATIN 20 MG TAB GT SCH (09:02)
[2018-03-11] MEDS ORDERED: Z-GUARD PASTE TP PRN (09:10)
[2018-03-11] MEDS: levETIRAcetam 1,000 MG in NACL 0.9% 100 ML IV SCH ×2 (09:20→21:21)
[2018-03-11] MEDS: ASCORBIC ACID 500 MG/5 ML ORASYR GT SCH (09:21)
[2018-03-11] MEDS ORDERED: PHENYTOIN 1,000 MG in NACL 0.9% 100 ML IV SCH (09:30)
[2018-03-11] MEDS ORDERED: VANCOMYCIN 500 MG in DEXTROSE 5% 100 ML IV SCH (11:00)
[2018-03-11] MEDS: INSULIN LISPRO SLIDING SCALE 100 UNITS/ML VIAL SUBQ PRN ×3 (11:45→20:24)
[2018-03-11] MEDS ORDERED: SODIUM FERRIC GLUCONATE 125 MG in NACL 0.9% 100 ML IV SCH (12:00)
[2018-03-11] MEDS: ALBUTEROL SULFATE/IPRATROPIU 3 ML SOL IH SCH ×2 (13:11→18:52)
[2018-03-11 14:16] LABS: ANION GAP 19.3 (8-16); CARBON DIOXIDE 18.7 mmol/L (21-32); CREATININE 2.6 mg/dL (0.7-1.3)
[2018-03-11 14:57] LABS: MAGNESIUM 1.6 mg/dL (1.8-2.4); PHOSPHORUS 3.2 mg/dL (2.5-4.9)
[2018-03-11] MEDS: FERROUS GLUCONATE 324 MG TAB PO SCH (16:54)
[2018-03-11 17:00] LABS: HEMATOCRIT 26.2 % (36-52); MEAN CORPUSCULAR HEMOGLOBIN 25 pg (27-31); MEAN CORPUSCULAR HGB CONC 31 g/dL (33-37); MEAN CORPUSCULAR VOLUME 82.5 fL (80-94); PLATELET COUNT (AUTO) 259 K/uL (140-450); RED BLOOD CELL COUNT(AUTO) 3.18 MIL/uL (4.20-6.10); RED CELL DISTRIBUTION WIDTH 16.1 % (11.6-13.7)
[2018-03-11 17:08] LABS: WHITE BLOOD COUNT (AUTO) 48.2 K/uL (4.8-10.8)
[2018-03-11] MEDS ORDERED: VANCOMYCIN 750 MG in DEXTROSE 5% 250 ML IV SCH (20:00)
[2018-03-11] MEDS ORDERED: MAG SULF 2000 MG/WATER PREMIX 50 ML IV ONE (21:20)
[2018-03-11] MEDS: INSULIN LANTUS 100 UNITS/ML 10 ML VIAL SUBQ SCH (21:23)
[2018-03-12] VITALS (73 sets, daily range): BP systolic 95–139; BP diastolic 45–81
[2018-03-12] MEDS ORDERED: DEXT 5% /NACL 0.9% 1,000 ML IV SCH (00:20)
[2018-03-12] MEDS: PIPER/TAZO 3.375GM/D5W PREMIX 50 ML IV SCH ×3 (05:39→21:51)
[2018-03-12] MEDS: NOREPINEPHRINE 4 MG in DEXTROSE 5% 250 ML IV PRN (06:09)
[2018-03-12 06:11] LABS: T4 (THYROXINE) 4.5 ug/dL (4.5-12.0)
[2018-03-12 06:23] LABS: ANION GAP 16.9 (8-16); CARBON DIOXIDE 22.6 mmol/L (21-32); CREATININE 3.5 mg/dL (0.7-1.3); POTASSIUM 3.5 mmol/L (3.5-5.1)
[2018-03-12 06:35] LABS: RED CELL DISTRIBUTION WIDTH 16.6 % (11.6-13.7)
[2018-03-12 06:40] LABS: MEAN CORPUSCULAR HEMOGLOBIN 26 pg (27-31); MEAN CORPUSCULAR HGB CONC 31 g/dL (33-37); PLATELET COUNT (AUTO) 232 K/uL (140-450); RED BLOOD CELL COUNT(AUTO) 2.81 MIL/uL (4.20-6.10)
[2018-03-12 06:45] LABS: MAGNESIUM 2.4 mg/dL (1.8-2.4); PHOSPHORUS 2.3 mg/dL (2.5-4.9)
[2018-03-12 06:58] LABS: HEMOGLOBIN 7.3 g/dL (12.0-18.0); WHITE BLOOD COUNT (AUTO) 35.2 K/uL (4.8-10.8)
[2018-03-12 06:59] LABS: LYMPHOCYTES % (MANUAL) 9 % (20-46); MONOCYTES % (MANUAL) 2 % (5-12)
[2018-03-12] MEDS: ALBUTEROL SULFATE/IPRATROPIU 3 ML SOL IH SCH ×3 (07:25→18:42)
[2018-03-12] MEDS: DEXT 5% /NACL 0.9% 1,000 ML IV SCH ×2 (07:29→16:33)
[2018-03-12] MEDS: FERROUS GLUCONATE 324 MG TAB PO SCH ×2 (08:00→16:32)
[2018-03-12] MEDS: BLOOD GLUCOSE MONITORING 1 DEV DEV FS SCH ×5 (08:07→23:46)
[2018-03-12] MEDS: INSULIN LISPRO SLIDING SCALE 100 UNITS/ML VIAL SUBQ PRN ×2 (08:09→12:07)
[2018-03-12] MEDS: SODIUM PHOS / POTASSIUM PHOS 1 PKT PDR GT SCH ×3 (09:00→16:32)
[2018-03-12] MEDS: ATORVASTATIN 20 MG TAB GT SCH (09:00)
[2018-03-12] MEDS: ASCORBIC ACID 500 MG/5 ML ORASYR GT SCH (09:00)
[2018-03-12] MEDS: levETIRAcetam 1,000 MG in NACL 0.9% 100 ML IV SCH ×2 (09:24→21:52)
[2018-03-12] MEDS: PHENYTOIN 100 MG/2 ML VIAL IVP SCH ×2 (09:24→21:52)
[2018-03-12] MEDS: PANTOPRAZOLE 40 MG INJ VIAL IVP SCH (09:24)
[2018-03-12] MEDS: THERAHONEY GEL 42.5 GM TP SCH (09:28)
[2018-03-12 10:34] LABS: FERRITIN 249 ng/mL (30-400)
[2018-03-12] MEDS ORDERED: VANCOMYCIN 500 MG VIAL PO SCH (12:00)
[2018-03-12] MEDS: metroNIDAZOLE 500 MG/NS PREMIX 100 ML IV SCH ×2 (12:24→21:51)
[2018-03-12] MEDS: INSULIN LANTUS 100 UNITS/ML 10 ML VIAL SUBQ SCH (21:00)
[2018-03-13] VITALS (22 sets, daily range): BP systolic 132–160; BP diastolic 74–95
[2018-03-13] MEDS: DEXT 5% /NACL 0.9% 1,000 ML IV SCH ×3 (01:30→20:55)
[2018-03-13] MEDS: ALBUTEROL SULFATE/IPRATROPIU 3 ML SOL IH SCH ×3 (06:43→19:48)
[2018-03-13] MEDS: metroNIDAZOLE 500 MG/NS PREMIX 100 ML IV SCH ×3 (06:45→20:55)
[2018-03-13] MEDS: PIPER/TAZO 3.375GM/D5W PREMIX 50 ML IV SCH (06:46)
[2018-03-13] MEDS ORDERED: fentaNYL 0.05 MG/ML VIAL ONE (07:24)
[2018-03-13] MEDS ORDERED: MIDAZOLAM 2 MG/2 ML VIAL ONE (07:24)
[2018-03-13] MEDS ORDERED: diphenhydrAMINE 50 MG/ML VIAL ONE (07:24)
[2018-03-13] MEDS: FERROUS GLUCONATE 324 MG TAB PO SCH ×2 (08:00→17:00)
[2018-03-13] MEDS ORDERED: SODIUM PHOS / POTASSIUM PHOS 1 PKT PDR NG SCH (08:40)
[2018-03-13] MEDS: ASCORBIC ACID 500 MG/5 ML ORASYR GT SCH (09:00)
[2018-03-13] MEDS: ATORVASTATIN 20 MG TAB GT SCH (09:00)
[2018-03-13] MEDS: THERAHONEY GEL 42.5 GM TP SCH (09:00)
[2018-03-13] MEDS ORDERED: fentaNYL 0.1 MG/HR PATCH TD SCH (09:05)
[2018-03-13] MEDS ORDERED: MIDAZOLAM 2 MG/2 ML VIAL IV ONE (09:05)
[2018-03-13] MEDS ORDERED: fentaNYL 0.05 MG/ML VIAL IVP ONE (09:30)
[2018-03-13] MEDS: PANTOPRAZOLE 40 MG INJ VIAL IVP SCH (10:33)
[2018-03-13] MEDS: levETIRAcetam 1,000 MG in NACL 0.9% 100 ML IV SCH ×2 (10:33→20:42)
[2018-03-13] MEDS: PHENYTOIN 100 MG/2 ML VIAL IVP SCH ×2 (10:33→20:43)
[2018-03-13 11:19] LABS: BASOPHILS # (AUTO) 0.1 K/uL (0.00-0.22); BASOPHILS % (AUTO) 0.3 % (0.0-2.0); EOSINOPHILS # (AUTO) 0.1 K/uL (0-0.4); EOSINOPHILS % (AUTO) 0.2 % (0.0-4.0); HEMOGLOBIN 7.6 g/dL (12.0-18.0); LYMPHOCYTES # (AUTO) 1.3 K/uL (2.0-11.5); LYMPHOCYTES % (AUTO) 4.8 % (20.5-51.1); MEAN CORPUSCULAR HEMOGLOBIN 25 pg (27-31); MEAN CORPUSCULAR HGB CONC 31 g/dL (33-37); MEAN CORPUSCULAR VOLUME 81.9 fL (80-94); MONOCYTES # (AUTO) 1.1 K/uL (0.8-1.0); MONOCYTES % (AUTO) 3.9 % (1.7-9.3); NEUTROPHILS # (AUTO) 25.2 K/uL (1.8-7.7); NEUTROPHILS % (AUTO) 90.8 % (42.2-75.2); PLATELET COUNT (AUTO) 237 K/uL (140-450); RED BLOOD CELL COUNT(AUTO) 3.05 MIL/uL (4.20-6.10); RED CELL DISTRIBUTION WIDTH 16.8 % (11.6-13.7); WHITE BLOOD COUNT (AUTO) 27.7 K/uL (4.8-10.8)
[2018-03-13 11:43] LABS: ANION GAP 16.9 (8-16); CARBON DIOXIDE 19.6 mmol/L (21-32); POTASSIUM 3.5 mmol/L (3.5-5.1)
[2018-03-13] MEDS: BLOOD GLUCOSE MONITORING 1 DEV DEV FS SCH ×3 (11:45→20:42)
[2018-03-13 11:47] LABS: CREATININE 4.5 mg/dL (0.7-1.3)
[2018-03-13 11:50] LABS: MAGNESIUM 2.3 mg/dL (1.8-2.4); PHOSPHORUS 2.7 mg/dL (2.5-4.9)
[2018-03-13 17:44] LABS: HEMATOCRIT 25.2 % (36-52); HEMOGLOBIN 7.8 g/dL (12.0-18.0); MEAN CORPUSCULAR HEMOGLOBIN 26 pg (27-31); MEAN CORPUSCULAR HGB CONC 31 g/dL (33-37); MEAN CORPUSCULAR VOLUME 82.8 fL (80-94); PLATELET COUNT (AUTO) 244 K/uL (140-450); RED BLOOD CELL COUNT(AUTO) 3.05 MIL/uL (4.20-6.10); RED CELL DISTRIBUTION WIDTH 17.1 % (11.6-13.7); WHITE BLOOD COUNT (AUTO) 27.7 K/uL (4.8-10.8)
[2018-03-13 18:22] LABS: ANION GAP 15.6 (8-16); CARBON DIOXIDE 20.8 mmol/L (21-32); POTASSIUM 4.4 mmol/L (3.5-5.1)
[2018-03-13 18:29] LABS: CREATININE 4.6 mg/dL (0.7-1.3)
[2018-03-13 19:27] LABS: LYMPHOCYTES % (MANUAL) 9 % (20-46); MONOCYTES % (MANUAL) 4 % (5-12)
[2018-03-13 19:33] LABS: TRANSFERRIN 149 mg/dL (200-370)
[2018-03-13] MEDS: INSULIN LANTUS 100 UNITS/ML 10 ML VIAL SUBQ SCH (20:43)
[2018-03-13] MEDS ORDERED: MEROPENEM 500 MG VIAL IV ONE (20:50)
[2018-03-13] MEDS: MEROPENEM 500 MG in NACL 0.9% 50 ML IV SCH (20:54)
[2018-03-13] MEDS ORDERED: PIPER/TAZO 2.25GM/D5W PREMIX 50 ML IV SCH (21:00)
[2018-03-14] VITALS (24 sets, daily range): BP systolic 96–156; BP diastolic 58–93
[2018-03-14] MEDS: DEXT 5% /NACL 0.9% 1,000 ML IV SCH ×2 (04:02→21:28)
[2018-03-14] MEDS: metroNIDAZOLE 500 MG/NS PREMIX 100 ML IV SCH (05:28)
[2018-03-14 06:23] LABS: EOSINOPHILS # (AUTO) 0.2 K/uL (0-0.4); HEMATOCRIT 23.1 % (36-52); HEMOGLOBIN 7.1 g/dL (12.0-18.0); MEAN CORPUSCULAR HEMOGLOBIN 25 pg (27-31); MEAN CORPUSCULAR HGB CONC 31 g/dL (33-37); MEAN CORPUSCULAR VOLUME 82.3 fL (80-94); PLATELET COUNT (AUTO) 232 K/uL (140-450); RED BLOOD CELL COUNT(AUTO) 2.81 MIL/uL (4.20-6.10); RED CELL DISTRIBUTION WIDTH 16.7 % (11.6-13.7); WHITE BLOOD COUNT (AUTO) 18.5 K/uL (4.8-10.8)
[2018-03-14 06:30] LABS: BASOPHILS % (AUTO) 0.3 % (0.0-2.0); EOSINOPHILS % (AUTO) 1.2 % (0.0-4.0); LYMPHOCYTES # (AUTO) 1.6 K/uL (2.0-11.5); LYMPHOCYTES % (AUTO) 6.8 % (20.5-51.1); MONOCYTES # (AUTO) 0.9 K/uL (0.8-1.0); NEUTROPHILS # (AUTO) 15.5 K/uL (1.8-7.7); NEUTROPHILS % (AUTO) 84.7 % (42.2-75.2)
[2018-03-14 06:34] LABS: PHOSPHORUS 3.4 mg/dL (2.5-4.9); POTASSIUM 3.4 mmol/L (3.5-5.1)
[2018-03-14 06:35] LABS: ANION GAP 14.1 (8-16); CARBON DIOXIDE 21.3 mmol/L (21-32)
[2018-03-14 06:36] LABS: CREATININE 4.9 mg/dL (0.7-1.3)
[2018-03-14] MEDS: BLOOD GLUCOSE MONITORING 1 DEV DEV FS SCH ×4 (06:38→20:48)
[2018-03-14] MEDS: ALBUTEROL SULFATE/IPRATROPIU 3 ML SOL IH SCH ×3 (07:05→19:48)
[2018-03-14] MEDS: FERROUS GLUCONATE 324 MG TAB PO SCH ×2 (08:00→16:50)
[2018-03-14] MEDS: ATORVASTATIN 20 MG TAB GT SCH (09:00)
[2018-03-14] MEDS: ASCORBIC ACID 500 MG/5 ML ORASYR GT SCH (09:00)
[2018-03-14] MEDS: THERAHONEY GEL 42.5 GM TP SCH (09:00)
[2018-03-14] MEDS: MEROPENEM 500 MG in NACL 0.9% 50 ML IV SCH ×2 (09:07→21:27)
[2018-03-14] MEDS: PHENYTOIN 100 MG/2 ML VIAL IVP SCH ×2 (09:07→20:48)
[2018-03-14] MEDS: PANTOPRAZOLE 40 MG INJ VIAL IVP SCH (09:08)
[2018-03-14] MEDS: levETIRAcetam 1,000 MG in NACL 0.9% 100 ML IV SCH ×2 (09:09→20:52)
[2018-03-14 10:14] LABS: HEPATITIS A ANTIBODY IGM Negative (Negative); HEPATITIS B SURFACE ANTIBODY Non Reactive (.); HEPATITIS B SURFACE ANTIGEN Negative (Negative)
[2018-03-14] MEDS ORDERED: FAMOTIDINE 20 MG/2 ML VIAL IV SCH (12:02)
[2018-03-14] MEDS: INSULIN LANTUS 100 UNITS/ML 10 ML VIAL SUBQ SCH (20:52)
[2018-03-15] VITALS (16 sets, daily range): BP systolic 139–191; BP diastolic 79–103
[2018-03-15] MEDS: BLOOD GLUCOSE MONITORING 1 DEV DEV FS SCH ×4 (06:31→20:32)
[2018-03-15] MEDS: FERROUS GLUCONATE 324 MG TAB PO SCH ×2 (08:00→17:00)
[2018-03-15] MEDS: ALBUTEROL SULFATE/IPRATROPIU 3 ML SOL IH SCH ×3 (08:30→19:33)
[2018-03-15 08:49] LABS: BASOPHILS # (AUTO) 0.1 K/uL (0.00-0.22); BASOPHILS % (AUTO) 0.4 % (0.0-2.0); EOSINOPHILS # (AUTO) 0.1 K/uL (0-0.4); HEMATOCRIT 31.8 % (36-52); HEMOGLOBIN 10.2 g/dL (12.0-18.0); LYMPHOCYTES # (AUTO) 1.4 K/uL (2.0-11.5); LYMPHOCYTES % (AUTO) 12.3 % (20.5-51.1); MEAN CORPUSCULAR HEMOGLOBIN 27 pg (27-31); MEAN CORPUSCULAR HGB CONC 32 g/dL (33-37); MEAN CORPUSCULAR VOLUME 82.5 fL (80-94); MONOCYTES # (AUTO) 0.6 K/uL (0.8-1.0); NEUTROPHILS # (AUTO) 9.4 K/uL (1.8-7.7); NEUTROPHILS % (AUTO) 81.3 % (42.2-75.2); PLATELET COUNT (AUTO) 235 K/uL (140-450); RED BLOOD CELL COUNT(AUTO) 3.86 MIL/uL (4.20-6.10); RED CELL DISTRIBUTION WIDTH 16.2 % (11.6-13.7); WHITE BLOOD COUNT (AUTO) 11.6 K/uL (4.8-10.8)
[2018-03-15] MEDS: levETIRAcetam 1,000 MG in NACL 0.9% 100 ML IV SCH ×2 (08:50→20:31)
[2018-03-15] MEDS: ATORVASTATIN 20 MG TAB GT SCH (08:50)
[2018-03-15] MEDS: ASCORBIC ACID 500 MG/5 ML ORASYR GT SCH (08:50)
[2018-03-15] MEDS: MEROPENEM 500 MG in NACL 0.9% 50 ML IV SCH ×2 (08:51→20:31)
[2018-03-15] MEDS: PHENYTOIN 100 MG/2 ML VIAL IVP SCH ×2 (08:52→20:32)
[2018-03-15] MEDS: FAMOTIDINE 20 MG/2 ML VIAL IV SCH (08:52)
[2018-03-15] MEDS: THERAHONEY GEL 42.5 GM TP SCH (08:53)
[2018-03-15 08:55] LABS: ANION GAP 16.9 (8-16); CARBON DIOXIDE 18.7 mmol/L (21-32); POTASSIUM 3.6 mmol/L (3.5-5.1)
[2018-03-15 11:11] LABS: MAGNESIUM 1.9 mg/dL (1.8-2.4); PHOSPHORUS 4.4 mg/dL (2.5-4.9)
[2018-03-15] MEDS ORDERED: MORPHINE SULFATE 10 MG/ML SYR IVP PRN (11:20)
[2018-03-15] MEDS ORDERED: ALTEPLASE 2 MG VIAL MC SCH (11:46)
[2018-03-15] MEDS ORDERED: WATER STERILE 10 ML MC ONE (12:09)
[2018-03-15] MEDS: hydrALAZINE 20 MG/ML VIAL IVP PRN (12:37)
[2018-03-15] MEDS ORDERED: MORPHINE SULFATE 4 MG/ML SYR IVP PRN (14:29)
[2018-03-15] MEDS ORDERED: DILTIAZEM 25 MG/5 ML VIAL IVP SCH (15:37)
[2018-03-15] MEDS ORDERED: LORazepam 2 MG/ML VIAL IVP PRN (17:30)
[2018-03-15] MEDS ORDERED: LORazepam 2 MG/ML VIAL ONE (17:38)
[2018-03-15] MEDS: DILTIAZEM 30 MG TAB GT SCH ×2 (18:00→23:06)
[2018-03-15] MEDS ORDERED: levETIRAcetam 100 MG/ML VIAL IV ONE (20:13)
[2018-03-15] MEDS: CARVEDILOL 12.5 MG TAB GT SCH (20:33)
[2018-03-15] MEDS: INSULIN LANTUS 100 UNITS/ML 10 ML VIAL SUBQ SCH (20:34)
[2018-03-15] MEDS: DEXT 5% /NACL 0.9% 1,000 ML IV SCH (22:40)
[2018-03-16] VITALS (18 sets, daily range): BP systolic 126–170; BP diastolic 67–91
[2018-03-16] MEDS: DEXT 5% /NACL 0.9% 1,000 ML IV SCH ×3 (00:03→20:00)
[2018-03-16] MEDS: DILTIAZEM 30 MG TAB GT SCH ×4 (06:00→23:00)
[2018-03-16] MEDS: ALBUTEROL SULFATE/IPRATROPIU 3 ML SOL IH SCH ×3 (06:48→18:58)
[2018-03-16] MEDS: BLOOD GLUCOSE MONITORING 1 DEV DEV FS SCH ×2 (07:30→11:34)
[2018-03-16] MEDS: FERROUS GLUCONATE 324 MG TAB PO SCH ×2 (08:00→16:31)
[2018-03-16 08:15] LABS: BASOPHILS % (AUTO) 0.4 % (0.0-2.0); EOSINOPHILS % (AUTO) 0.5 % (0.0-4.0); HEMATOCRIT 30.3 % (36-52); HEMOGLOBIN 9.9 g/dL (12.0-18.0); LYMPHOCYTES # (AUTO) 1.2 K/uL (2.0-11.5); LYMPHOCYTES % (AUTO) 15.1 % (20.5-51.1); MEAN CORPUSCULAR HEMOGLOBIN 27 pg (27-31); MEAN CORPUSCULAR HGB CONC 33 g/dL (33-37); MEAN CORPUSCULAR VOLUME 82.5 fL (80-94); MONOCYTES # (AUTO) 0.2 K/uL (0.8-1.0); MONOCYTES % (AUTO) 2.9 % (1.7-9.3); NEUTROPHILS # (AUTO) 6.4 K/uL (1.8-7.7); NEUTROPHILS % (AUTO) 81.1 % (42.2-75.2); PLATELET COUNT (AUTO) 205 K/uL (140-450); RED BLOOD CELL COUNT(AUTO) 3.67 MIL/uL (4.20-6.10); RED CELL DISTRIBUTION WIDTH 16.3 % (11.6-13.7); WHITE BLOOD COUNT (AUTO) 7.9 K/uL (4.8-10.8)
[2018-03-16] MEDS: ASCORBIC ACID 500 MG/5 ML ORASYR GT SCH (08:25)
[2018-03-16] MEDS: ATORVASTATIN 20 MG TAB GT SCH (08:25)
[2018-03-16] MEDS: THERAHONEY GEL 42.5 GM TP SCH (08:25)
[2018-03-16] MEDS: CARVEDILOL 12.5 MG TAB GT SCH ×2 (08:25→20:58)
[2018-03-16] MEDS: FAMOTIDINE 20 MG/2 ML VIAL IV SCH (09:04)
[2018-03-16] MEDS: PHENYTOIN 100 MG/2 ML VIAL IVP SCH ×2 (09:04→20:57)
[2018-03-16] MEDS ORDERED: TPN PER PHARMACY MC PRN (09:45)
[2018-03-16 10:00] LABS: ANION GAP 16.8 (8-16); CARBON DIOXIDE 21.2 mmol/L (21-32)
[2018-03-16] MEDS ORDERED: LEVOFLOXACIN 750 MG/D5W PREMIX 150 ML IV SCH (10:00)
[2018-03-16 10:02] LABS: MAGNESIUM 1.3 mg/dL (1.8-2.4); PHOSPHORUS 3.7 mg/dL (2.5-4.9)
[2018-03-16 10:09] LABS: CREATININE 4.6 mg/dL (0.7-1.3)
[2018-03-16] MEDS: levETIRAcetam 1,000 MG in NACL 0.9% 100 ML IV SCH ×2 (11:29→20:57)
[2018-03-16] MEDS: MEROPENEM 500 MG in NACL 0.9% 50 ML IV SCH ×2 (11:29→20:57)
[2018-03-16] MEDS: ENALAPRILAT 2.5 MG/2 ML VIAL IVP SCH ×2 (11:46→19:34)
[2018-03-16] MEDS ORDERED: KCL 20 MEQ/WATER INJ PREMIX 200 ML IV SCH (13:00)
[2018-03-16] MEDS ORDERED: MAG SULF 2000 MG/WATER PREMIX 100 ML IV SCH (13:00)
[2018-03-16] MEDS: BLOOD GLUCOSE MONITORING 1 DEV DEV MC SCH (18:00)
[2018-03-16] MEDS ORDERED: MULTIVITAMIN-12 10 ML in DEXTROSE 50% 600 ML, AMINO ACIDS 8.5% 600 ML IV SCH ×3 (20:00)
[2018-03-16] MEDS ORDERED: levETIRAcetam 100 MG/ML VIAL IV ONE (20:56)
[2018-03-16] MEDS: INSULIN LANTUS 100 UNITS/ML 10 ML VIAL SUBQ SCH (21:00)
[2018-03-17] VITALS (18 sets, daily range): BP systolic 134–170; BP diastolic 71–92
[2018-03-17] MEDS: BLOOD GLUCOSE MONITORING 1 DEV DEV MC SCH ×5 (00:12→23:49)
[2018-03-17] MEDS: ENALAPRILAT 2.5 MG/2 ML VIAL IVP SCH ×5 (00:19→23:49)
[2018-03-17] MEDS: DILTIAZEM 30 MG TAB GT SCH ×4 (05:27→23:26)
[2018-03-17 06:15] LABS: BASOPHILS # (AUTO) 0.1 K/uL (0.00-0.22); BASOPHILS % (AUTO) 0.8 % (0.0-2.0); EOSINOPHILS # (AUTO) 0.2 K/uL (0-0.4); EOSINOPHILS % (AUTO) 1.5 % (0.0-4.0); HEMATOCRIT 29.1 % (36-52); HEMOGLOBIN 9.3 g/dL (12.0-18.0); LYMPHOCYTES # (AUTO) 2.1 K/uL (2.0-11.5); MEAN CORPUSCULAR HEMOGLOBIN 27 pg (27-31); MEAN CORPUSCULAR HGB CONC 32 g/dL (33-37); MEAN CORPUSCULAR VOLUME 83.2 fL (80-94); MONOCYTES # (AUTO) 1.2 K/uL (0.8-1.0); MONOCYTES % (AUTO) 11.3 % (1.7-9.3); NEUTROPHILS # (AUTO) 7.3 K/uL (1.8-7.7); NEUTROPHILS % (AUTO) 67.4 % (42.2-75.2); PLATELET COUNT (AUTO) 202 K/uL (140-450); RED CELL DISTRIBUTION WIDTH 16.5 % (11.6-13.7); WHITE BLOOD COUNT (AUTO) 10.8 K/uL (4.8-10.8)
[2018-03-17] MEDS: ALBUTEROL SULFATE/IPRATROPIU 3 ML SOL IH SCH ×3 (06:48→19:13)
[2018-03-17 07:06] LABS: MAGNESIUM 2.2 mg/dL (1.8-2.4); PHOSPHORUS 2.6 mg/dL (2.5-4.9)
[2018-03-17 07:07] LABS: ANION GAP 15.8 (8-16); CARBON DIOXIDE 22.5 mmol/L (21-32); POTASSIUM 3.3 mmol/L (3.5-5.1)
[2018-03-17 07:10] LABS: CREATININE 4.2 mg/dL (0.7-1.3)
[2018-03-17] MEDS: FERROUS GLUCONATE 324 MG TAB PO SCH ×2 (08:00→17:00)
[2018-03-17] MEDS: CARVEDILOL 12.5 MG TAB GT SCH ×2 (08:17→20:09)
[2018-03-17] MEDS: ASCORBIC ACID 500 MG/5 ML ORASYR GT SCH (08:17)
[2018-03-17] MEDS: ATORVASTATIN 20 MG TAB GT SCH (08:17)
[2018-03-17] MEDS: PHENYTOIN 100 MG/2 ML VIAL IVP SCH ×2 (08:18→20:10)
[2018-03-17] MEDS: FAMOTIDINE 20 MG/2 ML VIAL IV SCH (08:18)
[2018-03-17] MEDS: MEROPENEM 500 MG in NACL 0.9% 50 ML IV SCH ×2 (08:19→21:06)
[2018-03-17] MEDS: levETIRAcetam 1,000 MG in NACL 0.9% 100 ML IV SCH ×2 (08:19→20:10)
[2018-03-17] MEDS: THERAHONEY GEL 42.5 GM TP SCH (09:39)
[2018-03-17] MEDS ORDERED: KCL 20 MEQ/WATER INJ PREMIX 200 ML IV ONE (10:25)
[2018-03-17] MEDS ORDERED: KCL 20 MEQ/WATER INJ PREMIX 200 ML IV SCH (10:30)
[2018-03-17] MEDS: DEXT 5% /NACL 0.9% 1,000 ML IV SCH (17:49)
[2018-03-17] MEDS ORDERED: DEXTROSE IV SCH ×3 (20:00)
[2018-03-17] MEDS ORDERED: AMINO ACIDS 8.5% IV SCH ×3 (20:00)
[2018-03-17] MEDS ORDERED: MULTIVITAMIN IV SCH ×3 (20:00)
[2018-03-17] MEDS: hydrALAZINE 20 MG/ML VIAL IVP PRN (20:11)
[2018-03-17] MEDS: INSULIN LANTUS 100 UNITS/ML 10 ML VIAL SUBQ SCH (21:07)
[2018-03-18] VITALS (18 sets, daily range): BP systolic 140–174; BP diastolic 65–98
[2018-03-18] MEDS: hydrALAZINE 20 MG/ML VIAL IVP PRN ×2 (02:16→19:09)
[2018-03-18] MEDS ORDERED: ENALAPRILAT 2.5 MG/2 ML VIAL IVP ONE (04:12)
[2018-03-18] MEDS: ENALAPRILAT 2.5 MG/2 ML VIAL IVP SCH ×5 (05:31→23:30)
[2018-03-18] MEDS: DILTIAZEM 30 MG TAB GT SCH ×3 (05:31→17:56)
[2018-03-18] MEDS: BLOOD GLUCOSE MONITORING 1 DEV DEV MC SCH ×4 (05:31→23:06)
[2018-03-18 06:08] LABS: BASOPHILS # (AUTO) 0.1 K/uL (0.00-0.22); BASOPHILS % (AUTO) 0.7 % (0.0-2.0); EOSINOPHILS # (AUTO) 0.2 K/uL (0-0.4); EOSINOPHILS % (AUTO) 1.8 % (0.0-4.0); HEMATOCRIT 32.2 % (36-52); HEMOGLOBIN 10.3 g/dL (12.0-18.0); LYMPHOCYTES # (AUTO) 1.5 K/uL (2.0-11.5); LYMPHOCYTES % (AUTO) 16.8 % (20.5-51.1); MEAN CORPUSCULAR HEMOGLOBIN 27 pg (27-31); MEAN CORPUSCULAR HGB CONC 32 g/dL (33-37); MEAN CORPUSCULAR VOLUME 82.9 fL (80-94); MONOCYTES # (AUTO) 1.1 K/uL (0.8-1.0); MONOCYTES % (AUTO) 12.2 % (1.7-9.3); NEUTROPHILS % (AUTO) 68.5 % (42.2-75.2); PLATELET COUNT (AUTO) 220 K/uL (140-450); RED BLOOD CELL COUNT(AUTO) 3.89 MIL/uL (4.20-6.10); RED CELL DISTRIBUTION WIDTH 16.4 % (11.6-13.7); WHITE BLOOD COUNT (AUTO) 8.7 K/uL (4.8-10.8)
[2018-03-18 06:47] LABS: ANION GAP 16.5 (8-16); CARBON DIOXIDE 20.8 mmol/L (21-32); POTASSIUM 3.3 mmol/L (3.5-5.1)
[2018-03-18 06:49] LABS: CREATININE 4.3 mg/dL (0.7-1.3)
[2018-03-18 06:51] LABS: MAGNESIUM 2.1 mg/dL (1.8-2.4); PHOSPHORUS 2.1 mg/dL (2.5-4.9)
[2018-03-18] MEDS: ALBUTEROL SULFATE/IPRATROPIU 3 ML SOL IH SCH ×3 (07:02→19:23)
[2018-03-18] MEDS: FERROUS GLUCONATE 324 MG TAB PO SCH (07:27)
[2018-03-18] MEDS ORDERED: KCL 20 MEQ/WATER INJ PREMIX 200 ML IV SCH (09:00)
[2018-03-18] MEDS: POTASSIUM CHLORIDE 20% 40 MEQ/15 ML UDC GT SCH (09:00)
[2018-03-18] MEDS: CARVEDILOL 12.5 MG TAB GT SCH ×2 (09:00→21:00)
[2018-03-18] MEDS: ASCORBIC ACID 500 MG/5 ML ORASYR GT SCH (09:00)
[2018-03-18] MEDS: ATORVASTATIN 20 MG TAB GT SCH (09:00)
[2018-03-18] MEDS ORDERED: SODIUM PHOS / POTASSIUM PHOS 1 PKT PDR PO SCH (09:00)
[2018-03-18] MEDS: levETIRAcetam 1,000 MG in NACL 0.9% 100 ML IV SCH ×2 (09:36→21:14)
[2018-03-18] MEDS: LEVOFLOXACIN 250 MG/D5 PREMIX 50 ML IV SCH (09:37)
[2018-03-18] MEDS: THERAHONEY GEL 42.5 GM TP SCH (09:38)
[2018-03-18] MEDS: PHENYTOIN 100 MG/2 ML VIAL IVP SCH ×2 (09:49→21:14)
[2018-03-18] MEDS: FAMOTIDINE 20 MG/2 ML VIAL IV SCH (09:58)
[2018-03-18 10:04] LABS: HEPATITIS B CORE AB TOTAL POSITIVE (NEGATIVE)
[2018-03-18] MEDS: MEROPENEM 500 MG in NACL 0.9% 50 ML IV SCH ×2 (10:50→21:15)
[2018-03-18] MEDS ORDERED: HYDROmorphone 1 MG/ML AMP IVP PRN (19:50)
[2018-03-18] MEDS ORDERED: LIDOCAINE 1% 500 MG/50 ML VIAL INJ SCH (19:50)
[2018-03-18] MEDS ORDERED: LIDOCAINE MPF 1% - 5 mL VIAL 5 ML ONE (19:58)
[2018-03-18] MEDS ORDERED: HYDROmorphone 1 MG/ML AMP ONE (19:59)
[2018-03-18] MEDS ORDERED: DEXTROSE IV SCH ×3 (20:00)
[2018-03-18] MEDS ORDERED: MULTIVITAMIN IV SCH ×3 (20:00)
[2018-03-18] MEDS: DEXT 5% /NACL 0.9% 1,000 ML IV SCH (20:00)
[2018-03-18] MEDS ORDERED: AMINO ACIDS 8.5% IV SCH ×3 (20:00)
[2018-03-18] MEDS: INSULIN LANTUS 100 UNITS/ML 10 ML VIAL SUBQ SCH (21:55)
[2018-03-18] MEDS ORDERED: hydrALAZINE 20 MG/ML VIAL IVP SCH (23:00)
[2018-03-19] VITALS (18 sets, daily range): BP systolic 119–172; BP diastolic 52–92
[2018-03-19] MEDS: DILTIAZEM 30 MG TAB GT SCH ×4 (05:41→17:50)
[2018-03-19] MEDS: BLOOD GLUCOSE MONITORING 1 DEV DEV MC SCH ×3 (05:50→17:50)
[2018-03-19] MEDS: ENALAPRILAT 2.5 MG/2 ML VIAL IVP SCH (05:50)
[2018-03-19] MEDS: ALBUTEROL SULFATE/IPRATROPIU 3 ML SOL IH SCH ×3 (07:32→19:02)
[2018-03-19] MEDS: POTASSIUM CHLORIDE 20% 40 MEQ/15 ML UDC GT SCH (09:00)
[2018-03-19] MEDS: ASCORBIC ACID 500 MG/5 ML ORASYR GT SCH (09:00)
[2018-03-19] MEDS: CARVEDILOL 12.5 MG TAB GT SCH ×2 (09:00→21:00)
[2018-03-19] MEDS: amLODIPine 5 MG TAB JT SCH (09:00)
[2018-03-19] MEDS: ATORVASTATIN 20 MG TAB GT SCH (09:00)
[2018-03-19] MEDS: FERROUS SULFATE 300 MG/5 ML UDC GT SCH (09:00)
[2018-03-19] MEDS: THERAHONEY GEL 42.5 GM TP SCH (09:19)
[2018-03-19 09:30] LABS: BASOPHILS # (AUTO) 0.1 K/uL (0.00-0.22); BASOPHILS % (AUTO) 0.6 % (0.0-2.0); EOSINOPHILS # (AUTO) 0.1 K/uL (0-0.4); EOSINOPHILS % (AUTO) 1.4 % (0.0-4.0); HEMATOCRIT 31.3 % (36-52); HEMOGLOBIN 10.2 g/dL (12.0-18.0); LYMPHOCYTES # (AUTO) 1.6 K/uL (2.0-11.5); LYMPHOCYTES % (AUTO) 17.6 % (20.5-51.1); MEAN CORPUSCULAR HEMOGLOBIN 27 pg (27-31); MEAN CORPUSCULAR HGB CONC 33 g/dL (33-37); MEAN CORPUSCULAR VOLUME 82.6 fL (80-94); MONOCYTES # (AUTO) 1.3 K/uL (0.8-1.0); MONOCYTES % (AUTO) 14.3 % (1.7-9.3); NEUTROPHILS # (AUTO) 5.8 K/uL (1.8-7.7); NEUTROPHILS % (AUTO) 66.1 % (42.2-75.2); PLATELET COUNT (AUTO) 248 K/uL (140-450); RED BLOOD CELL COUNT(AUTO) 3.78 MIL/uL (4.20-6.10); RED CELL DISTRIBUTION WIDTH 16.7 % (11.6-13.7); WHITE BLOOD COUNT (AUTO) 8.8 K/uL (4.8-10.8)
[2018-03-19 09:34] LABS: ANION GAP 17.9 (8-16); CARBON DIOXIDE 20.8 mmol/L (21-32); POTASSIUM 3.7 mmol/L (3.5-5.1)
[2018-03-19 09:37] LABS: MAGNESIUM 1.8 mg/dL (1.8-2.4); PHOSPHORUS 2.7 mg/dL (2.5-4.9)
[2018-03-19] MEDS: PHENYTOIN 100 MG/2 ML VIAL IVP SCH ×2 (10:25→20:59)
[2018-03-19] MEDS: MEROPENEM 500 MG in NACL 0.9% 50 ML IV SCH ×2 (10:25→20:58)
[2018-03-19] MEDS: hydrALAZINE 20 MG/ML VIAL IVP PRN (10:26)
[2018-03-19] MEDS: levETIRAcetam 1,000 MG in NACL 0.9% 100 ML IV SCH ×2 (10:27→21:01)
[2018-03-19] MEDS: FAMOTIDINE 20 MG/2 ML VIAL IV SCH (10:32)
[2018-03-19] MEDS: COMPOSITE DRESSING TP SCH (13:06)
[2018-03-19 13:08] LABS: PROTHROMBIN TIME 10.7 secs (10.8-13.4)
[2018-03-19] MEDS: AMINO ACIDS IV SCH ×4 (20:07)
[2018-03-19] MEDS: MULTIVITAMIN IV SCH ×4 (20:07)
[2018-03-19] MEDS: [UNRECOGNIZED DRUG - OTHER] IV SCH ×4 (20:07)
[2018-03-19] MEDS: DEXTROSE IV SCH ×4 (20:07)
[2018-03-19] MEDS: INSULIN LANTUS 100 UNITS/ML 10 ML VIAL SUBQ SCH (21:00)
[2018-03-20] VITALS (18 sets, daily range): BP systolic 129–170; BP diastolic 71–86
[2018-03-20] MEDS: BLOOD GLUCOSE MONITORING 1 DEV DEV MC SCH ×5 (00:13→23:48)
[2018-03-20] MEDS: hydrALAZINE 20 MG/ML VIAL IVP PRN ×2 (00:18→19:07)
[2018-03-20 05:52] LABS: ANION GAP 14.9 (8-16); CARBON DIOXIDE 20.6 mmol/L (21-32); CREATININE 3.9 mg/dL (0.7-1.3); POTASSIUM 3.5 mmol/L (3.5-5.1)
[2018-03-20 05:55] LABS: MAGNESIUM 1.7 mg/dL (1.8-2.4); PHOSPHORUS 2.7 mg/dL (2.5-4.9)
[2018-03-20] MEDS: DILTIAZEM 30 MG TAB GT SCH ×2 (06:00)
[2018-03-20] MEDS: ALBUTEROL SULFATE/IPRATROPIU 3 ML SOL IH SCH ×3 (06:28→18:53)
[2018-03-20] MEDS ORDERED: levETIRAcetam 100 MG/ML VIAL IV ONE (08:34)
[2018-03-20] MEDS ORDERED: MAG SULF 2000 MG/WATER PREMIX 50 ML IV ONE (08:50)
[2018-03-20] MEDS: ATORVASTATIN 20 MG TAB GT SCH (08:54)
[2018-03-20] MEDS: FERROUS SULFATE 300 MG/5 ML UDC GT SCH (08:54)
[2018-03-20] MEDS: CARVEDILOL 12.5 MG TAB GT SCH (08:54)
[2018-03-20] MEDS: POTASSIUM CHLORIDE 20% 40 MEQ/15 ML UDC GT SCH (08:55)
[2018-03-20] MEDS: ASCORBIC ACID 500 MG/5 ML ORASYR GT SCH (08:55)
[2018-03-20] MEDS: amLODIPine 5 MG TAB JT SCH (08:55)
[2018-03-20] MEDS: THERAHONEY GEL 42.5 GM TP SCH (09:00)
[2018-03-20] MEDS: PHENYTOIN 100 MG/2 ML VIAL IVP SCH ×2 (09:06→20:57)
[2018-03-20] MEDS: MEROPENEM 500 MG in NACL 0.9% 50 ML IV SCH ×2 (09:06→20:56)
[2018-03-20] MEDS: FAMOTIDINE 20 MG/2 ML VIAL IV SCH (09:16)
[2018-03-20] MEDS: levETIRAcetam 1,000 MG in NACL 0.9% 100 ML IV SCH ×2 (09:17→20:56)
[2018-03-20] MEDS ORDERED: METOPROLOL 5 MG/5 ML VIAL IVP SCH (10:00)
[2018-03-20] MEDS: LEVOFLOXACIN 250 MG/D5 PREMIX 50 ML IV SCH (11:37)
[2018-03-20] MEDS: MAGNESIUM SULFATE 1GM in DEXTROSE 5% 100 ML PREMIX IV SCH ×2 (11:45→13:04)
[2018-03-20] MEDS: COMPOSITE DRESSING TP SCH (13:05)
[2018-03-20] MEDS: MULTIVITAMIN IV SCH ×8 (19:46→19:47)
[2018-03-20] MEDS: [UNRECOGNIZED DRUG - OTHER] IV SCH ×8 (19:46→19:47)
[2018-03-20] MEDS: DEXTROSE IV SCH ×8 (19:46→19:47)
[2018-03-20] MEDS: AMINO ACIDS IV SCH ×8 (19:46→19:47)
[2018-03-20] MEDS: METOPROLOL 5 MG/5 ML VIAL IV SCH (20:58)
[2018-03-20] MEDS: INSULIN LANTUS 100 UNITS/ML 10 ML VIAL SUBQ SCH (21:02)
[2018-03-21] VITALS (18 sets, daily range): BP systolic 138–166; BP diastolic 65–88
[2018-03-21 06:19] LABS: CARBON DIOXIDE 21.6 mmol/L (21-32); CREATININE 3.5 mg/dL (0.7-1.3); POTASSIUM 3.6 mmol/L (3.5-5.1)
[2018-03-21] MEDS: ALBUTEROL SULFATE/IPRATROPIU 3 ML SOL IH SCH ×3 (06:31→18:35)
[2018-03-21] MEDS: BLOOD GLUCOSE MONITORING 1 DEV DEV MC SCH ×4 (06:44→23:21)
[2018-03-21 06:47] LABS: MAGNESIUM 2.2 mg/dL (1.8-2.4); PHOSPHORUS 3.2 mg/dL (2.5-4.9)
[2018-03-21] MEDS: MEROPENEM 500 MG in NACL 0.9% 50 ML IV SCH ×2 (08:05→21:23)
[2018-03-21] MEDS: POTASSIUM CHLORIDE 20% 40 MEQ/15 ML UDC GT SCH (08:14)
[2018-03-21] MEDS: ASCORBIC ACID 500 MG/5 ML ORASYR GT SCH (08:14)
[2018-03-21] MEDS: ATORVASTATIN 20 MG TAB GT SCH (08:14)
[2018-03-21] MEDS: FERROUS SULFATE 300 MG/5 ML UDC GT SCH (08:14)
[2018-03-21] MEDS: levETIRAcetam 1,000 MG in NACL 0.9% 100 ML IV SCH ×2 (08:57→21:23)
[2018-03-21] MEDS: PHENYTOIN 100 MG/2 ML VIAL IVP SCH ×2 (08:58→21:25)
[2018-03-21] MEDS: METOPROLOL 5 MG/5 ML VIAL IV SCH ×2 (08:58→21:24)
[2018-03-21] MEDS: THERAHONEY GEL 42.5 GM TP SCH (09:04)
[2018-03-21] MEDS: FAMOTIDINE 20 MG/2 ML VIAL IV SCH (10:40)
[2018-03-21] MEDS: COMPOSITE DRESSING TP SCH (11:38)
[2018-03-21] MEDS: DEXTROSE IV SCH ×8 (19:34→20:00)
[2018-03-21] MEDS: MULTIVITAMIN IV SCH ×8 (19:34→20:00)
[2018-03-21] MEDS: [UNRECOGNIZED DRUG - OTHER] IV SCH ×8 (19:34→20:00)
[2018-03-21] MEDS: AMINO ACIDS IV SCH ×8 (19:34→20:00)
[2018-03-21] MEDS: INSULIN LANTUS 100 UNITS/ML 10 ML VIAL SUBQ SCH (21:00)
[2018-03-22] VITALS (18 sets, daily range): BP systolic 125–182; BP diastolic 69–93
[2018-03-22 05:37] LABS: BASOPHILS % (AUTO) 0.3 % (0.0-2.0); EOSINOPHILS # (AUTO) 0.1 K/uL (0-0.4); EOSINOPHILS % (AUTO) 1.9 % (0.0-4.0); HEMATOCRIT 27.7 % (36-52); HEMOGLOBIN 8.9 g/dL (12.0-18.0); LYMPHOCYTES # (AUTO) 1.9 K/uL (2.0-11.5); LYMPHOCYTES % (AUTO) 24.1 % (20.5-51.1); MEAN CORPUSCULAR HEMOGLOBIN 27 pg (27-31); MEAN CORPUSCULAR HGB CONC 32 g/dL (33-37); MEAN CORPUSCULAR VOLUME 82.8 fL (80-94); MONOCYTES # (AUTO) 0.8 K/uL (0.8-1.0); MONOCYTES % (AUTO) 9.8 % (1.7-9.3); NEUTROPHILS # (AUTO) 5.1 K/uL (1.8-7.7); NEUTROPHILS % (AUTO) 63.9 % (42.2-75.2); PLATELET COUNT (AUTO) 268 K/uL (140-450); RED BLOOD CELL COUNT(AUTO) 3.34 MIL/uL (4.20-6.10); WHITE BLOOD COUNT (AUTO) 7.9 K/uL (4.8-10.8)
[2018-03-22 05:51] LABS: ANION GAP 12.6 (8-16); CARBON DIOXIDE 22.2 mmol/L (21-32); CREATININE 3.1 mg/dL (0.7-1.3); POTASSIUM 3.8 mmol/L (3.5-5.1)
[2018-03-22 05:54] LABS: PHOSPHORUS 3.8 mg/dL (2.5-4.9)
[2018-03-22] MEDS: BLOOD GLUCOSE MONITORING 1 DEV DEV MC SCH ×4 (06:10→23:10)
[2018-03-22] MEDS ORDERED: LORazepam 2 MG/ML VIAL IVP PRN (06:25)
[2018-03-22] MEDS ORDERED: MORPHINE SULFATE 4 MG/ML SYR IVP PRN (06:25)
[2018-03-22] MEDS: ALBUTEROL SULFATE/IPRATROPIU 3 ML SOL IH SCH ×3 (06:29→19:20)
[2018-03-22] MEDS: PHENYTOIN 100 MG/2 ML VIAL IVP SCH ×2 (09:00→20:09)
[2018-03-22] MEDS: ASCORBIC ACID 500 MG/5 ML ORASYR GT SCH (09:00)
[2018-03-22] MEDS: FERROUS SULFATE 300 MG/5 ML UDC GT SCH (09:00)
[2018-03-22] MEDS: POTASSIUM CHLORIDE 20% 40 MEQ/15 ML UDC GT SCH (09:00)
[2018-03-22] MEDS: ATORVASTATIN 20 MG TAB GT SCH (09:00)
[2018-03-22] MEDS: METOPROLOL 5 MG/5 ML VIAL IV SCH ×2 (09:13→20:09)
[2018-03-22] MEDS: levETIRAcetam 1,000 MG in NACL 0.9% 100 ML IV SCH ×2 (09:13→20:09)
[2018-03-22] MEDS: FAMOTIDINE 20 MG/2 ML VIAL IV SCH (09:14)
[2018-03-22] MEDS: LEVOFLOXACIN 250 MG/D5 PREMIX 50 ML IV SCH (09:15)
[2018-03-22] MEDS: THERAHONEY GEL 42.5 GM TP SCH (09:15)
[2018-03-22] MEDS: MEROPENEM 500 MG in NACL 0.9% 50 ML IV SCH ×2 (09:29→20:55)
[2018-03-22] MEDS: COMPOSITE DRESSING TP SCH (13:15)
[2018-03-22] MEDS ORDERED: AMYLASE/LIPASE/PROTEASE 1 CAPDR JT SCH (13:52)
[2018-03-22] MEDS: [UNRECOGNIZED DRUG - OTHER] IV SCH ×4 (20:10)
[2018-03-22] MEDS: AMINO ACIDS IV SCH ×4 (20:10)
[2018-03-22] MEDS: MULTIVITAMIN IV SCH ×4 (20:10)
[2018-03-22] MEDS: DEXTROSE IV SCH ×4 (20:10)
[2018-03-22] MEDS: INSULIN LANTUS 100 UNITS/ML 10 ML VIAL SUBQ SCH (20:55)
[2018-03-23] VITALS (18 sets, daily range): BP systolic 90–182; BP diastolic 56–118
[2018-03-23] MEDS: hydrALAZINE 20 MG/ML VIAL IVP PRN (05:18)
[2018-03-23] MEDS: BLOOD GLUCOSE MONITORING 1 DEV DEV MC SCH ×3 (06:17→17:48)
[2018-03-23] MEDS: ALBUTEROL SULFATE/IPRATROPIU 3 ML SOL IH SCH ×3 (06:28→18:39)
[2018-03-23 07:44] LABS: BASOPHILS % (AUTO) 0.4 % (0.0-2.0); EOSINOPHILS # (AUTO) 0.1 K/uL (0-0.4); EOSINOPHILS % (AUTO) 1.5 % (0.0-4.0); HEMATOCRIT 27.6 % (36-52); HEMOGLOBIN 8.8 g/dL (12.0-18.0); LYMPHOCYTES # (AUTO) 1.6 K/uL (2.0-11.5); LYMPHOCYTES % (AUTO) 20.7 % (20.5-51.1); MEAN CORPUSCULAR HEMOGLOBIN 27 pg (27-31); MEAN CORPUSCULAR HGB CONC 32 g/dL (33-37); MEAN CORPUSCULAR VOLUME 86.4 fL (80-94); MONOCYTES # (AUTO) 0.7 K/uL (0.8-1.0); MONOCYTES % (AUTO) 9.1 % (1.7-9.3); NEUTROPHILS # (AUTO) 5.4 K/uL (1.8-7.7); NEUTROPHILS % (AUTO) 68.3 % (42.2-75.2); PLATELET COUNT (AUTO) 281 K/uL (140-450); RED CELL DISTRIBUTION WIDTH 16.9 % (11.6-13.7); WHITE BLOOD COUNT (AUTO) 7.9 K/uL (4.8-10.8)
[2018-03-23] MEDS: PHENYTOIN 100 MG/2 ML VIAL IVP SCH ×2 (08:09→20:53)
[2018-03-23] MEDS: METOPROLOL 5 MG/5 ML VIAL IV SCH ×2 (08:09→20:54)
[2018-03-23] MEDS: MEROPENEM 500 MG in NACL 0.9% 50 ML IV SCH ×2 (08:10→20:38)
[2018-03-23 08:24] LABS: ANION GAP 16.4 (8-16); CARBON DIOXIDE 21.6 mmol/L (21-32)
[2018-03-23] MEDS ORDERED: LORazepam 2 MG/ML VIAL IVP PRN (08:35)
[2018-03-23 08:39] LABS: MAGNESIUM 2.6 mg/dL (1.8-2.4); PHOSPHORUS 3.2 mg/dL (2.5-4.9)
[2018-03-23] MEDS: POTASSIUM CHLORIDE 20% 40 MEQ/15 ML UDC GT SCH (09:00)
[2018-03-23] MEDS: ATORVASTATIN 20 MG TAB GT SCH (09:00)
[2018-03-23] MEDS: ASCORBIC ACID 500 MG/5 ML ORASYR GT SCH (09:00)
[2018-03-23] MEDS: FERROUS SULFATE 300 MG/5 ML UDC GT SCH (09:00)
[2018-03-23] MEDS: levETIRAcetam 1,000 MG in NACL 0.9% 100 ML IV SCH ×2 (09:04→20:53)
[2018-03-23] MEDS: FAMOTIDINE 20 MG/2 ML VIAL IV SCH (09:04)
[2018-03-23] MEDS: THERAHONEY GEL 42.5 GM TP SCH (09:04)
[2018-03-23 11:19] LABS: ANION GAP 14.6 (8-16); CARBON DIOXIDE 22.4 mmol/L (21-32); CREATININE 2.8 mg/dL (0.7-1.3)
[2018-03-23] MEDS: INSULIN LISPRO SLIDING SCALE 100 UNITS/ML VIAL SUBQ PRN (12:05)
[2018-03-23] MEDS: COMPOSITE DRESSING TP SCH (13:40)
[2018-03-23] MEDS: MULTIVITAMIN IV SCH ×4 (19:38)
[2018-03-23] MEDS: [UNRECOGNIZED DRUG - OTHER] IV SCH ×4 (19:38)
[2018-03-23] MEDS: DEXTROSE IV SCH ×4 (19:38)
[2018-03-23] MEDS: AMINO ACIDS IV SCH ×4 (19:38)
[2018-03-23] MEDS: INSULIN LANTUS 100 UNITS/ML 10 ML VIAL SUBQ SCH (21:17)
[2018-03-24] VITALS (15 sets, daily range): BP systolic 92–152; BP diastolic 57–92
[2018-03-24] MEDS: BLOOD GLUCOSE MONITORING 1 DEV DEV MC SCH ×4 (00:38→17:55)
[2018-03-24 05:18] LABS: BASOPHILS % (AUTO) 0.4 % (0.0-2.0); EOSINOPHILS # (AUTO) 0.1 K/uL (0-0.4); HEMATOCRIT 27.1 % (36-52); HEMOGLOBIN 8.7 g/dL (12.0-18.0); LYMPHOCYTES # (AUTO) 1.7 K/uL (2.0-11.5); LYMPHOCYTES % (AUTO) 23.9 % (20.5-51.1); MEAN CORPUSCULAR HEMOGLOBIN 27 pg (27-31); MEAN CORPUSCULAR HGB CONC 32 g/dL (33-37); MEAN CORPUSCULAR VOLUME 82.8 fL (80-94); MONOCYTES # (AUTO) 0.9 K/uL (0.8-1.0); MONOCYTES % (AUTO) 12.1 % (1.7-9.3); NEUTROPHILS # (AUTO) 4.4 K/uL (1.8-7.7); NEUTROPHILS % (AUTO) 62.6 % (42.2-75.2); PLATELET COUNT (AUTO) 295 K/uL (140-450); RED BLOOD CELL COUNT(AUTO) 3.28 MIL/uL (4.20-6.10); RED CELL DISTRIBUTION WIDTH 16.5 % (11.6-13.7)
[2018-03-24 05:43] LABS: PROTHROMBIN TIME 10.4 secs (10.8-13.4)
[2018-03-24] MEDS: ALBUTEROL SULFATE/IPRATROPIU 3 ML SOL IH SCH ×3 (07:04→19:16)
[2018-03-24 08:24] LABS: ANION GAP 14.8 (8-16); CARBON DIOXIDE 22.4 mmol/L (21-32); POTASSIUM 4.2 mmol/L (3.5-5.1)
[2018-03-24 08:25] LABS: CREATININE 2.7 mg/dL (0.7-1.3)
[2018-03-24 08:29] LABS: MAGNESIUM 1.8 mg/dL (1.8-2.4); PHOSPHORUS 3.6 mg/dL (2.5-4.9)
[2018-03-24] MEDS ORDERED: DESFLURANE 240 ML BTL INH ONE (08:45)
[2018-03-24] MEDS ORDERED: PROPOFOL 200 MG/20 ML VIAL IV ONE (08:45)
[2018-03-24] MEDS ORDERED: ROCURONIUM 50 MG/5 ML VIAL IV ONE (08:45)
[2018-03-24] MEDS ORDERED: ONDANSETRON 4 MG/2 ML VIAL ONE (08:45)
[2018-03-24] MEDS ORDERED: DEXAMETHASONE 4 MG/ML VIAL ONE (08:45)
[2018-03-24] MEDS: FERROUS SULFATE 300 MG/5 ML UDC GT SCH (09:00)
[2018-03-24] MEDS: THERAHONEY GEL 42.5 GM TP SCH (09:00)
[2018-03-24] MEDS: POTASSIUM CHLORIDE 20% 40 MEQ/15 ML UDC GT SCH (09:00)
[2018-03-24] MEDS: METOPROLOL 5 MG/5 ML VIAL IV SCH (09:00)
[2018-03-24] MEDS: ATORVASTATIN 20 MG TAB GT SCH (09:00)
[2018-03-24] MEDS: ASCORBIC ACID 500 MG/5 ML ORASYR GT SCH (09:00)
[2018-03-24] MEDS: LEVOFLOXACIN 250 MG/D5 PREMIX 50 ML IV SCH (09:00)
[2018-03-24] MEDS ORDERED: fentaNYL 0.05 MG/ML VIAL ONE (09:05)
[2018-03-24] MEDS: BUPIVACAINE-MPF/EPI 0.25% 30 ML VIAL INJ ONE ×2 (09:34→10:00)
[2018-03-24] MEDS ORDERED: HYDROcodone/APAP 5/325 MG 1 TAB TAB PO PRN (10:05)
[2018-03-24] MEDS ORDERED: ONDANSETRON 4 MG/2 ML VIAL IV PRN (10:05)
[2018-03-24] MEDS ORDERED: HYDROmorphone 1 MG/ML AMP IVP PRN (10:05)
[2018-03-24] MEDS: PHENYTOIN 100 MG/2 ML VIAL IVP SCH ×2 (10:31→20:55)
[2018-03-24] MEDS: FAMOTIDINE 20 MG/2 ML VIAL IV SCH (10:31)
[2018-03-24] MEDS: MEROPENEM 500 MG in NACL 0.9% 50 ML IV SCH ×2 (10:33→20:55)
[2018-03-24] MEDS: levETIRAcetam 1,000 MG in NACL 0.9% 100 ML IV SCH (10:33)
[2018-03-24] MEDS: INSULIN LISPRO SLIDING SCALE 100 UNITS/ML VIAL SUBQ PRN (12:55)
[2018-03-24] MEDS: COMPOSITE DRESSING TP SCH (12:58)
[2018-03-24] MEDS: MORPHINE SULFATE 4 MG/ML SYR IV PRN (15:20)
[2018-03-24] MEDS: AMINO ACIDS IV SCH ×4 (19:35)
[2018-03-24] MEDS: MULTIVITAMIN IV SCH ×4 (19:35)
[2018-03-24] MEDS: [UNRECOGNIZED DRUG - OTHER] IV SCH ×4 (19:35)
[2018-03-24] MEDS: DEXTROSE IV SCH ×4 (19:35)
[2018-03-24] MEDS: INSULIN LANTUS 100 UNITS/ML 10 ML VIAL SUBQ SCH (20:45)
[2018-03-24] MEDS: METOPROLOL 50 MG TAB GT SCH (20:56)
[2018-03-24] MEDS ORDERED: levETIRAcetam 100 MG/ML ORASYR GT SCH (21:00)
[2018-03-25] VITALS (18 sets, daily range): BP systolic 90–123; BP diastolic 54–94
[2018-03-25] MEDS: BLOOD GLUCOSE MONITORING 1 DEV DEV MC SCH ×5 (00:03→23:12)
[2018-03-25] MEDS: MORPHINE SULFATE 4 MG/ML SYR IV PRN (03:13)
[2018-03-25 05:56] LABS: BASOPHILS % (AUTO) 0.2 % (0.0-2.0); EOSINOPHILS % (AUTO) 0.2 % (0.0-4.0); HEMATOCRIT 26.2 % (36-52); HEMOGLOBIN 8.2 g/dL (12.0-18.0); LYMPHOCYTES % (AUTO) 17.4 % (20.5-51.1); MEAN CORPUSCULAR HEMOGLOBIN 26 pg (27-31); MEAN CORPUSCULAR HGB CONC 31 g/dL (33-37); MEAN CORPUSCULAR VOLUME 83.4 fL (80-94); MONOCYTES # (AUTO) 1.4 K/uL (0.8-1.0); MONOCYTES % (AUTO) 11.7 % (1.7-9.3); NEUTROPHILS # (AUTO) 8.2 K/uL (1.8-7.7); NEUTROPHILS % (AUTO) 70.5 % (42.2-75.2); PLATELET COUNT (AUTO) 303 K/uL (140-450); RED BLOOD CELL COUNT(AUTO) 3.14 MIL/uL (4.20-6.10); RED CELL DISTRIBUTION WIDTH 16.4 % (11.6-13.7); WHITE BLOOD COUNT (AUTO) 11.7 K/uL (4.8-10.8)
[2018-03-25] MEDS: ALBUTEROL SULFATE/IPRATROPIU 3 ML SOL IH SCH ×3 (07:06→19:00)
[2018-03-25] MEDS: INSULIN LISPRO SLIDING SCALE 100 UNITS/ML VIAL SUBQ PRN ×3 (07:54→23:36)
[2018-03-25] MEDS ORDERED: NACL 0.9% 500 ML IV SCH (08:20)
[2018-03-25] MEDS ORDERED: DILTIAZEM 25 MG/5 ML VIAL IVP SCH (08:30)
[2018-03-25 08:42] LABS: ANION GAP 15.3 (8-16); CARBON DIOXIDE 21.5 mmol/L (21-32); CREATININE 2.8 mg/dL (0.7-1.3); POTASSIUM 4.8 mmol/L (3.5-5.1)
[2018-03-25] MEDS: ASCORBIC ACID 500 MG/5 ML ORASYR GT SCH (09:00)
[2018-03-25] MEDS: FERROUS SULFATE 300 MG/5 ML UDC GT SCH (09:00)
[2018-03-25] MEDS ORDERED: levETIRAcetam 1,000 MG in NACL 0.9% 100 ML IV SCH (09:00)
[2018-03-25] MEDS: ATORVASTATIN 20 MG TAB GT SCH (09:00)
[2018-03-25] MEDS: POTASSIUM CHLORIDE 20% 40 MEQ/15 ML UDC GT SCH (09:00)
[2018-03-25] MEDS: METOPROLOL 50 MG TAB GT SCH (09:00)
[2018-03-25] MEDS: PHENYTOIN 100 MG/2 ML VIAL IVP SCH ×2 (09:15→20:44)
[2018-03-25] MEDS: THERAHONEY GEL 42.5 GM TP SCH (09:16)
[2018-03-25] MEDS: FAMOTIDINE 20 MG/2 ML VIAL IV SCH (09:16)
[2018-03-25] MEDS: MEROPENEM 500 MG in NACL 0.9% 50 ML IV SCH (09:17)
[2018-03-25 11:36] LABS: MAGNESIUM 1.7 mg/dL (1.8-2.4); PHOSPHORUS 3.6 mg/dL (2.5-4.9)
[2018-03-25] MEDS: COMPOSITE DRESSING TP SCH (13:00)
[2018-03-25] MEDS ORDERED: ZGUARD TP (14:11)
[2018-03-25] MEDS ORDERED: COMPOSITE DRESSING TP (14:11)
[2018-03-25] MEDS ORDERED: Potassium Chloride 20% GT (14:11)
[2018-03-25] MEDS ORDERED: Tpn Per Pharmacy MC (14:11)
[2018-03-25] MEDS ORDERED: METO50TA99 GT (14:11)
[2018-03-25] MEDS ORDERED: APR20I IVP (14:11)
[2018-03-25] MEDS ORDERED: FERR75LI22 GT (14:11)
[2018-03-25] MEDS ORDERED: METO5SOL20 GT (14:11)
[2018-03-25] MEDS ORDERED: MOM PO (14:11)
[2018-03-25] MEDS ORDERED: Therahoney Gel TP (14:11)
[2018-03-25] MEDS ORDERED: DIL100I IVP (14:11)
[2018-03-25] MEDS ORDERED: KEP500 GT (14:12)
[2018-03-25] MEDS ORDERED: DILTIAZEM 30 MG TAB GT SCH (14:32)
[2018-03-25] MEDS: DILTIAZEM 30 MG TAB GT SCH (17:31)
[2018-03-25] MEDS: METOCLOPRAMIDE 10 MG/10 ML SYRP UDC GT SCH (17:31)
[2018-03-25] MEDS: DEXTROSE IV SCH ×4 (20:01)
[2018-03-25] MEDS: AMINO ACIDS IV SCH ×4 (20:01)
[2018-03-25] MEDS: MULTIVITAMIN IV SCH ×4 (20:01)
[2018-03-25] MEDS: [UNRECOGNIZED DRUG - OTHER] IV SCH ×4 (20:01)
[2018-03-25] MEDS: CARVEDILOL 12.5 MG TAB PO SCH (20:44)
[2018-03-25] MEDS: levETIRAcetam 100 MG/ML ORASYR JT SCH (20:44)
[2018-03-25] MEDS: INSULIN LANTUS 100 UNITS/ML 10 ML VIAL SUBQ SCH (20:56)
[2018-03-26] VITALS (13 sets, daily range): BP systolic 87–141; BP diastolic 5–85
[2018-03-26] MEDS: DILTIAZEM 30 MG TAB GT SCH ×3 (01:38→12:35)
[2018-03-26] MEDS: BLOOD GLUCOSE MONITORING 1 DEV DEV MC SCH ×2 (05:52→12:44)
[2018-03-26 05:59] LABS: BASOPHILS % (AUTO) 0.3 % (0.0-2.0); EOSINOPHILS % (AUTO) 0.1 % (0.0-4.0); HEMATOCRIT 25.6 % (36-52); LYMPHOCYTES # (AUTO) 2.2 K/uL (2.0-11.5); LYMPHOCYTES % (AUTO) 17.4 % (20.5-51.1); MEAN CORPUSCULAR HEMOGLOBIN 26 pg (27-31); MEAN CORPUSCULAR HGB CONC 31 g/dL (33-37); MEAN CORPUSCULAR VOLUME 83.7 fL (80-94); MONOCYTES # (AUTO) 1.8 K/uL (0.8-1.0); MONOCYTES % (AUTO) 14.3 % (1.7-9.3); NEUTROPHILS # (AUTO) 8.8 K/uL (1.8-7.7); NEUTROPHILS % (AUTO) 67.9 % (42.2-75.2); PLATELET COUNT (AUTO) 292 K/uL (140-450); RED BLOOD CELL COUNT(AUTO) 3.06 MIL/uL (4.20-6.10); RED CELL DISTRIBUTION WIDTH 16.3 % (11.6-13.7); WHITE BLOOD COUNT (AUTO) 12.9 K/uL (4.8-10.8)
[2018-03-26] MEDS ORDERED: NACL 0.9% 500 ML IV ONE (06:35)
[2018-03-26] MEDS: INSULIN LISPRO SLIDING SCALE 100 UNITS/ML VIAL SUBQ PRN ×2 (06:53→06:55)
[2018-03-26 07:19] LABS: POTASSIUM 4.8 mmol/L (3.5-5.1)
[2018-03-26 07:20] LABS: CARBON DIOXIDE 20.8 mmol/L (21-32)
[2018-03-26] MEDS: METOCLOPRAMIDE 10 MG/10 ML SYRP UDC GT SCH ×2 (07:31→12:35)
[2018-03-26] MEDS: ALBUTEROL SULFATE/IPRATROPIU 3 ML SOL IH SCH ×2 (07:52→13:23)
[2018-03-26] MEDS: POTASSIUM CHLORIDE 20% 40 MEQ/15 ML UDC GT SCH (08:23)
[2018-03-26] MEDS: levETIRAcetam 100 MG/ML ORASYR JT SCH (08:23)
[2018-03-26] MEDS: ATORVASTATIN 20 MG TAB GT SCH (08:24)
[2018-03-26] MEDS: FERROUS SULFATE 300 MG/5 ML UDC GT SCH (08:24)
[2018-03-26] MEDS: PHENYTOIN 100 MG/2 ML VIAL IVP SCH (08:25)
[2018-03-26] MEDS ORDERED: FAMOTIDINE 20 MG TAB JT SCH (09:00)
[2018-03-26] MEDS ORDERED: MAGNESIUM HYDROXIDE 2400 MG/30 ML UDC PO SCH (09:00)
[2018-03-26] MEDS: CARVEDILOL 12.5 MG TAB PO SCH (09:00)
[2018-03-26] MEDS: THERAHONEY GEL 42.5 GM TP SCH (09:00)
[2018-03-26] MEDS ORDERED: LEVOFLOXACIN 250 MG/D5 PREMIX 50 ML IV SCH (09:00)
[2018-03-26] MEDS: ASCORBIC ACID 500 MG/5 ML ORASYR GT SCH (09:07)
[2018-03-26 11:24] LABS: MAGNESIUM 1.7 mg/dL (1.8-2.4); PHOSPHORUS 3.2 mg/dL (2.5-4.9)
[2018-03-26] MEDS: COMPOSITE DRESSING TP SCH (13:00)
[2018-03-26] MEDS ORDERED: GAUZE TP SCH (13:00)
== END 2018-03-26 16:00 | DRG 853 ==
LOC: MED 21:29 → MTU 23:57 → MIC 03-11 03:00
PROVIDERS: ADMIT General Practice; ATTEND Family Medicine
PROC: 5A1955Z Respiratory Ventilation, Greater than 96 Consecutive Hours (ICD-10-PCS; principal; 2018-03-11)
PROC: 0DH68UZ Insertion of Feeding Device into Stomach, Via Natural or Artificial Opening Endoscopic (ICD-10-PCS; 2018-03-13)
PROC: 02HV33Z Insertion of Infusion Device into Superior Vena Cava, Percutaneous Approach (ICD-10-PCS; 2018-03-14)
PROC: B548ZZA Ultrasonography of Superior Vena Cava, Guidance (ICD-10-PCS; 2018-03-14)
PROC: 05HM33Z Insertion of Infusion Device into Right Internal Jugular Vein, Percutaneous Approach (ICD-10-PCS; 2018-03-14)
PROC: 30233N1 Transfusion of Nonautologous Red Blood Cells into Peripheral Vein, Percutaneous Approach (ICD-10-PCS; 2018-03-14)
PROC: B543ZZA Ultrasonography of Right Jugular Veins, Guidance (ICD-10-PCS; 2018-03-14)
PROC: 5A1D70Z Performance of Urinary Filtration, Intermittent, Less than 6 Hours Per Day (ICD-10-PCS; 2018-03-15)
PROC: 5A1D70Z Performance of Urinary Filtration, Intermittent, Less than 6 Hours Per Day (ICD-10-PCS; 2018-03-18)
PROC: 0DB60ZZ Excision of Stomach, Open Approach (ICD-10-PCS; 2018-03-24)
PROC: 03QY0ZZ Repair Upper Artery, Open Approach (ICD-10-PCS; 2018-03-24)
DX: A41.9 Sepsis, unspecified organism (principal); J69.0 Pneumonitis due to inhalation of food and vomit; L89.154 Pressure ulcer of sacral region, stage 4; N17.0 Acute kidney failure with tubular necrosis; E43 Unspecified severe protein-calorie malnutrition; R53.2 Functional quadriplegia; J15.6 Pneumonia due to other Gram-negative bacteria; I63.9 Cerebral infarction, unspecified; R65.21 Severe sepsis with septic shock; K94.13 Enterostomy malfunction; N39.0 Urinary tract infection, site not specified; E87.1 Hypo-osmolality and hyponatremia; J96.10 Chronic respiratory failure, unspecified whether with hypoxia or hypercapnia; J44.0 Chronic obstructive pulmonary disease with (acute) lower respiratory infection; K31.6 Fistula of stomach and duodenum; K94.23 Gastrostomy malfunction; J96.11 Chronic respiratory failure with hypoxia; J98.11 Atelectasis; Z68.1 Body mass index [BMI] 19.9 or less, adult; Z99.11 Dependence on respirator [ventilator] status; G40.901 Epilepsy, unspecified, not intractable, with status epilepticus; E83.42 Hypomagnesemia; E87.6 Hypokalemia; I25.10 Atherosclerotic heart disease of native coronary artery without angina pectoris; E78.5 Hyperlipidemia, unspecified; F02.80 Dementia in other diseases classified elsewhere, unspecified severity, without behavioral disturbance, psychotic disturbance, mood disturbance, and anxiety; F01.50 Vascular dementia, unspecified severity, without behavioral disturbance, psychotic disturbance, mood disturbance, and anxiety; D64.9 Anemia, unspecified; B96.20 Unspecified Escherichia coli [E. coli] as the cause of diseases classified elsewhere; Z16.12 Extended spectrum beta lactamase (ESBL) resistance; Y83.9 Surgical procedure, unspecified as the cause of abnormal reaction of the patient, or of later complication, without mention of misadventure at the time of the procedure; E11.22 Type 2 diabetes mellitus with diabetic chronic kidney disease; E11.649 Type 2 diabetes mellitus with hypoglycemia without coma; E87.70 Fluid overload, unspecified; I12.9 Hypertensive chronic kidney disease with stage 1 through stage 4 chronic kidney disease, or unspecified chronic kidney disease; N18.3 Chronic kidney disease, stage 3 (moderate); I69.311 Memory deficit following cerebral infarction
CPT/HCPCS: 36415; 36600; 71045; 71250; 74018; 76705; 76856; 80048; 80053; 80173; 80185; 80305; 81001; 82150; 82607; 82728; 82746; 82803; 82948; 83036; 83540; 83605; 83690; 83735; 83880; 84100; 84436; 84439; 84443; 84479; 84484; 85025; 85045; 85610; 85730; 86704; 86706; 86708; 86709; 86803; 86886; 86900; 86901; 86920; 87040; 87070; 87086; 87186; 87205; 87340; 89220; 90935; 93005; 94002; 94003; 94640; 96361; 96374; 99285; A9153; C1751; C9113; J0360; J1100; J1165; J1170; J1200; J1642; J1644; J1815; J1953; J1956; J2001; J2060; J2185; J2250; J2270; J2405; J2543; J2704; J2916; J2997; J3010; J3370; J3475; J3480; J3490; J7030; J7042; J7060; J7620; J8597; P9016; Q0092

== ENCOUNTER 2018-04-03 19:18 | Inpatient (IN) | payer OTHER ==
[~2018-04-03] VITALS: Ht 182.9 cm; Wt 91.6 kg
[~2018-04-03 19:18] MED LIST changes: +APR20I IVP; -CARV12.5 GT; -COL100L GT; +COMPOSITE DRESSING TP; +DIL100I IVP; -HYDR-5122 GT; -LACT10CA GT; -LINE600T IV; -MAGN400S60 GT; +METO5SOL20 GT; +MOM PO; -PHEN100C3 GT; -PIPE1PDS26 IV; +Potassium Chloride 20% GT; +Therahoney Gel TP; +ZGUARD TP; -[UNRECOGNIZED DRUG - CODE] GT
[2018-04-03 19:22] VITALS: BP 141/68
--- NOTE | 2018-04-03 19:23 | NUR ---
PT BIBA FOR WOUND DEHISCENCE. PT HAD J TUBE REMOVED AND G TUBE PLACE AT [facility]. J TUBE WOUND HELD TOGETHER BY ELISABETH EXHIBITING DEHISCENCE. SURGEON DR DAVILA IS COMING TO LOOK AT WOUND. ABDOMEN IS DISTENED AND FIRM. PT IS NON VERBAL. PT HAS TRACHEOTOMY AND IS ON VENT, RT DELMER SET UP VENTILATOR FOR PT. SEIZURE PRECAUTIONS IMPLEMENTED. ER MD TO SEE PT. SIDE RAILS UP X2, HEAD OF BED ELEVATED, WILL CONTINUE TO MOITOR. PMH: DM, SEIZURE DISORDER, HTN, CVA, RESPIRATORY FAILURE
[2018-04-03 19:25] VITALS: BP 141/68
--- NOTE | 2018-04-03 19:43 | NUR ---
PT HAS DOUBLE LUME PICC ON L UPPER ARM, PURPLE LUME NOT FLUSHING, HEPARIN ORDERED, LABS DRAWN FROM RED LUMEN. PT HAS COLOSTMY ON L ABD, PT HAS WOUND VAC ON R HIP FOR STAGE IV PRESSURE ULCER. PT HAS G TUBE. PT HAS CONDEM CATHETER.
[2018-04-03 19:50] LABS: BASOPHILS % (AUTO) 0.3 % (0.0-2.0); BILIRUBIN,URINE NEGATIVE (NEGATIVE); BLOOD, URINE 3+ (NEGATIVE); COLOR,URINE YELLOW (YELLOW); EOSINOPHILS # (AUTO) 0.3 K/uL (0-0.4); EOSINOPHILS % (AUTO) 2.5 % (0.0-4.0); HEMATOCRIT 26.4 % (36-52); HEMOGLOBIN 8.4 g/dL (12.0-18.0); LEUKOCYTE ESTERASE ,URINE 3+ (NEGATIVE); LYMPHOCYTES # (AUTO) 2.6 K/uL (2.0-11.5); LYMPHOCYTES % (AUTO) 20.6 % (20.5-51.1); MEAN CORPUSCULAR HEMOGLOBIN 26 pg (27-31); MEAN CORPUSCULAR HGB CONC 32 g/dL (33-37); MEAN CORPUSCULAR VOLUME 82.3 fL (80-94); MONOCYTES # (AUTO) 1.2 K/uL (0.8-1.0); MONOCYTES % (AUTO) 9.7 % (1.7-9.3); NEUTROPHILS # (AUTO) 8.5 K/uL (1.8-7.7); NEUTROPHILS % (AUTO) 66.9 % (42.2-75.2); NITRITE, URINE NEGATIVE (NEGATIVE); PH,URINE 8.5 (5.0-9.0); PLATELET COUNT (AUTO) 387 K/uL (140-450); RED CELL DISTRIBUTION WIDTH 15.6 % (11.6-13.7); UGLUCOSE NEGATIVE (NEGATIVE); WHITE BLOOD COUNT (AUTO) 12.7 K/uL (4.8-10.8)
[2018-04-03 19:52] LABS: APPEARANCE,URINE CLOUDY (CLEAR)
[2018-04-03 19:57] LABS: RBC,URINE 20-50 /HPF (0-5); WBC,URINE 80-100 /HPF (0-5)
[2018-04-03 20:09] LABS: ANION GAP 8.1 (8-16); CREATININE 2.3 mg/dL (0.7-1.3); POTASSIUM 3.1 mmol/L (3.5-5.1); TOTAL BILIRUBIN 0.2 mg/dL (0.0-1.0)
[2018-04-03 20:10] LABS: PROTHROMBIN TIME 10.3 secs (10.8-13.4)
[2018-04-03] MEDS ORDERED: ONDANSETRON 4 MG/2 ML VIAL IM/IVP PRN (20:30)
[2018-04-03] MEDS ORDERED: MORPHINE SULFATE 2 MG/ML SYR IVP PRN (20:30)
[2018-04-03] MEDS ORDERED: ACETAMINOPHEN 325 MG TAB PO PRN (20:30)
[2018-04-03] MEDS ORDERED: HYDROcodone/APAP 5/325 MG 1 TAB TAB PO PRN (20:30)
[2018-04-03] MEDS ORDERED: LORazepam 2 MG/ML VIAL IM/IVP PRN (20:30)
[2018-04-03] MEDS ORDERED: DOCUSATE SODIUM 100 MG GELCAP PO PRN (20:30)
[2018-04-03] MEDS ORDERED: cefTRIAXone 1,000 MG VIAL ONE (20:35)
[2018-04-03 20:55] LABS: MAGNESIUM 1.6 mg/dL (1.8-2.4); PHOSPHORUS 3.7 mg/dL (2.5-4.9)
--- NOTE | 2018-04-03 21:10 | NUR ---
Patient noted to have existing wounds upon arrival to ER. Photos taken of woundS and placed in chart. Wound covered with dressing. Physician informed.
--- NOTE | 2018-04-03 21:10 | NUR ---
PT NEW ADMIT COME FROM ER, PT WAS BROUGHT BY [facility]. TRANSFER FROM [facility] TO BED WITH 4 NURSES TO ASSIST.ADMIT TO ICU 8 WITH STATUS TELE. PT OPEN EYES,NON VERBAL. NO S/S OF PAIN OR DISCOMFORT NOTED. PT TRACH TO VENT,NO S/S OF RESP.DISTRESS,NO SOB. RESP EVEN UN LABOR. RHONCHI TO VIBHA LUNGS. VENT SETTING AC RATE 16,TV 500,FIO2 32% AND PEEP 5.ST ON MONITOR.PT ADMIT UNDER DR. MARQUES. PER REPORT FROM EMILIE PRABHAKAR FROM ER. PT MID ABD S/P SURGERY J TUBE SITE IS DEHISCING. SURGEON WAS AND MD AWARE.MID ABD AREA S/P JT WITH 12 ELISABETH INTACT AND DRAIN COME FROM AREA, WOUND NOTED DEHISCING.WOUND CULTURE SENT. PT ALSO WITH SACRO COCCYX ULCER WIDE 1/5 CM,LENGTH 3CM,DEPTH 2CM WOUND CULTURE SENT TO LAB, RIGHT HAND DRY SCAB 4CMX 2CM.PICC LINE TO LEFT UPPER ARM DOUBLE LUMEN INTACT AND FLUSHING WELL.PT IS INCONTINENT. CONDOM CATH IN PLACE WITH YELLOW CLOUDY URINE.MRSA SWAB SENT TO LAB.GENTLE CARE GIVEN. KEPT CLEAN AND DRY.
--- NOTE | 2018-04-03 21:10 | NUR ---
Admited to ICU 8 VIA GURNEY WITH VSS. Belongings list completed. PT TRANSFERED WITH CONDOM CATHETER. PICTURES OF WOUNDS TAKEN. Report to CHRISSY.
--- NOTE | 2018-04-03 21:20 | NUR ---
transferred to ICU 8 with Jarrett PRABHAKAR
[2018-04-03] MEDS: DEXT 5% / NACL 0.45% 1,000 ML IV SCH (21:40)
[2018-04-03] MEDS ORDERED: ALBUTEROL SULFATE/IPRATROPIU 3 ML SOL IH PRN (22:45)
[2018-04-03] MEDS ORDERED: VANCOMYCIN PER PHARMACY MC PRN (22:50)
[2018-04-03 23:01] VITALS: BP 117/70
[2018-04-03] MEDS ORDERED: KCL 20 MEQ/WATER INJ PREMIX 200 ML IV SCH (23:30)
[2018-04-03] MEDS ORDERED: MAG SULF 2000 MG/WATER PREMIX 100 ML IV SCH (23:30)
--- NOTE | 2018-04-03 23:30 | NUR ---
PT IS AWAKE,REPOSITION PT FOR COMFORT.
[2018-04-03] MEDS ORDERED: VANCOMYCIN 1,500 MG in NACL 0.9% 500 ML IV SCH (23:45)
[2018-04-04] VITALS (17 sets, daily range): BP systolic 100–147; BP diastolic 65–92
[2018-04-04] MEDS ORDERED: VANCOMYCIN 1GM/DEXT 5% PREMIX 200 ML IV SCH
[2018-04-04] MEDS ORDERED: VANCOMYCIN 500 MG in DEXTROSE 5% 100 ML IV SCH ×2
[2018-04-04] MEDS ORDERED: hydrALAZINE 20 MG/ML VIAL IVP PRN (00:15)
[2018-04-04] MEDS ORDERED: BISACODYL 10 MG SUPP RC PRN (00:15)
[2018-04-04] MEDS ORDERED: SODIUM PHOSPHATE 118 ML ENEM RC PRN (00:15)
[2018-04-04] MEDS ORDERED: VANCOMYCIN 1,000 MG VIAL ONE (00:24)
[2018-04-04] MEDS ORDERED: MEROPENEM 500 MG VIAL IV ONE (00:24)
[2018-04-04] MEDS ORDERED: THERAHONEY GEL 42.5 GM TP PRN (00:25)
[2018-04-04] MEDS ORDERED: Z-GUARD PASTE TP PRN (00:25)
[2018-04-04] MEDS ORDERED: INSULIN LISPRO SLIDING SCALE 100 UNITS/ML VIAL SUBQ PRN (00:30)
[2018-04-04] MEDS ORDERED: DEXTROSE 50% 50 ML SYR IVP PRN (00:30)
[2018-04-04] MEDS ORDERED: VANCOMYCIN 1,500 MG in NACL 0.9% 500 ML IV SCH (00:40)
[2018-04-04] MEDS ORDERED: VANCOMYCIN 1,500 MG in NACL 0.9% 500 ML IV ONE (01:00)
[2018-04-04] MEDS: Z-GUARD PASTE TP SCH ×2 (01:00→12:39)
[2018-04-04] MEDS ORDERED: LORazepam 2 MG/ML VIAL IM/IVP PRN (01:30)
--- NOTE | 2018-04-04 03:30 | NUR ---
CT SCAN ABD AND PELVIS DONE RESULT TO FOLLOW UP
--- NOTE | 2018-04-04 04:00 | NUR ---
AM CARE GIVEN. PT IS AWAKE NO S/S OF DISTRESS. KEPT CLEAN AND DRY.
--- NOTE | 2018-04-04 05:00 | NUR ---
MADE AWARE THE CT SCAN ABD AND PELVIS RESULT IS CRITICAL. HE SAID WILL FOLLOW UP.
[2018-04-04] MEDS: MEROPENEM 500 MG in NACL 0.9% 50 ML IV SCH ×3 (05:28→20:30)
[2018-04-04] MEDS: DILTIAZEM 30 MG TAB GT SCH ×4 (06:00→23:41)
--- NOTE | 2018-04-04 06:00 | NUR ---
COME TO SEE PT, UP DATE PT CONDITION TO MD ALSO MADE AWARE THAT CT SCAN ABD AND PELVIS DONE AND RESULT IS CHECKED BY MD. PER MD NO NEED TO PUT NGT. NOTHING BY GT AT THIS TIME.
[2018-04-04] MEDS: DEXT 5% / NACL 0.45% 1,000 ML IV SCH ×2 (06:01→16:30)
--- NOTE | 2018-04-04 06:03 | NUR ---
PER TO HOLD ALL GT MEDS FOR NOW D/T CT SCAN RESULT IS CONSIDERATION SEVERE ILEUS.NGT TO PLACE,
--- NOTE | 2018-04-04 06:30 | NUR ---
DR.ATCKINSON TAY MADE AWARE THAT ORDER NGT BUT PER NO NEED NGT D/T PT ALREADY HAVE GT. ALSO AWARE PT IS NPO . SAID WILL PUT TX ORDER.
[2018-04-04] MEDS: ALBUTEROL SULFATE/IPRATROPIU 3 ML SOL IH SCH ×2 (06:39→19:16)
--- NOTE | 2018-04-04 06:39 | NUR ---
REC'D PT ON CARESCAPE VENT SETTINGS AC16 VT 500 PEEP 5 FIO2 32% ALARMS ON AND AUDIBLE AMBU BAG AT SIDE OF VENT AND VENT IS PLUGGED INTO RED OUTLET, I\L TX GIVEN WITH DUONEB 3ML WITH NO ADVERSE REACTION POST TX B\S ARE COARSE BILATERALLY, SXN PT SMALL AMT OF THICK WHITE SECRETIONS, PT IS TRACH WITH SHILEY XLT 6 AND SKIN INTEGRITY IS INTACT
--- NOTE | 2018-04-04 07:18 | NUR ---
RECEIVED BEDSIDE REPORT FROM HEAT CURER RN, KATHLEEN, FOR CONTINUITY OF CARE. PATIENT IS AAOX1, UNABLE TO MAKE NEEDS KNOWN OR FOLLOW SIMPLE COMMANDS. PATIENT SKIN IS WARM AND DRY, NOT INTACT, PATIENT HAS A SACROCOCCYX PRESSURE INJURY AND DEHISCENCE TO ABDOMEN, DRESSINGS CLEAN AND DRY. HE HAS PICC LINE TO RADHA, ASYMPTOMATIC AND PATENT. PATIENT IS TRACH TO VENT, SETTINGS ARE AC MODE, RATE 16, FIO2 32%, TV 500, PEEP 5. BREATHING IS EVEN AND UNLABORED. ST ON MONITOR, FLACC 0. HE HAS GTUBE IN PLACE. CONDOM CATHETER IN PLACE. HOB IS 35 DEGREES. SAFETY PRECAUTIONS AND ALARMS ASSESSED AND REINFORCED. NO SIGNS OF DISTRESS NOTED. WILL CONTINUE TO MONITOR
[2018-04-04] MEDS: METOCLOPRAMIDE 10 MG/10 ML SYRP UDC GT SCH ×3 (07:30→16:30)
--- NOTE | 2018-04-04 07:40 | NUR ---
DR. WILHELM IN TO SEE AND EXAMINE PATIENT, UPDATED ON PATIENT'S CONDITION. STATES THAT PATIENT IS NOT A CANDIDATE FOR HEMODIALYSIS AT THIS TIME.
[2018-04-04] MEDS: BLOOD GLUCOSE MONITORING 1 DEV DEV FS SCH ×4 (07:48→20:30)
--- NOTE | 2018-04-04 07:57 | NUR ---
DR. CANNON AND RESIDENT PHYSICIANS IN TO SEE AND ROUND ON PATIENT. UPDATED ON PATIENT'S CONDITION. WILL FOLLOW UP ON ANY ORDERS.
[2018-04-04] MEDS: MAGNESIUM HYDROXIDE 2400 MG/30 ML UDC GT SCH (09:00)
[2018-04-04] MEDS: FERROUS SULFATE 300 MG/5 ML UDC GT SCH (09:00)
[2018-04-04] MEDS ORDERED: PROTEIN HYDR GT SCH (09:00)
[2018-04-04] MEDS: POLYETHYLENE GLYCOL 17 GM/PKT GT SCH (09:00)
[2018-04-04] MEDS: PHENYTOIN 100 MG/4 ML UDC GT SCH ×2 (09:00→20:17)
[2018-04-04] MEDS: MULTIVITAMIN/MINERALS 1 TAB GT SCH (09:00)
[2018-04-04] MEDS ORDERED: MAGNESIUM HYDROXIDE 2400 MG/30 ML UDC PO SCH (09:00)
[2018-04-04] MEDS ORDERED: PHENYTOIN 100 MG/4 ML UDC GT SCH (09:00)
[2018-04-04] MEDS: CYANOCOBALAMIN 100 MCG TAB GT SCH (09:00)
[2018-04-04] MEDS ORDERED: VITAMIN A 10,000 IU CAPLF GT SCH (09:00)
[2018-04-04] MEDS: levETIRAcetam 500 MG TAB GT SCH ×2 (09:00→20:17)
[2018-04-04] MEDS: ASCORBIC ACID 500 MG/5 ML ORASYR GT SCH (09:00)
[2018-04-04] MEDS ORDERED: [UNRECOGNIZED DRUG - OTHER] GT SCH (09:00)
[2018-04-04] MEDS ORDERED: ALPHA LIPOIC ACID 300 MG GT SCH (09:00)
[2018-04-04] MEDS: VITAMIN D 400 IU TAB GT SCH (09:00)
[2018-04-04] MEDS ORDERED: FIBER GT SCH (09:00)
[2018-04-04] MEDS ORDERED: AMINO ACIDS GT SCH (09:00)
[2018-04-04] MEDS: PANTOPRAZOLE 40 MG INJ VIAL IVP SCH (09:14)
--- NOTE | 2018-04-04 09:22 | NUR ---
DR. NAVARRETE IN TO SEE AND EXAMINE PATIENT, UPDATED ON PATIENT'S CONDITION
[2018-04-04] MEDS: prednisoLONE 1% OP 5 ML BTL RIGHT EYE SCH ×3 (09:45→17:12)
[2018-04-04] MEDS: POLYVINYL ALCOHOL 1.4% OP 15 ML SOL OP SCH ×3 (09:45→17:12)
--- NOTE | 2018-04-04 09:45 | NUR ---
PATIENT'S CALLED, STATES THAT SHE WANTS PATIENT TO BE ADMITTED TO [facility].
--- NOTE | 2018-04-04 11:55 | NUR ---
PATIENT CLEANED AND REPOSITIONED FOR COMFORT, ORAL CARE PROVIDED, TOLERATES WELL.
[2018-04-04] MEDS: THERAHONEY GEL 42.5 GM TP SCH (12:38)
--- NOTE | 2018-04-04 14:25 | NUR ---
PATIENT CLEANED AND REPOSITIONED, TOLERATING WELL, NO SIGNS OF DISTRESS NOTED
--- NOTE | 2018-04-04 19:13 | NUR ---
ENDORSED CONTINUITY OF CARE TO AIR INTERCEPT CONTROLLER RNADELITA, AT BEDSIDE. NO SIGNS OF DISTRESS NOTED
--- NOTE | 2018-04-04 19:15 | NUR ---
RECEIVED REPORT FROM AM SHIFT. PT NONVERBAL. OPENS EYES SPONTANEOUSLY. UNABLE TO FOLLOW COMMANDS. AFEBRILE. LUNG SOUNDS DIMINISHED BILAT. VENT SETTINGS. ACVC FIO2 32. VT 500 RATE 16 PEEP 5. SR WITH BBB ON MONITOR. GTUBE TO RUQ. PT NPO AT THIS TIME. WOUND DEHISCENSE NOTED TO ABD. COLOSTOMY BAG NOTED. CONDOM CATH TO DRAINAGE BAG PRESENT. RADHA PICC NOTED. DRESSING CLEAN INTACT. RIGHT HAND ESCHAR NOTED. SACRAL COCCYX WOUND NOTED. DRESSING CLEAN INTACT. BED IN LOWEST POSITION. SR UP X4. WILL CONTINUE TO MONITOR.
--- NOTE | 2018-04-04 19:22 | NUR ---
RT AT BEDSIDE AT THIS TIME.
--- NOTE | 2018-04-04 19:27 | NUR ---
Received pt stable on vent support at documented settings, suctioned small amounts of thin white secretions, hhn tx given, tolerated well, no resp distress or SOB noted at this time, Portex 7 trach secured/patent/midline, alarms set and audible, vent plugged into red outlet, ambu bag at bedside, cont pulse ox on, will cont to monitor.
--- NOTE | 2018-04-04 20:09 | NUR ---
DR. RUIZ AT BEDSIDE AT THIS TIME. UPDATED ON PTS CURRENT CONDITION. WILL FOLLOW UP ADDITIONAL ORDERS.
[2018-04-04] MEDS: ATORVASTATIN 20 MG TAB GT SCH (20:18)
[2018-04-04] MEDS: INSULIN LANTUS 100 UNITS/ML 10 ML VIAL SUBQ SCH (20:46)
--- NOTE | 2018-04-04 22:53 | NUR ---
PT HAD 10 SEC SZ AT THIS TIME. ADMINISTERED ATIVAN 1MG PRN. WILL CONTINUE TO MONITOR
[2018-04-05] VITALS (18 sets, daily range): BP systolic 106–156; BP diastolic 57–79
--- NOTE | 2018-04-05 00:45 | NUR ---
WOUND CARE PROVIDED AT THIS TIME
[2018-04-05] MEDS: Z-GUARD PASTE TP SCH ×3 (01:00→14:19)
[2018-04-05] MEDS: DEXT 5% / NACL 0.45% 1,000 ML IV SCH ×3 (02:30→23:17)
[2018-04-05] MEDS: MEROPENEM 500 MG in NACL 0.9% 50 ML IV SCH ×3 (04:08→20:20)
[2018-04-05] MEDS: DILTIAZEM 30 MG TAB GT SCH ×4 (05:04→23:55)
[2018-04-05] MEDS: VANCOMYCIN 1GM/DEXT 5% PREMIX 200 ML IV SCH (05:09)
--- NOTE | 2018-04-05 05:27 | NUR ---
AM CARE PROVIDED. NO SIGNS OF ACUTE DISTRESS NOTED AT THIS TIME.
--- NOTE | 2018-04-05 06:00 | NUR ---
PERFORMED BLOOD DRAW VIA PICC LINE AT THIS TIME.
[2018-04-05 06:19] LABS: BASOPHILS % (AUTO) 0.3 % (0.0-2.0); EOSINOPHILS # (AUTO) 0.4 K/uL (0-0.4); EOSINOPHILS % (AUTO) 3.8 % (0.0-4.0); HEMATOCRIT 23.9 % (36-52); HEMOGLOBIN 7.8 g/dL (12.0-18.0); LYMPHOCYTES # (AUTO) 1.7 K/uL (2.0-11.5); LYMPHOCYTES % (AUTO) 17.9 % (20.5-51.1); MEAN CORPUSCULAR HEMOGLOBIN 27 pg (27-31); MEAN CORPUSCULAR HGB CONC 33 g/dL (33-37); MEAN CORPUSCULAR VOLUME 82.2 fL (80-94); MONOCYTES % (AUTO) 10.8 % (1.7-9.3); NEUTROPHILS # (AUTO) 6.3 K/uL (1.8-7.7); NEUTROPHILS % (AUTO) 67.2 % (42.2-75.2); PLATELET COUNT (AUTO) 346 K/uL (140-450); RED BLOOD CELL COUNT(AUTO) 2.91 MIL/uL (4.20-6.10); RED CELL DISTRIBUTION WIDTH 15.7 % (11.6-13.7); WHITE BLOOD COUNT (AUTO) 9.3 K/uL (4.8-10.8)
[2018-04-05 06:42] LABS: ANION GAP 9.8 (8-16); CARBON DIOXIDE 30.2 mmol/L (21-32)
[2018-04-05] MEDS: ALBUTEROL SULFATE/IPRATROPIU 3 ML SOL IH SCH ×3 (06:46→19:41)
--- NOTE | 2018-04-05 06:46 | NUR ---
REC'D PT ON CARESCAPE VENT SETTINGS AC 16 VT 500 PEEP 5 FIO2 32% ALARMS ON AND AUDIBLE, AMBU BAG AT SIDE OF VENT AND VENT IS PLUGGED INTO RED OUTLET, I\L TX GIVEN WITH DUONEB 3ML WITH NO ADVERSE REACTION POST TX B\S ARE RHONCHI BILATERALLY, SXN PT SMALL AMT OF WHITE THIN SECRETIONS PT IS TRACH WITH PORTEX 7 AND SKIN INTEGRITY IS INTACT
--- NOTE | 2018-04-05 06:47 | NUR ---
DR. DAVILA AT BEDSIDE AT THIS TIME. UPDATED ON PTS CURRENT CONDITION. WILL CONTINUE TO FOLLOW UP ANY ADDITIONAL ORDERS.
--- NOTE | 2018-04-05 06:50 | NUR ---
REMOVED ELISABETH ON ABD. TOTAL 12 ELISABETH REMOVED VIA STAPLE REMOVER
[2018-04-05] MEDS: BLOOD GLUCOSE MONITORING 1 DEV DEV FS SCH ×4 (06:57→20:19)
[2018-04-05 06:58] LABS: PHOSPHORUS 3.7 mg/dL (2.5-4.9)
[2018-04-05] MEDS: METOCLOPRAMIDE 10 MG/10 ML SYRP UDC GT SCH ×3 (06:58→16:30)
--- NOTE | 2018-04-05 07:14 | NUR ---
ENDORSED CARE TO INCOMING SHIFT FOR CONTINUITY OF CARE. NO SIGNS OF ACUTE DISTRESS AT THIS TIME.
--- NOTE | 2018-04-05 08:14 | NUR ---
PATIENT HAS BEEN SCREENED AND CATEGORIZED HIGH NUTRITION RISK. PATIENT WILL BE SEEN WITHIN 1-2 DAYS OF ADMISSION. 04/05/[address]
[2018-04-05] MEDS: CYANOCOBALAMIN 100 MCG TAB GT SCH (09:00)
[2018-04-05] MEDS: levETIRAcetam 500 MG TAB GT SCH (09:00)
[2018-04-05] MEDS: POLYETHYLENE GLYCOL 17 GM/PKT GT SCH (09:00)
[2018-04-05] MEDS ORDERED: POTASSIUM CHLORIDE 40 MEQ, LIDOCAINE MPF 1% - 5 mL VIAL 25 MG in NACL 0.9% 250 ML IV SCH (09:00)
[2018-04-05] MEDS: MULTIVITAMIN/MINERALS 1 TAB GT SCH (09:00)
[2018-04-05] MEDS: MAGNESIUM HYDROXIDE 2400 MG/30 ML UDC GT SCH (09:00)
[2018-04-05] MEDS: VITAMIN D 400 IU TAB GT SCH (09:00)
[2018-04-05] MEDS: PHENYTOIN 100 MG/4 ML UDC GT SCH (09:00)
[2018-04-05] MEDS: ASCORBIC ACID 500 MG/5 ML ORASYR GT SCH (09:00)
[2018-04-05] MEDS: FERROUS SULFATE 300 MG/5 ML UDC GT SCH (09:00)
[2018-04-05] MEDS: POLYVINYL ALCOHOL 1.4% OP 15 ML SOL OP SCH ×3 (09:43→16:28)
[2018-04-05] MEDS: prednisoLONE 1% OP 5 ML BTL RIGHT EYE SCH ×3 (09:43→16:29)
[2018-04-05] MEDS: PANTOPRAZOLE 40 MG INJ VIAL IVP SCH (09:43)
--- NOTE | 2018-04-05 10:13 | NUR ---
DR DAVILA CALLED BACK, OK TO USE G TUBE FOR CONTRAST. BUT NOT FOR MEDS YET UNTIL RESULTS OF FOLLOW THROUGH COMES BACK.
[2018-04-05 10:23] LABS: PHENYTOIN (DILANTIN) 0.6 ug/ml (10.0-20.0)
--- NOTE | 2018-04-05 10:29 | NUR ---
radiology at bedside for follow through.
[2018-04-05] MEDS: THERAHONEY GEL 42.5 GM TP SCH (12:06)
--- NOTE | 2018-04-05 12:50 | NUR ---
PATIENT'S AT BEDSIDE UPDATED OF PATIENT'S CONDITION. REQUESTED TO TAKE PICTURE OF WOUND. PICTURE OBTAINED, INSTRUCTED HER TO MAKE A REQUEST FROM MEDICAL RECORDS.
--- NOTE | 2018-04-05 12:50 | NUR ---
WOUND CARE EVALUATION NOTE: REASON FOR EVALUATION: SACRALCOCCYX ULCER AND SURGICAL WOUND DEHISCENCE SKIN ASSESSMENT DONE WITH PRIMARY RN WITH THIS 67 Y/O MALE PT ADMITTED TO [facility] WITH INITIAL DX J TUBE MALFUNCTION AND SURGICAL WOUND DEHISCENCE, CHRONIC PRESSURE INJURY STAGE 4. PAST MEDICAL HX INCLUDES CHRONIC SACRALCOCCYX WOUND, HTN, DM, CHRONIC TRACH, SEIZURE, CAD AND G-TUBE ABDOMINAL FISTULA. ALL ABOVE INFORMATION OBTAINED FROM ADMISSION H&P. SKIN IS WARM AND DRY, BLE FEW HAIR GROWTH, NO EDEMA. DORSAL PEDAL PULSES PRESENT AND NORMAL. CAPILLARY REFILLED < 2 SEC. X 10 TOES. INCONTINENT OF BLADDER PAMELA CATH. IN PLACE. PLAN OF CARE DISCUSSED WITH PRIMARY RN. AND DR. COLBERT AT BED SIDE, INFORMED OF WOUND CARE TREATMENTS RECOMMENDATIONS, ALL IN AGREEABLE TO THE PLANS. INTEGUMENTARY: -TRACH SITE GUI-STOMA SKIN DRY AND CLEAN. SKIN INTACT. -RUQ ABDOMEN GT SITE STOMA SITE DRY AND CLEAN, GUI-STOMA SKIN INTACT. -RIGHT WRIST BROWN SCAB 4X2 CM, IRREGULAR WOUND SHAPE, GUI-WOUND SKIN DRY AND INTACT -MID ABDOMEN SURGICAL WOUND DEHISCENCE, 10X2.5 CM WOUND BED 60 % GRANULATION TISSUE AND 40% YELLOW SLOUGH, DEPTH UTD, SMALL AMOUNT OF PURULENT DRAINAGE AND MILD ODOR. NOTICE GUI-WOUND TOWARD 9 O�CLOCK DIRECTION WITH SURGICAL WOUND (OLD GT STOMA SITE) 1X1CM, OPEN WOUND, WITH 100% WITH YELLOW SLOUGH TO WOUND BED SMALL AMOUNT PURULENT DRAINAGE, NO ODOR -ABDOMEN DISSENTED, NON-TENDER TO TOUCH. MULTIPLE HEALED OLD SCARS. -LLQ ABD. COLOSTOMY FUNCTIONING WITH SMALL AMOUNT OF STOOL OUTPUT, GUI-OSTOMY SKIN INTACT. -SACROCOCCYX STAGE 4 PRESSURE INJURY, 5X2X2 CM WOUND BED 100% RED WITH GRANULATION TISSUE, MODERATE AMOUNT SEROUS DRAINAGE, GUI WOUND SKIN DENUDED REDNESS WITH MULTIPLE PARTIAL THICKNESS LOSS OF SKIN, WOUND EDGE WELL DEFINE, MILD ODOR AFTER CLEANING -BLE AND HEELS DRYNESS RECOMMENDATIONS: -SURGEON TO CONSULT ABDOMEN SURGICAL WOUND DEHISCENCE -CLEANSE ABDOMEN MULTIPLE SURGICAL WOUNDS WITH NS. PAT DRY , PACK WITH HYDROGEL AND COVER WITH ISLAND DRESSING QD AND PRN IF SOILING -CLEANSE SACRALCOCCYX WOUND WITH NS. PAT DRY, PACK WITH PLUROGEL AND APPLY Z GUARD TO GUI-WOUNDS COVER WITH ISLAND DRESSING QD AND PRN IF SOILING -APPLY SOAKED 4X4 WITH BETADINE SOLUTION TO RIGHT WRIST, COVER WITH DRY DRESSING QD -APPLY HYDRAGUARD TO BLE AND HEELS BIDWC AND LEAVE IT OPEN TO AIR -KEEP SKIN DRY AND CLEAN AT ALL TIMES, PLEASE CHECK Q2H AND PRN FOR DRYNESS -OFFLOAD BILATERAL HEELS BY PLACING PILLOWS UNDER CALVES UNLESS OTHERWISE CONTRAINDICATED -PRESSURE REDISTRIBUTION SURFACE THERAPY -TURN AND REPOSITION Q2H, OFFLOAD SACRALCOCCYX BY TURNING RIGHT AND LEFT -CONTINUE TO FOLLOW RD RECOMMENDATIONS ALL ABOVE RECOMMENDATIONS DISCUSSED WITH PRIMARY RN. WILL FOLLOW UP PT Q7-10 DAYS. PLEASE CONTACT WOUND CARE NURSE FOR ANY QUESTION AND CHANGE OF WOUND CONDITION. Addendum: 04/05/18 at 1642 by Doni Fored RN (Grace) CLARIFY ORDERS: CLEANSE ABDOMEN MULTIPLE SURGICAL WOUNDS WITH NS. PAT DRY , PACK WITH ADAPTIC DRESSING WITH HYDROGEL AND COVER WITH ISLAND DRESSING QD AND PRN IF SOILING -CLEANSE SACRALCOCCYX WOUND WITH NS. PAT DRY, PACK WITH ADAPTIC DRESSING WITH PLUROGEL AND APPLY Z GUARD TO GUI-WOUNDS COVER WITH ISLAND DRESSING QD AND PRN IF SOILING
[2018-04-05] MEDS: COMMUNICATION ORDER MC SCH (13:00)
[2018-04-05] MEDS: SKINTEGRITY HYDROGEL TP SCH (13:00)
[2018-04-05] MEDS: NACL 0.9% IRR 250 ML BOTTLE IR SCH (13:00)
[2018-04-05] MEDS ORDERED: NACL 0.9% IVP SCH (13:30)
[2018-04-05] MEDS ORDERED: PHENYTOIN IVP SCH (13:30)
[2018-04-05] MEDS ORDERED: levETIRAcetam 1,000 MG in NACL 0.9% 100 ML IV SCH (14:00)
[2018-04-05] MEDS: HYDRAGUARD CREAM TP SCH (14:17)
[2018-04-05] MEDS ORDERED: KCL 20 MEQ/WATER INJ PREMIX 200 ML IV SCH (14:30)
--- NOTE | 2018-04-05 15:22 | NUR ---
04/05/18 RD INITIAL ASSESSMENT COMPLETED PLEASE REFER TO NUTRITION ASSESSMENT UNDER CARE ACTIVITY FOR ESTIMATED NUTRITIONAL NEEDS. 1. CONTINUE NPO MEDICALLY NECESSARY 2. WHEN PATIENT IS MEDICALLY STABLE CONSIDER ADVANCING TO NEPO CARBSTEADY AT 40 ML/HR -THIS WILL PROVIDE 1728 KCAL AND 77 GM OF PROTEIN, WHICH MEETS 85% OF ESTIMATED KCAL NEEDS AND 100% OF ESTIMATED PROTEIN NEEDS. 3. RECOMMEND FREE WATER FLUSH [address] TO FOLLOW-UP 2-3 DAYS, HIGH RISK GALINA ANDERSEN RD
--- NOTE | 2018-04-05 16:10 | NUR ---
Comb Fixer Note: Per Emma from [facility] , patient is on a 7 day bed hold and is one of their fountain dispenser patients. Patient's health care decision maker is his Ness Bassett . I called and spoke with Ness. She stated [facility]. Ness told me she is upset patient was transfer to our hospital instead of [facility] and has discussed this with the it systems administrator of [facility]. She is also planning to discuss this matter with attending MD, Milton Camargo. She reported she is not medically well at this time and our hospital is farther away from her home. Therefore, it is difficult for her to drive to our hospital. She stated she does not have any concerns or questions regarding patient's care at our hospital at this time.
[2018-04-05] MEDS: [UNRECOGNIZED DRUG - SUPPLY] TP SCH (17:21)
--- NOTE | 2018-04-05 19:08 | NUR ---
RECEIVED REPORT FROM AM SHIFT. PT AFEBRILE NONVERBAL. OPENS EYES SPONTANEOUSLY. UNABLE TO VERBALIZE NEEDS. TRACH TO VENT. VENT SETTINGS ACVC FIO2 32 VT 500 RATE 16 PEEP 5. UNLABORED BREATHING. SR ON MONITOR. S1S2 PRESENT. NO EDEMA NOTED. ABD DISTENDED. NPO AT THE TIME. GTUBE TO RUQ. ABD DEHISCENCE NOTED. COLOSTOMY BAG TO LLQ. URINE DRAINAGE TO GRAVITY. PICC TO RADHA. DRESSING INTACT. SEVERE WEAKNESS SACROCOCCYX PRESSURE INJURY NOTED. DRESSING DRY AND INTACT. ESCHAR TO RUE CORPORATE TRAVEL CONSULTANT NOTED. BED IN LOWEST POSITION. SIDE RAILS UP X4 ON CONTACT PRECAUTIONS FOR HX MDRO, CHILDCARE CENTER ADMINISTRATOR, ESBL. WILL CONTINUE TO MONITOR.
--- NOTE | 2018-04-05 19:11 | NUR ---
REPORT GIVEN TO NOC RN FOR CONTINUITY OF CARE. PATIENT IN STABLE CONDITION.
--- NOTE | 2018-04-05 19:53 | NUR ---
RADIOLOGY AT BEDSIDE FOR EXTRA FOLLOW THROUGH
[2018-04-05] MEDS: ATORVASTATIN 20 MG TAB GT SCH (20:02)
[2018-04-05] MEDS: levETIRAcetam 1,000 MG in NACL 0.9% 100 ML IV SCH (20:20)
[2018-04-05] MEDS: NACL 0.9% IVP SCH (20:20)
[2018-04-05] MEDS: PHENYTOIN IVP SCH (20:20)
[2018-04-05] MEDS: INSULIN LANTUS 100 UNITS/ML 10 ML VIAL SUBQ SCH (20:51)
[2018-04-05] MEDS ORDERED: PHENYTOIN 100 MG/2 ML VIAL IVP SCH (21:00)
[2018-04-05] MEDS ORDERED: levETIRAcetam 100 MG/ML ORASYR GT SCH (21:00)
[2018-04-06] VITALS (18 sets, daily range): BP systolic 107–152; BP diastolic 56–78
--- NOTE | 2018-04-06 00:15 | NUR ---
WOUND CARE PROVIDED AT THIS TIME
[2018-04-06] MEDS: HYDRAGUARD CREAM TP SCH ×2 (01:00→12:38)
--- NOTE | 2018-04-06 02:00 | NUR ---
RT AT BEDSIDE AT THIS TIME.
[2018-04-06] MEDS: MEROPENEM 500 MG in NACL 0.9% 50 ML IV SCH ×3 (04:00→21:03)
--- NOTE | 2018-04-06 04:30 | NUR ---
TRANSFERED PT TO [facility] AT THIS TIME
[2018-04-06 05:47] LABS: CARBON DIOXIDE 24.8 mmol/L (21-32); CREATININE 1.7 mg/dL (0.7-1.3)
[2018-04-06 05:49] LABS: MAGNESIUM 1.2 mg/dL (1.8-2.4); PHOSPHORUS 3.1 mg/dL (2.5-4.9)
[2018-04-06] MEDS: DILTIAZEM 30 MG TAB GT SCH ×3 (06:00→17:14)
[2018-04-06 06:16] LABS: POTASSIUM 2.8 mmol/L (3.5-5.1)
--- NOTE | 2018-04-06 06:20 | NUR ---
DR. COBLERT AT BEDSIDE AT THIS TIME. UPDATED ON PTS CURRENT CONDITION. NOTIFIED ON CURRENT LAB DRAW. WILL FOLLOW UP ADDITIONAL ORDERS.
[2018-04-06 06:53] LABS: BASOPHILS % (AUTO) 0.5 % (0.0-2.0); EOSINOPHILS # (AUTO) 0.4 K/uL (0-0.4); EOSINOPHILS % (AUTO) 4.7 % (0.0-4.0); HEMOGLOBIN 7.5 g/dL (12.0-18.0); LYMPHOCYTES # (AUTO) 1.7 K/uL (2.0-11.5); LYMPHOCYTES % (AUTO) 20.6 % (20.5-51.1); MEAN CORPUSCULAR HEMOGLOBIN 27 pg (27-31); MEAN CORPUSCULAR HGB CONC 33 g/dL (33-37); MEAN CORPUSCULAR VOLUME 82.3 fL (80-94); MONOCYTES # (AUTO) 0.9 K/uL (0.8-1.0); MONOCYTES % (AUTO) 10.9 % (1.7-9.3); NEUTROPHILS # (AUTO) 5.2 K/uL (1.8-7.7); NEUTROPHILS % (AUTO) 63.3 % (42.2-75.2); PLATELET COUNT (AUTO) 325 K/uL (140-450); RED BLOOD CELL COUNT(AUTO) 2.79 MIL/uL (4.20-6.10); RED CELL DISTRIBUTION WIDTH 15.8 % (11.6-13.7); WHITE BLOOD COUNT (AUTO) 8.1 K/uL (4.8-10.8)
--- NOTE | 2018-04-06 06:55 | NUR ---
GLUCOSE OF 990 REPORTED. GLUCOMETER READS 100 MG/DL. DR. COLBERT WILL REORDER BMP
[2018-04-06] MEDS: BLOOD GLUCOSE MONITORING 1 DEV DEV FS SCH ×4 (07:00→21:02)
[2018-04-06] MEDS: ALBUTEROL SULFATE/IPRATROPIU 3 ML SOL IH SCH ×3 (07:08→19:13)
--- NOTE | 2018-04-06 07:08 | NUR ---
RECEIVED PT ON CARESCAPE ON DOCUMENTED SETTINGS, ALARMS ARE ON AND AUDIBLE PTS TRACH PORTEX 7 IS SECURE , BS DIMINISHED PT IN HF QUIET, HHN GIVEN I\L WITH 3 MG DUONEB, VENT PLUGGED INTO RED OUTLET, BMV HOB
[2018-04-06 07:14] LABS: ANION GAP 11.6 (8-16); CARBON DIOXIDE 26.8 mmol/L (21-32); CREATININE 1.7 mg/dL (0.7-1.3); POTASSIUM 3.4 mmol/L (3.5-5.1)
[2018-04-06 07:19] LABS: MAGNESIUM 1.7 mg/dL (1.8-2.4); PHOSPHORUS 3.7 mg/dL (2.5-4.9)
--- NOTE | 2018-04-06 07:21 | NUR ---
RECEIVED BEDSIDE REPORT FROM REPLENISHMENT MERCHANDISING ASSOCIATE RNADELITA FOR CONTINUITY OF CARE. PATIENT IS AAOX1, UNABLE TO FOLLOW COMMANDS OR MAKE NEEDS KNOWN. PATIENT SKIN IS WARM AND DRY, AFEBRILE, NOT INTACT. PATIENT HAS SACROCOCCYX PRESSURE INJURY, AND OPEN INCISION TO ABDOMEN. PATIENT IS TRACH TO VENT, BREATHING EVEN AND UNLABORED. SR WITH BBB ON MONITOR. PATIENT HAS GTUBE IN PLACE. COLOSTOMY BAG TO LOWER LEFT QUAD. HOB IS 30 DEGREES, SAFETY ALARMS AND PRECAUTIONS ASSESSED AND ENFORCED. NO SIGNS OF DISTRESS NOTED. WILL CONTINUE TO MONITOR.
--- NOTE | 2018-04-06 07:23 | NUR ---
ENDORSED CARE TO INCOMING SHIFT FOR CONTINUITY OF CARE. NO SIGNS OF ACUTE DISTRESS NOTED.
[2018-04-06] MEDS: METOCLOPRAMIDE 10 MG/10 ML SYRP UDC GT SCH ×3 (07:30→17:14)
[2018-04-06] MEDS: VANCOMYCIN 1GM/DEXT 5% PREMIX 200 ML IV SCH (07:48)
--- NOTE | 2018-04-06 07:53 | NUR ---
DR. CANNON AND RESIDENT PHYSICIANS AT BEDSIDE, UPDATED ON PATIENT'S CONDITION. WILL FOLLOW UP ON ANY ORDERS.
[2018-04-06] MEDS: KCL 20 MEQ/WATER INJ PREMIX 200 ML IV SCH ×2 (08:00→10:00)
[2018-04-06] MEDS: DEXT 5% / NACL 0.45% 1,000 ML IV SCH ×2 (08:30→22:34)
--- NOTE | 2018-04-06 08:54 | NUR ---
DR. COLBERT AWARE OF PATIENT'S NEW LABS, STATES NO NEED TO GIVE POTASSIUM SINCE PATIENT IS STARTING ON TUBE FEEDING BUT TO GIVE MAGNESIUM.
[2018-04-06] MEDS: MULTIVITAMIN/MINERALS 1 TAB GT SCH (09:00)
[2018-04-06] MEDS: FERROUS SULFATE 300 MG/5 ML UDC GT SCH (09:00)
[2018-04-06] MEDS: VITAMIN D 400 IU TAB GT SCH (09:00)
[2018-04-06] MEDS: CYANOCOBALAMIN 100 MCG TAB GT SCH (09:00)
[2018-04-06] MEDS: MAGNESIUM HYDROXIDE 2400 MG/30 ML UDC GT SCH (09:00)
[2018-04-06] MEDS: ASCORBIC ACID 500 MG/5 ML ORASYR GT SCH (09:00)
[2018-04-06] MEDS: POLYETHYLENE GLYCOL 17 GM/PKT GT SCH (09:00)
--- NOTE | 2018-04-06 09:00 | NUR ---
SPOKE TO DR. DAVILA. NOTIFIED OF RESULTS OF SMALL BOWEL SERIES. GAVE ORDER TO START GT FEEDING.
[2018-04-06] MEDS: PHENYTOIN IVP SCH ×2 (09:25→21:03)
[2018-04-06] MEDS: levETIRAcetam 1,000 MG in NACL 0.9% 100 ML IV SCH ×2 (09:25→21:03)
[2018-04-06] MEDS: NACL 0.9% IVP SCH ×2 (09:25→21:03)
[2018-04-06] MEDS: PANTOPRAZOLE 40 MG INJ VIAL IVP SCH (09:26)
[2018-04-06] MEDS: prednisoLONE 1% OP 5 ML BTL RIGHT EYE SCH ×3 (09:27→17:14)
[2018-04-06] MEDS: POLYVINYL ALCOHOL 1.4% OP 15 ML SOL OP SCH ×3 (09:28→17:14)
[2018-04-06] MEDS: MAG SULF 2000 MG/WATER PREMIX 100 ML IV SCH ×2 (09:29→11:38)
--- NOTE | 2018-04-06 10:30 | NUR ---
DR. MIMS IN TO SEE AND EXAMINE PATIENT, UPDATED ON PATIENT'S CONDITION, STATES NO NEED FOR HEMODIALYSIS. WILL FOLLOW UP ON ANY ORDERS.
[2018-04-06] MEDS: NACL 0.9% IRR 250 ML BOTTLE IR SCH (12:38)
[2018-04-06] MEDS: [UNRECOGNIZED DRUG - SUPPLY] TP SCH (12:38)
[2018-04-06] MEDS: COMMUNICATION ORDER MC SCH (12:38)
[2018-04-06] MEDS: SKINTEGRITY HYDROGEL TP SCH (12:39)
[2018-04-06] MEDS: Z-GUARD PASTE TP SCH (12:39)
--- NOTE | 2018-04-06 19:20 | NUR ---
RECEIVED REPORT FROM AKI GOULD FOR CONTINUITY OF CARE. PT IS NONVERBAL ON TRACH TO VENT FIO2 AT 30%, VT 500, RATE 16, FLOW 40L/MIN, AND PEEP5. PT IS UNABLE TO MAKE NEEDS KNOWN, ABLE TO FOLLOW SOME COMMANDS. PT IS ON BEDREST WITH SACRAL COCCYX PRESSURE ULCER, ESCHAR TO RUE, AND ABDOMINAL DEHISCENCE AT OLD J-TUBE SITE. PT HAS DOUBLE LUMEN PICC LINE TO LEFT UPPER ARM, ASYMPTOMATIC AND INTACT. PT HAS G-TUBE FEEDING IN PLACE, NO RESIDUAL NOTED. URINE DRAINAGE TO GRAVITY AND LLQ COLOSTOMY BAG IN PLACE. VITAL SIGNS WITHIN NORMAL LIMITS. PT STABLE, FLACC 0, NO SIGNS OF DISTRESS NOTED AT THIS TIME. PT POSITIONED FOR COMFORT. BED IN LOWEST POSITION, BED ALARM ON. WILL CONTINUE TO MONITOR.
[2018-04-06] MEDS: INSULIN LANTUS 100 UNITS/ML 10 ML VIAL SUBQ SCH (20:58)
[2018-04-06] MEDS: ATORVASTATIN 20 MG TAB GT SCH (21:02)
--- NOTE | 2018-04-06 21:10 | NUR ---
ADMINISTERED SCHEDULED MEDICATIONS, PT TOLERATED WELL. WILL CONTINUE TO MONITOR.
--- NOTE | 2018-04-06 22:50 | NUR ---
STILL NO RESIDUAL NOTED, ONLY ABOUT 100ML OF AIR. INCREASED TUBE FEEDING TO 30ML/HR.
[2018-04-07] VITALS (18 sets, daily range): BP systolic 113–154; BP diastolic 69–88
[2018-04-07] MEDS: DILTIAZEM 30 MG TAB GT SCH ×5 (00:01→23:52)
--- NOTE | 2018-04-07 01:20 | NUR ---
WOUND CARE DONE ORDERED.
[2018-04-07] MEDS: HYDRAGUARD CREAM TP SCH ×2 (01:21→12:41)
--- NOTE | 2018-04-07 03:35 | NUR ---
CLEANED PT AND BEDDING. PT STABLE, NO SIGNS OF DISTRESS NOTED.
[2018-04-07] MEDS: MEROPENEM 500 MG in NACL 0.9% 50 ML IV SCH ×3 (04:39→20:40)
--- NOTE | 2018-04-07 04:55 | NUR ---
PT TOLERATING TUBE FEEDING WELL. NO RESIDUAL NOTED. INCREASED TUBE FEEDING TO GOAL RATE OF 40ML/HR.
[2018-04-07 05:48] LABS: ANION GAP 11.6 (8-16); CARBON DIOXIDE 28.7 mmol/L (21-32); CREATININE 1.5 mg/dL (0.7-1.3); POTASSIUM 3.3 mmol/L (3.5-5.1)
[2018-04-07 05:54] LABS: MAGNESIUM 1.9 mg/dL (1.8-2.4); PHOSPHORUS 3.4 mg/dL (2.5-4.9)
[2018-04-07 06:15] LABS: BASOPHILS % (AUTO) 0.4 % (0.0-2.0); EOSINOPHILS # (AUTO) 0.4 K/uL (0-0.4); HEMOGLOBIN 7.3 g/dL (12.0-18.0); LYMPHOCYTES # (AUTO) 1.5 K/uL (2.0-11.5); LYMPHOCYTES % (AUTO) 19.2 % (20.5-51.1); MEAN CORPUSCULAR HEMOGLOBIN 28 pg (27-31); MEAN CORPUSCULAR HGB CONC 33 g/dL (33-37); MEAN CORPUSCULAR VOLUME 83.7 fL (80-94); MONOCYTES # (AUTO) 0.7 K/uL (0.8-1.0); MONOCYTES % (AUTO) 9.6 % (1.7-9.3); NEUTROPHILS # (AUTO) 5.1 K/uL (1.8-7.7); NEUTROPHILS % (AUTO) 65.8 % (42.2-75.2); PLATELET COUNT (AUTO) 322 K/uL (140-450); RED BLOOD CELL COUNT(AUTO) 2.63 MIL/uL (4.20-6.10); RED CELL DISTRIBUTION WIDTH 15.5 % (11.6-13.7); WHITE BLOOD COUNT (AUTO) 7.8 K/uL (4.8-10.8)
--- NOTE | 2018-04-07 06:25 | NUR ---
DR WEATHERS AT BEDSIDE.
[2018-04-07] MEDS: METOCLOPRAMIDE 10 MG/10 ML SYRP UDC GT SCH ×3 (06:41→16:58)
[2018-04-07] MEDS: BLOOD GLUCOSE MONITORING 1 DEV DEV FS SCH ×4 (06:44→20:41)
--- NOTE | 2018-04-07 07:32 | NUR ---
ENDORSED PT TO RN ZAKIA FOR CONTINUITY OF CARE. PT IN STABLE CONDITION.
--- NOTE | 2018-04-07 07:33 | NUR ---
RECEIVED REPORT FROM GRADES 7 8 TUTOR RN AT BEDSIDE. PT IS EYES OPEN, NONVERBAL, ABLE TO FOLLOW COMMANDS, ON TRACH TO VENT FIO2 AT 30%, VT 500, RATE 16, PEEP 5. NO S/S OF DISTRESS, CLEAR LUNG SOUNDS VIBHA. SR ON INTERIOR PANELER, ROUND SOFT ABDOMEN WITH ACTIVE BOWEL SOUNDS, J TUBE IN PLACE, FEEDING WITH NEPRO AT 40ML/HR, TOLERATED WELL, NO RESIDUALS AT THIS TIME. OLD G-TUBE SITE WITH OPEN WOUND, DRESSING INTACT. COLOSTOMY BAG IN PLACE. INCONTINENT WITH B&B'S, SKIN IS WARM AND DRY IN TOUCH, PITTING EDEMA NOTED TO BUE, OPEN WOUND PRESENT (SEE WOUND ASSESSMENT). PICC LINE TO RADHA, PATENT, RUNNING D5 1/2 NS AT 70ML/HR. VSS, FLACC 0, HOB ELEVATED TO 30 DEGREES, SAFETY MEASURES IN PLACE, ORAL CARE PROVIDED, POSITION CHANGED FOR OFF LOAD PRESSURE, WILL CONTINUE TO MONITOR.
--- NOTE | 2018-04-07 07:35 | NUR ---
DR. MARQUES CAME IN TO SEE PT AT BEDSIDE, NO NEW ORDER AT THIS TIME.
[2018-04-07] MEDS: ALBUTEROL SULFATE/IPRATROPIU 3 ML SOL IH SCH ×3 (07:54→19:08)
[2018-04-07] MEDS ORDERED: NACL 0.9% 1,000 ML IV SCH (08:05)
[2018-04-07] MEDS ORDERED: POTASSIUM CHLORIDE 20% 40 MEQ/15 ML UDC GT SCH (09:00)
--- NOTE | 2018-04-07 09:00 | NUR ---
SCHEDULED MEDICATION GIVEN VIA GT, PT TOLERATED WELL.
[2018-04-07] MEDS ORDERED: levETIRAcetam 100 MG/ML VIAL IV ONE (09:12)
[2018-04-07] MEDS: NACL 0.9% IVP SCH ×2 (09:20→20:40)
[2018-04-07] MEDS: levETIRAcetam 1,000 MG in NACL 0.9% 100 ML IV SCH ×2 (09:20→20:39)
[2018-04-07] MEDS: ASCORBIC ACID 500 MG/5 ML ORASYR GT SCH (09:20)
[2018-04-07] MEDS: PHENYTOIN IVP SCH ×2 (09:20→20:40)
[2018-04-07] MEDS: FERROUS SULFATE 300 MG/5 ML UDC GT SCH (09:20)
[2018-04-07] MEDS: CYANOCOBALAMIN 100 MCG TAB GT SCH (09:21)
[2018-04-07] MEDS: POLYETHYLENE GLYCOL 17 GM/PKT GT SCH (09:21)
[2018-04-07] MEDS: PANTOPRAZOLE 40 MG INJ VIAL IVP SCH (09:21)
[2018-04-07] MEDS: VITAMIN D 400 IU TAB GT SCH (09:22)
[2018-04-07] MEDS: MAGNESIUM HYDROXIDE 2400 MG/30 ML UDC GT SCH (09:22)
[2018-04-07] MEDS: MULTIVITAMIN/MINERALS 1 TAB GT SCH (09:22)
[2018-04-07] MEDS: POTASSIUM CHL 20 MEQ/NACL 0.9% 1,000 ML IV SCH (09:23)
[2018-04-07] MEDS: POLYVINYL ALCOHOL 1.4% OP 15 ML SOL OP SCH ×3 (09:25→16:58)
[2018-04-07] MEDS: prednisoLONE 1% OP 5 ML BTL RIGHT EYE SCH ×3 (09:25→16:58)
--- NOTE | 2018-04-07 11:54 | NUR ---
04/07/18 RD FOLLOW UP COMPLETED PLEASE REFER TO NUTRITION ASSESSMENT UNDER CARE ACTIVITY FOR ESTIMATED NUTRITIONAL NEEDS. 1. CONTINUE NEPRO W/CARBSTEADY @40 ML/HR -THIS WILL PROVIDE 1728 KCAL AND 77 GM OF PROTEIN, WHICH MEETS 85% OF ESTIMATED KCAL NEEDS AND 100% OF ESTIMATED PROTEIN NEEDS. 2. CONTINUE FREE WATER FLUSH AT 50 ML Q6H PER MD 3. RD TO FOLLOW-UP 2-3 DAYS, HIGH RISK GALINA ANDERSEN RD
--- NOTE | 2018-04-07 12:00 | NUR ---
NO S/S OF DISTRESS, VSS, FLACC 0, ORAL CARE PROVIDED, POSITION CHANGED FOR OFF LOAD PRESSURE.
[2018-04-07] MEDS: [UNRECOGNIZED DRUG - SUPPLY] TP SCH (12:34)
[2018-04-07] MEDS: COMMUNICATION ORDER MC SCH (12:34)
[2018-04-07] MEDS: NACL 0.9% IRR 250 ML BOTTLE IR SCH (12:34)
[2018-04-07] MEDS: Z-GUARD PASTE TP SCH (12:35)
[2018-04-07] MEDS: SKINTEGRITY HYDROGEL TP SCH (12:35)
--- NOTE | 2018-04-07 16:00 | NUR ---
PM CARE AND ORAL CARE PROVIDED, PT TOLERATED WELL, FLACC 0, VSS, POSITION CHANGED FOR OFF LOAD PRESSURE.
--- NOTE | 2018-04-07 16:15 | NUR ---
DR. CHEUNG CAME IN TO SEE PT AT BEDSIDE, WILL FOLLOW UP WITH NEW ORDERS.
--- NOTE | 2018-04-07 19:15 | NUR ---
REPORT GIVEN TO AGRISCIENCE TEACHER RN FOR CONTINUE OF CARE, PT IS IN STABLE CONDITION AT THIS TIME.
--- NOTE | 2018-04-07 19:30 | NUR ---
RECEIVED REPORT FROM OBI KOEHLER AM SHIFT. PT IS AWAKE, NON VERBAL, NO S/S OF RESP. DISTRESS,NO SOB. HOB UP 30-45 DEGREES. PT CONT ON TRACH TO VENT. VENT SETTING AC RATE 16 TV 500 AND RATE 16 PEEP 5. RHONCHI TO BILATERAL LUNGS. SR WITH BBB IN MONITOR. PICC LINE DOUBLE LUMENS TO LEFT UPPER ARM,INTACT AND FLUSHING WELL, NO S/S OF INFECTION NOTED.PT LOOK CALM, NO S/S OF ANY PAIN OR DISCOMFORT. ABD SOFT NON DISTENDED.CONT ON GT FEEDING NEPHRO AT 40 CC/HR AND WATER FLUSH 50 CC Q 6 HRS,NO RESIDUAL NOTED. WOUND TO SACRAL,SURGERY WOUND TO ABD DEHISCENCE,COLOSTOMY TO LEFT ABD. PT IS INCONTINENT BLADDER WITH YELLOW CLEAR URINE. GENTLE CARE GIVEN. KEPT CLEAN AND DRY.
[2018-04-07] MEDS: ATORVASTATIN 20 MG TAB GT SCH (20:40)
[2018-04-07] MEDS: INSULIN LANTUS 100 UNITS/ML 10 ML VIAL SUBQ SCH (21:00)
--- NOTE | 2018-04-07 21:15 | NUR ---
LANTUS NOT GIVEN D/T BLOOD SUGAR 101. DR ULRICH AWARE.
--- NOTE | 2018-04-07 21:30 | NUR ---
CLARIFY THE IV HYDRATION TO .PER TO CONTINUE IV NACL IN KCL 20 RADHA AT 10 CC/HR.
--- NOTE | 2018-04-07 23:00 | NUR ---
REPOSITION PT FOR COMFORT. PT IS SLEEP EASY TO AWAKE, NO S/S OF DISTRESS AT THIS TIME
[2018-04-08] VITALS (18 sets, daily range): BP systolic 117–177; BP diastolic 76–98
--- NOTE | 2018-04-08 00:21 | NUR ---
CARDIZEM TAB 30 MG GIVEN BY GT ORDER TOLERATING WELL B/P 135/78,HR 88X/MIN.
[2018-04-08] MEDS: HYDRAGUARD CREAM TP SCH ×2 (00:28→12:06)
--- NOTE | 2018-04-08 02:00 | NUR ---
REPOSITION PT FOR COMFORT. KEPT CLEAN AND DRY.
--- NOTE | 2018-04-08 04:43 | NUR ---
AM CARE GIVEN,BED BATH GIVEN, ORAL CARE GIVEN,COLOSTOMY EMPTIED WITH YELLOW FLUIDS STOOL,URINE ABOUT 700 CC. KEPT PT CLEAN AND DRY.
[2018-04-08 04:58] LABS: ANION GAP 12.8 (8-16); CARBON DIOXIDE 26.1 mmol/L (21-32); CREATININE 1.4 mg/dL (0.7-1.3); POTASSIUM 3.9 mmol/L (3.5-5.1)
[2018-04-08 05:05] LABS: MAGNESIUM 1.6 mg/dL (1.8-2.4); PHOSPHORUS 2.8 mg/dL (2.5-4.9)
[2018-04-08] MEDS: MEROPENEM 500 MG in NACL 0.9% 50 ML IV SCH ×2 (05:08→12:05)
[2018-04-08] MEDS: DILTIAZEM 30 MG TAB GT SCH ×4 (05:09→23:08)
[2018-04-08 06:13] LABS: BASOPHILS % (AUTO) 0.4 % (0.0-2.0); EOSINOPHILS # (AUTO) 0.4 K/uL (0-0.4); HEMATOCRIT 24.8 % (36-52); HEMOGLOBIN 8.1 g/dL (12.0-18.0); LYMPHOCYTES # (AUTO) 2.3 K/uL (2.0-11.5); LYMPHOCYTES % (AUTO) 24.2 % (20.5-51.1); MEAN CORPUSCULAR HEMOGLOBIN 27 pg (27-31); MEAN CORPUSCULAR HGB CONC 33 g/dL (33-37); MEAN CORPUSCULAR VOLUME 83.9 fL (80-94); MONOCYTES # (AUTO) 0.9 K/uL (0.8-1.0); MONOCYTES % (AUTO) 9.3 % (1.7-9.3); NEUTROPHILS # (AUTO) 5.8 K/uL (1.8-7.7); NEUTROPHILS % (AUTO) 62.1 % (42.2-75.2); PLATELET COUNT (AUTO) 351 K/uL (140-450); RED BLOOD CELL COUNT(AUTO) 2.95 MIL/uL (4.20-6.10); RED CELL DISTRIBUTION WIDTH 15.8 % (11.6-13.7); WHITE BLOOD COUNT (AUTO) 9.4 K/uL (4.8-10.8)
[2018-04-08] MEDS: BLOOD GLUCOSE MONITORING 1 DEV DEV FS SCH ×4 (06:31→20:50)
[2018-04-08] MEDS: METOCLOPRAMIDE 10 MG/10 ML SYRP UDC GT SCH ×3 (06:31→17:04)
--- NOTE | 2018-04-08 06:44 | NUR ---
DR TOUSSAINT COME TO SEE PT, UP DATE THE LABS RESULT MAG 1.6 ,PHOS 2.8, SOD 146 ,CREAT 1.4, DILANTIN AND CBC STILL PENDING. BLOOD SUGAR THIS AM IS 97. NO INSULIN COVERAGED GIVEN.
[2018-04-08] MEDS: ALBUTEROL SULFATE/IPRATROPIU 3 ML SOL IH SCH ×3 (07:09→18:43)
--- NOTE | 2018-04-08 07:14 | NUR ---
REPORT GIVEN TO ZAKIA PRABHAKAR AM SHIFT. PT NO S/S OF DISTRESS AT THIS TIME.
--- NOTE | 2018-04-08 07:15 | NUR ---
RECEIVED REPORT FROM WALL TAPER RN AT BEDSIDE. PT IS EYES OPEN, NONVERBAL, ON TRACH TO VENT FIO2 AT 30%, VT 500, RATE 16, PEEP 5. NO S/S OF DISTRESS, CLEAR LUNG SOUNDS VIBHA. SR ON SHERIFF DETECTIVE, ROUND SOFT ABDOMEN WITH ACTIVE BOWEL SOUNDS, J TUBE IN PLACE, FEEDING WITH NEPRO AT 40ML/HR, TOLERATED WELL, NO RESIDUALS AT THIS TIME. OLD G-TUBE SITE DRESSING INTACT. COLOSTOMY BAG IN PLACE. INCONTINENT WITH B&B'S, SKIN IS WARM AND DRY IN TOUCH, OPEN WOUND PRESENT (SEE WOUND ASSESSMENT). PICC LINE TO RADHA, PATENT, RUNNING NS + 20 MEQ KCL AT 10ML/HR. VSS, FLACC 0, HOB ELEVATED TO 30 DEGREES, SAFETY MEASURES IN PLACE, ORAL CARE PROVIDED, POSITION CHANGED FOR OFF LOAD PRESSURE, WILL CONTINUE TO MONITOR.
--- NOTE | 2018-04-08 07:21 | NUR ---
RECEIVED PATIENT TRACH PORTEX 7 TO VENT ON SETTINGS AC 500, 16, +5, 30%. AIRWAY SECURE AND PATENT. SUCTIONED SCANT AMOUNT OF THICK WHITE SECRETIONS. SCHEDULED BREATHING TREATMENT ADMINISTERED. TOLERATED TX WELL, NO ADVERSE SIDE EFFECTS. AMBU BAG AT BEDSIDE. NO RESPIRATORY DISTRESS NOTED AT THIS TIME. WILL CONTINUE TO MONITOR.
--- NOTE | 2018-04-08 07:30 | NUR ---
DR. MARQUES CAME IN TO SEE PT AT BEDSIDE, SPOKE TO PT'S ON THE PHONE REGARDING PT'S CURRENT CONDITION.
[2018-04-08] MEDS ORDERED: MAG SULF 2000 MG/WATER PREMIX 50 ML IV SCH (08:00)
[2018-04-08] MEDS: POLYETHYLENE GLYCOL 17 GM/PKT GT SCH (08:33)
[2018-04-08] MEDS: ASCORBIC ACID 500 MG/5 ML ORASYR GT SCH (08:34)
[2018-04-08] MEDS: MAGNESIUM HYDROXIDE 2400 MG/30 ML UDC GT SCH (08:35)
[2018-04-08] MEDS: VITAMIN D 400 IU TAB GT SCH (08:35)
[2018-04-08] MEDS: CYANOCOBALAMIN 100 MCG TAB GT SCH (08:35)
[2018-04-08] MEDS: PANTOPRAZOLE 40 MG INJ VIAL IVP SCH (08:36)
[2018-04-08] MEDS: POLYVINYL ALCOHOL 1.4% OP 15 ML SOL OP SCH ×3 (08:36→17:04)
[2018-04-08] MEDS: MULTIVITAMIN/MINERALS 1 TAB GT SCH (08:36)
[2018-04-08] MEDS: FERROUS SULFATE 300 MG/5 ML UDC GT SCH (08:36)
[2018-04-08] MEDS: prednisoLONE 1% OP 5 ML BTL RIGHT EYE SCH ×3 (08:37→17:04)
--- NOTE | 2018-04-08 09:00 | NUR ---
SCHEDULED MEDICATION GIVEN, PT TOLERATED WELL.
[2018-04-08] MEDS: PHENYTOIN IVP SCH ×2 (09:14→20:58)
[2018-04-08] MEDS: NACL 0.9% IVP SCH ×2 (09:14→20:58)
[2018-04-08] MEDS: levETIRAcetam 1,000 MG in NACL 0.9% 100 ML IV SCH ×2 (09:14→20:58)
[2018-04-08] MEDS: POTASSIUM CHL 20 MEQ/NACL 0.9% 1,000 ML IV SCH (09:15)
--- NOTE | 2018-04-08 09:29 | NUR ---
VENT CHECK DONE. NO RESPIRATORY DISTRESS NOTED. WILL CONTINUE TO MONITOR.
[2018-04-08 11:16] LABS: PHENYTOIN (DILANTIN) 9.2 ug/ml (10.0-20.0)
--- NOTE | 2018-04-08 11:22 | NUR ---
VENT CHECK DONE. ALARMS ON AND FUNCTIONING. SUCTIONED SMALL AMOUNT OF THICK WHITE SECRETIONS. NO RESPIRATORY DISTRESS NOTED AT THIS TIME. WILL CONTINUE TO MONITOR.
--- NOTE | 2018-04-08 12:00 | NUR ---
NO CHANGE OF CONDITION AT THIS TIME, VSS, FLACC 0, ORAL CARE PROVIDED, POSITION CHANGED FOR OFF LOAD PRESSURE.
[2018-04-08] MEDS: COMMUNICATION ORDER MC SCH (12:05)
[2018-04-08] MEDS: Z-GUARD PASTE TP SCH (12:06)
[2018-04-08] MEDS: [UNRECOGNIZED DRUG - SUPPLY] TP SCH (12:07)
[2018-04-08] MEDS: NACL 0.9% IRR 250 ML BOTTLE IR SCH (12:07)
[2018-04-08] MEDS: SKINTEGRITY HYDROGEL TP SCH (12:07)
--- NOTE | 2018-04-08 13:20 | NUR ---
VENT CHECK DONE. ALARMS ON AND FUNCTIONING. SCHEDULED BREATHING TREATMENT ADMINISTERED. TOLERATED TX WELL, NO ADVERSE SIDE EFFECTS. SUCTIONED SMALL AMOUNT OF THICK WHITE SECRETIONS. NO RESPIRATORY DISTRESS NOTED AT THIS TIME. WILL CONTINUE TO MONITOR.
--- NOTE | 2018-04-08 15:25 | NUR ---
VENT CHECK DONE. NO RESPIRATORY DISTRESS NOTED AT THIS TIME. WILL CONTINUE TO MONITOR.
--- NOTE | 2018-04-08 16:00 | NUR ---
PM CARE AND ORAL CARE PROVIDED, PT TOLERATED WELL, FLACC 0, VSS, POSITION CHANGED FOR OFF LOAD PRESSURE.
--- NOTE | 2018-04-08 16:10 | NUR ---
DR. CHEUNG CAME IN TO SEE PT AT BEDSIDE, WILL FOLLOW UP WITH NEW ORDERS.
--- NOTE | 2018-04-08 16:55 | NUR ---
PER CHARGE NURSE REQUEST ABDOMINAL SURGICAL WOUND RE-EVALUATION DONE AND NOTICE OF 90% OF SOFT YELLOW SLOUGH TO WOUND BED,NO ODOR, SMALL AMOUNT OF DRAINAGE, NOT APPROPRIATE WITH WOUND VAC TREATMENT AT THIS TIME, RECOMMENDATION DISCUSSED WITH DR. COLBERT TO PACK ABDOMINAL WOUND WITH THERAHONEY DRESSING SHEET AND COVER WITH DRY DRESSING QD AND PRN IF SOILING. CN NOTIFIED TO TAKE ABDOMINAL PHOTO TODAY.
--- NOTE | 2018-04-08 18:50 | NUR ---
Received pt stable on vent support at documented settings, suctioned small amounts of thin clear secretions, hhn tx given, tolerated well, no resp distress or SOB noted at this time, Portex 7 trach secured/patent/midline, alarms set and audible, ambu bag at bedside, vent plugged into red outlet, cont pulse ox on, will cont to monitor.
--- NOTE | 2018-04-08 19:20 | NUR ---
RECEIVED BEDSIDE REPORT FROM MORNING SHIFT RNZAKIA, FOR CONTINUITY OF CARE. PT IS NONVERBAL, VENTILATED, APPEARS TO TRACK MOVEMENTS. UNABLE TO RESPOND TO COMMANDS. TEMP 99.2, NS=708/98, RR=17, PULSE =107, SATING AT 100%. LUNG SOUND CLEAR ON BILATERAL UPPER/LOWER LOBES. TRACH TO VENT, SETTINGS: FIO2=30, NT=390, RR=16, FLOW=40, PEEP=5. ST ON MONITOR. BOWEL SOUND ACTIVE, GTUBE IN PLACE, NO RESIDUAL, NEPRO TUBE FEEDING AT 40ML/HR. COLOSTOMY BAG IN LLQ. RECTAL BAG CONDOM CATH IN PLACE TO DRAINAGE BAG. URINE IS CLEAR/YELLOW. RADHA PICC LINE INFUSING POTASSIUM CHLORIDE (20MEQ) WITH NS AT 10ML/HR TO RADHA PICC LINE. DRY/ESCHAR WOUND ON RIGHT HAND OPEN TO AIR. SKIN IS NON INTACT, WOUND DRESSING ON OLD GT SITE, DRESSING INTACT. SKIN IS DRY/FLAKY, WARM TO TOUCH. ON THERAPEUTIC MATTRESS, PILLOW SUPPORT PROVIDED. CONTACT ISOLATION, ASPIRATION PRECAUTIONS, MAINTAINED. VAP ORAL CARE PROVIDED. HOB ELEVATED ABOVE 30 DEG.
--- NOTE | 2018-04-08 19:23 | NUR ---
REPORT GIVEN TO PREP COOK FOR CONTINUE OF CARE, PT IS IN STABLE CONDITION AT THIS TIME.
[2018-04-08] MEDS: INSULIN LANTUS 100 UNITS/ML 10 ML VIAL SUBQ SCH (20:51)
--- NOTE | 2018-04-08 20:57 | NUR ---
RT OWUSU IN TO SEE PATIENT.
[2018-04-08] MEDS: ATORVASTATIN 20 MG TAB GT SCH (20:59)
--- NOTE | 2018-04-08 21:31 | NUR ---
DR. RUIZ AT BEDSIDE TO SEE PATIENT. NO NEW ORDERS AT THIS TIME.
[2018-04-09] VITALS (9 sets, daily range): BP systolic 101–174; BP diastolic 66–126
[2018-04-09] MEDS: HYDRAGUARD CREAM TP SCH ×2 (00:26→13:54)
--- NOTE | 2018-04-09 00:26 | NUR ---
PT SLEEPING QUIETLY, 1 HOUR AFTER CARDIZEM GIVEN HR=97, NA=013/80 SATING 99%, RR=16. VAP ORAL CARE PROVIDED. FEEDING 40ML/HR, NO RESIDUAL.
--- NOTE | 2018-04-09 05:00 | NUR ---
DR. COLBERT AT BEDSIDE TO SEE PATIENT.
[2018-04-09] MEDS ORDERED: THERAHONEY WOUND DRESSING TP PRN (05:25)
--- NOTE | 2018-04-09 05:50 | NUR ---
HYDRALAZINE GIVEN, BP = 172/77.
--- NOTE | 2018-04-09 06:00 | NUR ---
RECD. PATIENT FROM ICU ON WOUND CARE BED, AWAKE, ALERT, NON-VERBAL, NO RESPIRATORY DISTRESS NOTED, 02 SAT - 96%. F102 30%, TIDAL VOLUME 500, PEEP 5, TRACH ATTACHED TO VENT. PICC LINE AT THE LEFT UPPER ARM. GT INTACT. WITH WOUND DEHISCENCE IN THE ABDOMEN COVERED WITH DRESSING DRY AND INTACT. COLOSTOMY BAG DRAINING MINIMAL AMOUNT OF SOFT STOOLS, CONDOM CATH CONNECTED TO F/C BAG DRAINING CLEAR YELLOW URINE. PATENT DRAINING CLEAR YELLOW URINE. SACRAL WOUND COVERED WITH DRESSING DRY AND INTACT. WITH CONTRACTURES BLE. VS STABLE. HR 94, SINUS RHYTHM ON TELE, WITH 1ST DEGREE HEART BLOCK AND BUNDLE BRANCH BLOCK. NO APPEARANCE OF PAIN NOTED 0/10.
[2018-04-09] MEDS: DILTIAZEM 30 MG TAB GT SCH ×3 (06:51→17:23)
[2018-04-09] MEDS: ALBUTEROL SULFATE/IPRATROPIU 3 ML SOL IH SCH ×3 (07:00→18:56)
--- NOTE | 2018-04-09 07:20 | NUR ---
RECEIVED PT FROM SCREEN MACHINE OPERATOR NURSE, DIANA, PT IS AWAKE AND SIDE RAILS ARE UP AND CALL LIGHT WITHIN REACH, FALL PRECAUTION ENFORCED. PT IS ON A TRACH TO VENT, WITH A PICC LINE ON THE LEFT UA, INTACT NO FLUID INFUSING, WITH A CONDOM CATHETER IN PLACE CONNECTED TO A VALIENTE BAG.PT HAS AN OPEN WOUND ON THE ABDOMINAL AREA AND SACRAL COCCYX, RESPIRATION EVEN AND NO SIGN OF DISTRESS NOTED. WILL CONTINUE TO MONITOR PT.
[2018-04-09] MEDS: BLOOD GLUCOSE MONITORING 1 DEV DEV FS SCH ×4 (07:30→21:05)
[2018-04-09] MEDS: prednisoLONE 1% OP 5 ML BTL RIGHT EYE SCH ×3 (09:00→17:15)
[2018-04-09] MEDS: THERAHONEY WOUND DRESSING TP SCH (09:00)
[2018-04-09] MEDS: POLYVINYL ALCOHOL 1.4% OP 15 ML SOL OP SCH ×3 (09:00→17:15)
[2018-04-09] MEDS: METOCLOPRAMIDE 10 MG/10 ML SYRP UDC GT SCH ×3 (10:17→17:15)
[2018-04-09] MEDS: POLYETHYLENE GLYCOL 17 GM/PKT GT SCH (10:18)
[2018-04-09] MEDS: FERROUS SULFATE 300 MG/5 ML UDC GT SCH (10:18)
[2018-04-09] MEDS: PANTOPRAZOLE 40 MG INJ VIAL IVP SCH (10:18)
[2018-04-09] MEDS: levETIRAcetam 1,000 MG in NACL 0.9% 100 ML IV SCH ×3 (10:19→22:23)
[2018-04-09] MEDS: VITAMIN D 400 IU TAB GT SCH (10:19)
[2018-04-09] MEDS: MULTIVITAMIN/MINERALS 1 TAB GT SCH (10:19)
[2018-04-09] MEDS: MAGNESIUM HYDROXIDE 2400 MG/30 ML UDC GT SCH (10:19)
[2018-04-09] MEDS: CYANOCOBALAMIN 100 MCG TAB GT SCH (10:21)
[2018-04-09] MEDS: ASCORBIC ACID 500 MG/5 ML ORASYR GT SCH (10:23)
[2018-04-09] MEDS: POTASSIUM CHL 20 MEQ/NACL 0.9% 1,000 ML IV SCH (10:29)
[2018-04-09] MEDS: PHENYTOIN IVP SCH ×2 (12:04→21:08)
[2018-04-09] MEDS: NACL 0.9% IVP SCH ×2 (12:04→21:08)
--- NOTE | 2018-04-09 12:14 | NUR ---
04/09/18 RD FOLLOW UP COMPLETED PLEASE REFER TO NUTRITION ASSESSMENT UNDER CARE ACTIVITY FOR ESTIMATED NUTRITIONAL NEEDS. 1. CONTINUE NEPRO W/CARBSTEADY @40 ML/HR -THIS WILL PROVIDE 1728 KCAL AND 77 GM OF PROTEIN, WHICH MEETS 85% OF ESTIMATED KCAL NEEDS AND 100% OF ESTIMATED PROTEIN NEEDS. 2. CONTINUE FREE WATER FLUSH AT 100 ML Q4H PER MD 3. RD TO FOLLOW-UP 2-3 DAYS, HIGH RISK GALINA ANDERSEN RD
[2018-04-09] MEDS: NACL 0.9% IRR 250 ML BOTTLE IR SCH (13:00)
--- NOTE | 2018-04-09 13:12 | NUR ---
PT SUCTIONED OBTAINED SMALL AMOUNT OF THICK CLEAR/WHITE SECRETIONS, AIRWAY IS PATENT AND TRACH IS SECURE. PT IS NOT IN ANY DISTRESS AT THIS TIME. WILL CONTINUE TO MONITOR.
[2018-04-09] MEDS: MEROPENEM 1,000 MG in NACL 0.9% 100 ML IV SCH ×2 (13:42→21:05)
[2018-04-09] MEDS: [UNRECOGNIZED DRUG - SUPPLY] TP SCH (13:53)
[2018-04-09] MEDS: Z-GUARD PASTE TP SCH (13:53)
[2018-04-09] MEDS: SKINTEGRITY HYDROGEL TP SCH (13:53)
[2018-04-09] MEDS: COMMUNICATION ORDER MC SCH (13:54)
--- NOTE | 2018-04-09 16:40 | NUR ---
PT IS AWAKE AND BLOOD GLUCOSE CHECK WAS DONE AND RESULT IS 100 AND NO INSULIN COVERAGE NEEDED. WILL MONITOR PT.
--- NOTE | 2018-04-09 17:00 | NUR ---
PT WAS REPOSITIONED AND WOUND DRESSING WAS DONE TO PT. NO SIGN OF DISTRESS NOTED AND WILL MONITOR PT.
--- NOTE | 2018-04-09 17:23 | NUR ---
PT IS AWAKE AND VITAL SIGNS TAKEN AND IS WITHIN NORMAL LIMIT. MEDICATIONS GIVEN VIA G-TUBE, NO RESIDUAL NOTED. NO SIGN OF DISTRESS NOTED AND WILL CONTINUE TO MONITOR PT.
--- NOTE | 2018-04-09 17:47 | NUR ---
PT REMAINS ON DOCUMENTED VENT SETTINGS. PT SUCTIONED OBTAINED SMALL AMOUNT OF THICK WHITE/CLEAR SECRETIONS, AIRWAY IS PATENT AND TRACH IS SECURE. PT IS AWAKE, APHASIC BUT NOT IN ANY DISTRESS AT THIS TIME. VENT ALARMS REMAIN ON AND FUNCTIONING. WILL CONTINUE TO MONITOR.
--- NOTE | 2018-04-09 18:56 | NUR ---
RECEIVED ON A [employer] R860 VENTILATOR PLUGGED INTO RED OUTLET TOLERATING WELL WITHOUT INCIDENT TO A PORTEX DCT #7 AIRWAY SECURED WITH A DORIAN TRACH TIE CUFF PRESSURE CHECKED NOTED BRODYO RADICAL-7 CONTINUOS PULSE OXIMETER AT [facility] ON AND FUNCTIONING WELL LOW SATURATIO ALARM SET AT 92% AMBU BAG NOTED AT [facility] LOC AWAKE [employer] TRACKING BREATH SOUNDS CLEAR BILATERAL WITH GOOD CHEST RISE AND AERATION THROUGHOUT PULMONARY DE [place] AIRWAY PATENT SATURATION 100 ON FIO2 OF 30% POST HHN THERAPY TITRATED FIO2 TO 28% ANDREEA/RN NOTIFIED
--- NOTE | 2018-04-09 19:20 | NUR ---
ENDORSED PT TO APPLICATION SPECIALIST NURSE ANDREEA FOR CONTINUITY OF CARE, PT IS STABLE AT THIS TIME.
--- NOTE | 2018-04-09 19:30 | NUR ---
RECEIVED REPORT FROM DAYSHIFT NURSE AT BEDSIDE FOR CONTINUITY OF CARE. PT AWAKE APHASIC. NO SOB NO S/S OF DISTRESS ON TRACH TO VENT FIO2 28%. PT IV NOTED RADHA PICC LINE DOUBLE LUMEN. G-TUBE FEEDING NEPHRO AT 40ML/HR WATER FLUSH 100ML Q4H. CONDOM CATH TO VALIENTE. L COLOSTOMY BAG. BED LOWERED CALL LIGHT WITHIN REACH WILL CONTINUE TO MONITOR.
[2018-04-09] MEDS: INSULIN LANTUS 100 UNITS/ML 10 ML VIAL SUBQ SCH (21:00)
[2018-04-09] MEDS: ATORVASTATIN 20 MG TAB GT SCH (21:05)
--- NOTE | 2018-04-09 21:42 | NUR ---
AWAKE RESPONSIVE TO MARINE DIVER VERBAL COMMANDS BY NODDING OF HEAD NO EVIDENCE OF RESPIRATORY DISTRESS NOTED GOOD CHEST RISE DEEP TRACHEAL SUCTION FOR SMALL THIN YELLOW SECRETIONS AIRWAY PATENT
--- NOTE | 2018-04-09 23:30 | NUR ---
RESTING COMFORTABLY NO SOB NOTED GOOD CHEST RISE
[2018-04-10] VITALS: BP 123/87
[2018-04-10] MEDS: DILTIAZEM 30 MG TAB GT SCH ×4 (00:12→17:33)
[2018-04-10] MEDS: HYDRAGUARD CREAM TP SCH ×2 (00:33→13:38)
--- NOTE | 2018-04-10 01:16 | NUR ---
NO DISTRESS NOTED AT THIS TIME GOOD CHEST RISE AIRWAY PATENT
--- NOTE | 2018-04-10 02:56 | NUR ---
PT SLEEPING NO SOB NO S/S OF DISTRESS ON TRACH TO VENT. WILL CONTINUE TO MONITOR.
--- NOTE | 2018-04-10 03:38 | NUR ---
STABLE DEEP TRACHEAL SUCTION FOR MODERATE THIN YELLOW SECRETIONS AIRWAY PATENT
[2018-04-10 04:00] VITALS: BP 123/49
[2018-04-10] MEDS: MEROPENEM 1,000 MG in NACL 0.9% 100 ML IV SCH ×3 (05:00→21:00)
[2018-04-10] MEDS: BLOOD GLUCOSE MONITORING 1 DEV DEV FS SCH ×4 (05:41→21:20)
--- NOTE | 2018-04-10 05:42 | NUR ---
RESTING COMFORTABLY NO RESPIRATORY DISTRESS NOTED GOOD CHEST RISE AIRWAY PATENT
[2018-04-10] MEDS: METOCLOPRAMIDE 10 MG/10 ML SYRP UDC GT SCH ×3 (06:23→17:33)
[2018-04-10] MEDS: ALBUTEROL SULFATE/IPRATROPIU 3 ML SOL IH SCH ×3 (06:48→19:13)
--- NOTE | 2018-04-10 06:56 | NUR ---
RECEIVED TRACH PT WITH A PORTEX 7 TRACH ON VENT. SETTINGS AC 12, VT 16, PEEP 5 AND FIO2 28%. PT SUCTIONED OBTAINED SMALL AMOUNT OF THICK CLEAR/WHITE SECRETIONS, AIRWAY IS PATENT AND TRACH IS SECURE. PT IS APHASIC, NOT IN ANY DISTRESS AT THIS TIME. VENT IS PLUGGED INTO A RED OUTLET WITH ALARMS ON AND FUNCTIONING. WILL CONTINUE TO MONITOR.
--- NOTE | 2018-04-10 07:15 | NUR ---
RECEIVED PATIENT REPORT AT BEDSIDE. PATIENT IS AWAKE BUT APHASIC. PATIENT IS TRACH TO VENT WITH SETTING 28%FIO2 , 500 VT, PEEP OF 5. O2 SAT 99% AT THIS TIME. NO S/S OF DISTRESS. G-TUBE IN PLACE WITH FEEDING RUNNING. ABD WOUND DRESSING NOTED. DRESSING CLEAN DRY AND INTACT. COLOSTOMY BAG IN PLACE. PATIENT ON TELE MONITORING. BED LOWERED WITH CALL LIGHT WITHIN REACH. WILL CONTINUE TO MONITOR.
--- NOTE | 2018-04-10 07:24 | NUR ---
ENDORSED REPORT TO DAYSHIFT NURSE AT BEDSIDE FOR CONTINUITY OF CARE.
[2018-04-10 07:57] VITALS: BP 127/70
[2018-04-10] MEDS: POTASSIUM CHL 20 MEQ/NACL 0.9% 1,000 ML IV SCH (08:30)
[2018-04-10] MEDS: FERROUS SULFATE 300 MG/5 ML UDC GT SCH (09:00)
[2018-04-10] MEDS: VITAMIN D 400 IU TAB GT SCH (09:00)
[2018-04-10] MEDS: MULTIVITAMIN/MINERALS 1 TAB GT SCH (09:00)
[2018-04-10] MEDS: PANTOPRAZOLE 40 MG INJ VIAL IVP SCH (09:01)
[2018-04-10] MEDS: ASCORBIC ACID 500 MG/5 ML ORASYR GT SCH (09:02)
[2018-04-10] MEDS: CYANOCOBALAMIN 100 MCG TAB GT SCH (09:02)
[2018-04-10] MEDS: POLYETHYLENE GLYCOL 17 GM/PKT GT SCH (09:03)
[2018-04-10] MEDS: MAGNESIUM HYDROXIDE 2400 MG/30 ML UDC GT SCH (09:03)
[2018-04-10] MEDS: prednisoLONE 1% OP 5 ML BTL RIGHT EYE SCH ×3 (09:17→17:33)
[2018-04-10] MEDS: POLYVINYL ALCOHOL 1.4% OP 15 ML SOL OP SCH ×3 (09:18→17:34)
[2018-04-10] MEDS ORDERED: levETIRAcetam 100 MG/ML ORASYR GT SCH (09:38)
--- NOTE | 2018-04-10 09:45 | NUR ---
PATIENT GIVEN BED BATH. SACRAL WOUND DRESSING CHANGED. PATIENT TURNED AND REPOSITIONED FOR COMFORT. PT TOLERATED WELL
[2018-04-10] MEDS: PHENYTOIN IVP SCH ×2 (09:48→21:00)
[2018-04-10] MEDS: NACL 0.9% IVP SCH ×2 (09:48→21:00)
[2018-04-10] MEDS: THERAHONEY WOUND DRESSING TP SCH (10:31)
--- NOTE | 2018-04-10 11:08 | NUR ---
PT SUCTIONED OBTAINED SMALL AMOUNT OF THICK CLEAR SECRETIONS, AIRWAY IS PATENT AND TRACH IS SECURE. PT NOT IN ANY DISTRESS AT THIS TIME. WILL CONTINUE TO MONITOR.
[2018-04-10 12:00] VITALS: BP 125/67
[2018-04-10] MEDS: NACL 0.9% IRR 250 ML BOTTLE IR SCH (13:37)
[2018-04-10] MEDS: COMMUNICATION ORDER MC SCH (13:37)
[2018-04-10] MEDS: Z-GUARD PASTE TP SCH (13:38)
[2018-04-10] MEDS: [UNRECOGNIZED DRUG - SUPPLY] TP SCH (13:38)
[2018-04-10] MEDS: SKINTEGRITY HYDROGEL TP SCH (13:38)
--- NOTE | 2018-04-10 13:58 | NUR ---
ORAL CARE GIVEN. PT TOLERATED WELL NO S/S OF DISTRESS.
--- NOTE | 2018-04-10 15:20 | NUR ---
PT IS AWAKE BUT NOT ALERT, PT IS NOT IN ANY DISTRESS AT THIS TIME. PT TOLERATING VENT SETTINGS WELL. WILL CONTINUE TO MONITOR.
[2018-04-10 16:00] VITALS: BP 119/56
[2018-04-10 17:28] LABS: BASOPHILS # (AUTO) 0.1 K/uL (0.00-0.22); BASOPHILS % (AUTO) 0.8 % (0.0-2.0); EOSINOPHILS # (AUTO) 0.3 K/uL (0-0.4); HEMATOCRIT 22.7 % (36-52); HEMOGLOBIN 7.4 g/dL (12.0-18.0); LYMPHOCYTES # (AUTO) 1.7 K/uL (2.0-11.5); LYMPHOCYTES % (AUTO) 19.5 % (20.5-51.1); MEAN CORPUSCULAR HEMOGLOBIN 27 pg (27-31); MEAN CORPUSCULAR HGB CONC 33 g/dL (33-37); MEAN CORPUSCULAR VOLUME 82.5 fL (80-94); MONOCYTES # (AUTO) 0.9 K/uL (0.8-1.0); MONOCYTES % (AUTO) 10.7 % (1.7-9.3); NEUTROPHILS # (AUTO) 5.8 K/uL (1.8-7.7); PLATELET COUNT (AUTO) 340 K/uL (140-450); RED BLOOD CELL COUNT(AUTO) 2.76 MIL/uL (4.20-6.10); RED CELL DISTRIBUTION WIDTH 15.2 % (11.6-13.7); WHITE BLOOD COUNT (AUTO) 8.8 K/uL (4.8-10.8)
--- NOTE | 2018-04-10 17:31 | NUR ---
PT REMAINS ON DOCUMENTED VENT SETTINGS. PT IS APHASIC BUT NOT IN ANY DISTRESS AT THIS TIME. VENT ALARMS REMAIN ON AND FUNCTIONING. TRACH REMAINS SECURE WITH A PATENT AIRWAY.
[2018-04-10 17:44] LABS: ANION GAP 7.8 (8-16); CARBON DIOXIDE 28.9 mmol/L (21-32); CREATININE 1.4 mg/dL (0.7-1.3); POTASSIUM 3.7 mmol/L (3.5-5.1)
[2018-04-10 17:51] LABS: MAGNESIUM 1.5 mg/dL (1.8-2.4); PHOSPHORUS 2.6 mg/dL (2.5-4.9)
--- NOTE | 2018-04-10 18:21 | NUR ---
MADE DR KHOURY KNOW ABOUT PATIENT'S LOW MAGNESIUM LEVEL OF 1.5. TO PUT IN ORDERS
[2018-04-10] MEDS ORDERED: MAG SULF 2000 MG/WATER PREMIX 50 ML IV ONE (18:25)
--- NOTE | 2018-04-10 19:25 | NUR ---
RECEIVED PT WITH EYES OPEN, APHASIC, ON TRACH TO VENT WITH THE FF SETTINGS:FI02-28%, TV-500, R-16, PEEP 5, FLOW RATE-45, VITAL SIGNS STABLE, 98% SAT, FLACC-0, MAG RIDER INFUSING WELL VIA LEFT UA PICC LINE, DRESSING DRY AND INTACT, G-TUBE FEEDING ON-GOING WITH RATE OF 55ML/H, HOB ELEVATED AT ALL TIMES, COLOSTOMY INTACT WITH LIQUID STOOL, SMALL AMOUNT, CONDOM CATH IN PLACE WITH YELLOW URINE OUTPUT, ABDOMINAL DRESSING DRY AND INTACT, ON WOUND BED, MAINTAINED ON CONTACT ISOLATION, SAFETY MEASURES IN PLACE.
[2018-04-10 20:00] VITALS: BP 139/70
[2018-04-10] MEDS: ATORVASTATIN 20 MG TAB GT SCH (20:59)
--- NOTE | 2018-04-10 21:00 | NUR ---
BLOOD SUGAR CHECKED WITH 113 RESULT, 10ML RESIDUAL NOTED, DUE MEDS ADMINISTERED, SUCTION SECRETION PRN, ELECTRONICS INSTRUCTOR REPOSITIONED PT AND OFFLOAD PRESSURE AREAS, ALL NEEDS ANTICIPATED.
[2018-04-10] MEDS: INSULIN LANTUS 100 UNITS/ML 10 ML VIAL SUBQ SCH (21:09)
[2018-04-10] MEDS: levETIRAcetam 100 MG/ML ORASYR GT SCH (21:29)
--- NOTE | 2018-04-10 21:35 | NUR ---
PT HEART RATE WENT UP TO 130 BPM, BP-103/53, TEMP-98.9, NO SIGNS OF DISTRESS, DR LAMB MADE AWARE, WILL ORDER EKG STAT.
--- NOTE | 2018-04-10 22:00 | NUR ---
EKG DONE, ST WITH 115 BPM, BP-106/59, PT IN NO DISTRESS, PER DR LAMB STATED TO HOLD DUE CARDIZEM AT 0000, PT MONITORED CLOSELY.
[2018-04-11] VITALS (32 sets, daily range): BP systolic 88–142; BP diastolic 54–75
--- NOTE | 2018-04-11 | NUR ---
PT SEEN WITH EYES CLOSED, OPEN EYES TO TOUCH, VITAL SIGNS TAKEN, BP LOW BUT STABLE, ST ON TELE WITH 106 BPM, NO DISTRESS NOTED, BPER DR LAMB TO PUT BACK FEEDING RATE TO 40ML/H SINCE NO ORDER TO INCREASE IT TO 55ML/H, SHE WILL FOLLOW UP WITH DAY RESIDENTS, ORAL CARE DONE, CONTINUE TO REPOSITION Q2H AND OFFLOAD PRESSURE AREAS.
[2018-04-11] MEDS: HYDRAGUARD CREAM TP SCH ×2 (00:16→13:04)
--- NOTE | 2018-04-11 04:00 | NUR ---
PT SLEEPING, VITAL SIGNS STABLE, NO RESP DISTRESS NOTED, COLOSTOMY LEAKING, NEW COLOSTOMY BAG APPLIED, MONITORED CLOSELY.
[2018-04-11] MEDS: MEROPENEM 1,000 MG in NACL 0.9% 100 ML IV SCH ×3 (04:37→20:16)
[2018-04-11] MEDS: DILTIAZEM 30 MG TAB GT SCH ×5 (05:29→23:30)
--- NOTE | 2018-04-11 05:30 | NUR ---
DUE CARDIZEM GIVEN THRU G-TUBE, ABDOMINAL DRESSING WITH MINIMAL DRAINAGE NOTED, DRESSING CHANGE DONE, CONDOM CATH CAME OFF, NEW CONDOM CATH APPLIED, NO SEIZURE ACTIVITY THE WHOLE SHIFT, CONTINUE TO MONITOR CLOSELY.
[2018-04-11] MEDS: METOCLOPRAMIDE 10 MG/10 ML SYRP UDC GT SCH ×3 (06:33→16:39)
[2018-04-11] MEDS: BLOOD GLUCOSE MONITORING 1 DEV DEV FS SCH ×4 (06:40→20:23)
[2018-04-11] MEDS: ALBUTEROL SULFATE/IPRATROPIU 3 ML SOL IH SCH ×3 (07:09→19:14)
--- NOTE | 2018-04-11 07:15 | NUR ---
PT SLEEPING, NO SIGNS OF DISTRESS, REPORT GIVEN TO RN FARTUN FOR CONTINUITY FOR CARE.
--- NOTE | 2018-04-11 07:16 | NUR ---
RECEIVED BEDSIDE REPORT FROM POCKETED SPRING MACHINE OPERATOR NURSE. PATIENT IS AWAKE, APHASIC. TRACH TO VENT. VENT SETTINGS AT FIO2 28 VT 500 RR16 FLOW 45 PEEP 5 PMAX 45. PATIENT IS BEDBOUND. FALL RISK PROTOCOL IN PLACE. PATIENT HAS L ABD WOUND. DRESSING CLEAN, DRY AND INTACT. SACRAL WOUND. DRESSING CLEAN, DRY AND INTACT. ESCHAR ON R ARM PONCE. COLOSTOMY CLEAN, DRY AND INTACT. CONDOM CATH IN PLACE DRAINING YELLOW URINE. WOUND CARE BED IN PLACE. RADHA MIDLINE INFUSING KCL/NS AT 10. CLEAN, DRY AND INTACT. CONTACT PRECAUTIONS AND SEIZURE PRECAUTIONS IN PLACE. BED IN LOW POSITION. CALL LIGHT WITHIN REACH. WILL CONTINUE TO MONITOR
--- NOTE | 2018-04-11 07:20 | NUR ---
RECEIVED TRACH PT WITH A PORTEX 7 TRACH ON VENT. SETTINGS AC 16, VT 500, PEEP 5 AND FIO2 28%. PT SUCTIONED OBTAINED SMALL AMOUNT OF THICK CLEAR/WHITE SECRETIONS, AIRWAY IS PATENT AND TRACH IS SECURE. PT IS APHASIC, NOT IN ANY DISTRESS AT THIS TIME. VENT IS PLUGGED INTO A RED OUTLET WITH ALARMS ON AND FUNCTIONING. WILL CONTINUE TO MONITOR.
[2018-04-11 07:36] LABS: BASOPHILS # (AUTO) 0.1 K/uL (0.00-0.22); BASOPHILS % (AUTO) 1.1 % (0.0-2.0); EOSINOPHILS # (AUTO) 0.2 K/uL (0-0.4); EOSINOPHILS % (AUTO) 2.5 % (0.0-4.0); HEMOGLOBIN 7.6 g/dL (12.0-18.0); LYMPHOCYTES % (AUTO) 20.6 % (20.5-51.1); MEAN CORPUSCULAR HEMOGLOBIN 27 pg (27-31); MEAN CORPUSCULAR HGB CONC 33 g/dL (33-37); MEAN CORPUSCULAR VOLUME 82.9 fL (80-94); MONOCYTES % (AUTO) 10.6 % (1.7-9.3); NEUTROPHILS # (AUTO) 6.2 K/uL (1.8-7.7); NEUTROPHILS % (AUTO) 65.2 % (42.2-75.2); PLATELET COUNT (AUTO) 346 K/uL (140-450); RED BLOOD CELL COUNT(AUTO) 2.77 MIL/uL (4.20-6.10); RED CELL DISTRIBUTION WIDTH 15.6 % (11.6-13.7); WHITE BLOOD COUNT (AUTO) 9.6 K/uL (4.8-10.8)
[2018-04-11 07:56] LABS: CARBON DIOXIDE 27.2 mmol/L (21-32); CREATININE 1.3 mg/dL (0.7-1.3); POTASSIUM 3.2 mmol/L (3.5-5.1)
[2018-04-11 08:14] LABS: MAGNESIUM 1.7 mg/dL (1.8-2.4); PHOSPHORUS 2.7 mg/dL (2.5-4.9)
[2018-04-11] MEDS: POTASSIUM CHL 20 MEQ/NACL 0.9% 1,000 ML IV SCH (08:30)
[2018-04-11] MEDS: CYANOCOBALAMIN 100 MCG TAB GT SCH (09:17)
[2018-04-11] MEDS: MULTIVITAMIN/MINERALS 1 TAB GT SCH (09:18)
[2018-04-11] MEDS: MAGNESIUM HYDROXIDE 2400 MG/30 ML UDC GT SCH (09:18)
[2018-04-11] MEDS: VITAMIN D 400 IU TAB GT SCH (09:18)
[2018-04-11] MEDS: PANTOPRAZOLE 40 MG INJ VIAL IVP SCH (09:18)
[2018-04-11] MEDS: levETIRAcetam 100 MG/ML ORASYR GT SCH ×2 (09:19→21:33)
[2018-04-11] MEDS: FERROUS SULFATE 300 MG/5 ML UDC GT SCH (09:19)
[2018-04-11] MEDS: ASCORBIC ACID 500 MG/5 ML ORASYR GT SCH (09:19)
[2018-04-11] MEDS: POLYVINYL ALCOHOL 1.4% OP 15 ML SOL OP SCH ×3 (09:20→16:38)
[2018-04-11] MEDS: prednisoLONE 1% OP 5 ML BTL RIGHT EYE SCH ×3 (09:20→16:38)
[2018-04-11] MEDS: PHENYTOIN IVP SCH ×2 (09:21→20:20)
[2018-04-11] MEDS: THERAHONEY WOUND DRESSING TP SCH (09:21)
[2018-04-11] MEDS: POLYETHYLENE GLYCOL 17 GM/PKT GT SCH (09:21)
[2018-04-11] MEDS: NACL 0.9% IVP SCH ×2 (09:21→20:20)
--- NOTE | 2018-04-11 09:30 | NUR ---
CHECKED FOR GTUBE PLACEMENT USING THE SWOOSH. NO RESIDUAL. CRUSHED AND ADMINISTERED MEDS. FLUSHED BEFORE AND AFTER ADMINISTRATION. PATIENT TOLERATED WELL. MIDLINE INFUSING DILANTIN. CLEAN, DRY AND INTACT. NEW GTUBE FEEDING AT THIS TIME INFUSING AT 40. CLEAN, DRY AND INTACT. PATIENT IN NO SIGNS OF DISTRESS. DRESSINGS CHANGED FOR ABD WOUND AND SACRAL. WOUND CARE PERFORMED. BED IN LOW POSITION. CALL LIGHT WITHIN REACH. WILL CONTINUE TO MONITOR
--- NOTE | 2018-04-11 10:45 | NUR ---
PATIENT SLEEPING. NO SIGNS OF DISTRESS. WILL CONTINUE TO MONITOR
[2018-04-11] MEDS ORDERED: MAG SULF 2000 MG/WATER PREMIX 50 ML IV SCH (11:23)
--- NOTE | 2018-04-11 11:55 | NUR ---
VENT CHECK COMPLETED. PT NOT IN ANY DISTRESS AT THIS TIME. WILL CONTINUE TO MONITOR.
[2018-04-11] MEDS ORDERED: POTASSIUM CHLORIDE 40 MEQ, LIDOCAINE MPF 1% - 5 mL VIAL 25 MG in NACL 0.9% 250 ML IV SCH (12:00)
--- NOTE | 2018-04-11 12:30 | NUR ---
dr tam is aware of sinus tachy. ekg and bolus ordered.
[2018-04-11] MEDS ORDERED: LORazepam 2 MG/ML VIAL IM/IVP PRN (12:50)
[2018-04-11] MEDS: [UNRECOGNIZED DRUG - SUPPLY] TP SCH (13:04)
[2018-04-11] MEDS: Z-GUARD PASTE TP SCH (13:05)
--- NOTE | 2018-04-11 13:15 | NUR ---
administered meds. patient tolerated well. will continue to monitor the patient
[2018-04-11] MEDS: COMMUNICATION ORDER MC SCH (13:17)
[2018-04-11] MEDS: NACL 0.9% 1,000 ML IV SCH (13:17)
[2018-04-11] MEDS: NACL 0.9% IRR 250 ML BOTTLE IR SCH (13:18)
[2018-04-11] MEDS ORDERED: NACL 0.9% 250 ML IV ONE (13:25)
--- NOTE | 2018-04-11 13:43 | NUR ---
PT REMAINS TACHYCARDIC AT THIS TIME BREATHING TX NOT ADMINISTERED. PT NOT IN ANY RESPIRATORY DISTRESS OR SOB AT THIS TIME. WILL CONTINUE TO MONITOR.
[2018-04-11] MEDS ORDERED: POTASSIUM CHLORIDE 20% 40 MEQ/15 ML UDC GT SCH (14:38)
[2018-04-11] MEDS ORDERED: METOPROLOL 5 MG/5 ML VIAL IV SCH (14:45)
--- NOTE | 2018-04-11 15:00 | NUR ---
administered Lopressor ivp as ordereed by dr mccarthy. hr dropped down but b/p also trending down. she said do not continue w the other two doses of Lopressor and send patient to icu for amiodarone drip.
[2018-04-11] MEDS: SKINTEGRITY HYDROGEL TP SCH (15:05)
[2018-04-11] MEDS ORDERED: AMIODARONE 450 MG in DEXTROSE 5% 250 ML IV SCH (15:30)
--- NOTE | 2018-04-11 15:55 | NUR ---
PT RECEIVED FROM [facility] VIA [facility]. PT ALERT, AWAKE. NON-VERBAL BUT NODES HEAD YES/NO. SKIN DRY AND WARM TO TOUCH. ON TRACH TO VENT AC 16 FIO2 28% TV 500 PEEP 5. LUNGS COARSE. RADHA PICC LINE DOUBLE LUMEN. INTACT LINE. NS INFUSING AT 30 ML/HR. G-TUBE ON RUQ. 0 RESIDUAL. ON G TUBE FEEDING NEPRO AT 40 ML/HR. ABDOMEN SOFT, ROUND AND NON-TENDER. ACTIVE BOWEL SOUND. OPEN WOUND ON LEFT UPPER ABDOMEN, COVERED WITH DRESSING. COLOSTOMY ON BAG NOTED ON LLQ. ON CONDOM CATHETER DRAINING CLEAR YELLOW URINE IN DRAINAGE BAG. OPEN WOUND ON SACRUM. HEALING WOUND ON RIGHT HAND. KEPT HOB ELEVATED BED IN LOW POSITION LOCKED. WILL CONTINUE TO MONITOR.
--- NOTE | 2018-04-11 15:55 | NUR ---
patient transferred to icu. gave bedside report to kirit pat. patient in no distress at this time
--- NOTE | 2018-04-11 15:58 | NUR ---
PT MANUALLY VENTILATED TO ICU WITHOUT INCIDENT. PT PLACED BACK ON VENTILATOR WITH ORIGINAL SETTINGS AC 16, VT 500, PEEP 5 AND FIO2 28%. PT NOT IN ANY DISTRESS AT THIS TIME. WILL CONTINUE TO MONITOR.
--- NOTE | 2018-04-11 16:30 | NUR ---
ORAL CARE PROVIDED. DRESSING CHANGED TO RIGHT HAND. HR 112. NO SOB OR DISTRESS NOTED. CONTINUE TO MONITOR.
[2018-04-11] MEDS: POTASSIUM CHLORIDE 20% 40 MEQ/15 ML UDC GT SCH (16:40)
[2018-04-11] MEDS ORDERED: AMIODARONE 450 MG/9 ML VIAL IV ONE (17:02)
[2018-04-11] MEDS ORDERED: AMIODARONE 150 MG/3 ML VIAL IV ONE (17:06)
--- NOTE | 2018-04-11 17:08 | NUR ---
AMIODARONE 150 MG BOLUS ADMINISTERED. PER ORDERED.
--- NOTE | 2018-04-11 17:22 | NUR ---
STARTED SLOW LOADING DOSE OF AMIODARONE PER ORDERED. INFUSING AT 1MG/MIN PER PROTOCOL.
--- NOTE | 2018-04-11 17:23 | NUR ---
PT REMAINS ON DOCUMENTED VENT SETTINGS. PT NOT IN ANY DISTRESS AT THIS TIME. TRACH REMAINS SECURE WITH A PATENT AIRWAY. VENT ALARMS REMAIN ON AND FUNCTIONING.
--- NOTE | 2018-04-11 17:32 | NUR ---
HR DECREASED TO 94. BP 98/68. CARDIZEM TAB NOT ADMINISTERED.
--- NOTE | 2018-04-11 19:25 | NUR ---
REPORT GIVEN TO VETERINARIAN EPIDEMIOLOGIST RN FOR CONTINUITY OF CARE.
--- NOTE | 2018-04-11 19:30 | NUR ---
RECEIVED REPORT FROM MORNING RN FOR CONTINUITY OF CARE. VS STABLE AT THIS TIME. PERRL. PT UNABLE TO FOLLOW COMMANDS. WITHDRAWS TO PAIN. PERRL. TRACH TO VENT WITH SETTINGS: FIO2 28%, TV 500, RATE 16 AND PEEP 5. RESPIRATIONS ARE EVEN AND UNLABORED. OXYGEN SATURATION WNL. LUNG SOUNDS CLEAR. S1+S2 HEARD. JUNCTIONAL RHYTHM ON MONITOR. PT HAS GTUBE IN PLACE. NO RESIDUAL NOTED. RECEIVED PT ON NEPHRO AT 40ML/HR WITH WATER FLUSH OF 100ML Q4H. WITH HAS OLD GTUBE SITE COVERED WITH GAUZE. DRESSING CLEAN, DRY AND INTACT. COLOSTOMY IN PLACE AND HAS SMALL OUTPUT AT THIS TIME. PT HAS CONDOM CATHETER IN PLACE. PT HAS RADHA PICC LINE IN PLACE. LINE IS PATENT, INTACT AND ASYMPTOMATIC. DRESSING CLEAN, DRY AND INTACT. NOT DUE TO BE CHANGED. RECEIVED PT ON NS AT 70ML/HR. PT IS IN A SPECIALIZED MATTRESS. DRESSING ON SACRAL PRESSURE ULCER AND RIGHT HAND DRESSING ARE CLEAN, DRY AND INTACT WELL. SKIN IS DRY AND WARM TO TOUCH. BED AT LOW POSITION. HOB AT 30 DEGREES. ALL SAFETY PRECAUTIONS ARE IN PLACE. WILL CONTINUE TO MONITOR PT. Addendum: 04/11/18 at 2207 by Darin Knowles RN RECEIVED PT ON AMIODARONE DRIP AT 1MG/MIN.
--- NOTE | 2018-04-11 20:30 | NUR ---
bs 101; phone call to dr melendez; ordered to hold insulin at this time
[2018-04-11] MEDS: INSULIN LANTUS 100 UNITS/ML 10 ML VIAL SUBQ SCH (20:31)
[2018-04-11] MEDS ORDERED: levETIRAcetam 100 MG/ML ORASYR ONE (21:08)
[2018-04-11] MEDS: ATORVASTATIN 20 MG TAB GT SCH (21:33)
--- NOTE | 2018-04-11 22:15 | NUR ---
VS STABLE AT THIS TIME. PT REMAINS TO BE ON AMIODARONE DRIP 1MG/MIN. NO CHANGE IN PT'S CONDITION AT THIS TIME. RESPIRATIONS ARE EVEN AND UNLABORED. PT'S EYES ARE OPEN. FLACC 0. ON BEDSIDE MONITOR IT SHOWS THAT PT IS ON JUNCTIONAL RHYTHM
[2018-04-12] VITALS (65 sets, daily range): BP systolic 88–155; BP diastolic 47–92
--- NOTE | 2018-04-12 00:40 | NUR ---
FLACC 0. PT DOES NOT APPEAR TO BE EXPERIENCING ANY DISCOMFORT AT THIS TIME. NO CHANGE IN CONDITION. VS STABLE. RESPIRATIONS ARE EVEN AND UNLABORED. COLOSTOMY AND CONDOM CATHETER STILL SECURE IN PLACE.
[2018-04-12] MEDS: HYDRAGUARD CREAM TP SCH ×2 (01:00→13:02)
--- NOTE | 2018-04-12 02:15 | NUR ---
PM CARE WAS PROVIDED TO PT. SECURED CONDOM CATHETER AND OSTOMY D/T NOTED LEAKAGE. PT TOLERATED BEING TURNED AND REPOSITIONED FAIRLY. DRESSING FROM OLD GTUBE SITE CHANGED.
[2018-04-12] MEDS ORDERED: AMIODARONE 450 MG/9 ML VIAL IV ONE (03:21)
[2018-04-12] MEDS: MEROPENEM 1,000 MG in NACL 0.9% 100 ML IV SCH ×3 (04:03→20:17)
--- NOTE | 2018-04-12 04:15 | NUR ---
PT WAS TURNED AND REPOSITIONED. ORAL CARE PROVIDED. NO CHANGE IN PT'S CONDITION. RESPIRATIONS ARE EVEN AND UNLABORED. VS STABLE. PT WAS JUNCTIONAL RHYTHM ON MONITOR.
[2018-04-12] MEDS: DILTIAZEM 30 MG TAB GT SCH ×4 (05:43→23:18)
--- NOTE | 2018-04-12 06:13 | NUR ---
ON BEDSIDE MONITOR SHOWS THAT PT IS ON SINUS RHYTHM.
[2018-04-12] MEDS: BLOOD GLUCOSE MONITORING 1 DEV DEV FS SCH ×4 (06:37→20:19)
[2018-04-12 06:40] LABS: CARBON DIOXIDE 26.3 mmol/L (21-32); CREATININE 1.6 mg/dL (0.7-1.3); POTASSIUM 4.3 mmol/L (3.5-5.1)
[2018-04-12] MEDS: METOCLOPRAMIDE 10 MG/10 ML SYRP UDC GT SCH ×3 (06:40→17:22)
[2018-04-12 06:49] LABS: MAGNESIUM 1.8 mg/dL (1.8-2.4); PHOSPHORUS 2.3 mg/dL (2.5-4.9)
--- NOTE | 2018-04-12 06:50 | NUR ---
PT RETURNED TO JUNCTIONAL RHYTHM
[2018-04-12] MEDS: ALBUTEROL SULFATE/IPRATROPIU 3 ML SOL IH SCH ×3 (06:59→19:39)
--- NOTE | 2018-04-12 07:05 | NUR ---
RECEIVED TRACH PT WITH A PORTEX 7 TRACH ON VENT. SETTINGS AC 16, VT 500, PEEP 5 AND FIO2 28%. PT SUCTIONED OBTAINED SMALL AMOUNT OF THICK CLEAR SECRETIONS, AIRWAY IS PATENT AND TRACH IS SECURE. PT IS APHASIC, NOT IN ANY DISTRESS AT THIS TIME. VENT IS PLUGGED INTO A RED OUTLET WITH ALARMS ON AND FUNCTIONING. WILL CONTINUE TO MONITOR.
--- NOTE | 2018-04-12 07:15 | NUR ---
RECEIVED REPORT FROM INSURANCE DEFENSE ATTORNEY RN AT BEDSIDE. PT IS EYES OPEN, NONVERBAL, FOLLOW COMMANDS, ON TRACH TO VENT FIO2 AT 28%, VT 500, RATE 16, PEEP 5. NO S/S OF DISTRESS, CLEAR LUNG SOUNDS VIBHA. JUNCTIONAL RHYTHMS NOTED ON WORKERS COMPENSATION LEGAL SECRETARY, LARGE ROUND ABDOMEN WITH ACTIVE BOWEL SOUNDS, J TUBE IN PLACE, FEEDING WITH NEPRO AT 40ML/HR, TOLERATED WELL, NO RESIDUALS AT THIS TIME. OLD G-TUBE SITE DRESSING INTACT. COLOSTOMY BAG TO LLQ, INTACT. INCONTINENT WITH B&B'S, SKIN IS WARM AND DRY IN TOUCH, OPEN WOUND PRESENT (SEE WOUND ASSESSMENT). SEVERE WEAKNESS TO ALL EXTREMITIES. PICC LINE TO RADHA, PATENT, RUNNING NS AT 30ML/HR AND CARDIZEM AT 0.5. VSS, FLACC 0, HOB ELEVATED TO 30 DEGREES, SAFETY MEASURES IN PLACE, ORAL CARE PROVIDED, POSITION CHANGED FOR OFF LOAD PRESSURE, WILL CONTINUE TO MONITOR.
--- NOTE | 2018-04-12 07:30 | NUR ---
DR. MARQUES CAME IN TO SEE PT AT BEDSIDE, NO NEW ORDER AT THIS TIME.
[2018-04-12 08:05] LABS: BASOPHILS # (AUTO) 0.1 K/uL (0.00-0.22); BASOPHILS % (AUTO) 1.3 % (0.0-2.0); EOSINOPHILS # (AUTO) 0.2 K/uL (0-0.4); EOSINOPHILS % (AUTO) 2.2 % (0.0-4.0); LYMPHOCYTES # (AUTO) 2.5 K/uL (2.0-11.5); LYMPHOCYTES % (AUTO) 26.8 % (20.5-51.1); MEAN CORPUSCULAR HEMOGLOBIN 27 pg (27-31); MEAN CORPUSCULAR HGB CONC 32 g/dL (33-37); MEAN CORPUSCULAR VOLUME 83.3 fL (80-94); MONOCYTES % (AUTO) 10.4 % (1.7-9.3); NEUTROPHILS # (AUTO) 5.6 K/uL (1.8-7.7); NEUTROPHILS % (AUTO) 59.3 % (42.2-75.2); PLATELET COUNT (AUTO) 357 K/uL (140-450); RED CELL DISTRIBUTION WIDTH 15.8 % (11.6-13.7); WHITE BLOOD COUNT (AUTO) 9.4 K/uL (4.8-10.8)
[2018-04-12] MEDS: NACL 0.9% 1,000 ML IV SCH (08:59)
[2018-04-12] MEDS: levETIRAcetam 100 MG/ML ORASYR GT SCH ×2 (08:59→20:17)
[2018-04-12] MEDS: CYANOCOBALAMIN 100 MCG TAB GT SCH (08:59)
[2018-04-12] MEDS: FERROUS SULFATE 300 MG/5 ML UDC GT SCH (09:00)
[2018-04-12] MEDS: SODIUM PHOS / POTASSIUM PHOS 1 PKT PDR PO SCH ×2 (09:00→20:18)
[2018-04-12] MEDS: MAGNESIUM HYDROXIDE 2400 MG/30 ML UDC GT SCH (09:00)
[2018-04-12] MEDS: MULTIVITAMIN/MINERALS 1 TAB GT SCH (09:00)
[2018-04-12] MEDS: POLYETHYLENE GLYCOL 17 GM/PKT GT SCH (09:00)
[2018-04-12] MEDS: VITAMIN D 400 IU TAB GT SCH (09:00)
[2018-04-12] MEDS: NACL 0.9% IVP SCH ×2 (09:01→20:57)
[2018-04-12] MEDS: PANTOPRAZOLE 40 MG INJ VIAL IVP SCH (09:01)
[2018-04-12] MEDS: PHENYTOIN IVP SCH ×2 (09:01→20:57)
[2018-04-12] MEDS: ASCORBIC ACID 500 MG/5 ML ORASYR GT SCH (09:01)
[2018-04-12] MEDS: POLYVINYL ALCOHOL 1.4% OP 15 ML SOL OP SCH ×3 (09:01→17:23)
[2018-04-12] MEDS: prednisoLONE 1% OP 5 ML BTL RIGHT EYE SCH ×3 (09:02→17:23)
[2018-04-12] MEDS: THERAHONEY WOUND DRESSING TP SCH (09:03)
--- NOTE | 2018-04-12 09:15 | NUR ---
SCHEDULED MEDICATION GIVEN, PT TOLERATED WELL.
--- NOTE | 2018-04-12 09:20 | NUR ---
STABLE GOOD CHEST RISE DEEP TRACHEAL SUCTION FOR MODERATE THIN YELLOW SECRETIONS AIRWAY PATENT
--- NOTE | 2018-04-12 09:30 | NUR ---
WOUND CARE RE-EVALUATION NOTES: REASON FOR EVALUATION: SACROCOCCYX ULCER AND SURGICAL WOUND DEHISCENCE INTEGUMENTARY: -TRACH SITE GUI-STOMA SKIN DRY AND CLEAN. SKIN INTACT. -RUQ ABDOMEN GT SITE STOMA SITE DRY AND CLEAN, GUI-STOMA SKIN INTACT. -RIGHT WRIST BROWN SCAB 3.5X2 CM , IRREGULAR WOUND SHAPE, GUI-WOUND SKIN DRY AND INTACT -MID ABDOMEN SURGICAL WOUND DEHISCENCE, 9X3.5X2.5 CM WOUND BED 90% GRANULATION TISSUE AND 10% YELLOW SLOUGH, SMALL AMOUNT OF SEROUS DRAINAGE, NO ODOR. GUI-WOUND TOWARD 9 O�CLOCK DIRECTION WITH SURGICAL WOUND (OLD GT STOMA SITE) .5X.5CM, OPEN WOUND, WITH 100% WITH YELLOW SLOUGH TO WOUND BED SMALL AMOUNT SEROUS DRAINAGE, NO ODOR -ABDOMEN DISSENTED, NON-TENDER TO TOUCH. MULTIPLE HEALED OLD SCARS. -LLQ ABD. COLOSTOMY FUNCTIONING WITH SMALL AMOUNT OF STOOL OUTPUT, GUI-OSTOMY SKIN INTACT. -SACROCOCCYX STAGE 4 PRESSURE INJURY, 4X3X2.5 CM WOUND BED 100% RED WITH GRANULATION TISSUE, MODERATE AMOUNT SEROUS DRAINAGE, GUI WOUND SKIN DENUDED REDNESS WITH MULTIPLE PARTIAL THICKNESS LOSS OF SKIN, WOUND EDGE WELL DEFINE, NO ODOR RECOMMENDATIONS: -SURGEON TO CONSULT ABDOMEN SURGICAL WOUND DEHISCENCE -CLEANSE ABDOMEN SURGICAL WOUNDS WITH NS. PAT DRY , PACK WITH THERAHONEY SHEET AND COVER WITH ISLAND DRESSING QD AND PRN IF SOILING -CLEANSE SACRALCOCCYX WOUND WITH NS. PAT DRY, PACK WITH PLUROGEL AND APPLY Z GUARD TO GUI-WOUNDS COVER WITH ISLAND DRESSING QD AND PRN IF SOILING -APPLY SOAKED 4X4 WITH BETADINE SOLUTION TO RIGHT WRIST, COVER WITH DRY DRESSING QD -APPLY HYDRAGUARD TO BLE AND HEELS BIDWC AND LEAVE IT OPEN TO AIR -KEEP SKIN DRY AND CLEAN AT ALL TIMES, PLEASE CHECK Q2H AND PRN FOR DRYNESS -OFFLOAD BILATERAL HEELS BY PLACING PILLOWS UNDER CALVES UNLESS OTHERWISE CONTRAINDICATED -PRESSURE REDISTRIBUTION SURFACE THERAPY -TURN AND REPOSITION Q2H, OFFLOAD SACRALCOCCYX BY TURNING RIGHT AND LEFT -CONTINUE TO FOLLOW RD RECOMMENDATIONS ALL ABOVE RECOMMENDATIONS DISCUSSED WITH PRIMARY RN. WILL FOLLOW UP PT Q7-10 DAYS. PLEASE CONTACT WOUND CARE NURSE FOR ANY QUESTION AND CHANGE OF WOUND CONDITION.
--- NOTE | 2018-04-12 10:00 | NUR ---
NO CHANGE OF CONDITION AT THIS TIME.
--- NOTE | 2018-04-12 11:00 | NUR ---
DR. AYERS CAME IN TO SEE PT AT BEDSIDE, WILL FOLLOW UP WITH ORDERS.
--- NOTE | 2018-04-12 11:50 | NUR ---
US AT BEDSIDE
--- NOTE | 2018-04-12 11:55 | NUR ---
NO DISTRESS NOTED GOOD CHEST RISE DEEP TRACHEAL SUCTION FOR MODERATE THIN YELLOW SECRETIONS AIRWAY PATENT
--- NOTE | 2018-04-12 12:15 | NUR ---
NO S/S OF DISTRESS, VSS, FLACC 0, ORAL CARE PROVIDED, POSITION CHANGED FOR OFF LOAD PRESSURE.
--- NOTE | 2018-04-12 13:00 | NUR ---
WOUND CARE PROVIDED, PT TOLERATED WELL.
[2018-04-12] MEDS: NACL 0.9% IRR 250 ML BOTTLE IR SCH (13:01)
[2018-04-12] MEDS: COMMUNICATION ORDER MC SCH (13:01)
[2018-04-12] MEDS: [UNRECOGNIZED DRUG - SUPPLY] TP SCH (13:02)
[2018-04-12] MEDS: SKINTEGRITY HYDROGEL TP SCH (13:02)
[2018-04-12] MEDS: Z-GUARD PASTE TP SCH (13:02)
--- NOTE | 2018-04-12 13:28 | NUR ---
VENT CHECK COMPLETED PT NOT IN ANY DISTRESS AT THIS TIME. WILL CONTINUE TO MONITOR.
--- NOTE | 2018-04-12 14:00 | NUR ---
NO CHANGE OF CONDITION AT THIS TIME.
--- NOTE | 2018-04-12 14:17 | NUR ---
04/12/18 RD FOLLOW UP COMPLETED PLEASE REFER TO NUTRITION ASSESSMENT UNDER CARE ACTIVITY FOR ESTIMATED NUTRITIONAL NEEDS. 1. CONTINUE NEPRO W/CARB STEADY @40 ML/HR -THIS WILL PROVIDE 1728 KCAL AND 77 GM OF PROTEIN, WHICH MEETS 85% OF ESTIMATED KCAL NEEDS AND 100% OF ESTIMATED PROTEIN NEEDS. 2. CONTINUE FREE WATER FLUSH AT 100 ML Q4H PER MD 3. RD TO FOLLOW-UP 2-3 DAYS, HIGH RISK GALINA ANDERSEN RD
[2018-04-12] MEDS ORDERED: AMIODARONE 200 MG TAB PO SCH ×4 (15:00→21:00)
--- NOTE | 2018-04-12 16:00 | NUR ---
PM CARE PROVIDED, COLOSTOMY BAG LEAKAGE NOTED, CHANGED NEW COLOSTOMY BAG, ORAL CARE PROVIDED, POSITION CHANGED FOR OFF LOAD PRESSURE.
--- NOTE | 2018-04-12 17:17 | NUR ---
PT REMAINS ON DOCUMENTED VENT SETTINGS. PT SUCTIONED OBTAINED SMALL AMOUNT OF THICK WHITE SECRETIONS, AIRWAY IS PATENT AND TRACH IS SECURE. VENT ALARMS REMAIN ON AND FUNCTIONING. PT IS NOT IN ANY DISTRESS AT THIS TIME.
[2018-04-12] MEDS: POTASSIUM CHLORIDE 20% 40 MEQ/15 ML UDC GT SCH (17:22)
--- NOTE | 2018-04-12 17:30 | NUR ---
AMIODARONE DRIP STOPPED PER PROTOCOL, PO AMIODARONE GIVEN BEFORE 1600. PT IS AWAKE, VSS, FLACC 0.
--- NOTE | 2018-04-12 18:43 | NUR ---
DR. NG CAME IN TO SEE PT AT BEDSIDE, WILL FOLLOW UP WITH ORDERS.
--- NOTE | 2018-04-12 19:10 | NUR ---
REPORT GIVEN TO SALES REVIEW CLERK NURSE FOR CONTINUE OF CARE, PT IS IN STABLE CONDITION AT THIS TIME.
--- NOTE | 2018-04-12 19:11 | NUR ---
RECEIVED REPORT FROM AM SHIFT. PT. NONVERBAL. UNABLE TO VERBALIZE NEEDS. UNABLE TO FOLLOW COMMANDS. CHRONIC TRACH TO VENT. A/C FIO2 28 VT 500 FLOW 40 PEEP 5. RONCHI BILATERALLY NOTED. CHEST EXPANSION SYMMETRICAL. SR ON MONITOR. PERIPHERAL PULSES PRESENT X4 EXTREMITIES. GT TO RUQ. ON NEPRO FEEDING 40ML/HR WITH 150 ML Q4H WATER FLUSH. DRESSING NOTED TO ABD. DRESSING DRY INTACT. BOWEL SOUNDS ACTIVE X4 QUADRANTS. ABD SOFT, DISTENDED. COLOSTOMY BAG PRESENT TO LLQ. SACRAL WOUND NOTED. DRSSSING INTACT. CONDOM CATHETER PRESENT. URINE DRAINING FREELY, CLEAR YELLOW LIQUID. NO SEDIMENT NOTED. PICC TO RADHA. DRESSING INTACT. RAO ESCHAR NOTED. ON CONTACT PRECAUTIONS FOR MRSA, ESBL. PPR ENFORCED. BED IN LOWEST POSITION. SIDE RAILS UP X4. WILL CONTINUE TO MONITOR.
--- NOTE | 2018-04-12 19:44 | NUR ---
RT AT BEDSIDE AT THIS TIME.
--- NOTE | 2018-04-12 20:15 | NUR ---
ORAL CARE PROVIDED AT THIS TIME. PT SUCTIONED AND REPOSITIONED. NO SIGNS OF ACUTE DISTRESS NOTED.
[2018-04-12] MEDS: ATORVASTATIN 20 MG TAB GT SCH (20:18)
[2018-04-12] MEDS: INSULIN LANTUS 100 UNITS/ML 10 ML VIAL SUBQ SCH (21:02)
--- NOTE | 2018-04-12 22:50 | NUR ---
PT REPOSITIONED AT THIS TIME. NO SIGNS OF ACUTE DISTRESS NOTED.
[2018-04-13] VITALS (20 sets, daily range): BP systolic 94–144; BP diastolic 59–84
--- NOTE | 2018-04-13 00:12 | NUR ---
ORAL CARE PROVIDED. SCANT CLEAR SECRETIONS SUCTIONED.
[2018-04-13] MEDS: HYDRAGUARD CREAM TP SCH ×2 (01:00→12:26)
--- NOTE | 2018-04-13 03:31 | NUR ---
RT AT BEDSIDE AT THIS TIME
[2018-04-13] MEDS: MEROPENEM 1,000 MG in NACL 0.9% 100 ML IV SCH ×2 (04:14→12:26)
--- NOTE | 2018-04-13 05:12 | NUR ---
AM CARE PROVIDED. PT CLEANED AND REPOSITIONED. NO SIGNS OF ACUTE DISTRESS. BED IN LOWEST POSITION.
[2018-04-13] MEDS ORDERED: DILTIAZEM 30 MG TAB ONE (05:21)
[2018-04-13] MEDS: DILTIAZEM 30 MG TAB GT SCH ×3 (05:39→17:05)
[2018-04-13 06:16] LABS: BASOPHILS % (AUTO) 0.5 % (0.0-2.0); EOSINOPHILS # (AUTO) 0.2 K/uL (0-0.4); EOSINOPHILS % (AUTO) 2.6 % (0.0-4.0); HEMATOCRIT 27.5 % (36-52); HEMOGLOBIN 8.8 g/dL (12.0-18.0); LYMPHOCYTES # (AUTO) 1.7 K/uL (2.0-11.5); LYMPHOCYTES % (AUTO) 19.3 % (20.5-51.1); MEAN CORPUSCULAR HEMOGLOBIN 27 pg (27-31); MEAN CORPUSCULAR HGB CONC 32 g/dL (33-37); MEAN CORPUSCULAR VOLUME 83.4 fL (80-94); MONOCYTES # (AUTO) 0.9 K/uL (0.8-1.0); MONOCYTES % (AUTO) 10.3 % (1.7-9.3); NEUTROPHILS % (AUTO) 67.3 % (42.2-75.2); PLATELET COUNT (AUTO) 361 K/uL (140-450); RED CELL DISTRIBUTION WIDTH 16.2 % (11.6-13.7)
[2018-04-13] MEDS: BLOOD GLUCOSE MONITORING 1 DEV DEV FS SCH ×4 (06:33→21:00)
[2018-04-13] MEDS: METOCLOPRAMIDE 10 MG/10 ML SYRP UDC GT SCH ×3 (06:33→17:05)
[2018-04-13] MEDS: ALBUTEROL SULFATE/IPRATROPIU 3 ML SOL IH SCH ×3 (06:38→18:57)
--- NOTE | 2018-04-13 06:39 | NUR ---
RT AT BEDSIDE AT THIS TIME
--- NOTE | 2018-04-13 06:39 | NUR ---
RECEIVED PT ON CARESCAPE ON DOCUMENTED SETTINGS, ALARMS ARE ON AND AUDIBLE, PTS TRACH PORTEX 7 IS SECURE PT IH HF QUIET, BS RHOMIRACLEI SX PT. HHN GIVEN I\L WITH 3 MG DUONEB BMV HOB, VENT PLUGGED INTO RED OUTLET
[2018-04-13 06:49] LABS: ANION GAP 11.5 (8-16); CARBON DIOXIDE 26.1 mmol/L (21-32); CREATININE 1.5 mg/dL (0.7-1.3); POTASSIUM 4.6 mmol/L (3.5-5.1)
[2018-04-13 06:52] LABS: MAGNESIUM 1.5 mg/dL (1.8-2.4); PHOSPHORUS 2.6 mg/dL (2.5-4.9)
--- NOTE | 2018-04-13 07:08 | NUR ---
ENDORSED CARE TO INCOMING SHIFT FOR CONTINUITY OF CARE. VSS. BED IN LOWEST POSITION. SR UP X4.
--- NOTE | 2018-04-13 07:20 | NUR ---
PT SEEN AND EXAMINED BY DR. MARQUES. WILL FOLLOW UP ON ORDERS.
--- NOTE | 2018-04-13 07:30 | NUR ---
RECEIVED REPORT FROM WELDING OPERATOR RN AT BEDSIDE. PT EYES OPEN SPONTANEOUSLY, NONVERBAL, FOLLOWS SIMPLE COMMANDS. AFEBRILE. FLACC 0. SR ON MONITOR. PT IS ON TRACH TO VENT W/ SETTINGS AC 16, FIO2 28%, VT 500, PEEP 5. LUNGS SOUND CLEAR BILATERALLY. BREATHING EVEN AND UNLABORED. ABDOMEN SOFT, NONTENDER WITH ACTIVE BOWEL SOUNDS. GT TO RUQ, RECEIVING FEEDING NEPRO AT 40ML/HR. 60 ML RESIDUE NOTED. DRESSING INTACT, CLEAN AND DRY TO OLD GT SITE. COLOSTOMY BAG IN PLACE TO LLQ. PICC LINE TO RADHA, ASYMPTOMATIC, PATENT, RUNNING NS AT 30ML/HR. BED IN LOWEST POSITION, HOB ELEVATED TO 30 DEGREES. POSITION CHANGED FOR OFF LOAD PRESSURE. CALL LIGHT WITHIN REACH. WILL CONTINUE TO MONITOR.
--- NOTE | 2018-04-13 08:10 | NUR ---
DR. CANNON AND RESIDENT GROUP IN TO SEE PT. WILL FOLLOW UP ON ORDERS.
[2018-04-13] MEDS: NACL 0.9% 1,000 ML IV SCH ×2 (08:58→14:10)
[2018-04-13] MEDS ORDERED: MAG SULF 2000 MG/WATER PREMIX 100 ML IV SCH (09:00)
[2018-04-13] MEDS ORDERED: CARVEDILOL 6.25 MG TAB GT SCH (09:00)
--- NOTE | 2018-04-13 09:00 | NUR ---
PERIPHERAL IV TO LEFT FOREARM DISCONNECTED FROM PT'S ARM MOVEMENT. NEW PERIPHERAL IV G22 INSERTED TO LEFT FOREARM, GOOD BLOOD RETURN NOTED. FLUSHED W/ NORMAL SALINE. PT TOLERATED WELL. Addendum: 04/13/18 at 1110 by Ermias Cavazos RN WRONG PATIENT
[2018-04-13] MEDS: CARVEDILOL 6.25 MG TAB GT SCH ×2 (09:39→21:00)
[2018-04-13] MEDS: PANTOPRAZOLE 40 MG INJ VIAL IVP SCH (09:39)
[2018-04-13] MEDS: MULTIVITAMIN/MINERALS 1 TAB GT SCH (09:39)
[2018-04-13] MEDS: FERROUS SULFATE 300 MG/5 ML UDC GT SCH (09:39)
[2018-04-13] MEDS: MAGNESIUM HYDROXIDE 2400 MG/30 ML UDC GT SCH (09:39)
[2018-04-13] MEDS: CYANOCOBALAMIN 100 MCG TAB GT SCH (09:40)
[2018-04-13] MEDS: SODIUM PHOS / POTASSIUM PHOS 1 PKT PDR PO SCH ×2 (09:40→21:00)
[2018-04-13] MEDS: POLYETHYLENE GLYCOL 17 GM/PKT GT SCH (09:40)
[2018-04-13] MEDS: levETIRAcetam 100 MG/ML ORASYR GT SCH ×2 (09:41→21:00)
[2018-04-13] MEDS: NACL 0.9% IVP SCH ×2 (09:41→21:00)
[2018-04-13] MEDS: PHENYTOIN IVP SCH ×2 (09:41→21:00)
[2018-04-13] MEDS: VITAMIN D 400 IU TAB GT SCH (09:41)
--- NOTE | 2018-04-13 09:45 | NUR ---
MEDICATIONS ADMINISTERED ORDERED. PT TOLERATED WELL.
[2018-04-13] MEDS: ASCORBIC ACID 500 MG/5 ML ORASYR GT SCH (09:49)
[2018-04-13] MEDS: prednisoLONE 1% OP 5 ML BTL RIGHT EYE SCH ×3 (09:50→17:06)
[2018-04-13] MEDS: POLYVINYL ALCOHOL 1.4% OP 15 ML SOL OP SCH ×3 (09:50→17:07)
[2018-04-13] MEDS: THERAHONEY WOUND DRESSING TP SCH (09:50)
[2018-04-13] MEDS: MAG SULF 2000 MG/WATER PREMIX 100 ML IV SCH ×2 (10:48→11:44)
--- NOTE | 2018-04-13 12:00 | NUR ---
ORAL CARE PROVIDED. PT'S VSS. NO SOB OR DISTRESS NOTED. FLACC 0. WILL CONTINUE TO MONITOR.
[2018-04-13] MEDS: [UNRECOGNIZED DRUG - SUPPLY] TP SCH (12:26)
[2018-04-13] MEDS: COMMUNICATION ORDER MC SCH (12:26)
[2018-04-13] MEDS: NACL 0.9% IRR 250 ML BOTTLE IR SCH (12:26)
[2018-04-13] MEDS: SKINTEGRITY HYDROGEL TP SCH (12:27)
[2018-04-13] MEDS: Z-GUARD PASTE TP SCH (12:27)
--- NOTE | 2018-04-13 13:10 | NUR ---
WOUND CARE PROVIDED ORDERED. REPOSITIONED FOR COMFORT. OFF LOAD PRESSURE AREAS. PT TOLERATED WELL. VSS. NO S/SX OF ACUTE DISTRESS AT THIS TIME.
--- NOTE | 2018-04-13 16:00 | NUR ---
REPOSITIONED PT. VAP ORAL CARE PROVIDED. PT IS AFEBRILE AND VSS. SAFETY MEASURES ENSURED.
[2018-04-13] MEDS ORDERED: VANCOMYCIN PER PHARMACY MC PRN (16:25)
[2018-04-13] MEDS: VANCOMYCIN 750 MG in DEXTROSE 5% 250 ML IV SCH (17:05)
[2018-04-13] MEDS: POTASSIUM CHLORIDE 20% 40 MEQ/15 ML UDC GT SCH (17:06)
--- NOTE | 2018-04-13 18:25 | NUR ---
PM CARE GIVEN. CHANGED LINENS AND REPOSITIONED, OFF LOAD PRESSURE AREAS. PT TOLERATED WELL. NO S/SX OF DISTRESS NOTED.
--- NOTE | 2018-04-13 19:21 | NUR ---
REPORT GIVEN TO FPGA DESIGN ENGINEER NURSE FOR CONTINUITY OF CARE. PT IS IN STABLE CONDITION.
--- NOTE | 2018-04-13 19:30 | NUR ---
RECEIVED REPORT FROM DAY SHIFT RN, NO ACUTE DISTRESS NOTED. WILL CONTINUE TO OBSERVE
--- NOTE | 2018-04-13 19:43 | NUR ---
PT AWAKE, RESPONDING TO VERBAL COMMANDS WITH HEAD NODS, NON VERBAL. UNABLE TO MOVE EXTREMITIES. PT TRACH TO VENT SIZE 7 PORTEX; VENT SETTINGS AC 16 28% FIO2 TV 500 PEEP 5. MINIMAL SECRETIONS NOTED; WHITE FROTHY SPUTUM. DIMINISHED BREATH SOUNDS UNLABORED @ THIS TIME. 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 TRACE EDEMA NOTED. ABD SOFT NON DISTENDED. G TUBE SITE NOTED TO RUQ, WITH NEPRO FEEDINGS RUNNING, COLOSTOMY SITE IN PLACE, OSTOMY SITE MOIST PINK, BROWN DRAINAGE NOTED. CONDOM CATH IN PLACE, YELLOW URINE NOTED. PT HAS NON INTACT SKIN WITH OPEN WOUND TO MID UPPER ABDOMEN COVERED WITH BULKY DRESSING CLEAN DRY INTACT. PRESSURE ULCER TO SACRAL COCCYX AREA DRESSING CDI. PICC LINE NOTED TO LEFT UPPER ARM. NO S/S OF ACUTE DISTRESS NOTED. FLACC 0 WILL CONTINUE TO OBSERVE.
[2018-04-13] MEDS: INSULIN LANTUS 100 UNITS/ML 10 ML VIAL SUBQ SCH (20:43)
[2018-04-13] MEDS: ATORVASTATIN 20 MG TAB GT SCH (21:00)
--- NOTE | 2018-04-13 21:10 | NUR ---
PATIENT TRANSFERRED TO CT SCAN VIA AMBU BAG 100% FIO2 AND RETURNED TO ICU BED #8 VIA 100% AMBU BAG AND PLACED BACK ON VENTILATOR ON SAME SETTINGS, SAO2 100% HR-85
[2018-04-14] VITALS (18 sets, daily range): BP systolic 110–153; BP diastolic 70–99
--- NOTE | 2018-04-14 | NUR ---
VAP ORAL CARE DONE, PT TURNED AND REPOSITIONED
[2018-04-14] MEDS: HYDRAGUARD CREAM TP SCH ×2 (02:00→12:03)
[2018-04-14] MEDS: DILTIAZEM 30 MG TAB GT SCH ×5 (02:15→23:40)
--- NOTE | 2018-04-14 05:15 | NUR ---
AM CARE DONE, PT TURNED AND REPOSITIONED
[2018-04-14] MEDS: VANCOMYCIN 750 MG in DEXTROSE 5% 250 ML IV SCH ×3 (05:48→23:40)
[2018-04-14 06:00] LABS: BASOPHILS # (AUTO) 0.1 K/uL (0.00-0.22); BASOPHILS % (AUTO) 0.6 % (0.0-2.0); EOSINOPHILS # (AUTO) 0.3 K/uL (0-0.4); EOSINOPHILS % (AUTO) 2.4 % (0.0-4.0); HEMATOCRIT 27.9 % (36-52); HEMOGLOBIN 8.8 g/dL (12.0-18.0); LYMPHOCYTES # (AUTO) 3.7 K/uL (2.0-11.5); LYMPHOCYTES % (AUTO) 29.3 % (20.5-51.1); MEAN CORPUSCULAR HEMOGLOBIN 27 pg (27-31); MEAN CORPUSCULAR HGB CONC 31 g/dL (33-37); MEAN CORPUSCULAR VOLUME 84.4 fL (80-94); MONOCYTES # (AUTO) 1.3 K/uL (0.8-1.0); MONOCYTES % (AUTO) 10.5 % (1.7-9.3); NEUTROPHILS # (AUTO) 7.2 K/uL (1.8-7.7); NEUTROPHILS % (AUTO) 57.2 % (42.2-75.2); PLATELET COUNT (AUTO) 295 K/uL (140-450); RED BLOOD CELL COUNT(AUTO) 3.31 MIL/uL (4.20-6.10); WHITE BLOOD COUNT (AUTO) 12.5 K/uL (4.8-10.8)
[2018-04-14 06:18] LABS: ANION GAP 6.6 (8-16); CARBON DIOXIDE 25.7 mmol/L (21-32); CREATININE 1.5 mg/dL (0.7-1.3); POTASSIUM 5.3 mmol/L (3.5-5.1)
[2018-04-14 06:28] LABS: MAGNESIUM 2.1 mg/dL (1.8-2.4); PHOSPHORUS 3.3 mg/dL (2.5-4.9)
[2018-04-14] MEDS: ALBUTEROL SULFATE/IPRATROPIU 3 ML SOL IH SCH ×3 (06:39→19:45)
--- NOTE | 2018-04-14 06:39 | NUR ---
REC'D PT ON CARESCAPE VENT SETTINGS AC16 VT 500 PEEP 5 FIO2 28% ALARMS ON AND AUDIBLE AND AMBU BAG IS AT SIDE OF VENT AND VENT IS PLUGGED INTO RED OUTLET, I\L TX GIVEN WITH DUONEB 3ML WITH NO ADVERSE REACTION POST TX, B\S ARE COARSE BILATERALLY, SXN PT SMALL AMT OF THIN WHITE SECRETIONS PT IS TRACH WITH PORTEX 7 AND SKIN INTEGRITY IS INTACT
[2018-04-14] MEDS: BLOOD GLUCOSE MONITORING 1 DEV DEV FS SCH ×4 (06:42→20:23)
[2018-04-14] MEDS: METOCLOPRAMIDE 10 MG/10 ML SYRP UDC GT SCH ×3 (06:43→16:40)
--- NOTE | 2018-04-14 07:30 | NUR ---
REPORT GIVEN TO DAY SHIFT FOR CONTINUITY OF CARE
--- NOTE | 2018-04-14 07:40 | NUR ---
DR SHELLI ORELLANA. MADE AWARE OF PATIENT'S K LEVEL OF 5.3. WILL FOLLOW UP WITH ORDERS.
--- NOTE | 2018-04-14 07:40 | NUR ---
BEDSIDE REPORT RECEIVED FROM BRIAN RN FOR CONTINUITY OF CARE. WILL MONITOR PATIENT. Addendum: 04/14/18 at 1854 by Jill Gli RN PATIENT IS AWAKE, ABLE TO TRACK MOVEMENT. TRACH TO VENT FIO2 28%, AC MODE 16, TV500. CONDOM CATHETER IN PLACE TO CLEAR YELLOW URINE IN MODERATE AMOUNT. LEFT UPPER ARM PICC LINE PATENT AND INTACT TO NS AT 30 ML/H, INFUSING WELL. RUQ G TUBE TO NEPRO AT 40 ML/H, TOLERATING WELL. SKIN WARM TO TOUCH WNL,TOENAILS ARE DISCOLORED, NO EDEMA, NO HAIR GROWTH AND +1 BILATERAL PEDAL PULSES. CALL LIGHT WITHIN REACH, BED AT LOWEST POSSIBLE POSITION. WILL CONTINUE TO MONITOR PATIENT.
[2018-04-14] MEDS: THERAHONEY WOUND DRESSING TP SCH (09:00)
[2018-04-14] MEDS: SODIUM PHOS / POTASSIUM PHOS 1 PKT PDR PO SCH ×2 (10:00→20:18)
[2018-04-14] MEDS: CYANOCOBALAMIN 100 MCG TAB GT SCH (10:00)
[2018-04-14] MEDS: FERROUS SULFATE 300 MG/5 ML UDC GT SCH (10:01)
[2018-04-14] MEDS: VITAMIN D 400 IU TAB GT SCH (10:01)
[2018-04-14] MEDS: CARVEDILOL 6.25 MG TAB GT SCH ×2 (10:01→20:19)
[2018-04-14] MEDS: NACL 0.9% IVP SCH ×2 (10:02→20:18)
[2018-04-14] MEDS: PANTOPRAZOLE 40 MG INJ VIAL IVP SCH (10:02)
[2018-04-14] MEDS: PHENYTOIN IVP SCH ×2 (10:02→20:18)
[2018-04-14] MEDS: prednisoLONE 1% OP 5 ML BTL RIGHT EYE SCH ×3 (10:03→16:38)
[2018-04-14] MEDS: POLYVINYL ALCOHOL 1.4% OP 15 ML SOL OP SCH ×3 (10:03→16:38)
[2018-04-14] MEDS: MAGNESIUM HYDROXIDE 2400 MG/30 ML UDC GT SCH (10:04)
[2018-04-14] MEDS: ASCORBIC ACID 500 MG/5 ML ORASYR GT SCH (10:04)
[2018-04-14] MEDS: POLYETHYLENE GLYCOL 17 GM/PKT GT SCH (10:04)
[2018-04-14] MEDS: MULTIVITAMIN/MINERALS 1 TAB GT SCH (10:04)
[2018-04-14] MEDS: levETIRAcetam 100 MG/ML ORASYR GT SCH ×2 (10:04→20:19)
--- NOTE | 2018-04-14 10:15 | NUR ---
DR ARMEN ORELLANA. WILL FOLLOW UP WITH ORDERS
[2018-04-14] MEDS: NACL 0.9% IRR 250 ML BOTTLE IR SCH (11:56)
[2018-04-14] MEDS: COMMUNICATION ORDER MC SCH (12:02)
[2018-04-14] MEDS: [UNRECOGNIZED DRUG - SUPPLY] TP SCH (12:04)
[2018-04-14] MEDS: Z-GUARD PASTE TP SCH (12:05)
[2018-04-14] MEDS: SKINTEGRITY HYDROGEL TP SCH (12:05)
[2018-04-14 12:47] LABS: PHENYTOIN (DILANTIN) 16.8 ug/ml (10.0-20.0)
--- NOTE | 2018-04-14 13:43 | NUR ---
CM NOTE FAXED DC PLANNING ORDER TO TRANSFER BACK TO [facility] FOR 04/15/18 AND CLINICAL PACKET TO [facility]. [facility] OF [facility] AWARE PH# [phone].
[2018-04-14] MEDS: MEROPENEM 1,000 MG in NACL 0.9% 100 ML IV SCH ×2 (14:04→20:18)
[2018-04-14] MEDS ORDERED: SODIUM POLYSTYRENE 15 GM/60 ML UDBTL GT SCH (15:00)
[2018-04-14] MEDS: POTASSIUM CHLORIDE 20% 40 MEQ/15 ML UDC GT SCH (16:47)
--- NOTE | 2018-04-14 16:47 | NUR ---
POTASSIUM CHLORIDE DUE AT 1730 WITH HELD AT THIS TIME. K 5.3. DR TOUSSAINT AWARE.
--- NOTE | 2018-04-14 19:30 | NUR ---
RECEIVED REPORT FROM MORNING RN,RADHIKA, FOR CONTINUITY OF CARE. VS STABLE AT THIS TIME. PERRL. PT UNABLE TO FOLLOW COMMANDS. WITHDRAWS TO PAIN. PERRL. TRACH TO VENT WITH SETTINGS: FIO2 28%, TV 500, RATE 16 AND PEEP 5. RESPIRATIONS ARE EVEN AND UNLABORED. LUNG SOUNDS DIMINISHED. S1+S2 HEARD. SR WITH 1ST DEGREE AV BLOCK AND BBB ON MONITOR. PT HAS GTUBE IN PLACE. NO RESIDUAL NOTED. RECEIVED PT ON NEPHRO AT 40ML/HR WITH WATER FLUSH OF 150ML Q4H. WITH HAS OLD GTUBE SITE COVERED WITH GAUZE. DRESSING CLEAN, DRY AND INTACT. COLOSTOMY IN PLACE AND HAS MODERATE OUTPUT AT THIS TIME. OUTPUT WAS LIQUID AND BROWN IN COLOR. PT HAS URINARY OUTPUT. PT HAS RADHA PICC LINE IN PLACE. LINE IS PATENT, INTACT AND ASYMPTOMATIC. DRESSING CLEAN, DRY AND INTACT. NOT DUE TO BE CHANGED. RECEIVED PT ON NS AT 30ML/HR. PT IS IN A SPECIALIZED MATTRESS. DRESSING ON SACRAL PRESSURE ULCER AND RIGHT HAND DRESSING ARE CLEAN, DRY AND INTACT WELL. SKIN IS DRY AND WARM TO TOUCH. BED AT LOW POSITION. HOB AT 30 DEGREES. ALL SAFETY PRECAUTIONS ARE IN PLACE. WILL CONTINUE TO MONITOR PT.
[2018-04-14] MEDS: ATORVASTATIN 20 MG TAB GT SCH (20:19)
[2018-04-14] MEDS: INSULIN LANTUS 100 UNITS/ML 10 ML VIAL SUBQ SCH (20:23)
--- NOTE | 2018-04-14 21:46 | NUR ---
DR. RUIZ CAME IN TO SEE PT. NO NEW ORDERS RECEIVED
--- NOTE | 2018-04-14 23:20 | NUR ---
VS STABLE AT THIS TIME. NO CHANGE IN PT'S CONDITION. RESPIRATIONS ARE EVEN AND UNLABORED. PT HAS ADEQUATE URINARY OUTPUT.
[2018-04-15] VITALS (12 sets, daily range): BP systolic 103–140; BP diastolic 60–105
[2018-04-15] MEDS: HYDRAGUARD CREAM TP SCH ×2 (01:28→13:59)
--- NOTE | 2018-04-15 02:50 | NUR ---
NO CHANGE IN PT'S CONDITION. VS ARE STABLE. NO CHANGE IN CONDITION. ALL SAFETY PRECAUTIONS ARE IN PLACE. FLACC 0. RESPIRATIONS ARE EVEN AND UNLABORED. NO SOB NOTED.
--- NOTE | 2018-04-15 04:40 | NUR ---
PM CARE PROVIDED TO PT. TURNED AND REPOSITIONED. PT TOLERATED WELL. PT STILL HAS ADEQUATE URINE OUTPUT AT THIS TIME. SR ON MONITOR. RESPIRATIONS ARE EVEN AND UNLABORED.
[2018-04-15] MEDS: MEROPENEM 1,000 MG in NACL 0.9% 100 ML IV SCH ×2 (05:07→13:59)
[2018-04-15] MEDS: NACL 0.9% 1,000 ML IV SCH (05:18)
[2018-04-15 05:43] LABS: BASOPHILS # (AUTO) 0.1 K/uL (0.00-0.22); BASOPHILS % (AUTO) 0.6 % (0.0-2.0); EOSINOPHILS # (AUTO) 0.3 K/uL (0-0.4); EOSINOPHILS % (AUTO) 2.9 % (0.0-4.0); HEMATOCRIT 26.9 % (36-52); HEMOGLOBIN 8.8 g/dL (12.0-18.0); LYMPHOCYTES # (AUTO) 2.2 K/uL (2.0-11.5); LYMPHOCYTES % (AUTO) 25.1 % (20.5-51.1); MEAN CORPUSCULAR HEMOGLOBIN 27 pg (27-31); MEAN CORPUSCULAR HGB CONC 33 g/dL (33-37); MEAN CORPUSCULAR VOLUME 83.3 fL (80-94); MONOCYTES # (AUTO) 0.9 K/uL (0.8-1.0); MONOCYTES % (AUTO) 10.2 % (1.7-9.3); NEUTROPHILS # (AUTO) 5.3 K/uL (1.8-7.7); NEUTROPHILS % (AUTO) 61.2 % (42.2-75.2); PLATELET COUNT (AUTO) 428 K/uL (140-450); RED BLOOD CELL COUNT(AUTO) 3.24 MIL/uL (4.20-6.10); RED CELL DISTRIBUTION WIDTH 16.5 % (11.6-13.7); WHITE BLOOD COUNT (AUTO) 8.7 K/uL (4.8-10.8)
[2018-04-15 06:10] LABS: ANION GAP 9.2 (8-16); CARBON DIOXIDE 26.2 mmol/L (21-32); CREATININE 1.4 mg/dL (0.7-1.3); POTASSIUM 4.4 mmol/L (3.5-5.1)
[2018-04-15 06:15] LABS: MAGNESIUM 1.7 mg/dL (1.8-2.4); PHOSPHORUS 4.1 mg/dL (2.5-4.9)
[2018-04-15] MEDS: METOCLOPRAMIDE 10 MG/10 ML SYRP UDC GT SCH ×2 (06:37→11:41)
[2018-04-15] MEDS: DILTIAZEM 30 MG TAB GT SCH ×2 (06:38→11:41)
[2018-04-15] MEDS: BLOOD GLUCOSE MONITORING 1 DEV DEV FS SCH ×2 (06:38→11:38)
[2018-04-15] MEDS ORDERED: HUMSLIDE SUBQ (06:44)
[2018-04-15] MEDS ORDERED: MERO1PDS2 IV (06:44)
[2018-04-15] MEDS ORDERED: FAMO-90 PO (06:44)
[2018-04-15] MEDS ORDERED: HEPA500056 SUBQ (06:44)
[2018-04-15] MEDS ORDERED: CARV6.252 GT (06:44)
[2018-04-15] MEDS ORDERED: CAR30 GT (06:44)
[2018-04-15] MEDS ORDERED: Vancomycin Per Pharmacy MC (06:44)
[2018-04-15] MEDS: ALBUTEROL SULFATE/IPRATROPIU 3 ML SOL IH SCH ×2 (06:51→13:08)
--- NOTE | 2018-04-15 07:12 | NUR ---
REPORT GIVEN TO MORNING RN, LUIS FERNANDO, FOR CONTINUITY OF CARE. PT IN STABLE CONDITION AT THIS TIME
--- NOTE | 2018-04-15 07:15 | NUR ---
recived pt on vent with settings as charted breath sounds present bilat coarse sxn pt with clear white secs trach site secure ambu bag at bedside vent plugged into red out let will continue to monitor pt on vent
--- NOTE | 2018-04-15 07:17 | NUR ---
RECEIVED BEDSIDE REPORT FROM S[employer] WORKFLOW CONSULTANT RNKRUNAL, FOR CONTINUITY OF CARE. PATIENT IS AWAKE, UNABLE TO FOLLOW COMMANDS OR MAKE NEEDS KNOWN. SKIN IS NOT INTACT, HE HAS OPEN WOUND TO ABDOMEN AND SACROCOCCYX PRESSURE INJURY. HE HAS A PICC LINE TO RADHA. PATIENT IS TRACH TO VENT, SETTINGS ARE AC RATE 16, FIO2 28%, TV 500, PEEP 5. SR ON MONITOR, FLACC 0. PATIENT HAS GTUBE IN PLACE TO TUBE FEEDING. HE HAS A COLOSTOMY BAG TO [facility]. CONDOM CATHETER IN PLACE TO CLEAR YELLOW URINE. SEIZURE PRECAUTIONS ASSESS AND ENFORCED. SAFETY PRECAUTIONS AND ALARMS ASSESSED AND ENFORCED. NO SIGNS OF DISTRESS NOTED. WILL CONTINUE TO MONITOR
--- NOTE | 2018-04-15 07:32 | NUR ---
DR. MARQUES IN TO SEE PATIENT, UPDATED ON PATIENT'S CONDITION.
--- NOTE | 2018-04-15 08:15 | NUR ---
DR. COLBERT IN TO SEE PATIENT, WILL FOLLOW UP ON ANY ORDERS.
[2018-04-15] MEDS: PANTOPRAZOLE 40 MG INJ VIAL IVP SCH (08:53)
[2018-04-15] MEDS: CYANOCOBALAMIN 100 MCG TAB GT SCH (08:53)
[2018-04-15] MEDS: FERROUS SULFATE 300 MG/5 ML UDC GT SCH (08:54)
[2018-04-15] MEDS: levETIRAcetam 100 MG/ML ORASYR GT SCH (08:54)
[2018-04-15] MEDS: MULTIVITAMIN/MINERALS 1 TAB GT SCH (08:54)
[2018-04-15] MEDS: ASCORBIC ACID 500 MG/5 ML ORASYR GT SCH (08:54)
[2018-04-15] MEDS: CARVEDILOL 6.25 MG TAB GT SCH (08:55)
[2018-04-15] MEDS: SODIUM PHOS / POTASSIUM PHOS 1 PKT PDR PO SCH (08:55)
[2018-04-15] MEDS: VITAMIN D 400 IU TAB GT SCH (08:55)
[2018-04-15] MEDS: prednisoLONE 1% OP 5 ML BTL RIGHT EYE SCH ×2 (08:59→13:59)
[2018-04-15] MEDS: THERAHONEY WOUND DRESSING TP SCH (08:59)
[2018-04-15] MEDS: POLYVINYL ALCOHOL 1.4% OP 15 ML SOL OP SCH ×2 (08:59→13:59)
[2018-04-15] MEDS: MAGNESIUM HYDROXIDE 2400 MG/30 ML UDC GT SCH (08:59)
[2018-04-15] MEDS: POLYETHYLENE GLYCOL 17 GM/PKT GT SCH (09:00)
[2018-04-15] MEDS ORDERED: MAG SULF 2000 MG/WATER PREMIX 50 ML IV SCH (09:30)
[2018-04-15] MEDS: NACL 0.9% IVP SCH (09:41)
[2018-04-15] MEDS: PHENYTOIN IVP SCH (09:41)
--- NOTE | 2018-04-15 10:01 | NUR ---
CM NOTE FAXED UPDATED ORDER FOR SNF TO [facility]. PER [facility] OF [facility] # [phone], PATIENT CAN GO TO [address] MARQUES AFTER 3:30 PM TODAY. SHAYY PRABHAKAR AWARE AND SHE SAID THAT SHE WILL ARRANGE TRANSPORTATION WITH [facility].
[2018-04-15] MEDS: VANCOMYCIN 750 MG in DEXTROSE 5% 250 ML IV SCH (11:41)
[2018-04-15] MEDS: Z-GUARD PASTE TP SCH (13:00)
[2018-04-15] MEDS: SKINTEGRITY HYDROGEL TP SCH (13:00)
--- NOTE | 2018-04-15 13:30 | NUR ---
CALLED PATIENT'S , UPDATED HER ON PATIENT'S CONDITION, SHE AGREES WITH TRANSFER TO [facility].
[2018-04-15] MEDS: NACL 0.9% IRR 250 ML BOTTLE IR SCH (13:59)
[2018-04-15] MEDS: COMMUNICATION ORDER MC SCH (13:59)
[2018-04-15] MEDS: [UNRECOGNIZED DRUG - SUPPLY] TP SCH (14:00)
--- NOTE | 2018-04-15 14:00 | NUR ---
SPOKE WITH RN AT [facility], AWARE THAT PATIENT WILL BE TRANSFERRING AND POUNDMASTER IS AT 1535.
--- NOTE | 2018-04-15 15:40 | NUR ---
[facility] IS HERE FOR TRANSFER, NO SIGNS OF DISTRESS NOTED. PROVIDED WITH DISCHARGE PAPERWORK.
== END 2018-04-15 15:40 | DRG 870 ==
LOC: MED 19:18 → MIC 20:38 → MTU 04-09 06:00 → MIC 04-11 15:49
PROVIDERS: ADMIT Family Medicine; ATTEND Family Medicine
PROC: 5A1955Z Respiratory Ventilation, Greater than 96 Consecutive Hours (ICD-10-PCS; principal; 2018-04-03)
DX: A41.9 Sepsis, unspecified organism (principal); L89.154 Pressure ulcer of sacral region, stage 4; N17.0 Acute kidney failure with tubular necrosis; J96.20 Acute and chronic respiratory failure, unspecified whether with hypoxia or hypercapnia; E43 Unspecified severe protein-calorie malnutrition; R53.2 Functional quadriplegia; J69.0 Pneumonitis due to inhalation of food and vomit; N39.0 Urinary tract infection, site not specified; Z99.11 Dependence on respirator [ventilator] status; J98.11 Atelectasis; G93.49 Other encephalopathy; T81.31XA Disruption of external operation (surgical) wound, not elsewhere classified, initial encounter; I48.92 Unspecified atrial flutter; K94.22 Gastrostomy infection; K94.12 Enterostomy infection; I47.1 Supraventricular tachycardia; L02.211 Cutaneous abscess of abdominal wall; Z68.27 Body mass index [BMI] 27.0-27.9, adult; G40.909 Epilepsy, unspecified, not intractable, without status epilepticus; N18.3 Chronic kidney disease, stage 3 (moderate); E11.22 Type 2 diabetes mellitus with diabetic chronic kidney disease; D64.9 Anemia, unspecified; E78.5 Hyperlipidemia, unspecified; E87.6 Hypokalemia; E83.42 Hypomagnesemia; E78.00 Pure hypercholesterolemia, unspecified; Y83.8 Other surgical procedures as the cause of abnormal reaction of the patient, or of later complication, without mention of misadventure at the time of the procedure; J44.9 Chronic obstructive pulmonary disease, unspecified; E83.39 Other disorders of phosphorus metabolism; E87.8 Other disorders of electrolyte and fluid balance, not elsewhere classified; I69.398 Other sequelae of cerebral infarction; B96.4 Proteus (mirabilis) (morganii) as the cause of diseases classified elsewhere; I13.10 Hypertensive heart and chronic kidney disease without heart failure, with stage 1 through stage 4 chronic kidney disease, or unspecified chronic kidney disease; J40 Bronchitis, not specified as acute or chronic; Y95 Nosocomial condition; Z79.4 Long term (current) use of insulin; Z74.01 Bed confinement status; Z79.899 Other long term (current) drug therapy; Y92.89 Other specified places as the place of occurrence of the external cause; Z87.820 Personal history of traumatic brain injury
CPT/HCPCS: 36415; 71045; 71250; 74250; 76604; 80048; 80053; 80185; 80202; 81001; 82948; 83540; 83605; 83735; 84100; 84484; 85025; 85610; 85730; 87070; 87075; 87081; 87086; 87186; 87205; 93005; 94002; 94003; 94640; 96365; 99285; A6248; C9113; J0282; J0360; J0696; J1165; J1642; J1644; J1815; J1953; J2001; J2060; J2185; J3370; J3475; J3480; J3490; J7030; J7060; J7620; J8597; Q0092